=== PATIENT | female | born 1955 | race Caucasian/White ===

== ENCOUNTER → 2018-01-01 | Outpatient (CLI) | payer BC | END | disposition home or self-care (01) | LOC: LABWHC1 12:33 | PROVIDERS: ATTEND Nurse Practitioner Acute Care | DX: G89.4 Chronic pain syndrome (principal); Z79.891 Long term (current) use of opiate analgesic | CPT/HCPCS: 80307; 80346; 80364; 80375 ==

== ENCOUNTER → 2018-01-31 | Outpatient (CLI) | payer BC, MEDICARE | END | disposition home or self-care (01) | LOC: LABWHC1 13:25 | PROVIDERS: ATTEND Nurse Practitioner Acute Care | DX: G89.4 Chronic pain syndrome (principal); Z79.891 Long term (current) use of opiate analgesic | CPT/HCPCS: 80307; 80324; 80345; 80346; 80356; 80364; 80372 ==

== ENCOUNTER 2018-03-25 16:29 | Emergency (ER) | payer BC, MEDICARE ==
[2018-03-25 16:44] VITALS: BP 181/76; PULSE 79; RESP 20; TEMP 98.2
[2018-03-25] MEDS ORDERED: oxyCODONE-APAP 7.5-325MG 1 EACH TAB PO STA (17:06)
[2018-03-25] MEDS ORDERED: PREGABALIN 100 MG CAP PO STA (17:06)
--- NOTE | 2018-03-25 17:15 | ED ---
Back Pain HPI - General Chief Complaint: Back Pain/Injury Stated Complaint: chronic back pain Time Seen by Provider: 03/25/18 17:05 Source: patient, RN notes reviewed Limitations: no limitations - History of Present Illness Initial Comments: This is a 62-year-old female past medical history of chronic low back pain and fibromyalgia who follows Dr. Zelaya for pain management. Patient states that for the past 2 months her low back pain has been worsening, but she has been following this with Dr. Zelaya who is currently prescribing her Percocet and MS Contin along with Lyrica for her fibromyalgia and chronic low back pain. Patient states that she has a referral for MRI, and needs to schedule the appointment. Pt is running low on her pain medications and is out of her lyrica and presented today requesting medication until refill next Saturday. Pt denies any loss of bladder or bowel control, fever, chills, night sweats, hx of cancer , hx of TB, recent weight loss, IVDU, recent fall or trauma, change in characteristic of chronic back pain, loss of sensation of her lower extremities , dysuria, urgency, frequency, chest pain, dizziness, shortness of breath or abdominal pain. Pt states that she has tingling of the legs b/l but this is her baseline from her fibromyalgia. Pt states that she took her percocet and MS cotton at 4am this morning. - Related Data Previous Rx's Medication Instructions Recorded Diclofenac Sodium [Voltaren] 50 mg PO TID 3 Days #9 tablet. 03/25/18 Allergies Allergy/AdvReac Type Severity Reaction Status Date / Time No Known Allergies Allergy Verified 03/25/18 16:51 Review of Systems ROS Statement: Those systems with pertinent positive or pertinent negative responses have been documented in the HPI. ROS Other: All systems not noted in ROS Statement are negative. Constitutional: Denies: fever, chills, weakness, weight change, night sweats ENT: Denies: ear pain, throat pain Respiratory: Denies: cough, dyspnea, wheezes, hemoptysis, stridor Cardiovascular: Denies: chest pain, palpitations, dyspnea on exertion, orthopnea , edema Endocrine: Denies: fatigue Gastrointestinal: Denies: abdominal pain, nausea, vomiting, diarrhea, constipation Genitourinary: Denies: urgency, dysuria, frequency, hematuria Musculoskeletal: Reports: as per HPI, back pain, myalgia Skin: Denies: rash, lesions Neurological: Reports: paresthesias. Denies: headache, weakness, numbness, confusion, abnormal gait Past Medical History Past Medical History: Fibromyalgia Additional Past Medical History / Comment(s): chronic back pain, Back Injury 9 years ago History of Any Multi-Drug Resistant Organisms: None Reported Past Surgical History: No Surgical Hx Reported Past Psychological History: Anxiety, Depression Smoking Status: Current every day smoker Past Alcohol Use History: None Reported Past Drug Use History: None Reported General Exam - General Exam Comments Initial Comments: General: The patient is awake and alert, in no distress, and does not appear acutely ill. Eye: Pupils are equal, round and reactive to light, extra-ocular movements are intact. No nystagmus. There is normal conjunctiva bilaterally. No signs of icterus. Ears, nose, mouth and throat: There are moist mucous membranes and no oral lesions. Neck: The neck is supple, there is no tenderness or JVD. Cardiovascular: There is a regular rate and rhythm. No murmur, rub or gallop is appreciated. Respiratory: Lungs are clear to auscultation, respirations are non-labored, breath sounds are equal. No wheezes, stridor, rales, or rhonchi. Musculoskeletal: Pt refused to fully range back during exam, however she flexed forward to get into the hospital bed and then extended to lay down without difficulty. Pt able to fully weight bear during the ambulation. Strength 5/5 of the LE b/l. Sensation intact b/l equally. Pulses equal bilaterally 2+. Positive straight leg raise bilaterally. No saddle paresthesias or anesthesia. Neurological: A&O x 3. CN II-XII intact, There are no obvious motor or sensory deficits. Coordination appears grossly intact. Speech is normal. Skin: Skin is warm and dry and no rashes or lesions are noted. Psychiatric: Cooperative, appropriate mood & affect, normal judgment. Limitations: no limitations Course Vital Signs 03/25/18 16:40 Temperature 98.2 F Pulse Rate 79 Respiratory 20 Rate Blood Pressure 181/76 O2 Sat by Pulse 95 Oximetry Medical Decision Making - Medical Decision Making 62-year-old female with past medical history of chronic low back pain presents today for chief complaint of I have severe low back pain and I am out of my meds. Patient refused imaging her back, stating that she could not tolerate it and does not think that there will be a change from previous imaging. She states that she will attend her MRI that she has scheduled. She is requesting pain medication at this time. I discussed the case in detail with Dr. Vargas. We administers patient's home medication of Percocet and Lyrica. Patient was requesting her osteoarthritis medication stating that she has been out of it. At this time we feel that patient's low back pain is chronic in nature, there is no history of new trauma or fall. Patient follows neurology consistently for pain management and evaluation. Today patient has no evidence of neurovascular compromise or cauda equina syndrome. Given no change in characteristic, I have low suspicion for cardiac, renal or abdominal cause of her low back pain. I discussed with patient that because she has prescriptions for opioids at home that I will not be sending her home with further pain medication and that she will need to follow-up with Dr. Zelaya for further pain management. Patient agreed with this plan, as stated that she just wanted something for pain today. I did give patient prescription for her osteoarthritis medication, and I educated her on the importance of not using alcohol with this medication. Patient was discharged in stable condition. Disposition Clinical Impression: Chronic low back pain, Medication requested Disposition: HOME SELF-CARE Condition: Good Instructions: Chronic Back Pain (ED) Additional Instructions: Please use medication as discussed, no alcohol use with Diclofenac. Please follow-up with Dr. Zelaya in 1-2 days. Please return to emergency room if the symptoms increase or worsen or for any other concerns as discussed. Prescriptions: Diclofenac Sodium [Voltaren] 50 mg PO TID 3 Days #9 tablet.dr Is patient prescribed a controlled substance at d/c from ED?: No Referrals: None,Stated [Primary Care Provider] - 1-2 days Maryam Zelaya MD [STAFF PHYSICIAN] - 1-2 days Time of Disposition: 17:15
== END 2018-03-25 18:17 | disposition home or self-care (01) ==
LOC: EC 16:29
DX: G89.29 Other chronic pain (principal); M54.5 Low back pain; Z76.0 Encounter for issue of repeat prescription; M79.7 Fibromyalgia; F17.200 Nicotine dependence, unspecified, uncomplicated
CPT/HCPCS: 99283

== ENCOUNTER → 2019-04-06 | Outpatient (CLI) | payer MEDICARE, BC | END | disposition home or self-care (01) | LOC: LABWHC1 12:07 | PROVIDERS: ATTEND Nurse Practitioner Acute Care | DX: I49.9 Cardiac arrhythmia, unspecified (principal) | CPT/HCPCS: 36415; 93005 ==

== ENCOUNTER 2019-08-26 10:56 | Inpatient (IN) | payer MEDICARE, BC ==
[2019-08-26] MEDS ORDERED: SODIUM CHLORIDE 0.9% 1,000 ML IV STA ×3 (11:08→13:52)
[2019-08-26] MEDS ORDERED: SODIUM CHLORIDE 0.9% 500 ML 500 ML IV STA (11:08)
[2019-08-26] MEDS ORDERED: ONDANSETRON 4 MG/2 ML VIAL IVP STA (11:08)
--- NOTE | 2019-08-26 11:12 | ED ---
Altered Mental Status HPI - General Chief Complaint: Altered Mental Status Stated Complaint: weakness, dehydration Time Seen by Provider: 08/26/19 11:08 Source: patient, family Mode of arrival: wheelchair Limitations: no limitations - History of Present Illness Initial Comments: This is a 64-year-old female here for evaluation. This patient presents today for evaluation of weakness diarrhea nausea vomiting and not feeling well. Maybe occasional fever and chills. No recent medication changes. No known significant sick contacts MD Complaint: altered mental status, confusion, weakness -: week(s) Severity: moderate Consistency of Symptoms: getting worse Context: history of similar presentation Associated Symptoms: malaise, nausea/vomiting, weakness, diarrhea - Related Data Previous Rx's Medication Instructions Recorded Diclofenac Sodium [Voltaren] 50 mg PO TID 3 Days #9 tablet. 03/25/18 Allergies Allergy/AdvReac Type Severity Reaction Status Date / Time No Known Allergies Allergy Verified 08/26/19 11:03 Review of Systems ROS Statement: Those systems with pertinent positive or pertinent negative responses have been documented in the HPI. ROS Other: All systems not noted in ROS Statement are negative. Past Medical History Past Medical History: Fibromyalgia Additional Past Medical History / Comment(s): chronic back pain, Back Injury 9 years ago History of Any Multi-Drug Resistant Organisms: None Reported Past Surgical History: No Surgical Hx Reported Past Psychological History: Anxiety, Depression Smoking Status: Current every day smoker Past Alcohol Use History: None Reported Past Drug Use History: None Reported General Exam Limitations: no limitations Course Vital Signs 08/26/19 08/26/19 08/26/19 10:58 11:17 11:30 Temperature 98.0 F Pulse Rate 67 66 Respiratory 18 23 18 Rate Blood Pressure 130/78 132/70 O2 Sat by Pulse 98 89 L Oximetry 08/26/19 08/26/19 08/26/19 12:00 12:30 13:00 Temperature Pulse Rate 59 L 70 60 Respiratory 16 16 20 Rate Blood Pressure 146/74 134/71 147/73 O2 Sat by Pulse 95 93 L 98 Oximetry 08/26/19 08/26/19 13:30 13:35 Temperature Pulse Rate 59 L 59 L Respiratory 18 20 Rate Blood Pressure 149/69 147/69 O2 Sat by Pulse 100 Oximetry - Reevaluation(s) Reevaluation #1: 08/26/19 14:46 Medical records reviewed Reevaluation #2: 08/26/19 14:47 Patient showed no clinical improvement here in the ER - Consultations Consultation #1: spoke w Faby doctor concrete rubber Sharan she was agreeable to admit Medical Decision Making - Medical Decision Making 64 female DF for significant evaluation of altered mental status fever urinary tract infection, with bilateral pneumonia. Patient has had persistent diarrhea gastritis. We'll admit for rehydration and IV antibiotics - Lab Data Result diagrams: 08/26/19 11:38 08/26/19 11:38 Lab Results 08/26/19 08/26/19 08/26/19 Range/Units 11:38 11:38 11:38 WBC 5.6 (3.8-10.6) k/uL RBC 4.26 (3.80-5.40) m/uL Hgb 12.4 (11.4-16.0) gm/dL Hct 35.5 (34.0-46.0) % MCV 83.3 (80.0-100.0) fL MCH 29.2 (25.0-35.0) pg MCHC 35.0 (31.0-37.0) g/dL RDW 13.8 (11.5-15.5) % Plt Count 191 (150-450) k/uL Neutrophils % (Manual) 69 % Lymphocytes % (Manual) 17 % Monocytes % (Manual) 14 % Neutrophils # (Manual) 3.86 (1.3-7.7) k/uL Lymphocytes # (Manual) 0.95 L (1.0-4.8) k/uL Monocytes # (Manual) 0.78 (0-1.0) k/uL Nucleated RBCs 0 (0-0) /100 WBC Manual Slide Review Performed PT (9.0-12.0) sec INR (<1.2) APTT (22.0-30.0) sec Sodium 145 (137-145) mmol/L Potassium 2.9 L (3.5-5.1) mmol/L Chloride 111 H (98-107) mmol/L Carbon Dioxide 25 (22-30) mmol/L Anion Gap 9 mmol/L BUN 20 H (7-17) mg/dL Creatinine 0.50 L (0.52-1.04) mg/dL Est GFR (CKD-EPI)AfAm >90 (>60 ml/min/1.73 sqM) Est GFR (CKD-EPI)NonAf >90 (>60 ml/min/1.73 sqM) Glucose 155 H (74-99) mg/dL Plasma Lactic Acid Alex 1.5 (0.7-2.0) mmol/L Calcium 9.1 (8.4-10.2) mg/dL Phosphorus 1.3 L (2.5-4.5) mg/dL Magnesium 2.3 (1.6-2.3) mg/dL Total Bilirubin 1.4 H (0.2-1.3) mg/dL AST 226 H (14-36) U/L ALT 86 H (4-34) U/L Alkaline Phosphatase 148 H (38-126) U/L Creatine Kinase 1441 H* (30-135) U/L Troponin I (0.000-0.034) ng/mL Total Protein 6.6 (6.3-8.2) g/dL Albumin 3.9 (3.5-5.0) g/dL Urine Color Urine Appearance (Clear) Urine pH (5.0-8.0) Ur Specific [place] (1.001-1.035) Urine Protein (Negative) Urine Glucose (UA) (Negative) Urine Ketones (Negative) Urine Blood (Negative) Urine Nitrite (Negative) Urine Bilirubin (Negative) Urine Urobilinogen (<2.0) mg/dL Ur Leukocyte Esterase (Negative) Urine RBC (0-5) /hpf Urine WBC (0-5) /hpf Ur Squamous Epith Cells (0-4) /hpf Urine Bacteria (None) /hpf Urine Mucus (None) /hpf 08/26/19 08/26/19 08/26/19 Range/Units 11:38 11:38 11:49 WBC (3.8-10.6) k/uL RBC (3.80-5.40) m/uL Hgb (11.4-16.0) gm/dL Hct (34.0-46.0) % MCV (80.0-100.0) fL MCH (25.0-35.0) pg MCHC (31.0-37.0) g/dL RDW (11.5-15.5) % Plt Count (150-450) k/uL Neutrophils % (Manual) % Lymphocytes % (Manual) % Monocytes % (Manual) % Neutrophils # (Manual) (1.3-7.7) k/uL Lymphocytes # (Manual) (1.0-4.8) k/uL Monocytes # (Manual) (0-1.0) k/uL Nucleated RBCs (0-0) /100 WBC Manual Slide Review PT 9.6 (9.0-12.0) sec INR 0.9 (<1.2) APTT 22.4 (22.0-30.0) sec Sodium (137-145) mmol/L Potassium (3.5-5.1) mmol/L Chloride (98-107) mmol/L Carbon Dioxide (22-30) mmol/L Anion Gap mmol/L BUN (7-17) mg/dL Creatinine (0.52-1.04) mg/dL Est GFR (CKD-EPI)AfAm (>60 ml/min/1.73 sqM) Est GFR (CKD-EPI)NonAf (>60 ml/min/1.73 sqM) Glucose (74-99) mg/dL Plasma Lactic Acid Alex (0.7-2.0) mmol/L Calcium (8.4-10.2) mg/dL Phosphorus (2.5-4.5) mg/dL Magnesium (1.6-2.3) mg/dL Total Bilirubin (0.2-1.3) mg/dL AST (14-36) U/L ALT (4-34) U/L Alkaline Phosphatase (38-126) U/L Creatine Kinase (30-135) U/L Troponin I 1.030 H* (0.000-0.034) ng/mL Total Protein (6.3-8.2) g/dL Albumin (3.5-5.0) g/dL Urine Color Dark Yellow Urine Appearance Turbid H (Clear) Urine pH 6.0 (5.0-8.0) Ur Specific [place] 1.026 (1.001-1.035) Urine Protein 2+ H (Negative) Urine Glucose (UA) Negative (Negative) Urine Ketones 1+ H (Negative) Urine Blood Moderate H (Negative) Urine Nitrite Positive H (Negative) Urine Bilirubin 1+ H (Negative) Urine Urobilinogen 2.0 (<2.0) mg/dL Ur Leukocyte Esterase Moderate H (Negative) Urine RBC 6 H (0-5) /hpf Urine WBC 6 H (0-5) /hpf Ur Squamous Epith Cells 3 (0-4) /hpf Urine Bacteria Occasional H (None) /hpf Urine Mucus Many H (None) /hpf - EKG Data -: EKG Interpreted by Me (EKG shows sinus hythmia 67, VA 122, QRS 96, QTC 486) - Radiology Data Radiology results: report reviewed (Chest x-ray shows bilateral pneumonia), image reviewed Critical Care Time Critical Care Time: Yes Total Critical Care Time: 31 Disposition Clinical Impression: Altered mental status, UTI (urinary tract infection), Bilateral pneumonia Disposition: ADMITTED IP TO THIS HOSP Is patient prescribed a controlled substance at d/c from ED?: No Referrals: None,Stated [REFERRING] - 1-2 days
[2019-08-26 11:55] LABS: HCT 35.5 % (34.0-46.0); HGB 12.4 gm/dL (11.4-16.0); MCH 29.2 pg (25.0-35.0); MCV 83.3 fL (80.0-100.0); Mean Platelet Volume 8.3; Platelet Count 191 k/uL (150-450); RBC 4.26 m/uL (3.80-5.40); RDW 13.8 % (11.5-15.5); WBC 5.6 k/uL (3.8-10.6)
[2019-08-26 11:58] LABS: INR 0.9 (<1.2); Partial Thromboplastin Time 22.4 sec (22.0-30.0); Prothrombin Time 9.6 sec (9.0-12.0)
[2019-08-26 12:03] LABS: ALT 86 U/L (4-34); AST 226 U/L (14-36); African American GFR (CKD) >90 (>60 ml/min/1.73 sqM); Albumin 3.9 g/dL (3.5-5.0); Alkaline Phosphatase 148 U/L (38-126); Anion Gap 9 mmol/L; Blood Urea Nitrogen 20 mg/dL (7-17); Calcium 9.1 mg/dL (8.4-10.2); Carbon Dioxide 25 mmol/L (22-30); Chloride 111 mmol/L (98-107); Glucose 155 mg/dL (74-99); Magnesium 2.3 mg/dL (1.6-2.3); Non-African American GFR(CKD) >90 (>60 ml/min/1.73 sqM); Phosphorus 1.3 mg/dL (2.5-4.5); Potassium 2.9 mmol/L (3.5-5.1); Sodium 145 mmol/L (137-145); Total Bilirubin 1.4 mg/dL (0.2-1.3); Total Protein 6.6 g/dL (6.3-8.2)
[2019-08-26 12:11] LABS: Appearance,Urine Turbid (Clear); Bacteria,Urine Occasional /hpf; Bilirubin,Urine 1+ (Negative); Blood,Urine Moderate (Negative); Color,Urine Dark Yellow; Glucose,Urine (UA) Negative (Negative); Ketones,Urine 1+ (Negative); Leukocyte Esterase,Urine Moderate (Negative); Mucus,Urine Many /hpf; Nitrite,Urine Positive (Negative); Protein,Urine 2+ (Negative); RBC,Urine 6 /hpf (0-5); Specific Gravity,Urine 1.026 (1.001-1.035); Squamous Epithelial Cell,Urine 3 /hpf (0-4); WBC,Urine 6 /hpf (0-5)
[2019-08-26 12:13] LABS: Creatine Kinase 1441 U/L (30-135)
[2019-08-26 12:18] LABS: Lymphocytes # (M) 0.95 k/uL (1.0-4.8); Monocytes # (M) 0.78 k/uL (0-1.0); Neutrophils # (M) 3.86 k/uL (1.3-7.7); Neutrophils % (M) 69 %; Nucleated Red Blood Cells 0 /100 WBC (0-0); Total Cells Counted 100
--- NOTE | 2019-08-26 13:39 | CT ---
EXAMINATION TYPE: CT brain wo con DATE OF EXAM: 08/26/2019 COMPARISON: None HISTORY: Confusion CT DLP: 1117.4 mGycm Automated exposure control for dose reduction was used. TECHNIQUE: CT scan of the head is performed without contrast. FINDINGS: There is no acute intracranial hemorrhage or midline shift identified. There is diffuse v entricular and sulcal prominence consistent with diffuse age-related cerebral atrophy. There is low- attenuation in the periventricular white matter consistent with chronic small vessel ischemic change. The globes are intact. There is mild mucosal thickening of the maxillary and sphenoid sinuses. IMPRESSION: No acute intracranial hemorrhage or midline shift. Mild paranasal sinus disease.
[2019-08-26] MEDS ORDERED: POTASSIUM BICARBONATE/CIT AC 20 MEQ TABLET.EFF PO ONE ×2 (13:53→15:20)
--- NOTE | 2019-08-26 14:38 | XR ---
EXAMINATION TYPE: XR abdomen acute w cxr DATE OF EXAM: 08/26/2019 COMPARISON: 07/29/2019 chest x-ray HISTORY: Cough. Weakness. TECHNIQUE: 4 views including chest x-ray and supine and upright abdomen FINDINGS: The chest x-ray shows patchy bilateral pulmonary airspace infiltrates. There is no pleural effusion. There is no sign of intestinal obstruction or pneumoperitoneum. Fecal pattern is normal. There is no evidence of a mass. There are no pathologic calcifications over the kidneys. IMPRESSION: Nonacute abdomen. There is bilateral airspace pneumonia that is new compared to old exam.
[2019-08-26] MEDS ORDERED: LEVOFLOXACIN 750MG-D5W PMX 750 MG in DEXTROSE/WATER 1 150ML.BAG IVPB STA (14:42)
[2019-08-26] MEDS ORDERED: PIPERACILLIN-TAZOBACTAM 3.375 GM in SODIUM CHLORIDE 0.9% 100 ML IVPB STA (14:42)
[2019-08-26] MEDS ORDERED: PNEUMONIA PROTOCOL UTILIZED 1 EACH MISC PO PRN (14:42)
[2019-08-26] MEDS ORDERED: SODIUM CHLORIDE 0.9% 1,000 ML IV SCH ×2 (14:45)
[2019-08-26] MEDS ORDERED: MORPHINE SULFATE ER 15 MG TABLET PO SCH (17:05)
[2019-08-26] MEDS ORDERED: HEPARIN SODIUM,PORCINE 5,000 UNIT/ML 1 ML VIAL IV ONE (17:11)
[2019-08-26] MEDS ORDERED: HEPARIN SODIUM,PORCINE 5,000 UNIT/ML 1 ML VIAL IV PRN (17:11)
[2019-08-26] MEDS ORDERED: HEPARIN SOD,PORK IN 0.45% NACL 25,000 UNIT in 0.45% NACL 1 250ML.BAG IV SCH (17:15)
[2019-08-26] MEDS: MORPHINE SULFATE ER 15 MG TABLET PO SCH (17:19)
[2019-08-26] MEDS: ASPIRIN 81 MG PO SCH (17:26)
[2019-08-26] MEDS: LACTATED RINGERS 1,000 ML IV SCH (17:27)
[2019-08-26 17:28] LABS: HCT 34.9 % (34.0-46.0); HGB 11.6 gm/dL (11.4-16.0); MCH 28.4 pg (25.0-35.0); MCHC 33.1 g/dL (31.0-37.0); MCV 85.7 fL (80.0-100.0); Mean Platelet Volume 8.5; Platelet Count 180 k/uL (150-450); RBC 4.07 m/uL (3.80-5.40); RDW 13.9 % (11.5-15.5); WBC 4.5 k/uL (3.8-10.6)
[2019-08-26] MEDS: IPRATROPIUM-ALBUTEROL 3 ML NEB INHALATION SCH ×2 (17:28→19:26)
[2019-08-26] MEDS ORDERED: MORPHINE SULFATE ER 30 MG TABLET PO SCH (17:30)
[2019-08-26] MEDS ORDERED: METOPROLOL TARTRATE 25 MG TAB PO SCH (18:00)
[2019-08-26 18:17] LABS: Lymphocytes # (M) 1.98 k/uL (1.0-4.8); Monocytes # (M) 0.45 k/uL (0-1.0); Neutrophils # (M) 2.07 k/uL (1.3-7.7); Neutrophils % (M) 46 %; Nucleated Red Blood Cells 0 /100 WBC (0-0); Total Cells Counted 100
[2019-08-26 18:34] LABS: Reactive Lymphocytes Present
[2019-08-26 18:38] LABS: Erythrocyte Sedimentation Rate 48 mm/hr (0-20)
[2019-08-26] MEDS ORDERED: ATORVASTATIN 40 MG TAB PO SCH (21:00)
[2019-08-26] MEDS ORDERED: PREGABALIN 75 MG CAP PO SCH (21:00)
[2019-08-26] MEDS: oxyCODONE-APAP 7.5-325MG 1 EACH TAB PO PRN (23:30)
[2019-08-27] MEDS ORDERED: PIPERACILLIN-TAZOBACTAM 3.375 GM in SODIUM CHLORIDE 0.9% 100 ML IVPB SCH ×2
[2019-08-27] MEDS ORDERED: POTASSIUM CHLORIDE ER 20 MEQ TAB.ER PO STA (00:18)
[2019-08-27] MEDS: POTASSIUM CHLORIDE 10 MEQ in WATER FOR INJECTION 1 100ML.BAG IVPB SCH ×4 (00:36→04:40)
[2019-08-27 05:18] LABS: ABG Base Excess 0.8 mmol/L; ABG HCO3 25 mmol/L (21-25); ABG Oxygen Saturation 92.8 % (94-97); ABG PCO2 35 mmHg (35-45); ABG PH 7.46 (7.35-7.45); ABG PO2 65 mmHg (83-108); ABG TCO2 26 mmol/L (19-24); Allen Test Performed? Yes
--- NOTE | 2019-08-27 05:32 | XR ---
EXAMINATION TYPE: XR chest 1V portable DATE OF EXAM: 08/27/2019 COMPARISON: 07/29/2019 HISTORY: Cough TECHNIQUE: Single view FINDINGS: There is patchy pulmonary edema. Heart appears enlarged. There are chest leads. IMPRESSION: There is new patchy pulmonary edema compared to last exam that could relate to congestive heart failure or RDS.
[2019-08-27] MEDS: LACTATED RINGERS 1,000 ML IV SCH (06:05)
[2019-08-27 06:09] LABS: HCT 30.9 % (34.0-46.0); HGB 10.6 gm/dL (11.4-16.0); MCH 29.4 pg (25.0-35.0); MCHC 34.2 g/dL (31.0-37.0); MCV 85.9 fL (80.0-100.0); Mean Platelet Volume 8.1; Platelet Count 193 k/uL (150-450); RBC 3.59 m/uL (3.80-5.40); RDW 14.1 % (11.5-15.5); WBC 6.3 k/uL (3.8-10.6)
[2019-08-27 06:30] LABS: Neutrophils % (M) 68 %; Nucleated Red Blood Cells 0 /100 WBC (0-0); Reactive Lymphocytes Present; Total Cells Counted 100
[2019-08-27 06:45] LABS: ALT 83 U/L (4-34); AST 122 U/L (14-36); African American GFR (CKD) >90 (>60 ml/min/1.73 sqM); Alkaline Phosphatase 110 U/L (38-126); Anion Gap 6 mmol/L; Blood Urea Nitrogen 19 mg/dL (7-17); Calcium 8.2 mg/dL (8.4-10.2); Carbon Dioxide 25 mmol/L (22-30); Chloride 115 mmol/L (98-107); Creatine Kinase 870 U/L (30-135); Glucose 121 mg/dL (74-99); Magnesium 2.2 mg/dL (1.6-2.3); Non-African American GFR(CKD) >90 (>60 ml/min/1.73 sqM); Phosphorus 1.6 mg/dL (2.5-4.5); Sodium 146 mmol/L (137-145); Total Bilirubin 0.7 mg/dL (0.2-1.3); Total Protein 5.4 g/dL (6.3-8.2)
[2019-08-27] MEDS ORDERED: BUMETANIDE 0.25 MG/ML 4 ML VIAL IVP STA (06:59)
--- NOTE | 2019-08-27 07:07 | P.HPIM ---
History of Present Illness Chief Complaint: Generalized weakness This is a 64-year-old female who has history of fibromyalgia and smoking presenting with generalized weakness and malaise. She is accompanied by her who helped with history. During interview patient seemed quite uncomfortable, anxious and jittery , unable to find comfortable position constantly moving in the bed. She denied any pain in her muscles or joints or back. She is oriented to time and place recognizes her although her some of her answers are low but slower. When I ask if she feels uncomfortable for any reason she stated that she does not have any particular reason. History begins 3 weeks ago when patient developed URI like symptoms and was d iagnosed with acute bronchitis. She was treated with steroids, amoxicillin and bronchodilators on outpatient basis. She was also prescribed anti-tusics, per her Robitussin with codeine. Patient has a history of smoking one pack a day since 5 years ago. She also has history of fibromyalgia and she's been taking MS Contin around the clock, Percocet when necessary and Lyrica for more than a year now. Initially of above-mentioned acute respiratory illness improved although she persisted with nonproductive cough. About a week prior to this admission her cough worsened and became minimally productive of yellow sputum and she started having again malaise, chills and subjective fever. Over this last week and her noticed temperature of 100. She did not have any shortness of breath or subjective feeling of wheezing. She started feeling very weak and tired. Her appetite declined and she stop her MS Contin, Percocet and Lyrica about a week ago. 3 days prior to admission she started having loose bowel movements that worsen and on day of admission she was having multiple watery bowel movements without any blood mucus abdominal pain or tenesmus. She also started feeling anxious and uncomfortable restless jittery with some changes in mentation. Per she was not lethargic or sleepy, just didn't look right per him. Patient otherwise denied any recent traveling, hospitalization, water exposure, headache, photophobia, neck pain, sick contacts, abdominal pain, back pain, hematuria, muscle or joint aches. Patient did not have a flu vaccination this year. In emergency department blood work was notable for normal white cell count, potassium of 2.9 with normal magnesium and depressed phosphorus. CPK was elevated at 1440 and first troponin of 1.003. EKG showed normal sinus rhythm with T-wave inversion in precordial leads that was present on previous EKGs. Acute abdominal series showed infiltrates in the right upper lobe and the left base consistent with pneumonia per radiology. Abdominal portion showed normal findings without any obstruction or air-fluid levels or bowel dilation. Patient received about 2 L of normal saline, ceftriaxone, levofloxacin and Zosyn. As mentioned past history significant for smoking that patient started 5 years ago and now smoking 1 pack a day. She was never diagnosed with asthma or any other bronchoobstructive respiratory illness. Also she never had any known heart problems no history of stress test or evaluation by cardiology. Review of Systems Review of systems in detail was performed with the patient and pertinent positives are mentioned in HPI Past Medical History Past Medical History: Fibromyalgia Additional Past Medical History / Comment(s): chronic back pain, Back Injury 9 years ago History of Any Multi-Drug Resistant Organisms: None Reported Past Surgical History: No Surgical Hx Reported Past Psychological History: Anxiety, Depression Smoking Status: Current every day smoker Past Alcohol Use History: None Reported Past Drug Use History: None Reported Medications and Allergies Home Medications Medication Instructions Recorded Confirmed Type Meloxicam 15 mg PO DAILY 08/26/19 08/26/19 History Morphine Sulfate ER [Ms Contin] 15 mg PO Q12HR 08/26/19 08/26/19 History Morphine Sulfate ER [Ms Contin] 30 mg PO Q12HR 08/26/19 08/26/19 History Pregabalin [Lyrica] 225 mg PO BID 08/26/19 08/26/19 History Sertraline [Zoloft] 100 mg PO DAILY 08/26/19 08/26/19 History oxyCODONE-APAP 7.5-325MG [Percocet 1 tab PO BID PRN 08/26/19 08/26/19 History 7.5-325 mg] tiZANidine HCL 4 mg PO BID PRN 08/26/19 08/26/19 History Allergies Allergy/AdvReac Type Severity Reaction Status Date / Time No Known Allergies Allergy Verified 08/26/19 14:48 Physical Exam Vitals: Vital Signs Temp Pulse Resp BP Pulse Ox 08/26/19 15:00 60 23 142/80 92 L 08/26/19 14:30 62 21 143/61 89 L 08/26/19 14:01 58 L 20 147/69 93 L 08/26/19 13:35 59 L 20 147/69 100 08/26/19 13:30 59 L 18 149/69 08/26/19 13:00 60 20 147/73 98 08/26/19 12:30 70 16 134/71 93 L 08/26/19 12:00 59 L 16 146/74 95 08/26/19 11:30 66 18 132/70 89 L 08/26/19 11:17 23 08/26/19 10:58 98.0 F 67 18 130/78 98 Intake and Output 08/26/19 08/26/19 08/26/19 06:59 14:59 22:59 Other: Weight 90.718 kg Vital Signs: I have reviewed the vital signs. GENERAL: Well-nourished, Well-developed , cooperative: Appears uncomfortable jittery and anxious constantly moving in the bed, answering questions aproperly Eyes: PERRL, extraoculry movements intact, clear conjunctiva, no lead leg, no periorbital swelling, shaking had [id number] does not elicit any headache Head: : Atraumatic external nose and ears, oropharyngeal mucosa is moist without lesions or exudates Neck: No neck tenderness, range of motion is preserved, Symmetric, trachea midline, No thyromegaly, no masses or neck vain pulsation, no neck rigidity CVS: +S1/S2, No murmurs or gallops. Peripheral pulses 2+ and equal in all extremities. RESP: Unlabored respiratory effort. Breath sounds are present throughout, she has crackles in both bases and the right upper lung field, no rhonchi or wheezing. Abdomen: Bowel sounds present in all 4 quadrants, Soft to palpation, Nontender/Nondistended, No hepatosplenomegaly, no hernias or masses, no CVA tnderness Musculoskeletal: Extremities w/o deformity, No cyanosis or clubbing, no joint swelling Skin: Warm, Dry. No rashes or lesions Neuro: porter sample case II-XII grossly intact, motor strenght 5/5 i upper and lower extremities, no clonus, patellar DTRs 2+ and sympetrical, no asterixis, finger to nose is intact Psych: Awake, Alert, & Oriented (AAO) x3 Results CBC & Chem 7: 08/26/19 17:10 08/26/19 11:38 Labs: Abnormal Lab Results - Last 24 Hours (Table) 08/26/19 08/26/19 08/26/19 Range/Units 11:38 11:38 11:38 Lymphocytes # (Manual) 0.95 L (1.0-4.8) k/uL Potassium 2.9 L (3.5-5.1) mmol/L Chloride 111 H (98-107) mmol/L BUN 20 H (7-17) mg/dL Creatinine 0.50 L (0.52-1.04) mg/dL Glucose 155 H (74-99) mg/dL Phosphorus 1.3 L (2.5-4.5) mg/dL Total Bilirubin 1.4 H (0.2-1.3) mg/dL AST 226 H (14-36) U/L ALT 86 H (4-34) U/L Alkaline Phosphatase 148 H (38-126) U/L Creatine Kinase 1441 H* (30-135) U/L Troponin I 1.030 H* (0.000-0.034) ng/mL Urine Appearance (Clear) Urine Protein (Negative) Urine Ketones (Negative) Urine Blood (Negative) Urine Nitrite (Negative) Urine Bilirubin (Negative) Ur Leukocyte Esterase (Negative) Urine RBC (0-5) /hpf Urine WBC (0-5) /hpf Urine Bacteria (None) /hpf Urine Mucus (None) /hpf 08/26/19 Range/Units 11:49 Lymphocytes # (Manual) (1.0-4.8) k/uL Potassium (3.5-5.1) mmol/L Chloride (98-107) mmol/L BUN (7-17) mg/dL Creatinine (0.52-1.04) mg/dL Glucose (74-99) mg/dL Phosphorus (2.5-4.5) mg/dL Total Bilirubin (0.2-1.3) mg/dL AST (14-36) U/L ALT (4-34) U/L Alkaline Phosphatase (38-126) U/L Creatine Kinase (30-135) U/L Troponin I (0.000-0.034) ng/mL Urine Appearance Turbid H (Clear) Urine Protein 2+ H (Negative) Urine Ketones 1+ H (Negative) Urine Blood Moderate H (Negative) Urine Nitrite Positive H (Negative) Urine Bilirubin 1+ H (Negative) Ur Leukocyte Esterase Moderate H (Negative) Urine RBC 6 H (0-5) /hpf Urine WBC 6 H (0-5) /hpf Urine Bacteria Occasional H (None) /hpf Urine Mucus Many H (None) /hpf Assessment and Plan Assessment: 1. Acute toxic metabolic encephalopathy This probably multifactorial, but main concern for this patient is actually opiate withdrawal. She appears restless and discomfort without any particular cause, and now with acute diarrhea. She abruptly stopped MS Contin, Percocet and Lyrica about 5-6 days ago. Obviously, comment illness has been contributory as well. CT of the head shows sinusitis no acute findings She does not have any headache, photophobia or neck discomfort. We will restart her home pain medications. RESTART at a lower dosing for now given acute illness. Septic workup Close monitoring Check TSH Patient's MAPS was reviewed. It is confirmed that patient has been on MS Contin, Percocet, Lyrica and recently prescribed Eloy and with codeine. Based on MAPS and confirmed with the patient and patient's , dose of MS Contin is 45 mg twice a day. All of this abruptly stopped about 5-6 days ago. 2. Community-acquired pneumonia after presumably viral URI I do not have any septic presentation, white blood cell count is normal vitals are normal lactic acid is normal This patient had URI about a week ago. Now she is presenting with somewhat worsening of respiratory symptoms malaise expectoration. Chest x-ray shows some bilateral infiltrates which is not clear if these are residual infiltrates from illness 3 weeks ago or new due to secondary bacterial pneumonia after viral illness . Also some of her symptoms probably contributed by opiate withdrawal. It is reasonable for now to continue antibiotics, levofloxacin. Blood cultures and sputum cultures. Pro calcitonin. Viral respiratory panel, if not available at least influenza. MRSA nasal screen. CRP and ESR. Legionella urine antigen. renal function is stable and no significant RBC, no edema, noting to indicate renal failure. No hempotysis as well. EKG showing normal QT Keep on telemetry Oxygen supplementation when necessary Pulmonary consultation 3. Acute watery diarrhea Etiology could include opiate withdrawals versus infectious, most notably C. diff due to recent exposure to amoxicillin. Currently patient is nontoxic- appearing and white blood cell count is normal, imaging of the abdomen is normal range We will order C. diff test of her stool 4. Hypokalemia and hypophosphatemia Replacement has been started and will re check her electrolytes this evening Patient will remain on telemetry 5. Rhabdomyolysis This is interesting finding. Patient is not on statins or any other medication to explain this. She denies any trauma. She does not have any muscle aches. This could be related to her hypokalemia and hypophosphatemia and probable contribution from recent viral illness. Given the history of long-standing fibromyalgia certainly inflammatory muscle disease should be considered. Check TSH 6. Elevated troponin This is another finding of concern Possibly patient had acute coronary event recently especially in the setting of recent pneumonia. Risk factors for coronary artery disease include age and gender obesity smoking Patient denies any shortness of breath or chest pain in the last 1 month Her EKG is unchanged from previous Plan is to obtain serial troponin, echocardiogram and cardiology consultation. I will start patient on aspirin, no statin due to rhabdo Cardiology has been paged and notified. If her troponin shows significant rising pattern may need to consider anticoagulation next line, again patient is currently quite asymptomatic but cannot rule out recent coronary event given her recent illness. She does have concomitant rhabdomyolysis but again I don't think that can't fu lly explain her troponin level. 7. UTI Patient complained of dysuria over the last couple days Blood cultures ordered We'll obtain urine cultures Continue antibiotics Check postvoiding residuals Patient is a full code is surrogate decision maker 2 or more midnights stay expected Time with Patient: Greater than 30
--- NOTE | 2019-08-27 07:47 | P.PN ---
Subjective Patient was seen and examined this. Discussed with nursing staff as well. Influenza a PCR came back positive. Patient was started on Tamiflu. She had increased oxygen requirement. Otherwise patient herself stating that she is feeling better subjectively. She remained afebrile. She states to be comfortable and hungry this morning. She denies any shortness of breath chest pain. She reports cough minimally productive of whitish sputum. No further diarrhea abdominal pain or musculoskeletal pain. She reports going to the bathroom to urinate 2 or 3 times overnight. She reports to be less anxious. Chest x-ray showed enlarged cardiac silhouette with findings of probable pulmonary edema. Objective - Vital Signs Vital signs: Vital Signs Temp 97.8 F 08/27/19 03:09 Pulse 51 L 08/27/19 05:05 Resp 10 L 08/27/19 05:52 BP 127/97 08/27/19 05:05 Pulse Ox 94 L 08/27/19 05:52 Intake & Output 08/26/19 08/27/19 08/27/19 18:59 06:59 18:59 Intake Total 519.727 Balance 519.727 Weight 90.718 kg 97 kg Intake: Intake, IV Titration 279.727 Amount Heparin Sod,Pork in 0.45% 129.727 NaCl 25,000 unit In 0.45 % NaCl 1 250ml.bag @ 11 UNITS/KG/HR 9.979 mls/hr IV .Q24H REVA Rx#: [id number] Lactated Ringers 1,000 ml 150 @ 75 mls/hr IV .[id number] REVA Rx#:[id number] Oral 240 Other: # Voids 1 1 - Exam Vital Signs: I have reviewed the vital signs. GENERAL: no apparent distress, cooperative, anxious appearing Eyes: PERRL, extraoculry movements intact, clear conjunctiva Head: : Atraumatic external nose and ears, oropharyngeal mucosa is moist without lesions or exudates Neck: Symmetric, trachea midline, No thyromegaly, no masses or neck vain pulsation, no neck rigidity CVS: +S1/S2, No murmurs or gallops. Peripheral pulses 2+ and equal in all extremities. RESP: Unlabored respiratory effort. Normal breath sounds throughout with B basilarly crackles no wheezing or rhonchi. Abdomen: Bowel sounds present in all 4 quadrants, Soft to palpation, Nontender/Nondistended, No hepatosplenomegaly, no hernias or masses, no CVA tnderness Musculoskeletal: Trace pedal edema in lower extremities, puffiness of her arms noted Skin: Warm, Dry. No rashes or lesions Neuro: crap game box person II-XII grossly intact, motor strenght 5/5 i upper and lower extremities, no clonus, patellar DTRs 2+ and sympetrical Psych: Awake, Alert, & Oriented (AAO) x3 - Labs CBC & Chem 7: 08/27/19 05:31 08/27/19 05:31 Labs: Abnormal Lab Results - Last 24 Hours (Table) 08/26/19 08/26/19 08/26/19 Range/Units 11:38 11:38 11:38 RBC (3.80-5.40) m/uL Hgb (11.4-16.0) gm/dL Hct (34.0-46.0) % Lymphocytes # (Manual) 0.95 L (1.0-4.8) k/uL ESR (0-20) mm/hr APTT (22.0-30.0) sec ABG pH (7.35-7.45) ABG pO2 (83-108) mmHg ABG Total CO2 (19-24) mmol/L ABG O2 Saturation (94-97) % Sodium (137-145) mmol/L Potassium 2.9 L (3.5-5.1) mmol/L Chloride 111 H (98-107) mmol/L BUN 20 H (7-17) mg/dL Creatinine 0.50 L (0.52-1.04) mg/dL Glucose 155 H (74-99) mg/dL Calcium (8.4-10.2) mg/dL Phosphorus 1.3 L (2.5-4.5) mg/dL Total Bilirubin 1.4 H (0.2-1.3) mg/dL AST 226 H (14-36) U/L ALT 86 H (4-34) U/L Alkaline Phosphatase 148 H (38-126) U/L Creatine Kinase 1441 H* (30-135) U/L Troponin I 1.030 H* (0.000-0.034) ng/mL C-Reactive Protein (<10.0) mg/L Total Protein (6.3-8.2) g/dL Albumin (3.5-5.0) g/dL Urine Appearance (Clear) Urine Protein (Negative) Urine Ketones (Negative) Urine Blood (Negative) Urine Nitrite (Negative) Urine Bilirubin (Negative) Ur Leukocyte Esterase (Negative) Urine RBC (0-5) /hpf Urine WBC (0-5) /hpf Urine Bacteria (None) /hpf Urine Mucus (None) /hpf Influenza Type A RNA (Not Detectd) 08/26/19 08/26/19 08/26/19 Range/Units 11:49 17:10 17:10 RBC (3.80-5.40) m/uL Hgb (11.4-16.0) gm/dL Hct (34.0-46.0) % Lymphocytes # (Manual) (1.0-4.8) k/uL ESR 48 H (0-20) mm/hr APTT (22.0-30.0) sec ABG pH (7.35-7.45) ABG pO2 (83-108) mmHg ABG Total CO2 (19-24) mmol/L ABG O2 Saturation (94-97) % Sodium (137-145) mmol/L Potassium (3.5-5.1) mmol/L Chloride (98-107) mmol/L BUN (7-17) mg/dL Creatinine (0.52-1.04) mg/dL Glucose (74-99) mg/dL Calcium (8.4-10.2) mg/dL Phosphorus (2.5-4.5) mg/dL Total Bilirubin (0.2-1.3) mg/dL AST (14-36) U/L ALT (4-34) U/L Alkaline Phosphatase (38-126) U/L Creatine Kinase (30-135) U/L Troponin I 0.905 H* (0.000-0.034) ng/mL C-Reactive Protein (<10.0) mg/L Total Protein (6.3-8.2) g/dL Albumin (3.5-5.0) g/dL Urine Appearance Turbid H (Clear) Urine Protein 2+ H (Negative) Urine Ketones 1+ H (Negative) Urine Blood Moderate H (Negative) Urine Nitrite Positive H (Negative) Urine Bilirubin 1+ H (Negative) Ur Leukocyte Esterase Moderate H (Negative) Urine RBC 6 H (0-5) /hpf Urine WBC 6 H (0-5) /hpf Urine Bacteria Occasional H (None) /hpf Urine Mucus Many H (None) /hpf Influenza Type A RNA (Not Detectd) 08/26/19 08/26/19 08/26/19 Range/Units 17:10 23:20 23:20 RBC (3.80-5.40) m/uL Hgb (11.4-16.0) gm/dL Hct (34.0-46.0) % Lymphocytes # (Manual) (1.0-4.8) k/uL ESR (0-20) mm/hr APTT (22.0-30.0) sec ABG pH (7.35-7.45) ABG pO2 (83-108) mmHg ABG Total CO2 (19-24) mmol/L ABG O2 Saturation (94-97) % Sodium (137-145) mmol/L Potassium 2.9 L (3.5-5.1) mmol/L Chloride (98-107) mmol/L BUN (7-17) mg/dL Creatinine (0.52-1.04) mg/dL Glucose (74-99) mg/dL Calcium (8.4-10.2) mg/dL Phosphorus (2.5-4.5) mg/dL Total Bilirubin (0.2-1.3) mg/dL AST (14-36) U/L ALT (4-34) U/L Alkaline Phosphatase (38-126) U/L Creatine Kinase (30-135) U/L Troponin I 0.761 H* (0.000-0.034) ng/mL C-Reactive Protein 27.4 H (<10.0) mg/L Total Protein (6.3-8.2) g/dL Albumin (3.5-5.0) g/dL Urine Appearance (Clear) Urine Protein (Negative) Urine Ketones (Negative) Urine Blood (Negative) Urine Nitrite (Negative) Urine Bilirubin (Negative) Ur Leukocyte Esterase (Negative) Urine RBC (0-5) /hpf Urine WBC (0-5) /hpf Urine Bacteria (None) /hpf Urine Mucus (None) /hpf Influenza Type A RNA (Not Detectd) 01/01/20 01/02/20 01/02/20 Range/Units 23:20 04:54 05:14 RBC (3.80-5.40) m/uL Hgb (11.4-16.0) gm/dL Hct (34.0-46.0) % Lymphocytes # (Manual) (1.0-4.8) k/uL ESR (0-20) mm/hr APTT 46.1 H (22.0-30.0) sec ABG pH 7.46 H (7.35-7.45) ABG pO2 65 L (83-108) mmHg ABG Total CO2 26 H (19-24) mmol/L ABG O2 Saturation 92.8 L (94-97) % Sodium (137-145) mmol/L Potassium (3.5-5.1) mmol/L Chloride (98-107) mmol/L BUN (7-17) mg/dL Creatinine (0.52-1.04) mg/dL Glucose (74-99) mg/dL Calcium (8.4-10.2) mg/dL Phosphorus (2.5-4.5) mg/dL Total Bilirubin (0.2-1.3) mg/dL AST (14-36) U/L ALT (4-34) U/L Alkaline Phosphatase (38-126) U/L Creatine Kinase (30-135) U/L Troponin I (0.000-0.034) ng/mL C-Reactive Protein (<10.0) mg/L Total Protein (6.3-8.2) g/dL Albumin (3.5-5.0) g/dL Urine Appearance (Clear) Urine Protein (Negative) Urine Ketones (Negative) Urine Blood (Negative) Urine Nitrite (Negative) Urine Bilirubin (Negative) Ur Leukocyte Esterase (Negative) Urine RBC (0-5) /hpf Urine WBC (0-5) /hpf Urine Bacteria (None) /hpf Urine Mucus (None) /hpf Influenza Type A RNA Detected H (Not Detectd) 08/27/19 08/27/19 08/27/19 Range/Units 05:31 05:31 05:31 RBC 3.59 L (3.80-5.40) m/uL Hgb 10.6 L (11.4-16.0) gm/dL Hct 30.9 L (34.0-46.0) % Lymphocytes # (Manual) (1.0-4.8) k/uL ESR (0-20) mm/hr APTT 48.0 H (22.0-30.0) sec ABG pH (7.35-7.45) ABG pO2 (83-108) mmHg ABG Total CO2 (19-24) mmol/L ABG O2 Saturation (94-97) % Sodium 146 H (137-145) mmol/L Potassium (3.5-5.1) mmol/L Chloride 115 H (98-107) mmol/L BUN 19 H (7-17) mg/dL Creatinine 0.51 L (0.52-1.04) mg/dL Glucose 121 H (74-99) mg/dL Calcium 8.2 L (8.4-10.2) mg/dL Phosphorus 1.6 L (2.5-4.5) mg/dL Total Bilirubin (0.2-1.3) mg/dL AST 122 H (14-36) U/L ALT 83 H (4-34) U/L Alkaline Phosphatase (38-126) U/L Creatine Kinase 870 H (30-135) U/L Troponin I (0.000-0.034) ng/mL C-Reactive Protein (<10.0) mg/L Total Protein 5.4 L (6.3-8.2) g/dL Albumin 3.0 L (3.5-5.0) g/dL Urine Appearance (Clear) Urine Protein (Negative) Urine Ketones (Negative) Urine Blood (Negative) Urine Nitrite (Negative) Urine Bilirubin (Negative) Ur Leukocyte Esterase (Negative) Urine RBC (0-5) /hpf Urine WBC (0-5) /hpf Urine Bacteria (None) /hpf Urine Mucus (None) /hpf Influenza Type A RNA (Not Detectd) Assessment and Plan Plan: 1. Community acquired pneumonia Clinically patient is nontoxic and nonseptic appearing currently She remains afebrile Influenza a positive Still cannot completely rule out concomitant bacterial processes giving the bimodal pattern of disease Continue Tamiflu and levofloxacin Pulmonary consultation 2. Acute hypoxic respiratory failure Present on admission Patient has had increased need for oxygen overnight Chest x-ray showing findings of pulmonary edema and a large cardiac silhouette Concern for fluid overload from sepsis resuscitation, cannot rule out underlying cardiomyopathy or myocarditis from influenza She certainly has cardiomegaly and the chest x-ray We'll start Bumex Pulmonary toilet Encourage up in the chair today Incentive spirometry Bronchodilators when necessary 3. Elevated troponin Cardiology has started aspirin, statin, metoprolol and heparin drip Troponin has been flat and decreasing She has cardiomegaly on the chest x-ray Concern is for recent coronary event versus myocarditis With positive influenza Cardiology following Echocardiogram pending Patient has not had any chest pain and her EKG is unchanged from before 4. Acute toxic metabolic encephalopathy Due to acute illness plus withdrawal from opiates since patient abruptly stopped her MS Contin and Lyrica 6 days ago We restarted her home medications and she is feeling somewhat better and her diarrhea has resolved 5. Hypophosphatemia Phosphorus below 2 and some elevated CPK We'll start phosphorus replacement Check vitamin D levels Start vitamin D replacement 6. Hypokalemia Replaced 7. Acute diarrhea Probably part of the viral illness and due to withdrawals no diarrhea this morning present C. diff order placed if any further diarrhea 8. Rhabdomyolysis Likely due to viral illness with component of influence from hypokalemia and hypophosphatemia Continue treatment and phosphorus replacement Check CPK this morning Patient is acutely sick with increased risk for deterioration of her respiratory status and low threshold for ICU transfer. Discussed with the patient and her .
[2019-08-27] MEDS ORDERED: VANCOMYCIN IV PER PHARMACY 1 EACH MISC MISCELLANE PRN (08:04)
[2019-08-27] MEDS: PREGABALIN 75 MG CAP PO SCH ×2 (08:55→20:40)
[2019-08-27] MEDS: MORPHINE SULFATE ER 15 MG TABLET PO SCH ×2 (08:55→20:40)
[2019-08-27] MEDS: ASCORBIC ACID 500 MG TAB PO SCH (08:56)
[2019-08-27] MEDS: ASPIRIN 81 MG PO SCH (08:56)
[2019-08-27] MEDS: SERTRALINE 100 MG TAB PO SCH (08:56)
[2019-08-27] MEDS ORDERED: ENOXAPARIN 40 MG/0.4 ML SYRINGE SQ SCH (09:00)
[2019-08-27] MEDS ORDERED: MORPHINE SULFATE ER 30 MG TABLET PO SCH (09:00)
[2019-08-27] MEDS: CHOLECALCIFEROL 400 UNIT TAB PO SCH (09:10)
[2019-08-27] MEDS: OSELTAMIVIR 75 MG CAP PO SCH ×2 (09:10→20:40)
[2019-08-27] MEDS: POTAS-SOD-PHOS 278-164-250 MG 1 EACH PACKET PO SCH ×3 (09:10→23:06)
[2019-08-27] MEDS: VANCOMYCIN 1,250 MG in SODIUM CHLORIDE 0.9% 250 ML IVPB SCH ×3 (09:11→23:06)
[2019-08-27] MEDS: IPRATROPIUM-ALBUTEROL 3 ML NEB INHALATION SCH ×4 (09:29→20:04)
--- NOTE | 2019-08-27 10:00 | ECHOF ---
Referral Reason:elevated trop MEASUREMENTS -------- HEIGHT: 162.6 cm WEIGHT: 96.6 kg BP: 127/97 RVIDd: 4.2 cm (< 3.3) IVSd: 1.4 cm (0.6 - 1.1) LVIDd: 4.4 cm (3.9 - 5.3) LVPWd: 1.1 cm (0.6 - 1.1) IVSs: 1.4 cm LVIDs: 3.5 cm LVPWs: 1.4 cm LA Diam: 4.0 cm (2.7 - 3.8) Ao Diam: 3.0 cm (2.0 - 3.7) AV Cusp: 1.7 cm (1.5 - 2.6) LA Diam: 4.1 cm (2.7 - 3.8) MV EXCURSION: 13.536 mm (> 18.000) MV EF SLOPE: 94 mm/s (70 - 150) EPSS: 0.5 cm MV E Maximo: 0.99 m/s MV DecT: 211 ms MV A Maximo: 0.30 m/s MV E/A Ratio: 3.34 RAP: 5.00 mmHg RVSP: 39.43 mmHg FINDINGS -------- Sinus rhythm. This was a techncally difficult study with suboptimal views, , Lumason utilized for enhancement of im ages. The left ventricular size is normal. There is mild concentric left ventricular hypertrophy. Overa ll left ventricular systolic function is low-normal with, an EF between 50 - 55 %. The right ventricle is severely enlarged. The right ventricular systolic function is mildly impaire d. The left atrial size is normal. The right atrial size is normal. 5.0mg OF Lumason UTLIZED: 2 OR MORE WALL SEGMENTS NOT VISUALIZED. The aortic valve is trileaflet, and appears structurally normal. No aortic stenosis or regurgitation. The mitral valve is normal. Mild mitral regurgitation is present. Moderate tricuspid regurgitation present. There is mild pulmonary hypertension. The right ventric ular systolic pressure, as measured by Doppler, is 39.43mmHg. The pulmonic valve was not well visualized. Trace/mild (physiologic) pulmonic regurgitation. The aortic root size is normal. There is a trivial pericardial effusion present. CONCLUSIONS -------- 1. Sinus rhythm. 2. This was a techncally difficult study with suboptimal views, , Lumason utilized for enhancement of images. 3. There is mild concentric left ventricular hypertrophy. 4. Overall left ventricular systolic function is low-normal with, an EF between 50 - 55 %. 5. The right ventricle is severely enlarged. 6. The right ventricular systolic function is mildly impaired. 7. The left atrial size is normal. 8. 5.0mg OF Lumason UTLIZED: 2 OR MORE WALL SEGMENTS NOT VISUALIZED. 9. The aortic valve is trileaflet, and appears structurally normal. No aortic stenosis or regurgitati on. 10. Mild mitral regurgitation is present. 11. Moderate tricuspid regurgitation present. 12. There is mild pulmonary hypertension. 13. Trace/mild (physiologic) pulmonic regurgitation. 14. There is a trivial pericardial effusion present. [employer]CORN SCRAPER: Marie Menchaca RDCS
[2019-08-27] MEDS ORDERED: NALOXONE 0.4 MG/ML 10 ML VIAL IVP PRN (10:12)
[2019-08-27] MEDS ORDERED: NALOXONE 0.4 MG/ML 1 ML VIAL IV PRN (10:17)
--- NOTE | 2019-08-27 12:57 | P.CRDCN ---
History of Present Illness Consult date: 08/27/19 History of present illness: This is a 64-year-old obese female with no significant past medical history, who was been treated as an outpatient for bronchitis starting before . There appeared to be some improvement, but gradually after things got worse. Patient started coughing and had a lot of congestion. Patient also was getting confused. Patient is a brought into the hospital for further evaluation. Her chest x-ray showed what looks like a pneumonia. She is also positive for flu. We're asked to see the patient because of abnormal troponin values. EKGs did not reveal any acute changes. Patient did not have any chest pains. Her echo Cardigan showed near normal LV function without any segmental wall motion defects. At this point patient symptoms including diarrhea appear to be related to viral infection and flu. I'm going to get a BNP level. No further cardiac intervention at this time. Review of Systems As per the chart Past Medical History Past Medical History: Fibromyalgia Additional Past Medical History / Comment(s): chronic back pain, Back Injury 9 years ago History of Any Multi-Drug Resistant Organisms: None Reported Past Surgical History: No Surgical Hx Reported Past Psychological History: Anxiety, Depression Smoking Status: Current every day smoker Past Alcohol Use History: None Reported Past Drug Use History: None Reported Medications and Allergies Home Medications Medication Instructions Recorded Confirmed Type Meloxicam 15 mg PO DAILY 08/26/19 08/26/19 History Morphine Sulfate ER [Ms Contin] 15 mg PO Q12HR 08/26/19 08/26/19 History Morphine Sulfate ER [Ms Contin] 30 mg PO Q12HR 08/26/19 08/26/19 History Pregabalin [Lyrica] 225 mg PO BID 08/26/19 08/26/19 History Sertraline [Zoloft] 100 mg PO DAILY 08/26/19 08/26/19 History oxyCODONE-APAP 7.5-325MG [Percocet 1 tab PO BID PRN 08/26/19 08/26/19 History 7.5-325 mg] tiZANidine HCL 4 mg PO BID PRN 08/26/19 08/26/19 History Allergies Allergy/AdvReac Type Severity Reaction Status Date / Time No Known Allergies Allergy Verified 08/26/19 14:48 Physical Exam Vitals: Vital Signs Temp Pulse Pulse Resp BP BP Pulse Ox 08/27/19 12:00 98.4 F 51 L 16 128/67 94 L 08/27/19 11:50 16 08/27/19 08:00 98.2 F 50 L 16 144/72 95 08/27/19 05:52 10 L 94 L 08/27/19 05:06 90 L 08/27/19 05:05 51 L 19 127/97 92 L 08/27/19 04:50 17 90 L 08/27/19 03:09 97.8 F 56 L 17 136/62 93 L 08/27/19 00:21 98.4 F 53 L 18 144/64 90 L 08/26/19 20:05 16 85 L 08/26/19 20:03 98.6 F 54 L 16 141/88 92 L 08/26/19 16:20 98.6 F 08/26/19 16:00 97.6 F 60 16 136/93 91 L 08/26/19 15:30 98.7 F 64 20 147/78 96 08/26/19 15:00 60 23 142/80 92 L 08/26/19 14:30 62 21 143/61 89 L 08/26/19 14:01 58 L 20 147/69 93 L 08/26/19 13:35 59 L 20 147/69 100 08/26/19 13:30 59 L 18 149/69 08/26/19 13:00 60 20 147/73 98 Intake and Output 08/26/19 08/27/19 08/27/19 22:59 06:59 14:59 Intake Total 240 279.727 Output Total 300 Balance 240 279.727 -300 Intake: Intake, IV Titration 279.727 Amount Heparin Sod,Pork in 0.45% 129.727 NaCl 25,000 unit In 0.45 % NaCl 1 250ml.bag @ 11 UNITS/KG/HR 9.979 mls/hr IV .Q24H REVA Rx#: [id number] Lactated Ringers 1,000 ml 150 @ 75 mls/hr IV .[id number] REVA Rx#:[id number] Oral 240 Output: Urine 300 Other: # Voids 1 1 0 # Bowel Movements 0 Weight 90.718 kg 97 kg GENERAL EXAM: Patient is alert and oriented and doesn't appear to be in any acute distress HEENT: Normocephalic. Normal reaction of pupils, equal size, normal range of extraocular motion. No erythema or exudates in the throat. NECK: No masses, no nuchal rigidity. CHEST: No chest wall deformity. LUNGS: Equal air entry with no crackles or wheeze. HEART: S1 and S2 normal with no audible mumurs or gallops. Regular rhythm, femorals equal on both sides.. ABDOMEN: No hepatosplenomegaly, normal bowel sounds, no guarding or rigidity. SKIN: No rashes CENTRAL NERVOUS SYSTEM: No focal deficits. EXTREMITIES: No cyanosis, clubbing or edema. Results 08/27/19 05:31 08/27/19 05:31 Cardiac Enzymes 08/26/19 08/26/19 08/27/19 Range/Units 17:10 23:20 05:31 AST 122 H (14-36) U/L Troponin I 0.905 H* 0.761 H* (0.000-0.034) ng/mL Coagulation 08/26/19 08/27/19 Range/Units 23:20 05:31 APTT 46.1 H 48.0 H (22.0-30.0) sec CBC 08/26/19 08/27/19 Range/Units 17:10 05:31 WBC 4.5 6.3 (3.8-10.6) k/uL RBC 4.07 3.59 L (3.80-5.40) m/uL Hgb 11.6 10.6 L (11.4-16.0) gm/dL Hct 34.9 30.9 L (34.0-46.0) % Plt Count 180 193 (150-450) k/uL Comprehensive Metabolic Panel 08/26/19 08/27/19 Range/Units 23:20 05:31 Sodium 146 H (137-145) mmol/L Potassium 2.9 L 4.0 (3.5-5.1) mmol/L Chloride 115 H (98-107) mmol/L Carbon Dioxide 25 (22-30) mmol/L BUN 19 H (7-17) mg/dL Creatinine 0.51 L (0.52-1.04) mg/dL Glucose 121 H (74-99) mg/dL Calcium 8.2 L (8.4-10.2) mg/dL AST 122 H (14-36) U/L ALT 83 H (4-34) U/L Alkaline Phosphatase 110 (38-126) U/L Total Protein 5.4 L (6.3-8.2) g/dL Albumin 3.0 L (3.5-5.0) g/dL Current Medications Generic Name Dose Route Start Last Admin Trade Name Freq PRN Reason Stop Dose Admin Albuterol/Ipratropium 3 ml 08/26/19 16:00 08/27/19 09:29 Duoneb 0.5 Mg-3 Mg/3 Ml Soln INHALATION Not Given RT-QID [facility] Ascorbic Acid 1,000 mg 08/27/19 09:00 08/27/19 08:56 Vitamin C PO 08/30/19 09:01 1,000 mg DAILY REVA Administration Aspirin 81 mg 08/26/19 17:15 08/27/19 08:56 Aspirin PO 81 mg DAILY REVA Administration Bumetanide 1 mg 08/27/19 18:00 Bumex IVP BID@0600,1800 [facility] Cholecalciferol 400 unit 08/27/19 09:00 08/27/19 09:10 Vitamin D3 PO 400 unit DAILY REVA Administration Enoxaparin Sodium 40 mg 08/28/19 09:00 Lovenox SQ DAILY [facility] Vancomycin HCl 1,250 mg/ 250 mls @ 125 mls/hr 08/27/19 09:00 08/27/19 09:11 Sodium Chloride IVPB 125 mls/hr Q8HR REVA Administration Levofloxacin 750 mg 08/27/19 16:00 Levaquin PO 09/08/19 16:01 1600 [facility] Miscellaneous Information 1 each 08/26/19 14:42 Pneumonia Protocol Utilized PO ONCE PRN Per Protocol Morphine Sulfate 45 mg 08/26/19 18:00 08/27/19 08:55 Ms Contin PO 45 mg Q12HR REVA Administration Naloxone HCl 0.2 mg 08/27/19 10:17 Narcan IV Q2M PRN Opioid Reversal Oseltamivir Phosphate 75 mg 08/27/19 07:30 08/27/19 09:10 Tamiflu PO 08/31/19 21:01 75 mg Q12HR REVA Administration Oxycodone/Acetaminophen 1 each 08/26/19 16:31 08/26/19 23:30 Percocet 7.5-325 PO 1 each BID PRN Administration Pain Potassium Phos/Sodium Phos 1 each 08/27/19 09:00 08/27/19 09:10 Neutra-Phos Packet PO 08/30/19 09:01 1 each TID REVA Administration Pregabalin 225 mg 08/27/19 09:00 08/27/19 08:55 Lyrica PO 225 mg BID REVA Administration Sertraline HCl 100 mg 08/27/19 09:00 08/27/19 08:56 Zoloft PO 100 mg DAILY REVA Administration Intake and Output 08/26/19 08/27/19 08/27/19 22:59 06:59 14:59 Intake Total 240 279.727 Output Total 300 Balance 240 279.727 -300 Intake: Intake, IV Titration 279.727 Amount Heparin Sod,Pork in 0.45% 129.727 NaCl 25,000 unit In 0.45 % NaCl 1 250ml.bag @ 11 UNITS/KG/HR 9.979 mls/hr IV .Q24H REVA Rx#: [id number] Lactated Ringers 1,000 ml 150 @ 75 mls/hr IV .[id number] REVA Rx#:[id number] Oral 240 Output: Urine 300 Other: # Voids 1 1 0 # Bowel Movements 0 Weight 90.718 kg 97 kg 08/27/19 05:31 08/27/19 05:31 EKG Interpretations (text) Sinus rhythm with a diffuse ST-T abnormalities in the anterior and inferior leads, could be related to her low potassium levels Assessment and Plan (1) Abnormal EKG Current Visit: Yes Status: Acute Code(s): R94.31 - ABNORMAL EL ECTROCARDIOGRAM [ECG] [EKG] SNOMED Code(s): 667693403 (2) Altered mental status Current Visit: Yes Status: Acute Code(s): R41.82 - ALTERED MENTAL STATUS, UNSPECIFIED SNOMED Code(s): 548567306 (3) Bilateral pneumonia Current Visit: Yes Status: Acute Code(s): J18.9 - PNEUMONIA, UNSPECIFIED ORGANISM SNOMED Code(s): 606912993 (4) UTI (urinary tract infection) Current Visit: Yes Status: Acute Code(s): N39.0 - URINARY TRACT INFECTION, SITE NOT SPECIFIED SNOMED Code(s): 94527673 (5) Troponin level elevated Current Visit: Yes Status: Acute Code(s): R79.89 - OTHER SPECIFIED ABNORMAL FINDINGS OF BLOOD CHEMISTRY SNOMED Code(s): 364731440 (6) Hypokalemia Current Visit: Yes Status: Acute Code(s): E87.6 - HYPOKALEMIA SNOMED Code(s): 01797948 (7) Diarrhea Current Visit: Yes Status: Acute Code(s): R19.7 - DIARRHEA, UNSPECIFIED SNOMED Code(s): 92838831 Plan: Her EKG changes most probably related to the hypokalemia. We'll repeat the EKG of the correction of the hypokalemia. Troponin elevation is not consistent with acute coronary syndrome. Echocardiogram did not reveal any wall motion abnormalities of focal nature. Her symptoms appear to be related to flu and pneumonia. We'll continue current treatment. Will get a BNP level and repeat EKG. We'll continue to monitor her
[2019-08-27] MEDS ORDERED: LEVOFLOXACIN 750MG-D5W PMX 750 MG in DEXTROSE/WATER 1 150ML.BAG IVPB SCH (16:00)
[2019-08-27] MEDS: LEVOFLOXACIN 750 MG TAB PO SCH (16:44)
[2019-08-27] MEDS: BUMETANIDE 0.25 MG/ML 4 ML VIAL IVP SCH (16:44)
[2019-08-27] MEDS: oxyCODONE-APAP 7.5-325MG 1 EACH TAB PO PRN (18:52)
[2019-08-27 20:17] LABS: Hepatitis A Antibody IgM Non-Reactive (Non-Reactive); Hepatitis B Core IgM Non-Reactive (Non-Reactive); Hepatitis B Surface Antigen Non-Reactive (Non-Reactive); Hepatitis C IgG Antibody Non-Reactive (Non-Reactive)
--- NOTE | 2019-08-27 21:42 | CONS ---
CONSULTATION PULMONARY/CRITICAL CARE CONSULTATION: DATE OF SERVICE: 08/27/2019 REASON FOR CONSULTATION: Mental status changes. 64-year-old female who was brought in by family members for mental status changes, weakness and dehydration. The patient is apparently having issues with weakness, severe diarrhea, nausea, vomiting, and just not feeling well. She also is having some fever and chills. The patient was seen in the emergency room and evaluated there for these symptoms. The patient was apparently found to have influenza. In addition, the patient was found to have a urinary tract infection. Finally, I believe we were consulted because of possible sepsis related to possible pneumonia. She does admit to some shortness of breath. She does have a bit of a cough and phlegm production. Those are not her major symptoms though. MEDICATIONS: Reviewed. They include tizanidine, Percocet, Lyrica, morphine sulfate, meloxicam, and Zoloft. ALLERGIES: Denied. CURRENT HOSPITAL MEDICATIONS: Include albuterol updrafts, ascorbic acid, aspirin, Bumex, vitamin D3, Lovenox, Levaquin, morphine sulfate, Narcan, Tamiflu, Percocet, vancomycin, Zoloft, Lyrica and Neutra-Phos. PAST MEDICAL HISTORY: Positive for fibromyalgia and chronic back pain and back injury 9 years ago. There is also apparently a history of anxiety and depression. PAST SURGICAL HISTORY: Unremarkable. SOCIAL HISTORY: Positive for ongoing tobacco use. She apparently denies alcohol and illicit drug use. FAMILY HISTORY: Noncontributory. Mother and father were healthy. Medications and allergies were reviewed. REVIEW OF SYSTEMS: CONSTITUTIONAL: Weakness. NEUROLOGIC: Confusion, disorientation, much improved. HEENT: Negative. CARDIOVASCULAR: Negative. PULMONARY: Shortness of breath. Mild cough and phlegm production. GI: Nausea, vomiting, diarrhea. : Negative. RHEUMATOLOGIC: Negative. IMMUNOLOGIC: Negative. ENDOCRINOLOGIC: Negative. DERMATOLOGIC: Negative. PHYSICAL EXAMINATION: Current vital signs include temperature 98.4, heart rate 51, respiratory rate 16, blood pressure 128/67, mean 87, high-flow oxygen at 10 L showing a saturation of 97%. When we check her saturation in the room, it is 99% and the oxygen is turned down to 8 L. It can probably come down even further. HEENT examination is grossly unremarkable. Nasal O2 in place. NECK: Supple. Full range of motion. No adenopathy. Neck veins are flat. CARDIOVASCULAR examination reveals regular rhythm and rate. S1, S2 normal. No S3, S4, or murmur. LUNGS: Reveal a few scattered rhonchi. No wheezes or crackles. ABDOMEN: Soft. Bowel sounds are heard. EXTREMITIES are intact. No cyanosis, clubbing, or edema. SKIN: Without rash. NEUROLOGIC: Examination is difficult to assess. She is a bit lethargic. She does arouse. She answers questions appropriately although she is slow in answering them. She does move all 4 extremities properly. Currently, white count is 6.3, hemoglobin 10.6, hematocrit 30.9, platelet count 193,000. PTT is 48. D-dimer 0.76. Blood gases were done on 70% oxygen. PO2 was 65, pCO2 of 35, and pH of 7.46. Sodium 146, potassium 4, chloride 115, CO2 25, anion gap is 6. BUN and creatinine were 19 and 0.51. Calcium 8.2, phosphorus 1.6. AST 122, down from 226. ALT 83. CK was 870. Prior CK was 1441. Troponin was 0.761. C-reactive protein 27.4. N terminal proBNP 2009. Procalcitonin was 0.05. Urine suggests a urinary tract infection as both nitrate and leukocyte esterase were positive. There were 6 WBCs in the urine and occasional bacteria. Influenza A studies were positive. TSH was normal. Chest x-ray in my opinion is consistent with fluid overload. It would be hard to rule out pneumonia. She does have cardiomegaly. Appears to be bilateral pleural effusions. Microbiology currently is pending or negative. Medications are reviewed. They are mentioned before. She is currently on Levaquin and vancomycin in the form of antibiotics. ASSESSMENT: 1. Mental status changes, which may relate to underlying infection both influenza A and/or urinary tract infection. 2. Mild shortness of breath, cough and phlegm production, which may relate to pneumonia. 3. Possible underlying congestive heart failure. 4. Rule out myocardial ischemia. 5. History of fibromyalgia. 6. History of chronic back pain. 7. History of ongoing tobacco use with nicotine addiction. 8. History of anxiety/depression. PLAN: Currently, the patient is on good antibiotics. The procalcitonin level is surprisingly low. It is hard to know what is going on in the chest. There may be pneumonia and/or CHF. The BNP is a bit elevated. Cardiology is currently seeing the patient. Antibiotics are appropriate. The patient is not having any shortness of breath. No need to add any updrafts at this time. We will continue to follow closely. We did admitting counselor her about the importance of smoking cessation. If she is craving tobacco, nicotine patch to be added. MMODL / IJN: [id number] /
[2019-08-28] MEDS: oxyCODONE-APAP 7.5-325MG 1 EACH TAB PO PRN ×2 (06:01→20:31)
[2019-08-28] MEDS: BUMETANIDE 0.25 MG/ML 4 ML VIAL IVP SCH (06:01)
[2019-08-28 06:27] LABS: Mycoplasma IgG Antibody (EIA) 0.75 INDEX (<=0.90); Mycoplasma IgM Antibody 0.08 INDEX (<=0.90)
[2019-08-28 07:32] LABS: Basophils % (A) 0 %; Eosinophils % (A) 0 %; HCT 32.2 % (34.0-46.0); Lymphocytes # (A) 1.4 k/uL (1.0-4.8); Lymphocytes % (A) 20 %; MCH 29.5 pg (25.0-35.0); MCV 86.7 fL (80.0-100.0); Mean Platelet Volume 8.1; Monocytes # (A) 0.5 k/uL (0-1.0); Monocytes % (A) 7 %; Neutrophils # (A) 4.9 k/uL (1.3-7.7); Neutrophils % (A) 69 %; Platelet Count 246 k/uL (150-450); RBC 3.72 m/uL (3.80-5.40); RDW 14.2 % (11.5-15.5); WBC 7.1 k/uL (3.8-10.6)
[2019-08-28 07:40] LABS: ALT 72 U/L (4-34); AST 55 U/L (14-36); African American GFR (CKD) >90 (>60 ml/min/1.73 sqM); Albumin 3.3 g/dL (3.5-5.0); Alkaline Phosphatase 100 U/L (38-126); Anion Gap 9 mmol/L; Blood Urea Nitrogen 18 mg/dL (7-17); Calcium 8.5 mg/dL (8.4-10.2); Carbon Dioxide 29 mmol/L (22-30); Chloride 106 mmol/L (98-107); Creatine Kinase 353 U/L (30-135); Glucose 107 mg/dL (74-99); Non-African American GFR(CKD) >90 (>60 ml/min/1.73 sqM); Phosphorus 4.4 mg/dL (2.5-4.5); Potassium 2.9 mmol/L (3.5-5.1); Sodium 144 mmol/L (137-145); Total Bilirubin 0.8 mg/dL (0.2-1.3)
[2019-08-28] MEDS ORDERED: POTASSIUM CHLORIDE ER 20 MEQ TAB.ER PO STA (07:59)
[2019-08-28] MEDS: IPRATROPIUM-ALBUTEROL 3 ML NEB INHALATION SCH ×4 (08:19→20:28)
[2019-08-28] MEDS: ENOXAPARIN 40 MG/0.4 ML SYRINGE SQ SCH (08:43)
[2019-08-28] MEDS: MORPHINE SULFATE ER 15 MG TABLET PO SCH ×2 (08:44→23:51)
[2019-08-28] MEDS: OSELTAMIVIR 75 MG CAP PO SCH ×2 (08:45→20:31)
[2019-08-28] MEDS: MAGNESIUM SULFATE-D5W PMX 1 GM in DEXTROSE/WATER 1 100ML.BAG IVPB SCH ×2 (08:45→14:18)
[2019-08-28] MEDS: ASPIRIN 81 MG PO SCH (08:45)
[2019-08-28] MEDS: SERTRALINE 100 MG TAB PO SCH (08:45)
[2019-08-28] MEDS: VANCOMYCIN 1,250 MG in SODIUM CHLORIDE 0.9% 250 ML IVPB SCH (08:45)
[2019-08-28] MEDS: ASCORBIC ACID 500 MG TAB PO SCH (08:45)
[2019-08-28] MEDS: PREGABALIN 75 MG CAP PO SCH ×2 (08:45→20:30)
[2019-08-28] MEDS: POTAS-SOD-PHOS 278-164-250 MG 1 EACH PACKET PO SCH (08:46)
[2019-08-28] MEDS: CHOLECALCIFEROL 400 UNIT TAB PO SCH (08:46)
--- NOTE | 2019-08-28 10:23 | P.PN ---
Subjective Patient was seen and examined. She is doing much better today. Her respiratory status continues to improve with diuresis and antibiotics. Oxygen requirement decreasing. She is not subjective short of breath. Her mentation has been waxing and waning but generally steadily improving and this morning she is calmer orientated reporting that her appetite is coming back. She continues to have some watery diarrhea throughout the day. No abdominal pain or bloating or cramping or blood or mucus in the stool. Objective - Vital Signs Vital signs: Vital Signs Temp 98.1 F 08/28/19 08:00 Pulse 56 L 08/28/19 08:00 Resp 18 08/28/19 08:00 BP 123/68 08/28/19 08:00 Pulse Ox 93 L 08/28/19 08:00 Intake & Output 08/27/19 08/28/19 08/28/19 18:59 06:59 18:59 Intake Total 120 Output Total 300 Balance -180 Weight 91.3 kg Intake: Oral 120 Output: Urine 300 Other: Voiding Method Toilet # Voids 0 1 # Bowel Movements 0 1 - Exam Vital Signs: I have reviewed the vital signs. GENERAL: no apparent distress, cooperative, anxious appearing Eyes: PERRL, extraoculry movements intact, clear conjunctiva Head: : Atraumatic external nose and ears, oropharyngeal mucosa is moist without lesions or exudates Neck: Symmetric, trachea midline, No thyromegaly, no masses or neck vain pulsation, no neck rigidity CVS: +S1/S2, short ejection murmur over the aortic area s. Peripheral pulses 2+ and equal in all extremities. RESP: Unlabored respiratory effort. Normal breath sounds throughout with right- sided inspiratory crackles in upper and lower elena none present on the left. No wheezing or rhonchi otherwise Abdomen: Bowel sounds present in all 4 quadrants, Soft to palpation, Nontender/Nondistended, No hepatosplenomegaly, no hernias or masses, no CVA tnderness Musculoskeletal: Trace pedal edema in lower extremities, puffiness of her arms noted Skin: Warm, Dry. No rashes or lesions Neuro: music copyist II-XII grossly intact, motor strenght 5/5 i upper and lower extremities, no clonus, patellar DTRs 2+ and sympetrical Psych: Awake, Alert, & Oriented (AAO) x3 - Labs CBC & Chem 7: 08/28/19 06:47 08/28/19 06:47 Labs: Abnormal Lab Results - Last 24 Hours (Table) 08/27/19 08/28/19 08/28/19 Range/Units 11:24 06:47 06:47 RBC 3.72 L (3.80-5.40) m/uL Hgb 11.0 L (11.4-16.0) gm/dL Hct 32.2 L (34.0-46.0) % D-Dimer 0.76 H (<0.60) mg/L FEU Potassium 2.9 L (3.5-5.1) mmol/L BUN 18 H (7-17) mg/dL Glucose 107 H (74-99) mg/dL AST 55 H (14-36) U/L ALT 72 H (4-34) U/L Creatine Kinase 353 H (30-135) U/L Total Protein 6.0 L (6.3-8.2) g/dL Albumin 3.3 L (3.5-5.0) g/dL Microbiology - Last 24 Hours (Table) 08/27/19 09:30 Nasal Screen MRSA/MSSA - Preliminary Nasal Swab 08/27/19 09:30 Urine Culture - Preliminary Urine,Clean Catch 08/26/19 11:38 Blood Culture - Preliminary Blood No Growth after 24 hours Assessment and Plan Plan: 1. Community acquired pneumonia Clinically patient is nontoxic and nonseptic appearing currently Blood cultures remain negative Pro-calcitonin is low CRP and sed rate are elevated Probably nonbacterial, suspect influenza pneumonia MRSA nasal screen is negative so far Continue Tamiflu Consider de-escalating antibiotics, discontinue vancomycin 2. Acute hypoxic respiratory failure Multifactorial Due to flash pulmonary edema, pneumonia and probable underlying bron choobstructive disease and obesity Clinically improving, oxygen requirements decreasing Continue diuresis 3. Acute diastolic CHF exacerbation Heart failure with preserved borderline EF Signs of RV dysfunction Cardiology following Rule out myocarditis rule out under lying ischemic cardiac disease We will probably need ischemic workup in near future and repeat echocardiogram in 6 months Continue diuresis 4. Elevated troponin This is stable Cardiology following Possibly demand ischemia, rule out myocarditis, rule out underlying coronary artery disease Patient will need likely ischemic workup in the near future Continue aspirin Consider restarting statin in near future due to rhabdomyolysis and elevated liver enzymes 5. Acute toxic metabolic encephalopathy Multifactorial Improving Continue to reorientate Continue to adjust home medications Check ammonia level given some elevation of liver enzymes 6. Hypophosphatemia Results Discontinue Neutra-Phos and vitamin D 7. Hypokalemia Replaced 8. Acute diarrhea Probably part of the viral illness and due to withdrawals no diarrhea this morning present Rule out C. diff 9. Rhabdomyolysis Resolvd 10. Elevated liver enzymes APL and bilirubin normal Viral hepatitis screen negative Continue to monitor Check ammonia Ultrasound and further follow-up as an outpatient basis 11. Urinary tract infection Pyuria positive leukocyte esterase and nitrates and bacteria in the urine with symptoms of dysuria and urgency Continue levofloxacin
[2019-08-28] MEDS ORDERED: BUMETANIDE 0.25 MG/ML 10 ML VIAL IV SCH (12:00)
--- NOTE | 2019-08-28 12:30 | XR ---
EXAMINATION TYPE: XR chest 1V portable DATE OF EXAM: 08/28/2019 COMPARISON: 08/27/2018 HISTORY: Resp distress TECHNIQUE: Single frontal view of the chest is obtained. FINDINGS: Diffuse interstitial pattern with patchy bilateral infiltrates stable. No pleural effusion . The heart is enlarged. No pneumothorax. IMPRESSION: Interstitial pattern and patchy bilateral infiltrates stable from prior exam correlate f or infectious etiology including atypical or viral infection. Underlying venous congestion not entire ly excluded.
--- NOTE | 2019-08-28 12:42 | P.PN ---
Subjective Progress Note Date: 08/28/19 This is a 64-year-old obese female with no significant past medical history, who was been treated as an outpatient for bronchitis starting before . There appeared to be some improvement, but gradually after things got worse. Patient started coughing and had a lot of congestion. Patient also was getting confused. Patient is a brought into the hospital for further evaluation. Her chest x-ray showed what looks like a pneumonia. She is also positive for flu. We're asked to see the patient because of abnormal troponin values. EKGs did not reveal any acute changes. Patient did not have any chest pains. Her echo Cardigan showed near normal LV function without any segmental wall motion defects. At this point patient symptoms including diarrhea appear to be related to viral infection and flu. I'm going to get a BNP level. No further cardiac intervention at this time. 08/28/2019 Patient seen and examined this morning, overall doing significantly better. Continues to have a low potassium this morning, 2.9, sodium 144, BUN 18, creatinine 0.5.blood pressure 122/60 with a heart rate in the 50s, 93% on 8 L of oxygen. We will repeat a chest x-ray tomorrow and obtain a repeat EKG tomorrow morning once the patient's potassium is normalized. Objective - Vital Signs Vital signs: Vital Signs Temp 98.1 F 08/28/19 08:00 Pulse 56 L 08/28/19 08:00 Resp 18 08/28/19 08:00 BP 123/68 08/28/19 08:00 Pulse Ox 93 L 08/28/19 08:00 Intake & Output 08/27/19 08/28/19 08/28/19 18:59 06:59 18:59 Intake Total 120 Output Total 300 Balance -180 Weight 91.3 kg Intake: Oral 120 Output: Urine 300 Other: Voiding Method Toilet # Voids 0 1 # Bowel Movements 0 1 - Exam GENERAL EXAM: Patient is alert and oriented and doesn't appear to be in any acute distress HEENT: Normocephalic. Normal reaction of pupils, equal size, normal range of extraocular motion. No erythema or exudates in the throat. NECK: No masses, no nuchal rigidity. CHEST: No chest wall deformity. LUNGS: Equal air entry with no crackles or wheeze. HEART: S1 and S2 normal with no audible mumurs or gallops. Regular rhythm, femorals equal on both sides.. ABDOMEN: No hepatosplenomegaly, normal bowel sounds, no guarding or rigidity. SKIN: No rashes CENTRAL NERVOUS SYSTEM: No focal deficits. EXTREMITIES: No cyanosis, clubbing or edema. - Labs CBC & Chem 7: 08/28/19 06:47 08/28/19 06:47 Labs: Abnormal Lab Results - Last 24 Hours (Table) 08/28/19 08/28/19 Range/Units 06:47 06:47 RBC 3.72 L (3.80-5.40) m/uL Hgb 11.0 L (11.4-16.0) gm/dL Hct 32.2 L (34.0-46.0) % Potassium 2.9 L (3.5-5.1) mmol/L BUN 18 H (7-17) mg/dL Glucose 107 H (74-99) mg/dL AST 55 H (14-36) U/L ALT 72 H (4-34) U/L Creatine Kinase 353 H (30-135) U/L Total Protein 6.0 L (6.3-8.2) g/dL Albumin 3.3 L (3.5-5.0) g/dL Microbiology - Last 24 Hours (Table) 08/27/19 09:30 Urine Culture - Final Urine,Clean Catch 08/27/19 09:30 Nasal Screen MRSA/MSSA - Preliminary Nasal Swab 08/26/19 11:38 Blood Culture - Preliminary Blood No Growth after 24 hours Assessment and Plan Plan: assessment and plan #1 community-acquired pneumonia #2 abnormal troponin, likely secondary to infection, not consistent with acute coronary syndrome. Echo reveals a normal left ventricular systolic function. #3 hypokalemia, potassium is 2.9 today #4abnormal EKG, likely secondary to hypokalemia Plan Echocardiogram with Doppler study revealed a normal left ventricular systolic function. We will repeat a chest x-ray in the morning as well as EKG once the potassium level comes up. DNP note has been reviewed, I agree with a documented findings and plan of care. Patient was seen and examined.
--- NOTE | 2019-08-28 13:35 | P.PN ---
Subjective Progress Note Date: 08/28/19 Principal diagnosis: Altered mental status, dehydration and weakness, influenza A The patient is seen today 08/28/2019 in follow-up on the selective care unit. She is currently sitting up in a chair at the bedside. More awake and alert today as compared to yesterday. She is maintaining O2 saturations in the 90s on 8 L high flow nasal cannula. She's afebrile. White count 7.1. Hemoglobin 11.0. Sodium 144. Potassium 2.9. Creatinine 0.52. AST 55, ALT 72, proBNP 2010, hepatitis screen negative. Chest x-ray continues to revealed patchy bilateral infiltrates but stable compared to previous. Blood culture reveals no growth to date. Urine culture reveals no growth. She is currently on Bumex 1 mg IV push daily along with bronchodilators, antibiotics and Tamiflu. Objective - Vital Signs Vital signs: Vital Signs Temp 98.1 F 08/28/19 08:00 Pulse 56 L 08/28/19 08:00 Resp 18 08/28/19 08:00 BP 123/68 08/28/19 08:00 Pulse Ox 93 L 08/28/19 08:00 Intake & Output 08/27/19 08/28/19 08/28/19 18:59 06:59 18:59 Intake Total 120 Output Total 300 Balance -180 Weight 91.3 kg Intake: Oral 120 Output: Urine 300 Other: Voiding Method Toilet # Voids 0 1 # Bowel Movements 0 1 - Exam GENERAL EXAM: Alert, pleasant 64-year-old female patient, up in a chair, on 8 L high flow nasal cannula, comfortable in no apparent distress. HEAD: Normocephalic. EYES: Normal reaction of pupils, equal size. NOSE: Clear with pink turbinates. THROAT: No erythema or exudates. NECK: No masses, no JVD. CHEST: No chest wall deformity. LUNGS: Equal air entry with bilateral scattered rhonchi. CVS: S1 and S2 normal with no audible murmur, regular rhythm. ABDOMEN: No hepatosplenomegaly, normal bowel sounds, no guarding or rigidity. SPINE: No scoliosis or deformity SKIN: No rashes CENTRAL NERVOUS SYSTEM: No focal deficits, tone is normal in all 4 extremities. EXTREMITIES: There is 1+ peripheral edema. No clubbing, no cyanosis. Peripheral pulses are intact. - Labs CBC & Chem 7: 08/28/19 06:47 08/28/19 06:47 Labs: Abnormal Lab Results - Last 24 Hours (Table) 08/28/19 08/28/19 Range/Units 06:47 06:47 RBC 3.72 L (3.80-5.40) m/uL Hgb 11.0 L (11.4-16.0) gm/dL Hct 32.2 L (34.0-46.0) % Potassium 2.9 L (3.5-5.1) mmol/L BUN 18 H (7-17) mg/dL Glucose 107 H (74-99) mg/dL AST 55 H (14-36) U/L ALT 72 H (4-34) U/L Creatine Kinase 353 H (30-135) U/L Total Protein 6.0 L (6.3-8.2) g/dL Albumin 3.3 L (3.5-5.0) g/dL Microbiology - Last 24 Hours (Table) 08/27/19 09:30 Urine Culture - Final Urine,Clean Catch 08/27/19 09:30 Nasal Screen MRSA/MSSA - Preliminary Nasal Swab 08/26/19 11:38 Blood Culture - Preliminary Blood No Growth after 24 hours Assessment and Plan Assessment: 1 Altered mental status suspect secondary to influenza A with dehydration 2 Acute hypoxic respiratory failure secondary to suspected bilateral community- acquired pneumonia 3 Acute on chronic diastolic congestive heart failure 4 Fibromyalgia. 5 Chronic back pain. 6 Chronic tobacco dependence 7 History of anxiety/depression Plan: The patient was seen and evaluated by Dr. Stallworth. Chest x-ray and labs reviewed. We'll continue with current treatment plan. She is improved today as compared to yesterday. Increase activity as tolerated. Titrate down the FiO2 as tolerated. She is educated regarding the importance of complete smoking cessation. NicoDerm patch has been applied. We'll continue to follow and make further recommendations based on her clinical status. I, the cosigning physician, performed a history & physical examination of the patient. Lungs sounds bilateral scattered rhonchi. Maintaining good O2 saturations in the 90s on 8 L high flow nasal cannula. I discussed the assessment and plan of care with my nurse practitioner, Maki Castellon. I attest to the above note as dictated by her.
[2019-08-28] MEDS: BUMETANIDE 0.25 MG/ML 4 ML VIAL IV SCH (14:23)
[2019-08-28] MEDS ORDERED: VANCOMYCIN TROUGH DUE 1 EACH MISC MISCELLANE ONE (15:00)
[2019-08-28] MEDS: POTASSIUM CHLORIDE ER 20 MEQ TAB.ER PO SCH (16:50)
[2019-08-28] MEDS: LEVOFLOXACIN 750 MG TAB PO SCH (16:50)
[2019-08-28] MEDS: NICOTINE 14MG/24HR PATCH TRANSDERM SCH (16:50)
[2019-08-28] MEDS: MAGNESIUM OXIDE 400 MG TAB PO SCH (16:50)
[2019-08-29 07:10] LABS: Basophils % (A) 0 %; Eosinophils % (A) 0 %; HCT 34.2 % (34.0-46.0); HGB 11.1 gm/dL (11.4-16.0); Lymphocytes # (A) 1.7 k/uL (1.0-4.8); Lymphocytes % (A) 22 %; MCH 28.2 pg (25.0-35.0); MCHC 32.4 g/dL (31.0-37.0); MCV 87.1 fL (80.0-100.0); Mean Platelet Volume 7.8; Monocytes # (A) 0.4 k/uL (0-1.0); Monocytes % (A) 6 %; Neutrophils # (A) 5.4 k/uL (1.3-7.7); Neutrophils % (A) 71 %; Platelet Count 282 k/uL (150-450); RBC 3.93 m/uL (3.80-5.40); RDW 14.1 % (11.5-15.5); WBC 7.7 k/uL (3.8-10.6)
[2019-08-29] MEDS: ASCORBIC ACID 500 MG TAB PO SCH (07:48)
[2019-08-29] MEDS: OSELTAMIVIR 75 MG CAP PO SCH ×2 (07:48→20:41)
[2019-08-29] MEDS: NICOTINE 14MG/24HR PATCH TRANSDERM SCH (07:48)
[2019-08-29] MEDS: MORPHINE SULFATE ER 15 MG TABLET PO SCH ×2 (07:48→20:40)
[2019-08-29] MEDS: POTASSIUM CHLORIDE ER 20 MEQ TAB.ER PO SCH (07:49)
[2019-08-29] MEDS: PREGABALIN 75 MG CAP PO SCH ×2 (07:49→20:41)
[2019-08-29] MEDS: SERTRALINE 100 MG TAB PO SCH (07:50)
[2019-08-29] MEDS: ENOXAPARIN 40 MG/0.4 ML SYRINGE SQ SCH (07:50)
[2019-08-29] MEDS: ASPIRIN 81 MG PO SCH (07:50)
[2019-08-29] MEDS: BUMETANIDE 0.25 MG/ML 4 ML VIAL IV SCH (07:50)
[2019-08-29] MEDS: MAGNESIUM OXIDE 400 MG TAB PO SCH (07:50)
[2019-08-29] MEDS: IPRATROPIUM-ALBUTEROL 3 ML NEB INHALATION SCH ×4 (08:58→21:51)
[2019-08-29] MEDS ORDERED: POTASSIUM CHLORIDE ER 20 MEQ TAB.ER PO STA (10:44)
--- NOTE | 2019-08-29 12:11 | P.PN ---
Subjective Summary: 64-year-old female past medical history of fibromyalgia presented with respiratory distress, URI like symptoms and chest x-ray compatible with multilobar pneumonia. Initial testing showed positive influenza a. Echocardiogram showed borderline EF. Urinalysis showed pyuria, leukocyte esterase and she was complaining of dysuria as well,. She was started on oxygen, Tamiflu, antibiotics. She had the pleasure pulmonary edema from fluid overload likely from resuscitation for sepsis and she has been diuresed Interval history: She is doing much better today. She is up in the chair appetite is coming back skin color is coming back. She is subjectively feeling much better. She remains afebrile. She remains on 89 L high flow which has been steadily decreasing admitted to decrease her to 7 L right now. This was continued throughout the day. She occasionally still has some loose watery bowel movements but has been improving as well. Objective - Vital Signs Vital signs: Vital Signs Temp 98.1 F 08/29/19 07:45 Pulse 68 08/29/19 09:11 Resp 20 08/29/19 07:45 BP 113/50 08/29/19 07:45 Pulse Ox 92 L 08/29/19 08:58 Intake & Output 08/28/19 08/29/19 08/29/19 18:59 06:59 18:59 Intake Total 450 250 180 Output Total 240 Balance 450 250 -60 Weight 90.6 kg Intake: Intake, IV Titration 450 Amount Magnesium Sulfate-D5w Pmx 200 1 gm In Dextrose/Water 1 100ml.bag @ 100 mls/hr IVPB Q1H [facility] Rx#: [id number] Vancomycin 1,250 mg In 250 Sodium Chloride 0.9% 250 ml @ 125 mls/hr IVPB Q8HR [facility] Rx#:[id number] Oral 250 180 Output: Urine 240 Other: Voiding Method Toilet # Voids 2 - Exam Vital Signs: I have reviewed the vital signs. GENERAL: no apparent distress, cooperative, anxious appearing Eyes: PERRL, extraoculry movements intact, clear conjunctiva Head: : Atraumatic external nose and ears, oropharyngeal mucosa is moist withou t lesions or exudates Neck: Symmetric, trachea midline, No thyromegaly, no masses or neck vain pulsation, no neck rigidity CVS: +S1/S2, short ejection murmur over the aortic area s. Peripheral pulses 2+ and equal in all extremities. RESP: Unlabored respiratory effort. Normal breath sounds throughout with right- sided inspiratory crackles in upper and lower elena none present on the left. No wheezing or rhonchi otherwise Abdomen: Bowel sounds present in all 4 quadrants, Soft to palpation, Nontender/Nondistended, No hepatosplenomegaly, no hernias or masses, no CVA tnderness Musculoskeletal: Trace pedal edema in lower extremities, puffiness of her arms noted Skin: Warm, Dry. No rashes or lesions Neuro: pepper picker II-XII grossly intact, motor strenght 5/5 i upper and lower extremities, no clonus, patellar DTRs 2+ and sympetrical Psych: Awake, Alert, & Oriented (AAO) x3 - Labs CBC & Chem 7: 08/29/19 06:26 08/29/19 06:26 Labs: Abnormal Lab Results - Last 24 Hours (Table) 08/28/19 08/29/19 08/29/19 Range/Units 06:47 06:26 06:26 Hgb 11.1 L (11.4-16.0) gm/dL Potassium 3.1 L (3.5-5.1) mmol/L Vitamin D 25-Hydroxy 12.6 L (30.0-100.0) ng/mL Microbiology - Last 24 Hours (Table) 08/27/19 09:30 Nasal Screen MRSA/MSSA - Final Nasal Swab 08/26/19 11:38 Blood Culture - Preliminary Blood No Growth after 48 hours 08/27/19 09:30 Urine Culture - Final Urine,Clean Catch Assessment and Plan Plan: 1. Community acquired pneumonia Clinically patient is nontoxic and nonseptic appearing currently Blood cultures remain negative Pro-calcitonin is low CRP and sed rate are elevated Probably nonbacterial; most probably multilobar influenza pneumonia MRSA nasal screen is negative so far Continue Tamiflu day #3, may need longer course than usual due to pneumonia 2. Acute hypoxic respiratory failure Multifactorial Due to flash pulmonary edema, pneumonia and probable underlying bronchoobstructive disease and obesity Clinically improving, oxygen requirements decreasing Continue diuresis Continue weaning off oxygen and increase activity incentive spirometry 3. Acute diastolic CHF exacerbation Heart failure with preserved borderline EF Signs of RV dysfunction Cardiology following Rule out myocarditis rule out under lying ischemic cardiac disease We will probably need ischemic workup in near future and repeat echocardiogram in 6 months Continue diuresis 4. Elevated troponin This is stable Cardiology following Possibly demand ischemia, rule out myocarditis, rule out underlying coronary artery disease Patient will need likely ischemic workup in the near future Continue aspirin Consider restarting statin in near future due to rhabdomyolysis and elevated liver enzymes 5. Acute toxic metabolic encephalopathy Multifactorial Improving Continue to reorientate Continue to adjust home medications Check ammonia level given some elevation of liver enzymes 6. Hypophosphatemia Results Discontinue Neutra-Phos and vitamin D 7. Hypokalemia Replaced 8. Acute diarrhea Probably part of the viral illness and due to withdrawals no diarrhea this morning present Rule out C. diff 9. Rhabdomyolysis Resolvd 10. Elevated liver enzymes APL and bilirubin normal Viral hepatitis screen negative Continue to monitor May consider ultrasound outpatient basis 11. Urinary tract infection Pyuria positive leukocyte esterase and nitrates and bacteria in the urine with symptoms of dysuria and urgency levofloxacin day #3/5
--- NOTE | 2019-08-29 13:41 | P.PN ---
Subjective Progress Note Date: 08/29/19 This is a 64-year-old obese female with no significant past medical history, who was been treated as an outpatient for bronchitis starting before . There appeared to be some improvement, but gradually after things got worse. Patient started coughing and had a lot of congestion. Patient also was getting confused. Patient is a brought into the hospital for further evaluation. Her chest x-ray showed what looks like a pneumonia. She is also positive for flu. We're asked to see the patient because of abnormal troponin values. EKGs did not reveal any acute changes. Patient did not have any chest pains. Her echo Cardigan showed near normal LV function without any segmental wall motion defects. At this point patient symptoms including diarrhea appear to be related to viral infection and flu. I'm going to get a BNP level. No further cardiac intervention at this time. 08/28/2019 Patient seen and examined this morning, overall doing significantly better. Continues to have a low potassium this morning, 2.9, sodium 144, BUN 18, creatinine 0.5.blood pressure 122/60 with a heart rate in the 50s, 93% on 8 L of oxygen. We will repeat a chest x-ray tomorrow and obtain a repeat EKG tomorrow morning once the patient's potassium is normalized. 08/29/2019 Patient was seen and examined today, sitting up in the chair at bedside. Overall feeling significantly better. Blood pressure 114/50 with a heart rate in the 60s, 92% on 8 L high flow. White blood cell count 7.7, hemoglobin 11.1, platelet count 282. Potassium 3.1. Objective - Vital Signs Vital signs: Vital Signs Temp 98.1 F 08/29/19 07:45 Pulse 62 08/29/19 12:16 Resp 20 08/29/19 07:45 BP 113/50 08/29/19 07:45 Pulse Ox 92 L 08/29/19 08:58 Intake & Output 08/28/19 08/29/19 08/29/19 18:59 06:59 18:59 Intake Total 450 250 180 Output Total 240 Balance 450 250 -60 Weight 90.6 kg Intake: Intake, IV Titration 450 Amount Magnesium Sulfate-D5w Pmx 200 1 gm In Dextrose/Water 1 100ml.bag @ 100 mls/hr IVPB Q1H [facility] Rx#: [id number] Vancomycin 1,250 mg In 250 Sodium Chloride 0.9% 250 ml @ 125 mls/hr IVPB Q8HR [facility] Rx#:[id number] Oral 250 180 Output: Urine 240 Other: Voiding Method Toilet # Voids 2 - Exam GENERAL EXAM: Patient is alert and oriented and doesn't appear to be in any acute distress HEENT: Normocephalic. Normal reaction of pupils, equal size, normal range of extraocular motion. No erythema or exudates in the throat. NECK: No masses, no nuchal rigidity. CHEST: No chest wall deformity. LUNGS: Equal air entry with no crackles or wheeze. HEART: S1 and S2 normal with no audible mumurs or gallops. Regular rhythm, femorals equal on both sides.. ABDOMEN: No hepatosplenomegaly, normal bowel sounds, no guarding or rigidity. SKIN: No rashes CENTRAL NERVOUS SYSTEM: No focal deficits. EXTREMITIES: No cyanosis, clubbing or edema. - Labs CBC & Chem 7: 08/29/19 06:26 08/29/19 06:26 Labs: Abnormal Lab Results - Last 24 Hours (Table) 08/28/19 08/29/19 08/29/19 Range/Units 06:47 06:26 06:26 Hgb 11.1 L (11.4-16.0) gm/dL Potassium 3.1 L (3.5-5.1) mmol/L Vitamin D 25-Hydroxy 12.6 L (30.0-100.0) ng/mL Microbiology - Last 24 Hours (Table) 08/27/19 09:30 Nasal Screen MRSA/MSSA - Final Nasal Swab 08/26/19 11:38 Blood Culture - Preliminary Blood No Growth after 48 hours 08/27/19 09:30 Urine Culture - Final Urine,Clean Catch Assessment and Plan Plan: assessment and plan #1 community-acquired pneumonia #2 abnormal troponin, likely secondary to infection, not consistent with acute coronary syndrome. Echo reveals a normal left ventricular systolic function. #3 hypokalemia, potassium is 2.9 today #4abnormal EKG, likely secondary to hypokalemia Plan Echocardiogram with Doppler study revealed a normal left ventricular systolic function. Once the patient's potassium normalizes, we will repeat an EKG. Continue current medications at this time. DNP note has been reviewed, I agree with a documented findings and plan of care. Patient was seen and examined.
--- NOTE | 2019-08-29 14:37 | P.PN ---
Subjective Progress Note Date: 08/29/19 Principal diagnosis: Altered mental status, dehydration and weakness, influenza A The patient is seen today 08/28/2019 in follow-up on the selective care unit. She is currently sitting up in a chair at the bedside. More awake and alert today as compared to yesterday. She is maintaining O2 saturations in the 90s on 8 L high flow nasal cannula. She's afebrile. White count 7.1. Hemoglobin 11.0. Sodium 144. Potassium 2.9. Creatinine 0.52. AST 55, ALT 72, proBNP 2010, hepatitis screen negative. Chest x-ray continues to revealed patchy bilateral infiltrates but stable compared to previous. Blood culture reveals no growth to date. Urine culture reveals no growth. She is currently on Bumex 1 mg IV push daily along with bronchodilators, antibiotics and Tamiflu. The patient is seen today 08/29/2019 in follow-up on the selective care unit. She is currently awake and alert in no acute distress. Sitting up in a chair at the bedside. No worsening shortness of breath, cough or congestion. No nausea or vomiting. She is still requiring 8 L high flow nasal cannula to maintain O2 saturations in the 90s. She's afebrile. Hemodynamically stable. Blood culture reveals no growth. Urine culture reveals no growth. White count 7.7. Hemoglobin 11.1. Potassium 3.1. She is continued on IV Bumex, bronchodilators, antibiotics in the form of Levaquin, Tamiflu. NicoDerm patch in place. Objective - Vital Signs Vital signs: Vital Signs Temp 98.1 F 08/29/19 07:45 Pulse 62 08/29/19 12:16 Resp 20 08/29/19 07:45 BP 113/50 08/29/19 07:45 Pulse Ox 92 L 08/29/19 08:58 Intake & Output 08/28/19 08/29/19 08/29/19 18:59 06:59 18:59 Intake Total 450 250 180 Output Total 240 Balance 450 250 -60 Weight 90.6 kg Intake: Intake, IV Titration 450 Amount Magnesium Sulfate-D5w Pmx 200 1 gm In Dextrose/Water 1 100ml.bag @ 100 mls/hr IVPB Q1H [facility] Rx#: [id number] Vancomycin 1,250 mg In 250 Sodium Chloride 0.9% 250 ml @ 125 mls/hr IVPB Q8HR [facility] Rx#:[id number] Oral 250 180 Output: Urine 240 Other: Voiding Method Toilet # Voids 2 - Exam GENERAL EXAM: Alert, pleasant 64-year-old female patient, up in a chair, on 8 L high flow nasal cannula, comfortable in no apparent distress. HEAD: Normocephalic. EYES: Normal reaction of pupils, equal size. NOSE: Clear with pink turbinates. THROAT: No erythema or exudates. NECK: No masses, no JVD. CHEST: No chest wall deformity. LUNGS: Equal air entry with bilateral scattered rhonchi. CVS: S1 and S2 normal with no audible murmur, regular rhythm. ABDOMEN: No hepatosplenomegaly, normal bowel sounds, no guarding or rigidity. SPINE: No scoliosis or deformity SKIN: No rashes CENTRAL NERVOUS SYSTEM: No focal deficits, tone is normal in all 4 extremities. EXTREMITIES: There is 1+ peripheral edema. No clubbing, no cyanosis. Peripheral pulses are intact. - Labs CBC & Chem 7: 08/29/19 06:26 08/29/19 06:26 Labs: Abnormal Lab Results - Last 24 Hours (Table) 08/28/19 08/29/19 08/29/19 Range/Units 06:47 06:26 06:26 Hgb 11.1 L (11.4-16.0) gm/dL Potassium 3.1 L (3.5-5.1) mmol/L Vitamin D 25-Hydroxy 12.6 L (30.0-100.0) ng/mL Microbiology - Last 24 Hours (Table) 08/26/19 11:38 Blood Culture - Preliminary Blood No Growth after 72 hours 08/27/19 09:30 Nasal Screen MRSA/MSSA - Final Nasal Swab 08/27/19 09:30 Urine Culture - Final Urine,Clean Catch Assessment and Plan Assessment: 1 Altered mental status suspect secondary to influenza A with dehydration 2 Acute hypoxic respiratory failure secondary to suspected bilateral community- acquired pneumonia 3 Acute on chronic diastolic congestive heart failure 4 Fibromyalgia. 5 Chronic back pain. 6 Chronic tobacco dependence 7 History of anxiety/depression Plan: The patient was seen and evaluated by Dr. Stallworth. She is improved mentally and feeling back to her baseline. Improving the pulmonary standpoint not quite back to her baseline. We'll continue with current treatment plan. Titrate down the FiO2 as tolerated. She is educated regarding the importance of complete smoking cessation. NicoDerm patch has been applied. We'll continue to follow and make further recommendations based on her clinical status. I, the cosigning physician, performed a history & physical examination of the patient. Lungs sounds bilateral scattered rhonchi. Maintaining good O2 saturations in the 90s on 8 L high flow nasal cannula. I discussed the assessment and plan of care with my nurse practitioner, Maki Castellon. I attest to the above note as dictated by her.
[2019-08-29] MEDS: LEVOFLOXACIN 750 MG TAB PO SCH (16:11)
[2019-08-29] MEDS: oxyCODONE-APAP 7.5-325MG 1 EACH TAB PO PRN (17:45)
[2019-08-30 05:53] LABS: African American GFR (CKD) >90 (>60 ml/min/1.73 sqM); Anion Gap 6 mmol/L; Blood Urea Nitrogen 18 mg/dL (7-17); Calcium 8.7 mg/dL (8.4-10.2); Carbon Dioxide 30 mmol/L (22-30); Chloride 106 mmol/L (98-107); Glucose 114 mg/dL (74-99); Magnesium 2.2 mg/dL (1.6-2.3); Non-African American GFR(CKD) >90 (>60 ml/min/1.73 sqM); Potassium 3.2 mmol/L (3.5-5.1); Sodium 142 mmol/L (137-145)
[2019-08-30] MEDS ORDERED: Potassium Replacement Protocol 1 EACH MISC MISCELLANE PRN (06:13)
[2019-08-30] MEDS: POTASSIUM CHLORIDE ER 20 MEQ TAB.ER PO SCH ×3 (06:45→10:18)
[2019-08-30] MEDS: IPRATROPIUM-ALBUTEROL 3 ML NEB INHALATION SCH ×4 (08:17→19:52)
[2019-08-30] MEDS: BUMETANIDE 0.25 MG/ML 4 ML VIAL IV SCH (08:30)
[2019-08-30] MEDS: ENOXAPARIN 40 MG/0.4 ML SYRINGE SQ SCH (08:31)
[2019-08-30] MEDS: PREGABALIN 75 MG CAP PO SCH ×2 (08:31→20:03)
[2019-08-30] MEDS: MORPHINE SULFATE ER 15 MG TABLET PO SCH ×2 (08:31→20:02)
[2019-08-30] MEDS: ASPIRIN 81 MG PO SCH (08:32)
[2019-08-30] MEDS: MAGNESIUM OXIDE 400 MG TAB PO SCH (08:32)
[2019-08-30] MEDS: OSELTAMIVIR 75 MG CAP PO SCH ×2 (08:32→20:03)
[2019-08-30] MEDS: ASCORBIC ACID 500 MG TAB PO SCH (08:32)
[2019-08-30] MEDS: SERTRALINE 100 MG TAB PO SCH (08:32)
--- NOTE | 2019-08-30 09:34 | P.PN ---
Subjective Summary: 64-year-old female past medical history of fibromyalgia presented with respiratory distress, URI like symptoms and chest x-ray compatible with multilobar pneumonia. Initial testing showed positive influenza a. Echocardiogram showed borderline EF. Urinalysis showed pyuria, leukocyte esterase and she was complaining of dysuria as well,. She was started on oxygen, Tamiflu, antibiotics. She had flash pulmonary edema from fluid overload likely from resuscitation for sepsis and she has been diuresed Interval history: Patient states "I feel 100% better and I will and go home ". Respiratory status subjectively appears improved, she currently remains on 7 L high flow. Does not report diarrhea this morning. No other focal complaints. She reports appetite to be improving Objective - Vital Signs Vital signs: Vital Signs Temp 97.4 F L 08/30/19 04:00 Pulse 64 08/30/19 08:33 Resp 18 08/30/19 04:00 BP 120/69 08/30/19 04:00 Pulse Ox 94 L 08/30/19 04:00 Intake & Output 08/29/19 08/30/19 08/30/19 18:59 06:59 18:59 Intake Total 780 250 Output Total 240 Balance 540 250 Weight 89.6 kg Intake: Oral 780 250 Output: Urine 240 Other: # Voids 2 2 # Bowel Movements 1 - Exam Vital Signs: I have reviewed the vital signs. GENERAL: no apparent distress, cooperative, anxious appearing Eyes: PERRL, extraoculry movements intact, clear conjunctiva Head: : Atraumatic external nose and ears, oropharyngeal mucosa is moist without lesions or exudates Neck: Symmetric, trachea midline, No thyromegaly, no masses or neck vain pulsation, no neck rigidity CVS: +S1/S2, short ejection murmur over the aortic area s. Peripheral pulses 2+ and equal in all extremities. RESP: Unlabored respiratory effort. Normal breath sounds throughout with right- sided inspiratory crackles in upper and lower elena none present on the left. No wheezing or rhonchi otherwise Abdomen: Bowel sounds present in all 4 quadrants, Soft to palpation, Nontender/Nondistended, No hepatosplenomegaly, no hernias or masses, no CVA tnderness Musculoskeletal: Trace pedal edema in lower extremities, puffiness of her arms noted Skin: Warm, Dry. No rashes or lesions Neuro: optimization engineer II-XII grossly intact, motor strenght 5/5 i upper and lower extremities, no clonus, patellar DTRs 2+ and sympetrical Psych: Awake, Alert, & Oriented (AAO) x3 - Labs CBC & Chem 7: 08/29/19 06:26 08/30/19 05:24 Labs: Abnormal Lab Results - Last 24 Hours (Table) 08/30/19 Range/Units 05:24 Potassium 3.2 L (3.5-5.1) mmol/L BUN 18 H (7-17) mg/dL Creatinine 0.50 L (0.52-1.04) mg/dL Glucose 114 H (74-99) mg/dL Microbiology - Last 24 Hours (Table) 08/26/19 11:38 Blood Culture - Preliminary Blood No Growth after 72 hours Assessment and Plan Plan: 1. Community acquired pneumonia Clinically patient is nontoxic and nonseptic appearing currently Blood cultures remain negative Pro-calcitonin is low CRP and sed rate are elevated Probably nonbacterial; most probably multilobar influenza pneumonia MRSA nasal screen is negative Tamiflu day #4, may need longer course than usual due to pneumonia 2. Acute hypoxic respiratory failure Multifactorial Due to flash pulmonary edema, pneumonia and probable underlying bronchoobstructive disease and obesity Clinically improving, oxygen requirements decreasing Continue diuresis Continue weaning off oxygen and increase activity incentive spirometry Pulmonary service following 3. Acute diastolic CHF exacerbation Heart failure with preserved borderline EF Signs of RV dysfunction Cardiology following Rule out myocarditis rule out under lying ischemic cardiac disease We will probably need ischemic workup in near future and repeat echocardiogram in 6 months Continue diuresis 4. Elevated troponin This is stable Cardiology following Possibly demand ischemia, rule out myocarditis, rule out underlying coronary artery disease Patient will need likely ischemic workup in the near future Continue aspirin Consider restarting statin in near future due to rhabdomyolysis and elevated liver enzymes 5. Acute toxic metabolic encephalopathy Resolved She is felt to be at baseline by her family 6. Hypophosphatemia This has resolved after Neutra-Phos and vitamin D supplementation 7. Hypokalemia Continue to replace per protocol We added [id number] supplementation while on diuretics 8. Acute diarrhea Probably part of the viral illness and due to withdrawals no diarrhea this morning present Not present today 9. Rhabdomyolysis Resolvd 10. Elevated liver enzymes APL and bilirubin normal Viral hepatitis screen negative Continue to monitor May consider ultrasound outpatient basis 11. Urinary tract infection Pyuria positive leukocyte esterase and nitrates and bacteria in the urine with symptoms of dysuria and urgency levofloxacin day #4/5 12. Acute debility Physical occupational therapy Encouraged diet 13. Fibromyalgia Patient is on MS Contin [id number] Percocet when necessary Lyrica MAPS reviwed and dose is confirmed This was continued and it appears the patient been tolerating that well so far 14. Depression Zoloft Discussed with the patient and patient's , patient will be considered for discharge once her oxygen requirement decreased and are at acceptable level
[2019-08-30] MEDS: NICOTINE 14MG/24HR PATCH TRANSDERM SCH (10:16)
--- NOTE | 2019-08-30 12:06 | P.PN ---
Subjective Progress Note Date: 08/30/19 Principal diagnosis: Altered mental status, dehydration and weakness, influenza A The patient is seen today 08/28/2019 in follow-up on the selective care unit. She is currently sitting up in a chair at the bedside. More awake and alert today as compared to yesterday. She is maintaining O2 saturations in the 90s on 8 L high flow nasal cannula. She's afebrile. White count 7.1. Hemoglobin 11.0. Sodium 144. Potassium 2.9. Creatinine 0.52. AST 55, ALT 72, proBNP 2009, hepatitis screen negative. Chest x-ray continues to revealed patchy bilateral infiltrates but stable compared to previous. Blood culture reveals no growth to date. Urine culture reveals no growth. She is currently on Bumex 1 mg IV push daily along with bronchodilators, antibiotics and Tamiflu. The patient is seen today 08/29/2019 in follow-up on the selective care unit. She is currently awake and alert in no acute distress. Sitting up in a chair at the bedside. No worsening shortness of breath, cough or congestion. No nausea or vomiting. She is still requiring 8 L high flow nasal cannula to maintain O2 saturations in the 90s. She's afebrile. Hemodynamically stable. Blood culture reveals no growth. Urine culture reveals no growth. White count 7.7. Hemoglobin 11.1. Potassium 3.1. She is continued on IV Bumex, bronchodilators, antibiotics in the form of Levaquin, Tamiflu. NicoDerm patch in place. The patient is seen today 08/30/2019 in follow-up on the selective care unit. She is currently sitting up in a chair at the bedside. Awake and alert in no acute distress. Requiring high flow nasal cannula currently at 3 L to maintain O2 saturations in the 90s. She denies any worsening shortness of breath, cough or congestion. Sodium 142. Potassium 3.2. Creatinine 0.50. She is continued on IV Bumex, bronchodilators, antibiotics in the form of Levaquin, Tamiflu. Objective - Vital Signs Vital signs: Vital Signs Temp 98.1 F 08/30/19 08:10 Pulse 68 08/30/19 11:32 Resp 18 08/30/19 08:10 BP 125/60 08/30/19 08:10 Pulse Ox 94 L 08/30/19 11:38 Intake & Output 08/29/19 08/30/19 08/30/19 18:59 06:59 18:59 Intake Total 780 250 480 Output Total 240 Balance 540 250 480 Weight 89.6 kg Intake: Oral 780 250 480 Output: Urine 240 Other: # Voids 2 2 # Bowel Movements 1 - Exam GENERAL EXAM: Alert, pleasant 64-year-old female patient, up in a chair, on 3 L nasal cannula, comfortable in no apparent distress. HEAD: Normocephalic. EYES: Normal reaction of pupils, equal size. NOSE: Clear with pink turbinates. THROAT: No erythema or exudates. NECK: No masses, no JVD. CHEST: No chest wall deformity. LUNGS: Equal air entry with bilateral scattered rhonchi. CVS: S1 and S2 normal with no audible murmur, regular rhythm. ABDOMEN: No hepatosplenomegaly, normal bowel sounds, no guarding or rigidity. SPINE: No scoliosis or deformity SKIN: No rashes CENTRAL NERVOUS SYSTEM: No focal deficits, tone is normal in all 4 extremities. EXTREMITIES: There is 1+ peripheral edema. No clubbing, no cyanosis. Peripheral pulses are intact. - Labs CBC & Chem 7: 08/29/19 06:26 08/30/19 05:24 Labs: Abnormal Lab Results - Last 24 Hours (Table) 08/30/19 Range/Units 05:24 Potassium 3.2 L (3.5-5.1) mmol/L BUN 18 H (7-17) mg/dL Creatinine 0.50 L (0.52-1.04) mg/dL Glucose 114 H (74-99) mg/dL Microbiology - Last 24 Hours (Table) 08/26/19 11:38 Blood Culture - Preliminary Blood No Growth after 72 hours Assessment and Plan Assessment: 1 Altered mental status suspect secondary to influenza A with dehydration, recovered 2 Acute hypoxic respiratory failure secondary to suspected bilateral community- acquired pneumonia, improved 3 Acute on chronic diastolic congestive heart failure 4 Fibromyalgia. 5 Chronic back pain. 6 Chronic tobacco dependence 7 History of anxiety/depression Plan: The patient was seen and evaluated by Dr. Stallworth. She is cleared for discharge from the pulmonary standpoint. She made require home oxygen. Continue bronchodilators, prednisone taper, complete a course of antibiotics and Tamiflu. She is educated regarding the importance of complete smoking cessation. NicoDerm patch has been offered. I, the cosigning physician, performed a history & physical examination of the p atient. Lungs sounds bilateral scattered rhonchi. Maintaining good O2 saturations in the 90s on 3 L nasal cannula. I discussed the assessment and plan of care with my nurse practitioner, Maki Castellon. I attest to the above note as dictated by her.
--- NOTE | 2019-08-30 13:06 | P.PN ---
Subjective Progress Note Date: 08/30/19 This is a 64-year-old obese female with no significant past medical history, who was been treated as an outpatient for bronchitis starting before . There appeared to be some improvement, but gradually after things got worse. Patient started coughing and had a lot of congestion. Patient also was getting confused. Patient is a brought into the hospital for further evaluation. Her chest x-ray showed what looks like a pneumonia. She is also positive for flu. We're asked to see the patient because of abnormal troponin values. EKGs did not reveal any acute changes. Patient did not have any chest pains. Her echo Cardigan showed near normal LV function without any segmental wall motion defects. At this point patient symptoms including diarrhea appear to be related to viral infection and flu. I'm going to get a BNP level. No further cardiac intervention at this time. 08/28/2019 Patient seen and examined this morning, overall doing significantly better. Continues to have a low potassium this morning, 2.9, sodium 144, BUN 18, creatinine 0.5.blood pressure 122/60 with a heart rate in the 50s, 93% on 8 L of oxygen. We will repeat a chest x-ray tomorrow and obtain a repeat EKG tomorrow morning once the patient's potassium is normalized. 08/29/2019 Patient was seen and examined today, sitting up in the chair at bedside. Overall feeling significantly better. Blood pressure 114/50 with a heart rate in the 60s, 92% on 8 L high flow. White blood cell count 7.7, hemoglobin 11.1, platelet count 282. Potassium 3.1. 08/30/2019 Patient seen and examined this morning, sitting up in the chair at bedside, awake and alert, does not appear to be in any distress. Sodium 142, potassium 3.2, creatinine 0.5. Continues to be on IV Bumex. Objective - Vital Signs Vital signs: Vital Signs Temp 98.1 F 08/30/19 08:10 Pulse 68 08/30/19 11:32 Resp 18 08/30/19 08:10 BP 125/60 08/30/19 08:10 Pulse Ox 94 L 08/30/19 11:38 Intake & Output 08/29/19 08/30/19 08/30/19 18:59 06:59 18:59 Intake Total 780 250 480 Output Total 240 Balance 540 250 480 Weight 89.6 kg Intake: Oral 780 250 480 Output: Urine 240 Other: # Voids 2 2 # Bowel Movements 1 - Exam GENERAL EXAM: Patient is alert and oriented and doesn't appear to be in any acute distress HEENT: Normocephalic. Normal reaction of pupils, equal size, normal range of extraocular motion. No erythema or exudates in the throat. NECK: No masses, no nuchal rigidity. CHEST: No chest wall deformity. LUNGS: Equal air entry with no crackles or wheeze. HEART: S1 and S2 normal with no audible mumurs or gallops. Regular rhythm, femorals equal on both sides.. ABDOMEN: No hepatosplenomegaly, normal bowel sounds, no guarding or rigidity. SKIN: No rashes CENTRAL NERVOUS SYSTEM: No focal deficits. EXTREMITIES: No cyanosis, clubbing or edema. - Labs CBC & Chem 7: 08/29/19 06:26 08/30/19 05:24 Labs: Abnormal Lab Results - Last 24 Hours (Table) 08/30/19 Range/Units 05:24 Potassium 3.2 L (3.5-5.1) mmol/L BUN 18 H (7-17) mg/dL Creatinine 0.50 L (0.52-1.04) mg/dL Glucose 114 H (74-99) mg/dL Microbiology - Last 24 Hours (Table) 08/26/19 11:38 Blood Culture - Preliminary Blood No Growth after 72 hours Assessment and Plan Plan: assessment and plan #1 community-acquired pneumonia #2 abnormal troponin, likely secondary to infection, not consistent with acute coronary syndrome. Echo reveals a normal left ventricular systolic function. #3 hypokalemia, potassium is 2.9 today #4abnormal EKG, likely secondary to hypokalemia Plan Echocardiogram with Doppler study revealed a normal left ventricular systolic function. Once the patient's potassium normalizes, we will repeat an EKG. Continue current medications at this time. DNP note has been reviewed, I agree with a documented findings and plan of care. Patient was seen and examined.
[2019-08-30] MEDS: LEVOFLOXACIN 750 MG TAB PO SCH (16:33)
[2019-08-31 06:40] LABS: African American GFR (CKD) >90 (>60 ml/min/1.73 sqM); Anion Gap 8 mmol/L; Blood Urea Nitrogen 19 mg/dL (7-17); Calcium 9.2 mg/dL (8.4-10.2); Carbon Dioxide 27 mmol/L (22-30); Chloride 107 mmol/L (98-107); Glucose 112 mg/dL (74-99); Non-African American GFR(CKD) >90 (>60 ml/min/1.73 sqM); Potassium 3.9 mmol/L (3.5-5.1); Sodium 142 mmol/L (137-145)
[2019-08-31] MEDS: IPRATROPIUM-ALBUTEROL 3 ML NEB INHALATION SCH ×2 (07:48→11:24)
[2019-08-31] MEDS: POTASSIUM CHLORIDE ER 20 MEQ TAB.ER PO SCH (09:04)
[2019-08-31] MEDS: OSELTAMIVIR 75 MG CAP PO SCH (09:04)
[2019-08-31] MEDS: PREGABALIN 75 MG CAP PO SCH (09:04)
[2019-08-31] MEDS: SERTRALINE 100 MG TAB PO SCH (09:04)
[2019-08-31] MEDS: MORPHINE SULFATE ER 15 MG TABLET PO SCH (09:05)
[2019-08-31] MEDS: MAGNESIUM OXIDE 400 MG TAB PO SCH (09:05)
[2019-08-31] MEDS: BUMETANIDE 0.25 MG/ML 4 ML VIAL IV SCH (09:05)
[2019-08-31] MEDS: ASPIRIN 81 MG PO SCH (09:05)
[2019-08-31] MEDS: ENOXAPARIN 40 MG/0.4 ML SYRINGE SQ SCH (09:06)
[2019-08-31] MEDS: NICOTINE 14MG/24HR PATCH TRANSDERM SCH (09:06)
[2019-08-31 09:30] VITALS: RESP 20
--- NOTE | 2019-08-31 11:04 | P.DS ---
Providers Date of admission: 08/26/19 14:42 Expected date of discharge: 08/31/19 Attending physician: Payton San MD Consults: 08/26/19 16:21 Consult Physician Routine Consulting Provider: Tony Pollack Consult Reason/Comments: elevated troponin Do you want consulting provider notified?: Yes 08/26/19 16:40 Consult Physician Routine Consulting Provider: Enid Handley Consult Reason/Comments: Pneumonia Do you want consulting provider notified?: Yes Primary care physician: [facility] Course: The patient is a 64-year-old female with a PMH of fibromyalgia and tobacco abuse who presented to the ED with complaints of malaise and generalized weakness. The patient had previously been diagnosed with acute bronchitis 3 weeks prior and was started on steroids, amoxicillin, and bronchodilators. The patient however continued having a nonproductive cough and after initial improvement, she worsened one week prior to presentation and the cough became productive of yellow phlegm. The patient also developed fever, chills, and worsening malaise. Patient then also developed diarrhea. Upon presentation to the ED, the patient had appeared uncomfortable and was lethargic. Laboratory evaluation had revealed no leukocytosis, hypokalemia of 2.9, with Troponin of 1.003, and CK elevated at 1441. The patient's EKG revealed TWIs. The patient tested positive for Influenza A. CXR revealed landon disease, suspicious for multilobar pneumonia. The patient was initially started on IV abxs and was subsequently started on Tamiflu upon positive Influenza testing. The patient was noted to be in acute diastolic CHF exacerbation for ic Cardiology was consulted and noted that patient's EKG changed were likely due to hypokalemia and troponin elevation was likely related to her influenza and pneumonia. The patient was continued on Levofloxacin and Tamiflu. The patient's oxygen requirements gradually decreased and she was tapered down to 3L by nasal canula. The patient was seen and examined at the day of discharge at the bedside. The patient noted that she feels as though she is back to her baseline. Discussed with the patient that she continues to be dependent on nasal canula oxygen and that she will likely no longer need it in a day or two. The patient however stated that she wishes to be discharged today and under no circumstances is willing to stay another day in the hospital. The patient along with the at the bedside both wish for her to be discharged on oxygen and follow-up with her PCP. The patient noted that her diarrhea has essentially resolved with only 2 BMs in past 24 hours. She denied chest pain, SOB, nausea, vomiting, fever, or chills. Physical Examination General: Non-toxic, in no acute distress, appears stated age, obese HEENT: NC/AT, anicteric sclerae, moist conjunctiva, no lid-lag, PERRLA Cardiovascular: S1/S2 wnl, no murmurs, rubs, or gallops Lungs: Minimal crackles on R lung field, clear L lung field with no wheezing or ronchi appreciated, normal respiratory effort, no accessory muscle use Abdominal: Soft, non-tender, non-distended, no guarding, rebound, or rigidity Skin: Warm, dry Extremities: No edema or contractures Psychiatric: Alert and oriented to person, place and time, appropriate affect Neuro: CN II-XII grossly intact, Strength 5/5 in all 4 extremities, Speech intact, Sensation to light touch grossly intact throughout Discharge diagnosis: Influenza A infection; Community acquired pneumonia; Acute hypoxic respiratory failure - resolved; acute diastolic CHF exacerbation; Elevated troponin; acute metabolic encephalopathy; rhabdomyolysis - resolved; hypokalemia - resolved; acute diarrhea - resolved A total of 45 minutes of time were spent preparing this complex discharge summary. Patient Condition at Discharge: Stable Plan - Discharge Summary New Discharge Prescriptions: New Levofloxacin [Levaquin] 750 mg PO 1600 #6 tab Oseltamivir [Tamiflu] 75 mg PO Q12HR #10 cap Albuterol Inhaler [Ventolin Hfa Inhaler] 1 - 2 puff INHALATION RT-Q6H PRN #1 inhaler PRN Reason: Shortness Of Breath Continue Sertraline [Zoloft] 100 mg PO DAILY Morphine Sulfate ER [Ms Contin] 30 mg PO Q12HR Morphine Sulfate ER [Ms Contin] 15 mg PO Q12HR Pregabalin [Lyrica] 225 mg PO BID tiZANidine HCL 4 mg PO BID PRN PRN Reason: muscle spasms oxyCODONE-APAP 7.5-325MG [Percocet 7.5-325 mg] 1 tab PO BID PRN PRN Reason: Pain Meloxicam 15 mg PO DAILY Discharge Medication List Meloxicam 15 mg PO DAILY 08/26/19 [History] Morphine Sulfate ER [Ms Contin] 15 mg PO Q12HR 08/26/19 [History] Morphine Sulfate ER [Ms Contin] 30 mg PO Q12HR 08/26/19 [History] Pregabalin [Lyrica] 225 mg PO BID 08/26/19 [History] Sertraline [Zoloft] 100 mg PO DAILY 08/26/19 [History] oxyCODONE-APAP 7.5-325MG [Percocet 7.5-325 mg] 1 tab PO BID PRN 08/26/19 [History] tiZANidine HCL 4 mg PO BID PRN 08/26/19 [History] Albuterol Inhaler [Ventolin Hfa Inhaler] 1 - 2 puff INHALATION RT-Q6H PRN #1 inhaler 08/31/19 [Rx] Levofloxacin [Levaquin] 750 mg PO 1600 #6 tab 08/31/19 [Rx] Oseltamivir [Tamiflu] 75 mg PO Q12HR #10 cap 08/31/19 [Rx] Follow up Appointment(s)/Referral(s): [facility] [Provider Group] - 1 Week Qasim Stallworth DO [Doctor of Osteopathic Medicine] - 09/23/19 2:00 pm (Saturday) None,Stated [REFERRING] - 1-2 days Gabby Hinton MD [STAFF PHYSICIAN] - 09/17/19 4:00 pm () Patient Instructions/Handouts: How to Stop Smoking (DC), Urinary Tract Infection in Women (DC), Influenza (DC) Discharge Disposition: HOME SELF-CARE
--- NOTE | 2019-08-31 12:03 | P.PN ---
Subjective Progress Note Date: 08/31/19 This is a 64-year-old obese female with no significant past medical history, who was been treated as an outpatient for bronchitis starting before . There appeared to be some improvement, but gradually after things got worse. Patient started coughing and had a lot of congestion. Patient also was getting confused. Patient is a brought into the hospital for further evaluation. Her chest x-ray showed what looks like a pneumonia. She is also positive for flu. We're asked to see the patient because of abnormal troponin values. EKGs did not reveal any acute changes. Patient did not have any chest pains. Her echo Cardigan showed near normal LV function without any segmental wall motion defects. At this point patient symptoms including diarrhea appear to be related to viral infection and flu. I'm going to get a BNP level. No further cardiac intervention at this time. 08/28/2019 Patient seen and examined this morning, overall doing significantly better. Continues to have a low potassium this morning, 2.9, sodium 144, BUN 18, creatinine 0.5.blood pressure 122/60 with a heart rate in the 50s, 93% on 8 L of oxygen. We will repeat a chest x-ray tomorrow and obtain a repeat EKG tomorrow morning once the patient's potassium is normalized. 08/29/2019 Patient was seen and examined today, sitting up in the chair at bedside. Overall feeling significantly better. Blood pressure 114/50 with a heart rate in the 60s, 92% on 8 L high flow. White blood cell count 7.7, hemoglobin 11.1, platelet count 282. Potassium 3.1. 08/30/2019 Patient seen and examined this morning, sitting up in the chair at bedside, awake and alert, does not appear to be in any distress. Sodium 142, potassium 3.2, creatinine 0.5. Continues to be on IV Bumex. 08/31/2019 Patient was seen and examined this morning, EKG was reviewed by Dr. Whitmore, and has essentially normalized. Echo revealed normal left ventricular systolic function. Objective - Vital Signs Vital signs: Vital Signs Temp 97.9 F 08/31/19 09:11 Pulse 70 08/31/19 11:35 Resp 20 08/31/19 09:11 BP 124/63 08/31/19 09:11 Pulse Ox 94 L 08/31/19 09:11 Intake & Output 08/30/19 08/31/19 08/31/19 18:59 06:59 18:59 Intake Total 1080 300 120 Balance 1080 300 120 Weight 89.4 kg Intake: Oral 1080 300 120 Other: Voiding Method Toilet # Voids 1 2 - Exam GENERAL EXAM: Patient is alert and oriented and doesn't appear to be in any acute distress HEENT: Normocephalic. Normal reaction of pupils, equal size, normal range of extraocular motion. No erythema or exudates in the throat. NECK: No masses, no nuchal rigidity. CHEST: No chest wall deformity. LUNGS: Equal air entry with no crackles or wheeze. HEART: S1 and S2 normal with no audible mumurs or gallops. Regular rhythm, femorals equal on both sides.. ABDOMEN: No hepatosplenomegaly, normal bowel sounds, no guarding or rigidity. SKIN: No rashes CENTRAL NERVOUS SYSTEM: No focal deficits. EXTREMITIES: No cyanosis, clubbing or edema. - Labs CBC & Chem 7: 08/29/19 06:26 08/31/19 06:10 Labs: Abnormal Lab Results - Last 24 Hours (Table) 08/31/19 Range/Units 06:10 BUN 19 H (7-17) mg/dL Creatinine 0.47 L (0.52-1.04) mg/dL Glucose 112 H (74-99) mg/dL Microbiology - Last 24 Hours (Table) 08/26/19 11:38 Blood Culture - Preliminary Blood No Growth after 96 hours Assessment and Plan Plan: assessment and plan #1 community-acquired pneumonia #2 abnormal troponin, likely secondary to infection, not consistent with acute coronary syndrome. Echo reveals a normal left ventricular systolic function. #3 hypokalemia, potassium is 2.9 today #4abnormal EKG, likely secondary to hypokalemia Plan Echocardiogram with Doppler study revealed a normal left ventricular systolic function. EKG performed this morning shows normal sinus rhythm with improvement in T wave inversion. From cardiology's perspective, patient may be discharged once cleared by primary. DNP note has been reviewed, I agree with a documented findings and plan of care. Patient was seen and examined.
[2019-08-31 12:25] VITALS: BP 104/61; PULSE 72; TEMP 97.8
== END 2019-08-31 14:26 | disposition home or self-care (01) | DRG 193 ==
LOC: EC 10:56 → 3SCARD 14:42
PROVIDERS: ADMIT Family Medicine; ATTEND Family Medicine
DX: J10.00 Influenza due to other identified influenza virus with unspecified type of pneumonia (principal); G92 Toxic encephalopathy; J96.01 Acute respiratory failure with hypoxia; I50.33 Acute on chronic diastolic (congestive) heart failure; N39.0 Urinary tract infection, site not specified; F11.23 Opioid dependence with withdrawal; M62.82 Rhabdomyolysis; J18.9 Pneumonia, unspecified organism; E83.39 Other disorders of phosphorus metabolism; E87.6 Hypokalemia; E86.0 Dehydration; R79.89 Other specified abnormal findings of blood chemistry; M79.7 Fibromyalgia; K29.70 Gastritis, unspecified, without bleeding; F32.9 Major depressive disorder, single episode, unspecified; F41.9 Anxiety disorder, unspecified; G89.29 Other chronic pain; M54.9 Dorsalgia, unspecified; E66.9 Obesity, unspecified; Z68.33 Body mass index [BMI] 33.0-33.9, adult; F17.210 Nicotine dependence, cigarettes, uncomplicated; Z71.6 Tobacco abuse counseling; Z79.1 Long term (current) use of non-steroidal anti-inflammatories (NSAID); Z79.891 Long term (current) use of opiate analgesic; Z79.899 Other long term (current) drug therapy
CPT/HCPCS: 36415; 36600; 70450; 71045; 74022; 80048; 80053; 80074; 81001; 82306; 82550; 82805; 83605; 83735; 83880; 84100; 84132; 84145; 84443; 84484; 85025; 85379; 85610; 85652; 85730; 86140; 86738; 86803; 87040; 87070; 87086; 87449; 87502; 93005; 93306; 94640; 94760; 96361; 96365; 96367; 96375; 99291

== ENCOUNTER 2021-12-30 13:11 | Inpatient (IN) | payer MEDICARE, BC ==
[2021-12-30] MEDS ORDERED: NALOXONE 0.4 MG/ML 1 ML VIAL IV PRN (13:17)
[2021-12-30] MEDS ORDERED: HEPARIN SODIUM,PORCINE 5,000 UNIT/ML 1 ML VIAL IV STA (13:21)
[2021-12-30] MEDS ORDERED: MORPHINE SULFATE 4 MG/ML SYRINGE IVP STA (13:21)
[2021-12-30] MEDS ORDERED: ATORVASTATIN 80 MG TAB PO STA (13:21)
--- NOTE | 2021-12-30 13:21 | ED ---
General Adult HPI - General Chief complaint: Chest Pain Stated complaint: STEMI Time Seen by Provider: 12/30/21 13:13 Source: patient, EMS, RN notes reviewed, old records reviewed Mode of arrival: EMS Limitations: no limitations - History of Present Illness Initial comments: 66-year-old female presenting with left upper chest pain. Pain did radiate into her left shoulder. She was transported as priority 1 by paramedics, given aspirin and nitroglycerin prior to arrival. She has no prior history of CAD. There was EKG evidence on prehospital EKG showing ST segment elevation. This was activated prior to the patient's arrival. Patient has no prior history of CAD she is a current smoker. No vomiting. She's diaphoretic upon arrival. - Related Data Home Medications Medication Instructions Recorded Confirmed Meloxicam 15 mg PO DAILY 08/26/19 08/26/19 Morphine Sulfate ER [Ms Contin] 15 mg PO Q12HR 08/26/19 08/26/19 Morphine Sulfate ER [Ms Contin] 30 mg PO Q12HR 08/26/19 08/26/19 Pregabalin [Lyrica] 225 mg PO BID 08/26/19 08/26/19 Sertraline [Zoloft] 100 mg PO DAILY 08/26/19 08/26/19 oxyCODONE-APAP 7.5-325MG [Percocet 1 tab PO BID PRN 08/26/19 08/26/19 7.5-325 mg] tiZANidine HCL 4 mg PO BID PRN 08/26/19 08/26/19 Previous Rx's Medication Instructions Recorded Albuterol Inhaler (Mhu) [Ventolin 1 - 2 puff INHALATION RT-Q6H PRN 08/31/19 Hfa Inhaler (Mhu)] #1 inhaler Levofloxacin [Levaquin] 750 mg PO 1600 #6 tab 08/31/19 Oseltamivir [Tamiflu] 75 mg PO Q12HR #10 cap 08/31/19 Allergies Allergy/AdvReac Type Severity Reaction Status Date / Time No Known Allergies Allergy Verified 12/30/21 13:14 Review of Systems ROS Statement: Those systems with pertinent positive or pertinent negative responses have been documented in the HPI. ROS Other: All systems not noted in ROS Statement are negative. Past Medical History Past Medical History: Fibromyalgia Additional Past Medical History / Comment(s): chronic back pain, Back Injury 9 years ago History of Any Multi-Drug Resistant Organisms: None Reported Past Surgical History: No Surgical Hx Reported Past Psychological History: Anxiety, Depression Smoking Status: Former smoker, Never smoker Past Alcohol Use History: None Reported Past Drug Use History: None Reported General Exam Limitations: no limitations General appearance: alert, in distress Head exam: Present: atraumatic, normocephalic Eye exam: Present: normal appearance, PERRL ENT exam: Present: normal exam Neck exam: Present: normal inspection. Absent: tenderness, meningismus Respiratory exam: Present: normal lung sounds bilaterally. Absent: respiratory distress, wheezes Cardiovascular Exam: Present: regular rate, normal rhythm GI/Abdominal exam: Present: soft. Absent: distended, tenderness, guarding Extremities exam: Present: normal inspection, normal capillary refill. Absent: pedal edema Neurological exam: Present: alert, oriented X3, CN II-XII intact. Absent: motor sensory deficit Psychiatric exam: Present: anxious Skin exam: Present: warm, diaphoretic Course Vital Signs 12/30/21 12/30/21 13:12 13:14 Temperature 98.0 F Pulse Rate 78 Respiratory 18 Rate Blood Pressure 162/91 O2 Sat by Pulse 97 Oximetry EKG Findings - EKG Comments: EKG Findings:: EKG: ST segment elevation in aVL and lead 1 with her cervical change in the inferior leads. Rate of 75, KS interval 152, QRS duration 100, QTC 417. Medical Decision Making - Medical Decision Making 66-year-old female presenting with ST segment elevated AK. X-ray and laboratory studies are pending. She had been given aspirin nitroglycerin by paramedics. She's given heparin, morphine, and Lipitor in the emergency department. She's taken immediately to the [facility] with Dr. Pollack. She'll be admitted to [facility]. Disposition Clinical Impression: ST elevation myocardial infarction (STEMI) Disposition: ADMITTED IP TO THIS HOSP Condition: Serious Is patient prescribed a controlled substance at d/c from ED?: No Referrals: Nano Baker MD [Primary Care Provider] - 1-2 days Time of Disposition: 13:21
--- NOTE | 2021-12-30 13:31 | XR ---
EXAMINATION TYPE: XR chest 1V portable DATE OF EXAM: 12/30/2021 COMPARISON: 08/28/2019 HISTORY: Chest pain TECHNIQUE: Single frontal view of the chest is obtained. FINDINGS: Heart size is mildly prominent pulmonary vasculature appears mildly congested. Findings mo st consistent with mild CHF. Correlation is recommended. There is no pneumothorax or large pleural ef fusion. The osseous structures are intact IMPRESSION: Findings most consistent with mild CHF with mild cardiomegaly and mild pulmonary vascula r congestion.
[2021-12-30] MEDS ORDERED: HEPARIN SODIUM 1,000 UN/ML (10ML VL) ONE (13:35)
[2021-12-30] MEDS ORDERED: VERAPAMIL 2.5 MG/ML 2 ML AMP ONE (13:35)
[2021-12-30] MEDS ORDERED: SODIUM CHLORIDE 0.9% 1,000 ML IV ONE (13:38)
[2021-12-30] MEDS ORDERED: MIDAZOLAM 2 MG/2 ML VIAL IV ONE (13:42)
[2021-12-30 13:43] LABS: Basophils # (A) 0.1 k/uL (0-0.2); Basophils % (A) 1 %; Eosinophils # (A) 0.2 k/uL (0-0.7); Eosinophils % (A) 2 %; HCT 43.7 % (34.0-46.0); HGB 14.1 gm/dL (11.4-16.0); Lymphocytes % (A) 39 %; MCH 29.9 pg (25.0-35.0); MCHC 32.3 g/dL (31.0-37.0); MCV 92.6 fL (80.0-100.0); Mean Platelet Volume 7.4; Monocytes # (A) 0.6 k/uL (0-1.0); Monocytes % (A) 5 %; Neutrophils # (A) 5.2 k/uL (1.3-7.7); Neutrophils % (A) 51 %; Platelet Count 309 k/uL (150-450); RBC 4.72 m/uL (3.80-5.40); RDW 13.5 % (11.5-15.5); WBC 10.3 k/uL (3.8-10.6)
[2021-12-30] MEDS ORDERED: LIDOCAINE 1% INJ 10MG/ML (5 ML VIAL-PF) SQ ONE (13:44)
[2021-12-30] MEDS ORDERED: LIDOCAINE 1% INJ 10MG/ML (30 ML VIAL-PF) SQ ONE (13:45)
[2021-12-30 13:51] LABS: INR 0.9 (<1.2); Partial Thromboplastin Time 24.3 sec (22.0-30.0); Prothrombin Time 9.7 sec (9.0-12.0)
[2021-12-30 13:56] LABS: ALT 17 U/L (4-34); AST 20 U/L (14-36); African American GFR (CKD) >90 (>60 ml/min/1.73 sqM); Albumin 4.2 g/dL (3.5-5.0); Alkaline Phosphatase 114 U/L (38-126); Anion Gap 10 mmol/L; Blood Urea Nitrogen 15 mg/dL (7-17); Calcium 9.3 mg/dL (8.4-10.2); Carbon Dioxide 22 mmol/L (22-30); Chloride 104 mmol/L (98-107); Glucose 101 mg/dL (74-99); Magnesium 1.9 mg/dL (1.6-2.3); Non-African American GFR(CKD) >90 (>60 ml/min/1.73 sqM); Potassium 3.8 mmol/L (3.5-5.1); Sodium 136 mmol/L (137-145); Total Bilirubin 0.4 mg/dL (0.2-1.3)
[2021-12-30] MEDS ORDERED: HEPARIN SODIUM 1,000 UN/ML (10ML VL) IV ONE (13:59)
[2021-12-30] MEDS ORDERED: CLOPIDOGREL 75 MG TAB ONE (13:59)
[2021-12-30] MEDS ORDERED: CLOPIDOGREL 75 MG TAB PO ONE (14:00)
[2021-12-30] MEDS: NITROGLYCERIN 1000MCG/10ML SYRINGE INTRACORON ONE ×2 (14:01→14:06)
[2021-12-30] MEDS ORDERED: ATROPINE SULFATE 0.1 MG/ML 10ML SYRINGE IV PRN (14:18)
[2021-12-30] MEDS ORDERED: NITROGLYCERIN SL TABS 0.4 MG TAB SUBLINGUAL PRN (14:18)
[2021-12-30] MEDS ORDERED: MAG HYDROX/AL HYDROX/SIMETH 30 ML CUP PO PRN (14:18)
[2021-12-30] MEDS ORDERED: ZOLPIDEM 5 MG TAB PO PRN (14:18)
[2021-12-30] MEDS ORDERED: RX INFO: IV CONTRAST WAS GIVEN 1 EACH MISC MISCELLANE PRN (14:18)
--- NOTE | 2021-12-30 14:26 | P.CRDCN ---
History of Present Illness Consult date: 12/30/21 Chief complaint: Chest discomfort History of present illness: The patient is a 66-year-old female patient with no significant past medical history of diabetes or hypertension or dyslipidemia but significant history of smoking presented to the emergency department complaining of discomfort in the chest. The EKG at the ER revealed acute lateral ST segment elevation with ST segment elevation in [address] segment depression inferiorly. In the light of that an emergent heart catheterization was performed. The patient was found to have an occluded large first diagonal branch which was a stented with a good angiographic results. The patient was chest pain-free with resolving ST changes at the end of the procedure. The patient tolerated the procedure very well. Initially with attempted to the procedure from right radial approach but could not get an access and we ended doing the procedure from right femoral approach. Beside that the patient was found to have no other obstructive CAD. Her LVEDP was 12 mmHg. Past Medical History Past Medical History: Fibromyalgia Additional Past Medical History / Comment(s): chronic back pain, Back Injury 9 years ago History of Any Multi-Drug Resistant Organisms: None Reported Past Surgical History: No Surgical Hx Reported Past Psychological History: Anxiety, Depression Smoking Status: Former smoker, Never smoker Past Alcohol Use History: None Reported Past Drug Use History: None Reported Medications and Allergies Home Medications Medication Instructions Recorded Confirmed Type Morphine Sulfate ER [Ms Contin] 15 mg PO Q12HR 08/26/19 12/30/21 History Morphine Sulfate ER [Ms Contin] 30 mg PO Q12HR 08/26/19 12/30/21 History Pregabalin [Lyrica] 225 mg PO BID 08/26/19 12/30/21 History Sertraline [Zoloft] 100 mg PO HS 08/26/19 12/30/21 History oxyCODONE-APAP 7.5-325MG [Percocet 1 tab PO BID PRN 08/26/19 12/30/21 History 7.5-325 mg] tiZANidine HCL 4 mg PO BID PRN 08/26/19 12/30/21 History Albuterol Inhaler [Ventolin Hfa 2 puff INHALATION RT-Q4H PRN 12/30/21 12/30/21 History Inhaler] Butalb/APAP/Caff 50-325-40Mg 1 tab PO TID PRN 12/30/21 12/30/21 History [Fioricet 50-325-40] Diclofenac Sodium [Voltaren] 75 mg PO BID PRN 12/30/21 12/30/21 History Levothyroxine Sodium [Synthroid] 50 mcg PO DAILY 12/30/21 12/30/21 History Allergies Allergy/AdvReac Type Severity Reaction Status Date / Time No Known Allergies Allergy Verified 12/30/21 13:14 Physical Exam Vitals: Vital Signs Temp Pulse Resp BP Pulse Ox 12/30/21 13:25 68 16 153/71 95 12/30/21 13:23 70 28 H 150/72 95 12/30/21 13:14 162/91 12/30/21 13:12 98.0 F 78 18 97 Intake and Output 12/29/21 12/30/21 12/30/21 22:59 06:59 14:59 Other: Weight 98.883 kg - Constitutional General appearance: no acute distress - Respiratory Respiratory: bilateral: CTA - Cardiovascular Rhythm: regular Heart sounds: normal: S1, S2 Abnormal Heart Sounds: systolic murmur Results 12/30/21 13:20 12/30/21 13:20 Cardiac Enzymes 12/30/21 Range/Units 13:20 AST 20 (14-36) U/L Coagulation 12/30/21 Range/Units 13:20 PT 9.7 (9.0-12.0) sec APTT 24.3 (22.0-30.0) sec CBC 12/30/21 Range/Units 13:20 WBC 10.3 (3.8-10.6) k/uL RBC 4.72 (3.80-5.40) m/uL Hgb 14.1 (11.4-16.0) gm/dL Hct 43.7 (34.0-46.0) % Plt Count 309 (150-450) k/uL Comprehensive Metabolic Panel 12/30/21 Range/Units 13:20 Sodium 136 L (137-145) mmol/L Potassium 3.8 (3.5-5.1) mmol/L Chloride 104 (98-107) mmol/L Carbon Dioxide 22 (22-30) mmol/L BUN 15 (7-17) mg/dL Creatinine 0.50 L (0.52-1.04) mg/dL Glucose 101 H (74-99) mg/dL Calcium 9.3 (8.4-10.2) mg/dL AST 20 (14-36) U/L ALT 17 (4-34) U/L Alkaline Phosphatase 114 (38-126) U/L Total Protein 7.0 (6.3-8.2) g/dL Albumin 4.2 (3.5-5.0) g/dL Current Medications Generic Name Dose Route Start Last Admin Trade Name Freq PRN Reason Stop Dose Admin Al Hydroxide/Mg Hydroxide 30 ml 12/30/21 14:18 Mag Hydrox/Al Hydrox/Simeth 30 Ml Cup PO Q4HR PRN Heartburn Atorvastatin Calcium 80 mg 12/30/21 21:00 Atorvastatin 80 Mg Tab PO HS REVA Atropine Sulfate 0.5 mg 12/30/21 14:18 Atropine Sulfate 0.1 Mg/Ml 10ml Syringe IV ONCE PRN Symptomatic Bradycardia Clopidogrel Bisulfate 75 mg 12/31/21 09:00 Clopidogrel 75 Mg Tab PO DAILY REVA Protocol Sodium Chloride 1,000 ml/ IV 1,000 mls @ 75 mls/hr 12/30/21 14:30 Solution IV 12/30/21 19:31 .[id number] [facility] Lisinopril 10 mg 12/31/21 09:00 Lisinopril 10 Mg Tab PO DAILY [facility] Metoprolol Tartrate 25 mg 12/30/21 21:00 Metoprolol Tartrate 25 Mg Tab PO BID [facility] Miscellaneous Information 1 each 12/30/21 14:18 Rx Info: Iv Contrast Was Given 1 Each Misc MISCELLANE 01/01/22 14:18 DAILY PRN Per Protocol Naloxone HCl 0.2 mg 12/30/21 13:17 Naloxone 0.4 Mg/Ml 1 Ml Vial IV Q2M PRN Opioid Reversal Nitroglycerin 0.4 mg 12/30/21 14:18 Nitroglycerin Sl Tabs 0.4 Mg Tab SUBLINGUAL Q5M PRN Chest Pain Zolpidem Tartrate 5 mg 12/30/21 14:18 Zolpidem 5 Mg Tab PO HS PRN Insomnia Intake and Output 12/29/21 12/30/21 12/30/21 22:59 06:59 14:59 Other: Weight 98.883 kg Patient Weight 12/31/21 06:59 Weight 98.883 kg 12/30/21 13:20 12/30/21 13:20 Assessment and Plan Assessment: Assessment #[address] segment elevation #2 status post a stenting of the first diagonal branch #3 significant history of smoking Plan #1 dual antiplatelet therapy #2 aggressive cholesterol control #3 risk factors modification #4 smoking cessation #5 an echocardiogram to establish LV function #6 follow-up with the patient
[2021-12-30] MEDS ORDERED: IOPAMIDOL-370 125ML BTL INJ ONE (14:27)
[2021-12-30] MEDS ORDERED: SODIUM CHLORIDE 0.9% 1,000 ML in EMPTY BAG 1 BAG IV SCH (14:30)
--- NOTE | 2021-12-30 14:30 | P.PCN ---
Date of Procedure: 12/30/21 Operative Findings: CARDIAC CATHETERIZATION AND PERCUTANEOUS CORONARY INTERVENTION PERFORMING PHYSICIAN: Tony Pollack MD, [facility] PROCEDURE PERFORMED: 1. Selective right and left coronary angiogram 2. Left heart catheterization 3. Successful stenting of first diagonal branch of the LAD using 3.0 x 15 Xience CIARRA which with an excellent angiographic results INDICATION: Acute lateral ST segment elevation COMPLICATION: None APPROACH: Right common femoral artery LEVEL OF SEDATION: Moderate with the sedation time off 28 minutes PROCEDURE DESCRIPTION: After obtaining an informed consent the patient was brought to the cardiac laundry laborer. The right radial artery initially was attempted to access but that was not successful. Subsequently axis the right common femoral artery using micropuncture technique, the micropuncture wire passed easily then I placed a 6- Thai sheath. Selective right and left coronary angiogram performed using JR4 diagnostic catheter and JL4 guiding catheter. After that I did intervene on the first diagonal branch. Subsequent did left heart catheterization using 6-Thai pigtail catheter. The procedure was completed without any complication SELECTIVE CORONARY ANGIOGRAM: The right coronary artery: Is a large caliber vessel and its a dominant vessel. The RCA appeared to be angiographically normal. Distally bifurcates into PDA and PLV branches both appeared to be angiographically normal Left main: Is angiographically normal. Bifurcates into LCx and LAD The left circumflex: Is a large caliber vessel nondominant vessel. The LCx is angiographically normal. Gives rises into a large OM branch which appeared to be angiographically normal. The left anterior descending artery: Is a large caliber vessel. The LAD proximally is normal and gives rises into a large first diagonal branch which is occluded. The mid LAD has mild disease only and LAD distally appears to be angiographically normal HEMODYNAMICS: The LVEDP was 12 mmHg without significant gradient across aortic valve PCI OF THE diagonal: Anticoagulation was initiated using heparin with continuous ACT monitoring throughout the case Subsequently I did engage the left main using JL4 guiding catheter. I did wire the first diagonal using a run-through wire. After that I did balloon angioplasty using 2.5 x 12 mm balloon before I deployed 3.0 x 15 mm stent where the stent was positioned under fluoroscopy guidance and deployed under its nominal pressure. The following angiogram showed an excellent angiographic res ults CONCLUSION: #[address] segment deviation myocardial infarction #2 occluded first diagonal branch. I performed successful stenting of the first diagonal branch #3 normal left-sided filling pressure POSTPROCEDURE MANAGEMENT: #1 dual antiplatelet therapy #2 aggressive cholesterol control #3 follow-up with the patient
[2021-12-30] MEDS ORDERED: tiZANidine 4 MG TAB PO PRN (15:06)
[2021-12-30] MEDS ORDERED: ALBUTEROL NEBULIZED 2.5 MG/3 ML INHALATION PRN (15:06)
[2021-12-30] MEDS ORDERED: BUTALB/APAP/CAFF 50-325-40MG TAB PO PRN (15:06)
--- NOTE | 2021-12-30 15:58 | P.HPIM ---
History of Present Illness H&P Date: 12/30/21 Chief Complaint: chest pain The patient is a 66-year-old female patient with past medical history significant for tobacco abuse, fibromyalgia, and chronic pain syndrome. She p resented to the emergency department complaining of discomfort in the chest. The EKG at the ER revealed acute lateral ST segment elevation with ST segment elevation in [address] segment depression inferiorly. STEMI alert was called the patient was taken to the [facility] and heart catheterization was performed. The patient was found to have an occluded large first diagonal branch which was a stented with a good angiographic results. The patient was chest pain-free with resolving ST changes at the end of the procedure. The patient tolerated the procedure very well. Initially with attempted to the procedure from right radial approach but could not get an access and we ended doing the procedure from right femoral approach. Beside that the patient was found to have no other obstructive CAD. Review of Systems All 14 review of systems evaluated and all negative except for above. Past Medical History Past Medical History: Fibromyalgia Additional Past Medical History / Comment(s): chronic back pain, Back Injury 9 years ago History of Any Multi-Drug Resistant Organisms: None Reported Past Surgical History: No Surgical Hx Reported Past Psychological History: Anxiety, Depression Smoking Status: Former smoker, Never smoker Past Alcohol Use History: None Reported Past Drug Use History: None Reported Medications and Allergies Home Medications Medication Instructions Recorded Confirmed Type Morphine Sulfate ER [Ms Contin] 15 mg PO Q12HR 08/26/19 12/30/21 History Morphine Sulfate ER [Ms Contin] 30 mg PO Q12HR 08/26/19 12/30/21 History Pregabalin [Lyrica] 225 mg PO BID 08/26/19 12/30/21 History Sertraline [Zoloft] 100 mg PO HS 08/26/19 12/30/21 History oxyCODONE-APAP 7.5-325MG [Percocet 1 tab PO BID PRN 08/26/19 12/30/21 History 7.5-325 mg] tiZANidine HCL 4 mg PO BID PRN 08/26/19 12/30/21 History Albuterol Inhaler [Ventolin Hfa 2 puff INHALATION RT-Q4H PRN 12/30/21 12/30/21 History Inhaler] Butalb/APAP/Caff 50-325-40Mg 1 tab PO TID PRN 12/30/21 12/30/21 History [Fioricet 50-325-40] Diclofenac Sodium [Voltaren] 75 mg PO BID PRN 12/30/21 12/30/21 History Levothyroxine Sodium [Synthroid] 50 mcg PO DAILY 12/30/21 12/30/21 History Allergies Allergy/AdvReac Type Severity Reaction Status Date / Time No Known Allergies Allergy Verified 12/30/21 13:14 Physical Exam Vitals: Vital Signs Temp Pulse Resp BP Pulse Ox 12/30/21 13:25 68 16 153/71 95 12/30/21 13:23 70 28 H 150/72 95 12/30/21 13:14 162/91 12/30/21 13:12 98.0 F 78 18 97 Intake and Output 12/29/21 12/30/21 12/30/21 22:59 06:59 14:59 Intake Total 250 Output Total 300 Balance -50 Intake: IV 250 Output: Urine 300 Other: Weight 98.883 kg General: non toxic, no distress, appears at stated age Derm: warm, dry Head: atraumatic, normocephalic, symmetric Eyes: EOMI, no lid lag, anicteric sclera Mouth: no lip lesion, mucus membranes moist Cardiovascular: S1S2 reg, no murmur, positive posterior tibial pulse bilateral, Lungs: CTA bilateral, no rhonchi, no rales , no accessory muscle use Abdominal: soft, nontender to palpation, no guarding, no appreciable organomegaly Ext: no gross muscle atrophy, no edema, no contractures Neuro: CN II-XI grossly intact, no focal neuro deficits Psych: Alert, oriented, appropriate affect Results CBC & Chem 7: 12/30/21 13:20 12/30/21 13:20 Labs: Abnormal Lab Results - Last 24 Hours (Table) 12/30/21 12/30/21 Range/Units 13:20 13:20 Sodium 136 L (137-145) mmol/L Creatinine 0.50 L (0.52-1.04) mg/dL Glucose 101 H (74-99) mg/dL Troponin I 0.049 H* (0.000-0.034) ng/mL Assessment and Plan Assessment: Assessment and plan: #Acute lateral STEMI -Status post a stenting of the first diagonal branch -Management per cardiology -Resume beta kathleen and HILARIO inhibitor -Dual antiplatelet therapy high-dose statins -Check A1c and lipid panel - 2-D echo #Hypothyroidism -Patient stated that she hasn't been taking her levothyroxine -Check TSH #Ongoing tobacco abuse -Patient was counseled regarding smoking cessation #Morbid obesity BMI 39 -Patient was counseled regarding exercise and diet #Chronic pain syndrome -Secondary to chronic back pain and right hip pain -Resume MS Contin and when necessary oxycodone -Resume Lyrica #Fibromyalgia -Resume Lyrica and Zoloft
[2021-12-30] MEDS: oxyCODONE-APAP 7.5-325MG 1 EACH TAB PO PRN (19:17)
[2021-12-30] MEDS: MORPHINE SULFATE ER 15 MG TABLET PO SCH (20:14)
[2021-12-30] MEDS: ATORVASTATIN 80 MG TAB PO SCH (20:14)
[2021-12-30] MEDS: PREGABALIN 75 MG CAP PO SCH (20:15)
[2021-12-30] MEDS: SERTRALINE 100 MG TAB PO SCH (20:15)
[2021-12-30] MEDS ORDERED: MORPHINE SULFATE ER 30 MG TABLET PO SCH (21:00)
[2021-12-30] MEDS ORDERED: METOPROLOL TARTRATE 25 MG TAB PO SCH (21:00)
[2021-12-30 23:24] LABS: Chol/HDL Ratio 5.34 Ratio; LDL Cholesterol,Calculated 176.8 mg/dL (0.0-131.0)
[2021-12-31] MEDS: LEVOTHYROXINE 50 MCG TAB PO SCH (05:39)
[2021-12-31 06:52] LABS: Basophils # (A) 0.1 k/uL (0-0.2); Basophils % (A) 1 %; Eosinophils # (A) 0.2 k/uL (0-0.7); Eosinophils % (A) 2 %; HCT 42.5 % (34.0-46.0); HGB 13.4 gm/dL (11.4-16.0); Lymphocytes # (A) 2.6 k/uL (1.0-4.8); Lymphocytes % (A) 19 %; MCH 29.8 pg (25.0-35.0); MCHC 31.7 g/dL (31.0-37.0); MCV 94.1 fL (80.0-100.0); Monocytes # (A) 0.5 k/uL (0-1.0); Monocytes % (A) 4 %; Neutrophils # (A) 9.7 k/uL (1.3-7.7); Neutrophils % (A) 74 %; Platelet Count 297 k/uL (150-450); RBC 4.51 m/uL (3.80-5.40); RDW 13.7 % (11.5-15.5); WBC 13.2 k/uL (3.8-10.6)
[2021-12-31 07:08] LABS: ALT 25 U/L (4-34); AST 115 U/L (14-36); African American GFR (CKD) >90 (>60 ml/min/1.73 sqM); Albumin 3.9 g/dL (3.5-5.0); Alkaline Phosphatase 105 U/L (38-126); Anion Gap 8 mmol/L; Blood Urea Nitrogen 10 mg/dL (7-17); Calcium 8.8 mg/dL (8.4-10.2); Carbon Dioxide 23 mmol/L (22-30); Chloride 108 mmol/L (98-107); Glucose 129 mg/dL (74-99); Non-African American GFR(CKD) >90 (>60 ml/min/1.73 sqM); Potassium 4.3 mmol/L (3.5-5.1); Sodium 139 mmol/L (137-145); Total Bilirubin 0.5 mg/dL (0.2-1.3); Total Protein 6.7 g/dL (6.3-8.2)
[2021-12-31] MEDS: MORPHINE SULFATE ER 15 MG TABLET PO SCH ×2 (07:48→20:13)
--- NOTE | 2021-12-31 07:56 | P.PN ---
Subjective Progress Note Date: 12/31/21 Principal diagnosis: Acute coronary syndrome The patient is a 66-year-old female patient with history of smoking was brought to the emergency department with a chest discomfort and EKG concerning for acute lateral ST segment elevation myocardial infarction. She underwent an emergent heart catheterization and was found to have occluded first diagonal branch. She underwent stenting of the first diagonal with a good angiographic results. She was seen this morning. She is chest pain-free. Hemodynamically she is stable beside marginally low heart rate. I'm going to decrease the dose of metoprolol from 25 mg by mouth twice a day to 12.5 mg by mouth twice a day. Beside that she is on dual antiplatelet therapy along with high intensity statin and also she was started on lisinopril. The echo still pending. From the cardiac standpoint of view, the patient Be transferred to the floor. Objective - Vital Signs Vital signs: Vital Signs Temp 97.6 F 12/31/21 04:00 Pulse 49 L 12/31/21 07:00 Resp 16 12/31/21 07:00 BP 138/73 12/31/21 07:00 Pulse Ox 91 L 12/31/21 07:00 Intake & Output 12/30/21 12/31/21 12/31/21 18:59 06:59 18:59 Intake Total 550 300 0 Output Total 1700 650 Balance -1150 -350 0 Weight 98.883 kg 99.2 kg Intake: IV 550 300 0 Sodium Chloride 0.9% 1, 300 300 0 000 ml In Empty Bag 1 bag @ 75 mls/hr IV .[id number] [facility] Rx#:[id number] Output: Urine 1700 650 Other: Voiding Method External Catheter Bedside Commode # Voids 0 0 - Constitutional General appearance: Present: no acute distress - Respiratory Respiratory: bilateral: diminished - Cardiovascular Rhythm: regular Heart sounds: normal: S1, S2 - Labs CBC & Chem 7: 12/31/21 06:38 12/31/21 06:38 Labs: Abnormal Lab Results - Last 24 Hours (Table) 12/30/21 12/30/21 12/30/21 Range/Units 13:20 13:20 13:20 WBC (3.8-10.6) k/uL Neutrophils # (1.3-7.7) k/uL Sodium 136 L (137-145) mmol/L Chloride (98-107) mmol/L Creatinine 0.50 L (0.52-1.04) mg/dL Glucose 101 H (74-99) mg/dL AST (14-36) U/L Troponin I 0.049 H* (0.000-0.034) ng/mL Triglycerides 193.00 H (0.00-149.00) mg/dL Cholesterol 265.00 H (0.00-200.00) mg/dL LDL Cholesterol, Calc 176.8 H (0.0-131.0) mg/dL 12/31/21 12/31/21 Range/Units 06:38 06:38 WBC 13.2 H (3.8-10.6) k/uL Neutrophils # 9.7 H (1.3-7.7) k/uL Sodium (137-145) mmol/L Chloride 108 H (98-107) mmol/L Creatinine 0.44 L (0.52-1.04) mg/dL Glucose 129 H (74-99) mg/dL AST 115 H (14-36) U/L Troponin I (0.000-0.034) ng/mL Triglycerides (0.00-149.00) mg/dL Cholesterol (0.00-200.00) mg/dL LDL Cholesterol, Calc (0.0-131.0) mg/dL Assessment and Plan Assessment: Assessment #[address] segment elevation #2 status post a stenting of the first diagonal branch #3 significant history of smoking #4 asymptomatic bradycardia Plan #1 dual antiplatelet therapy #2 aggressive cholesterol control #3 risk factors modification #4 smoking cessation #5 follow-up on the echo #6 decrease the dose of metoprolol
[2021-12-31] MEDS: lisinopriL 10 MG TAB PO SCH (09:12)
[2021-12-31] MEDS: PREGABALIN 75 MG CAP PO SCH ×2 (09:12→20:13)
[2021-12-31] MEDS: ASPIRIN 81 MG PO SCH (09:13)
[2021-12-31] MEDS: METOPROLOL TARTRATE 12.5 MG TAB PO SCH ×2 (09:13→20:14)
[2021-12-31] MEDS: CLOPIDOGREL 75 MG TAB PO SCH (09:13)
--- NOTE | 2021-12-31 11:00 | P.PN ---
Subjective Progress Note Date: 12/31/21 History of Present Illness H&P Date: 12/30/21 Chief Complaint: chest pain The patient is a 66-year-old female patient with past medical history significant for tobacco abuse, fibromyalgia, and chronic pain syndrome. She presented to the emergency department complaining of discomfort in the chest. The EKG at the ER revealed acute lateral ST segment elevation with ST segment elevation in [address] segment depression inferiorly. STEMI alert was called the patient was taken to the [facility] and heart catheterization was performed. The patient was found to have an occluded large first diagonal branch which was a stented with a good angiographic results. The patient was chest pain-free with resolving ST changes at the end of the procedure. The patient tolerated the procedure very well. Initially with attempted to the procedure from right radial approach but could not get an access and we ended doing the procedure from right femoral approach. Beside that the patient was found to have no other obstructive CAD. Interval history: Patient was was seen and examined at the bedside. She denies any chest pain or shortness of breath. No acute changes overnight. Physical examination: General: non toxic, no distress, appears at stated age Derm: warm, dry Head: atraumatic, normocephalic, symmetric Eyes: EOMI, no lid lag, anicteric sclera Mouth: no lip lesion, mucus membranes moist Cardiovascular: S1S2 reg, no murmur, positive posterior tibial pulse bilateral, Lungs: CTA bilateral, no rhonchi, no rales , no accessory muscle use Abdominal: soft, nontender to palpation, no guarding, no appreciable organomegaly Ext: no gross muscle atrophy, no edema, no contractures Neuro: CN II-XI grossly intact, no focal neuro deficits Psych: Alert, oriented, appropriate affect Assessment and plan: #Acute lateral STEMI -Status post a stenting of the first diagonal branch -Management per cardiology -Resume beta kathleen and HILARIO inhibitor -Dual antiplatelet therapy high-dose statins -Check A1c and lipid panel - 2-D echo--pending #History of Hypothyroidism -Patient stated that she hasn't been taking her levothyroxine -TSH within normal limits -Follow up with PCP #New onset prediabetes -A1c 6.0 -Weight loss and exercise recommended #Ongoing tobacco abuse -Patient was counseled regarding smoking cessation #Morbid obesity BMI 39 -Patient was counseled regarding exercise and diet #Chronic pain syndrome -Secondary to chronic back pain and right hip pain -Resume MS Contin and when necessary oxycodone -Resume Lyrica #Fibromyalgia -Resume Lyrica and Zoloft Objective - Vital Signs Vital signs: Vital Signs Temp 98.4 F 12/31/21 08:00 Pulse 48 L 12/31/21 09:00 Resp 21 12/31/21 09:00 BP 138/78 12/31/21 08:00 Pulse Ox 93 L 12/31/21 08:00 Intake & Output 12/30/21 12/31/21 12/31/21 18:59 06:59 18:59 Intake Total 550 300 0 Output Total 1700 650 150 Balance -1150 -350 -150 Weight 98.883 kg 99.2 kg Intake: IV 550 300 0 Sodium Chloride 0.9% 1, 300 300 0 000 ml In Empty Bag 1 bag @ 75 mls/hr IV .[id number] [facility] Rx#:[id number] Output: Urine 1700 650 150 Other: Voiding Method External Catheter Bedside Commode # Voids 0 0 - Labs CBC & Chem 7: 12/31/21 06:38 12/31/21 06:38 Labs: Abnormal Lab Results - Last 24 Hours (Table) 12/30/21 12/30/21 12/30/21 Range/Units 13:20 13:20 13:20 WBC (3.8-10.6) k/uL Neutrophils # (1.3-7.7) k/uL Sodium 136 L (137-145) mmol/L Chloride (98-107) mmol/L Creatinine 0.50 L (0.52-1.04) mg/dL Glucose 101 H (74-99) mg/dL AST (14-36) U/L Troponin I 0.049 H* (0.000-0.034) ng/mL Triglycerides 193.00 H (0.00-149.00) mg/dL Cholesterol 265.00 H (0.00-200.00) mg/dL LDL Cholesterol, Calc 176.8 H (0.0-131.0) mg/dL 12/31/21 12/31/21 Range/Units 06:38 06:38 WBC 13.2 H (3.8-10.6) k/uL Neutrophils # 9.7 H (1.3-7.7) k/uL Sodium (137-145) mmol/L Chloride 108 H (98-107) mmol/L Creatinine 0.44 L (0.52-1.04) mg/dL Glucose 129 H (74-99) mg/dL AST 115 H (14-36) U/L Troponin I (0.000-0.034) ng/mL Triglycerides (0.00-149.00) mg/dL Cholesterol (0.00-200.00) mg/dL LDL Cholesterol, Calc (0.0-131.0) mg/dL
--- NOTE | 2021-12-31 13:44 | CA ---
Transthoracic Echo Report Name: Eliane Moffett Age: 66 Gender: F : 1955 Exam Date: 12/30/2021 14:51 Exam Location: [place] [facility] Ht (in): 62 Wt (lb): 218 Ordering Physician: Tony Pollack MD ([id number]) Attending/Referring Phys: Leather Sorter Neema Self RDCS Procedure CPT: Indications: stemi Cardiac Hx: Technical Quality: Technically difficult study Contrast 1: Lumason Total Dose (mL): 3 Contrast 2: Total Dose (mL): MEASUREMENTS (Male / Female) Normal Values 2D ECHO LV Diastolic Diameter PLAX 3.7 cm 4.2 - 5.9 / 3.9 - 5.3 cm LV Systolic Diameter PLAX 2.8 cm IVS Diastolic Thickness 1.3 cm 0.6 - 1.0 / 0.6 - 0.9 cm LVPW Diastolic Thickness 1.3 cm 0.6 - 1.0 / 0.6 - 0.9 cm LV Relative Wall Thickness 0.7 RV Internal Dim ED PLAX 3.2 cm LVOT Diameter 2.1 cm LA Systolic Diameter LX 3.1 cm 3.0 - 4.0 / 2.7 - 3.8 cm LA Volume 34.3 cm??? 18 - 58 / 22 - 52 cm??? M-MODE Aortic Root Diameter MM 2.9 cm MV E Point Septal Separation 0.9 cm AV Cusp Separation MM 2.2 cm DOPPLER AV Peak Velocity 145.1 cm/s AV Peak Gradient 8.4 mmHg MV Area PHT 3.0 cm??? Mitral E Point Velocity 70.1 cm/s Mitral A Point Velocity 90.4 cm/s Mitral E to A Ratio 0.8 MV Deceleration Time 256.0 ms MV E' Velocity 5.9 cm/s Mitral E to MV E' Ratio 11.9 TR Peak Velocity 228.9 cm/s TR Peak Gradient 21.0 mmHg Right Ventricular Systolic Press 24.5 mmHg FINDINGS Left Ventricle Left ventricular ejection fraction is estimated at 40-45 %. Left ventricular cavity size normal. Mild concentric left ventricular hypertrophy. Apical septum, anterior , inferior and lateral gallegos hypokinesis Right Ventricle Normal right ventricular size and function. Right ventricular systolic pressure within normal limits. Right Atrium Normal right atrial size. Left Atrium Normal left atrial size. No evidence for an atrial septal defect. Mitral Valve Mitral annular calcification. Trace to mild mitral regurgitation. Aortic Valve Trileaflet aortic valve. No aortic valve stenosis or regurgitation. Tricuspid Valve Mild tricuspid regurgitation. Pulmonic Valve Trace to mild pulmonic regurgitation. Pericardium Normal pericardium. Aorta Normal size aortic root and proximal ascending aorta. CONCLUSIONS Mildly impaired LV function with EF between 40-45% with lateral hypokinesia Overall normal intracardiac valves Previewed by: Dr. Tony Pollack MD (Electronically Signed) Final Date: 31 Dec 2021 13:43
[2021-12-31] MEDS: oxyCODONE-APAP 7.5-325MG 1 EACH TAB PO PRN (15:12)
[2021-12-31] MEDS: ATORVASTATIN 80 MG TAB PO SCH (20:14)
[2021-12-31] MEDS: SERTRALINE 100 MG TAB PO SCH (20:14)
[2022-01-01] MEDS: LEVOTHYROXINE 50 MCG TAB PO SCH (05:59)
[2022-01-01 07:49] VITALS: BP 103/56; PULSE 48; RESP 18; TEMP 97.8
[2022-01-01] MEDS: MORPHINE SULFATE ER 15 MG TABLET PO SCH (07:57)
[2022-01-01] MEDS: METOPROLOL TARTRATE 12.5 MG TAB PO SCH (07:58)
[2022-01-01] MEDS: CLOPIDOGREL 75 MG TAB PO SCH (07:58)
[2022-01-01] MEDS: ASPIRIN 81 MG PO SCH (07:58)
[2022-01-01] MEDS: PREGABALIN 75 MG CAP PO SCH (07:59)
[2022-01-01] MEDS: oxyCODONE-APAP 7.5-325MG 1 EACH TAB PO PRN (08:03)
[2022-01-01 08:34] LABS: Basophils % (A) 0 %; Eosinophils # (A) 0.1 k/uL (0-0.7); Eosinophils % (A) 1 %; HCT 40.7 % (34.0-46.0); HGB 13.1 gm/dL (11.4-16.0); Lymphocytes # (A) 2.9 k/uL (1.0-4.8); Lymphocytes % (A) 29 %; MCH 30.6 pg (25.0-35.0); MCHC 32.3 g/dL (31.0-37.0); MCV 94.8 fL (80.0-100.0); Monocytes # (A) 0.5 k/uL (0-1.0); Monocytes % (A) 5 %; Neutrophils # (A) 6.4 k/uL (1.3-7.7); Neutrophils % (A) 63 %; Platelet Count 312 k/uL (150-450); RDW 14.4 % (11.5-15.5); WBC 10.1 k/uL (3.8-10.6)
[2022-01-01 08:51] LABS: ALT 22 U/L (4-34); AST 71 U/L (14-36); African American GFR (CKD) >90 (>60 ml/min/1.73 sqM); Albumin 3.7 g/dL (3.5-5.0); Alkaline Phosphatase 92 U/L (38-126); Anion Gap 9 mmol/L; Blood Urea Nitrogen 15 mg/dL (7-17); Calcium 8.7 mg/dL (8.4-10.2); Carbon Dioxide 23 mmol/L (22-30); Chloride 106 mmol/L (98-107); Glucose 137 mg/dL (74-99); Non-African American GFR(CKD) >90 (>60 ml/min/1.73 sqM); Sodium 138 mmol/L (137-145); Total Bilirubin 0.5 mg/dL (0.2-1.3); Total Protein 6.4 g/dL (6.3-8.2)
--- NOTE | 2022-01-01 10:28 | P.DS ---
Providers Date of admission: 12/30/21 13:18 Expected date of discharge: 01/01/22 Attending physician: Payton San MD Consults: 12/30/21 13:18 Consult Physician Routine Consulting Provider: Tony Pollack Consult Reason/Comments: STEMI Do you want consulting provider notified?: Already Contacted 12/30/21 14:18 Consult Physician Routine Consulting Provider: Cardiology Tobi Consult Reason/Comments: Post Interventional patient Do you want consulting provider notified?: Already Contacted Primary care physician: [facility] Course: #Acute lateral STEMI #History of Hypothyroidism #New onset prediabetes #Ongoing tobacco abuse #Morbid obesity BMI 39 #Chronic pain syndrome #Fibromyalgia The patient is a 66-year-old female patient with past medical history significant for tobacco abuse, fibromyalgia, and chronic pain syndrome. She presented to the emergency department complaining of discomfort in the chest. The EKG at the ER revealed acute lateral ST segment elevation with ST segment elevation in [address] segment depression inferiorly. STEMI alert was called the patient was taken to the [facility] and heart catheterization was performed. The patient was found to have an occluded large first diagonal branch which was a stented with a good angiographic results. The patient was chest pain-free with resolving ST changes at the end of the procedure. The patient tolerated the procedure very well. Initially with attempted to the procedure from right radial approach but could not get an access and ended doing the procedure from right femoral approach. Pt also had echo done revealing regional WMA c/w occluded first diag, as well as reduced EF to 40-45%. Pt followed by cardiology and placed on appropriate CAD meds including ASA, plavix, statin, metoprolol, lisinopril, nitro PRN. Pt doing well on day of discharge and sent home with PCP and cardiology f/u. I spent 34 minutes coordinating this complecx discharge. Gen: awake, alert HEENT: normocephalic, atraumatic, good hearing acuity, moist mucous membranes Resp: good air exchange, breathing comfortably with no accessory muscle use CVS: good distal perfusion x 4, GI: soft, NTTP, ND : no SPT, no CVAT, tan catheter not present MSK: no pitting edema, no clubbing Neuro: non-focal, moving all extremities Psych: cooperative, euthymic mood Patient Condition at Discharge: Good Plan - Discharge Summary Discharge Rx Participant: Yes New Discharge Prescriptions: New Metoprolol Tartrate [Lopressor] 12.5 mg PO BID 90 Days #180 tab Nitroglycerin Sl Tabs [Nitrostat] 0.4 mg SUBLINGUAL Q5M PRN #25 tab PRN Reason: Chest Pain Clopidogrel [Plavix] 75 mg PO DAILY 90 Days #90 tab Aspirin 81 mg PO DAILY 90 Days #90 tab Atorvastatin [Lipitor] 80 mg PO HS 90 Days #90 tab lisinopriL [Zestril] 5 mg PO DAILY 90 Days #90 tab Continue Sertraline [Zoloft] 100 mg PO HS Morphine Sulfate ER [Ms Contin] 30 mg PO Q12HR Morphine Sulfate ER [Ms Contin] 15 mg PO Q12HR Pregabalin [Lyrica] 225 mg PO BID tiZANidine HCL 4 mg PO BID PRN PRN Reason: muscle spasms oxyCODONE-APAP 7.5-325MG [Percocet 7.5-325 mg] 1 tab PO BID PRN PRN Reason: Pain Albuterol Inhaler [Ventolin Hfa Inhaler] 2 puff INHALATION RT-Q4H PRN PRN Reason: Shortness Of Breath Levothyroxine Sodium [Synthroid] 50 mcg PO DAILY Butalb/APAP/Caff 50-325-40Mg [Fioricet 50-325-40] 1 tab PO TID PRN PRN Reason: Migraine Headache Discontinued Diclofenac Sodium [Voltaren] 75 mg PO BID PRN PRN Reason: Pain Discharge Medication List Morphine Sulfate ER [Ms Contin] 15 mg PO Q12HR 08/26/19 [History] Morphine Sulfate ER [Ms Contin] 30 mg PO Q12HR 08/26/19 [History] Pregabalin [Lyrica] 225 mg PO BID 08/26/19 [History] Sertraline [Zoloft] 100 mg PO HS 08/26/19 [History] oxyCODONE-APAP 7.5-325MG [Percocet 7.5-325 mg] 1 tab PO BID PRN 08/26/19 [History] tiZANidine HCL 4 mg PO BID PRN 08/26/19 [History] Albuterol Inhaler [Ventolin Hfa Inhaler] 2 puff INHALATION RT-Q4H PRN 12/30/21 [History] Butalb/APAP/Caff 50-325-40Mg [Fioricet 50-325-40] 1 tab PO TID PRN 12/30/21 [History] Levothyroxine Sodium [Synthroid] 50 mcg PO DAILY 12/30/21 [History] Aspirin 81 mg PO DAILY 90 Days #90 tab 01/01/22 [Rx] Atorvastatin [Lipitor] 80 mg PO HS 90 Days #90 tab 01/01/22 [Rx] Clopidogrel [Plavix] 75 mg PO DAILY 90 Days #90 tab 01/01/22 [Rx] Metoprolol Tartrate [Lopressor] 12.5 mg PO BID 90 Days #180 tab 01/01/22 [Rx] Nitroglycerin Sl Tabs [Nitrostat] 0.4 mg SUBLINGUAL Q5M PRN #25 tab 01/01/22 [Rx] lisinopriL [Zestril] 5 mg PO DAILY 90 Days #90 tab 01/01/22 [Rx] Follow up Appointment(s)/Referral(s): Tony Pollack MD [STAFF PHYSICIAN] - 1 Week Nano Baker MD [Primary Care Provider] - 1-2 days
[2022-01-01 11:10] VITALS: BMI 39.5
[2022-01-01] MEDS: lisinopriL 10 MG TAB PO SCH (11:10)
--- NOTE | 2022-01-01 13:13 | P.PN ---
Subjective The patient is a 66-year-old female patient with a past medical history of smoking. She does not follow with a geospatial technician. Patient presented to the emergency department complaining of discomfort in the chest. The EKG revealed acute lateral ST segment elevation with ST segment elevation in [address] segment depression inferiorly. Patient underwent cardiac catheterization with Dr. Pollack on 12/30/21. The patient was found to have an occluded large first diagonal branch which was a stented. Initially with attempted to the procedure from right radial approach but could not get an access and we ended doing the procedure from right femoral approach. Beside that the patient was found to have no other obstructive CAD. Her LVEDP was 12 mmHg. Echocardiogram revealed EF of 4045% with lateral hypokinesia. 01/01/2022 Patient seen and examined at bedside, no acute distress. Denies any chest pain or shortness of breath. Ambulating in halls and room without difficulty or symptoms. Vitals signs stable. BP marginal 103/56, heart rate 48, afebrile, oxygen saturation 94% on room air.Currently sinus bradycardia on the monitor. Tolerating current medications well. She's currently maintained on aspirin and Plavix, lisinopril 10 mg daily, metoprolol tartrate 12.5 mg daily GENERAL: Well-appearing, well-nourished and in no acute distress. NECK: Supple without JVD or thyromegaly. LUNGS: Breath sounds clear to auscultation bilaterally. Respiration equal and unlabored. No wheezes, rales or rhonchi. HEART: Regular rate and rhythm without murmurs, rubs or gallops. S1 and S2 heard. EXTREMITIES: Normal range of motion, no edema. No clubbing or cyanosis. Peripheral pulses intact. SKIN: Right radial and Right femoral cath site clean dry intact 2+ peripheral pulses no hematoma ASSESSMENT Acute lateral ST segment elevation Status post a stenting of the first diagonal branch 12/30/21 Significant history of smoking Asymptomatic bradycardia Ischemic cardiomyopathy, mildly impaired EF 45-50% PLAN Continue dual antiplatelet therapy with aspirin and plavix Continue metoprolol tartrate 12.5mg BID Lisinopril 5mg daily PRN Nitro From a cardiology perspective, patient is stable to be discharged home. Follow up with Dr. Pollack in 1 week. Nurse Practitioner note has been reviewed, I agree with a documented findings and plan of care. Patient was seen and examined. Objective - Vital Signs Vital signs: Vital Signs Temp 97.8 F 01/01/22 07:47 Pulse 48 L 01/01/22 07:47 Resp 18 01/01/22 07:47 BP 103/56 01/01/22 07:47 Pulse Ox 94 L 01/01/22 07:47 Intake & Output 12/31/21 01/01/22 01/01/22 18:59 06:59 18:59 Intake Total 378 380 Output Total 150 Balance 228 380 Weight 98.1 kg 98.1 kg Intake: IV 20 20 Invasive Line 1 10 10 Invasive Line 2 10 10 Sodium Chloride 0.9% 1, 0 000 ml In Empty Bag 1 bag @ 75 mls/hr IV .[id number] [facility] Rx#:[id number] Oral 358 360 Output: Urine 150 Other: Voiding Method Bedside Commode Toilet Toilet Bedside Commode Bedside Commode # Voids 1 1 1 - Labs CBC & Chem 7: 01/01/22 07:30 01/01/22 07:30 Labs: Abnormal Lab Results - Last 24 Hours (Table) 01/01/22 Range/Units 07:30 Glucose 137 H (74-99) mg/dL AST 71 H (14-36) U/L
[2022-01-02] MEDS ORDERED: lisinopriL 5 MG TAB PO SCH (09:00)
== END 2022-01-01 11:46 | disposition home or self-care (01) | DRG 247 ==
LOC: EC 13:11 → 2SICU 13:18 → 3SCARD 12-31 11:29
PROVIDERS: ADMIT Family Medicine; ATTEND Family Medicine
PROC: 027034Z Dilation of Coronary Artery, One Artery with Drug-eluting Intraluminal Device, Percutaneous Approach (ICD-10-PCS; principal; 2021-12-30 13:31)
PROC: 4A023N7 Measurement of Cardiac Sampling and Pressure, Left Heart, Percutaneous Approach (ICD-10-PCS; principal; 2021-12-30 13:31)
PROC: B2111ZZ Fluoroscopy of Multiple Coronary Arteries using Low Osmolar Contrast (ICD-10-PCS; principal; 2021-12-30 13:31)
DX: I21.29 ST elevation (STEMI) myocardial infarction involving other sites (principal); F17.210 Nicotine dependence, cigarettes, uncomplicated; E03.9 Hypothyroidism, unspecified; E66.01 Morbid (severe) obesity due to excess calories; F32.A Depression, unspecified; F41.9 Anxiety disorder, unspecified; G89.4 Chronic pain syndrome; I25.10 Atherosclerotic heart disease of native coronary artery without angina pectoris; I25.5 Ischemic cardiomyopathy; M79.7 Fibromyalgia; R73.03 Prediabetes; Z68.39 Body mass index [BMI] 39.0-39.9, adult; Z79.1 Long term (current) use of non-steroidal anti-inflammatories (NSAID); Z79.82 Long term (current) use of aspirin; Z79.890 Hormone replacement therapy; Z79.899 Other long term (current) drug therapy; Z71.6 Tobacco abuse counseling; Z28.310 Unvaccinated for COVID-19; M25.551 Pain in right hip; M54.9 Dorsalgia, unspecified
CPT/HCPCS: 71045; 80053; 80061; 82607; 83036; 83735; 84443; 84484; 85025; 85610; 85730; 93005; 93306; 93458; 96374; 96375; 99285

== ENCOUNTER 2023-03-27 07:21 | Inpatient (IN) | payer MEDICARE, BC ==
[2023-03-27 07:25] LABS: Glucose,Whole Blood 180 mg/dL (70-110)
--- NOTE | 2023-03-27 07:27 | ED ---
General Adult HPI - General Stated complaint: Dizziness,poss Stroke Time Seen by Provider: 03/27/23 07:21 Source: patient, EMS, RN notes reviewed Mode of arrival: EMS Limitations: no limitations - History of Present Illness Initial comments: Patient is a pleasant 67-year-old female presenting to the emergency department with concern for possible stroke. Last known well is unknown. Patient states she felt well before she went to bed however does not know what time that is. Patient woke up this morning with problems. History is somewhat limited and patient is a poor historian. Patient does have some slurred speech. EMS reported left facial droop and slurred speech. Questionable if patient is on blood thinners. - Related Data Home Medications Medication Instructions Recorded Confirmed Morphine Sulfate ER [Ms Contin] 15 mg PO Q12HR 08/26/19 12/30/21 Morphine Sulfate ER [Ms Contin] 30 mg PO Q12HR 08/26/19 12/30/21 Pregabalin [Lyrica] 225 mg PO BID 08/26/19 12/30/21 Sertraline [Zoloft] 100 mg PO HS 08/26/19 12/30/21 oxyCODONE-APAP 7.5-325MG [Percocet 1 tab PO BID PRN 08/26/19 12/30/21 7.5-325 mg] tiZANidine HCL 4 mg PO BID PRN 08/26/19 12/30/21 Albuterol Inhaler [Ventolin Hfa 2 puff INHALATION RT-Q4H PRN 12/30/21 12/30/21 Inhaler] Butalb/APAP/Caff 50-325-40Mg 1 tab PO TID PRN 12/30/21 12/30/21 [Fioricet 50-325-40] Levothyroxine Sodium [Synthroid] 50 mcg PO DAILY 12/30/21 12/30/21 Previous Rx's Medication Instructions Recorded Aspirin 81 mg PO DAILY 90 Days #90 tab 01/01/22 Atorvastatin [Lipitor] 80 mg PO HS 90 Days #90 tab 01/01/22 Clopidogrel [Plavix] 75 mg PO DAILY 90 Days #90 tab 01/01/22 Metoprolol Tartrate [Lopressor] 12.5 mg PO BID 90 Days #180 tab 01/01/22 Nitroglycerin Sl Tabs [Nitrostat] 0.4 mg SUBLINGUAL Q5M PRN #25 tab 01/01/22 lisinopriL [Zestril] 5 mg PO DAILY 90 Days #90 tab 01/01/22 Allergies Allergy/AdvReac Type Severity Reaction Status Date / Time No Known Allergies Allergy Verified 12/30/21 13:14 Review of Systems ROS Statement: Those systems with pertinent positive or pertinent negative responses have been documented in the HPI. ROS Other: All systems not noted in ROS Statement are negative. Constitutional: Denies: fever Eyes: Denies: eye pain ENT: Denies: ear pain Respiratory: Denies: cough Cardiovascular: Denies: chest pain Gastrointestinal: Denies: abdominal pain Neurological: Reports: as per HPI Past Medical History Past Medical History: Fibromyalgia Additional Past Medical History / Comment(s): chronic back pain, Back Injury 9 years ago History of Any Multi-Drug Resistant Organisms: None Reported Past Surgical History: No Surgical Hx Reported, Heart Catheterization With Stent Date of Last Stent Placement:: 12/30/2021 Past Psychological History: Anxiety, Depression Smoking Status: Current every day smoker Past Alcohol Use History: None Reported Past Drug Use History: None Reported General Exam Limitations: no limitations General appearance: alert, in no apparent distress Head exam: Present: atraumatic, normocephalic Eye exam: Present: normal appearance, PERRL, EOMI ENT exam: Present: normal oropharynx Neck exam: Present: normal inspection Respiratory exam: Present: normal lung sounds bilaterally Cardiovascular Exam: Present: regular rate, normal rhythm GI/Abdominal exam: Present: soft. Absent: tenderness Extremities exam: Present: normal inspection Neurological exam: Present: alert, oriented X3 Expanded Neurological exam: Present: protecting the airway, other (Mild slurred speech. Left facial droop.) Patient oriented to: Present: person, place, time Cranial nerves: EOM's Intact: Normal, Facial Sensation: Normal, Facial Palsy with Forehead Movement: Abnormal Left Sensory exam: Upper Extremity Light Touch: Normal, Lower Extremity Light Touch: Normal Motor strength exam: RUE: 5, LUE: 5, RLE: 5, LLE: 3 Eye Response: (4) open spontaneously Motor Response: (6) obeys commands Verbal Response: (5) oriented Psychiatric exam: Present: normal affect, normal mood Skin exam: Present: normal color Course Vital Signs 03/27/23 07:26 Temperature 97.5 F L Pulse Rate 75 Respiratory 18 Rate Blood Pressure 134/80 O2 Sat by Pulse 94 L Oximetry - Reevaluation(s) Reevaluation #1: 03/27/23 08:01 Patient not considered a TPA candidate secondary to unknown last known well. Risks felt to outweigh the benefits EKG Findings - EKG Results: EKG: interpreted by ERMD (L axis, Septal Q waves and inv. T), sinus rhythm Medical Decision Making - Medical Decision Making Was pt. sent in by a medical professional or institution (, PA, [employer], urgent care, hospital, or usp...) When possible be specific @ -Patient was sent from nursing facility Did you speak to anyone other than the patient for history (EMS, parent, family, police, friend...)? What history was obtained from this source @ - further updated including questionable use of anticoagulant however he is not certain. Did you review nursing and triage notes (agree or disagree)? Why? @ -[I reviewed and agree with nursing and triage notes] Were old charts reviewed (outside hosp., previous admission, EMS record, old EKG, old radiological studies, urgent care reports/EKG's, usp records)? Report findings @ -[No old charts were reviewed] Differential Diagnosis (chest pain, altered mental status, abdominal pain women, abdominal pain men, vaginal bleeding, weakness, fever, dyspnea, syncope, headache, dizziness, GI bleed, back pain, seizure, CVA, palpatations, mental health, musculoskeletal)? @ -Differential Weakness: Hypoglycemia, shock, sepsis, hyponatremia, anemia, infection, NM, ETOH, adverse medicine reaction, overdose, stroke, this is not meant to be an all-inclusive list. EKG interpreted by me (3pts min.). @ -[As above] X-rays interpreted by me (1pt min.). @ -Chest x-ray shows no acute process CT interpreted by me (1pt min.). @ -Computed tomography scan of the brain does not reveal acute hemorrhage or large mass U/S interpreted by me (1pt. min.). @ -[None done] What testing was considered but not performed or refused? (CT, X-rays, U/S, l abs)? Why? @ -[None] What meds were considered but not given or refused? Why? @ -[None] Did you discuss the management of the patient with other professionals (professionals i.e. DrBelem, PA, [employer], lab, RT, psych nurse, social service technician, cabin supervisor, teacher, branch lending officer, ed case manager)? Give summary @ -Case was discussed with Dr. Allred with [facility] who will admit covering Dr. Kumar. Was smoking cessation discussed for >3mins.? @ -[No] Was critical care preformed (if so, how long)? @ -[No] Were there social determinants of health that impacted care today? How? (Homelessness, low income, unemployed, alcoholism, drug addiction, transportation, low edu. Level, literacy, decrease access to med. care, alf, rehab)? @ -[No] Was there de-escalation of care discussed even if they declined (Discuss DNR or withdrawal of care, Hospice)? DNR status @ -[No] What co-morbidities impacted this encounter? (DM, HTN, Smoking, COPD, CAD, C ancer, CVA, ARF, Chemo, Hep., AIDS, mental health diagnosis, sleep apnea, morbid obesity)? @ -[None] Was patient admitted / discharged? Hospital course, mention meds given and route, prescriptions, significant lab abnormalities, going to OR and other pertinent info. @ -Patient will be admitted. Orders written. Patient will need neurology consult. Patient will be started with aspirin. Patient states she does not believe she is supposed to be on Plavix however is unclear why. Undiagnosed new problem with uncertain prognosis? @ -[No] Drug Therapy requiring intensive monitoring for toxicity (Heparin, Nitro, Insulin, Cardizem)? @ -[No] Were any procedures done? @ -[No] Diagnosis/symptom? @ -cva Acute, or Chronic, or Acute on Chronic? @ -acute Uncomplicated (without systemic symptoms) or Complicated (systemic symptoms)? @ -[default] Side effects of treatment? @ -[No] Exacerbation, Progression, or Severe Exacerbation? @ -[No] Poses a threat to life or bodily function? How? (Chest pain, USA, NM, pneumonia, PE, COPD, DKA, ARF, appy, cholecystitis, CVA, Diverticulitis, Homicidal, Suicidal, threat to staff... and all critical care pts) @ -[No] - Lab Data Result diagrams: 03/27/23 07:38 03/27/23 07:38 Lab Results 03/27/23 03/27/23 03/27/23 Range/Units 07:23 07:38 07:38 WBC 6.8 (3.8-10.6) k/uL RBC 4.34 (3.80-5.40) m/uL Hgb 13.1 (11.4-16.0) gm/dL Hct 38.8 (34.0-46.0) % MCV 89.3 (80.0-100.0) fL MCH 30.2 (25.0-35.0) pg MCHC 33.8 (31.0-37.0) g/dL RDW 13.6 (11.5-15.5) % Plt Count 209 (150-450) k/uL MPV 7.7 Neutrophils % 76 % Lymphocytes % 18 % Monocytes % 3 % Eosinophils % 1 % Basophils % 0 % Neutrophils # 5.2 (1.3-7.7) k/uL Lymphocytes # 1.2 (1.0-4.8) k/uL Monocytes # 0.2 (0-1.0) k/uL Eosinophils # 0.1 (0-0.7) k/uL Basophils # 0.0 (0-0.2) k/uL PT 10.1 (9.0-12.0) sec INR 0.9 (<1.2) APTT 23.4 (22.0-30.0) sec Sodium (137-145) mmol/L Potassium (3.5-5.1) mmol/L Chloride (98-107) mmol/L Carbon Dioxide (22-30) mmol/L Anion Gap mmol/L BUN (7-17) mg/dL Creatinine (0.52-1.04) mg/dL Est GFR (CKD-EPI)AfAm (>60 ml/min/1.73 sqM) Est GFR (CKD-EPI)NonAf (>60 ml/min/1.73 sqM) Glucose (74-99) mg/dL POC Glucose (mg/dL) 180 H (70-110) mg/dL POC Glu Plate Shear Operator ID Isaac Whitaker Calcium (8.4-10.2) mg/dL Total Bilirubin (0.2-1.3) mg/dL AST (14-36) U/L ALT (4-34) U/L Alkaline Phosphatase (38-126) U/L Creatine Kinase (30-135) U/L Total Protein (6.3-8.2) g/dL Albumin (3.5-5.0) g/dL 03/27/23 Range/Units 07:38 WBC (3.8-10.6) k/uL RBC (3.80-5.40) m/uL Hgb (11.4-16.0) gm/dL Hct (34.0-46.0) % MCV (80.0-100.0) fL MCH (25.0-35.0) pg MCHC (31.0-37.0) g/dL RDW (11.5-15.5) % Plt Count (150-450) k/uL MPV Neutrophils % % Lymphocytes % % Monocytes % % Eosinophils % % Basophils % % Neutrophils # (1.3-7.7) k/uL Lymphocytes # (1.0-4.8) k/uL Monocytes # (0-1.0) k/uL Eosinophils # (0-0.7) k/uL Basophils # (0-0.2) k/uL PT (9.0-12.0) sec INR (<1.2) APTT (22.0-30.0) sec Sodium 140 (137-145) mmol/L Potassium 4.7 (3.5-5.1) mmol/L Chloride 110 H (98-107) mmol/L Carbon Dioxide 22 (22-30) mmol/L Anion Gap 8 mmol/L BUN 21 H (7-17) mg/dL Creatinine 0.50 L (0.52-1.04) mg/dL Est GFR (CKD-EPI)AfAm >90 (>60 ml/min/1.73 sqM) Est GFR (CKD-EPI)NonAf >90 (>60 ml/min/1.73 sqM) Glucose 165 H (74-99) mg/dL POC Glucose (mg/dL) (70-110) mg/dL POC Glu Plate Shear Operator ID Calcium 9.4 (8.4-10.2) mg/dL Total Bilirubin 0.7 (0.2-1.3) mg/dL AST 25 (14-36) U/L ALT 18 (4-34) U/L Alkaline Phosphatase 88 (38-126) U/L Creatine Kinase 163 H (30-135) U/L Total Protein 7.1 (6.3-8.2) g/dL Albumin 4.2 (3.5-5.0) g/dL Disposition Clinical Impression: Cerebrovascular accident (CVA) Disposition: ADMITTED IP TO THIS HOSP Is patient prescribed a controlled substance at d/c from ED?: No Referrals: Nano Baker MD [Primary Care Provider] - 1-2 days Time of Disposition: 08:55
[2023-03-27 07:44] LABS: Basophils % (A) 0 %; Eosinophils # (A) 0.1 k/uL (0-0.7); Eosinophils % (A) 1 %; HCT 38.8 % (34.0-46.0); HGB 13.1 gm/dL (11.4-16.0); Lymphocytes # (A) 1.2 k/uL (1.0-4.8); Lymphocytes % (A) 18 %; MCH 30.2 pg (25.0-35.0); MCHC 33.8 g/dL (31.0-37.0); MCV 89.3 fL (80.0-100.0); Mean Platelet Volume 7.7; Monocytes # (A) 0.2 k/uL (0-1.0); Monocytes % (A) 3 %; Neutrophils # (A) 5.2 k/uL (1.3-7.7); Neutrophils % (A) 76 %; Platelet Count 209 k/uL (150-450); RBC 4.34 m/uL (3.80-5.40); RDW 13.6 % (11.5-15.5); WBC 6.8 k/uL (3.8-10.6)
[2023-03-27 07:58] LABS: ALT 18 U/L (4-34); African American GFR (CKD) >90 (>60 ml/min/1.73 sqM); Anion Gap 8 mmol/L; Blood Urea Nitrogen 21 mg/dL (7-17); Calcium 9.4 mg/dL (8.4-10.2); Carbon Dioxide 22 mmol/L (22-30); Chloride 110 mmol/L (98-107); Creatine Kinase 163 U/L (30-135); Glucose 165 mg/dL (74-99); Non-African American GFR(CKD) >90 (>60 ml/min/1.73 sqM); Sodium 140 mmol/L (137-145); Total Bilirubin 0.7 mg/dL (0.2-1.3)
[2023-03-27 07:59] LABS: INR 0.9 (<1.2); Partial Thromboplastin Time 23.4 sec (22.0-30.0); Prothrombin Time 10.1 sec (9.0-12.0)
[2023-03-27 08:00] LABS: AST 25 U/L (14-36); Albumin 4.2 g/dL (3.5-5.0); Alkaline Phosphatase 88 U/L (38-126); Potassium 4.7 mmol/L (3.5-5.1); Total Protein 7.1 g/dL (6.3-8.2)
--- NOTE | 2023-03-27 08:02 | CT ---
EXAMINATION TYPE: CT brain wo con CT DLP: 1103.6 mGycm, Automated exposure control for dose reduction was used. DATE OF EXAM: 03/27/2023 7:56 AM COMPARISON: CT brain 08/26/2019 CLINICAL INDICATION:Female, 67 years old with history of Neuro deficit, acute, stroke suspected, dizz iness, confusion TECHNIQUE: Brain: Multiple axial CT images of the brain were obtained without IV contrast. Coronal and sagittal reformats reviewed. FINDINGS: Brain: Extra-axial spaces: No abnormal extra-axial fluid collections. Ventricular system: Within normal limits Cerebral parenchyma: No acute intraparenchymal hemorrhage or mass effect. The vance-white junction is well differentiated. Cerebellum: Unremarkable. Mass effect: No evidence of midline shift. Intracranial vasculature: unremarkable Soft tissues: Normal. Calvarium/osseous structures: No depressed skull fracture. Benign hyperostosis frontalis noted. Paranasal sinuses and mastoid air cells: Clear Visualized orbits: Orbital contents are intact. IMPRESSION: No acute intracranial process.
--- NOTE | 2023-03-27 08:03 | XR ---
EXAMINATION TYPE: XR chest 2V DATE OF EXAM: 03/27/2023 7:55 AM COMPARISON: Chest radiographs from 12/30/2021 TECHNIQUE: XR chest 2V Frontal and lateral views of the chest. CLINICAL INDICATION:Female, 67 years old with history of altered mental status; FINDINGS: Lungs/Pleura: There is no evidence of pleural effusion, focal consolidation, or pneumothorax. Pulmonary vascularity: Unremarkable. Heart/mediastinum: Cardiomediastinal silhouette is unremarkable. Musculoskeletal: No acute osseous pathology. Mild degenerative changes of the thoracic spine. IMPRESSION: No acute cardiopulmonary disease/process.
--- NOTE | 2023-03-27 08:31 | CT ---
EXAMINATION TYPE: CT angio head neck DATE OF EXAM: 03/27/2023 HISTORY: dizziness, confusion COMPARISON: None CT DLP: 496.9 mGycm. Automated Exposure Control for Dose Reduction was Utilized. TECHNIQUE: CTA scan of the neck is performed with IV Contrast, patient injected with 65 mL of Isovue 370, axial images are obtained, coronal and sagittal reformatted images are reviewed. Three-D recons tructed images are created on an independent workstation and reviewed. Source images are reviewed. M otion artifact and noncooperation severely limit this examination. FINDINGS: Carotid/Vascular Structures: There is a 3 vessel arch. Vertebral arteries appear codominant. No obvio us stenosis at the carotid bifurcations is evident. Cervical of [place]: Vertebral basilar system appears normal. Posterior cerebral vasculature is unrema rkable. Internal carotid arteries bifurcate normally into A1 and M1 segments. A2 segments are normal. Anterior communicating and posterior communicating arteries are not clearly identified. Other: Motion artifact limits the cervical spinal alignment evaluation IMPRESSION: 1. Motion artifact limits evaluation. 2. No obvious significant flow-limiting stenosis bilateral carotid bifurcations. 3. Normal [place] of [place] as visualized. Communicating arteries, discussed above, cannot be evaluate d due to the motion artifact. NASCET criteria was used in interpretation of this exam?
[2023-03-27] MEDS ORDERED: ASPIRIN 325 MG TAB PO STA (08:56)
[2023-03-27] MEDS: SODIUM CHLORIDE 0.9% 1,000 ML IV SCH ×2 (09:09→21:26)
--- NOTE | 2023-03-27 09:21 | P.HPIM ---
History of Present Illness H&P Date: 03/27/23 History of Presenting Illness: Patient is a very pleasant 67-year-old female with a past medical history of CAD with stent, hypertension, hyperlipidemia, hypothyroidism, fibromyalgia, anxiety, depression, nicotine dependence, and chronic back pain. She presented to the emergency department with strokelike symptoms. Patient is currently having a difficult time expressing her complaints/feelings, following commands and answering questions. Pt's at bedside reported that his has been excessively tired over the last few days and that yesterday she literally slept the entire day and entire night and that when she awoken this morning she began complaining of severe dizziness and nausea and he noticed her words were not making any sense and she had new onset left sided facial droop so he called EMS for transfer to the hospital. reports baseline pt is alert to person, place, time and situation and is able to complete all ADLs independently. Patient was not considered for a TPA candidate secondary to unknown time of last known well. Vital signs upon arrival blood pressure 134/80, heart rate 75, respiratory rate 18, temp 97.5F, and SpO2 of 94% on room air. EKG was completed showing normal sinus rhythm at 69 bpm with T-wave inversion in septal leads V1 and V2 otherwise no T-wave abnormalities or any noted ST depression or elevation upon personal review and interpretation. CT head completed in radiology report stating negative for acute intracranial process. CTA head and neck completed and radiology report stating motion artifacts limited cervical spine alignment evaluation but did show no obvious flow-limiting stenosis of bilateral carotid bifurcations, normal [place], however again communicating arteries could not be evaluated due to motion artifact severely limiting examination. Chest x-ray also completed, lungs appear clear and radiology report stating negative for acute cardiopulmonary process. Labs completed and reviewed. Blood glucose 180 upon arrival. CBC and coagulation profile unremarkable. BMP revealing hyperchloremia with chloride of 110 and slightly elevated BUN 21 with normal creatinine of 0.50 and GFR greater than 90. Liver profile unremarkable. Creatinine continues with elevated at 163. Discussed patient complains, physical exam findings, imaging results, and laboratory analysis in detail with the ED physician. Patient to be admitted under our services with consultation to neurology. Review of systems: Pertinent positives and negatives as discussed in HPI, a complete review of systems was performed and all other systems are negative. Physical exam: Vital signs reviewed and stable. General: Nontoxic, no distress and appears stated age. Derm: Skin warm and dry, normal coloration for ethnicity. Head: Atraumatic, normocephalic and symmetric. Eyes: EOMs intact, no lid lag, and anicteric sclera Mouth: no lip lesions, mucus membranes moist Cardiovascular: regular rate and rhythm with normal S1S2, no murmur, positive posterior tibial pulses bilaterally, and cap refill < 2 seconds. Lungs: Respirations even, regular, and unlabored on room air. Lungs CTA bilaterally, no rhonchi, no rales, no wheezing, and no accessory muscle usage. Abdominal: soft, nontender to palpation, no guarding, no appreciable organomegaly Ext: No gross muscle atrophy, no edema, no contractures. Movement and sensation intact. Appears equal but patient was having difficulty times following commands but was moving upper and lower extremities independently without any noted difficulties. Neuro: Left-sided facial droop noted. Speech clear. Psych: Alert and oriented to person, place, time, and situation. She is able to answer most questions but then seemed very confused at times as well. Patient having a difficult time following commands Assessment and Plan of Care: Left-sided facial droop, rule out CVA Metabolic encephalopathy with difficulties expressing words/feelings and following commands, unclear etiology rule out neurologic cause vs polysubstance misuse/abuse History of CAD with stent Hypertension Hyperlipidemia Hypothyroidism Fibromyalgia Anxiety and depression Nicotine dependence Chronic back pain with polypharmacy use -Patient was not considered for a TPA candidate secondary to unknown time of last known well. -Vital signs upon arrival blood pressure 134/80, heart rate 75, respiratory rate 18, temp 97.5F, and SpO2 of 94% on room air. -EKG was completed showing normal sinus rhythm at 69 bpm with T-wave inversion in septal leads V1 and V2 otherwise no T-wave abnormalities or any noted ST depression or elevation upon personal review and interpretation. -CT head completed in radiology report stating negative for acute intracranial process. -CTA head and neck completed and radiology report stating motion artifacts limited cervical spine alignment evaluation but did show no obvious flow- limiting stenosis of bilateral carotid bifurcations, normal [place], however again communicating arteries could not be evaluated due to motion artifact severely limiting examination. -Chest x-ray also completed, lungs appear clear and radiology report stating n egative for acute cardiopulmonary process. -Labs completed and reviewed. Blood glucose 180 upon arrival. CBC and coagulation profile unremarkable. BMP revealing hyperchloremia with chloride of 110 and slightly elevated BUN 21 with normal creatinine of 0.50 and GFR greater than 90. Liver profile unremarkable. Creatinine continues with elevated at 163. -Discussed patient complains, physical exam findings, imaging results, and laboratory analysis in detail with the ED physician. -Patient admitted under our services with consultation to neurology. -Neuro checks -Telemetry monitoring -Urine drug screen ordered -Hold morphine as there are concerns for reports for possible overmedication. Patient to continue oxycodone and Lyrica. -Continue aspirin 81 mg daily and atorvastatin 20 mg daily. The patient is admitted with an anticipated greater than 2 midnight stay for evaluation of left-sided facial droop, rule out CVA CODE STATUS: Full code DVT prophylaxis: Discussed with: Patient, patient's , RN, neurologist and ED physician. Anticipated discharge date: Clinical course to determine Anticipated discharge place: Home Patient was seen independently by Nurse Practitioner. This document was prepared using [employer] dictation software. Please allow for errors in research agricultural engineer while rare they do occur. Martin Zheng NP rendered care for this patient independently, reviewed the findings and plan as documented in the note above. I did not physically speak with or examine the patient on this date. Past Medical History Past Medical History: Fibromyalgia Additional Past Medical History / Comment(s): chronic back pain, Back Injury 9 years ago History of Any Multi-Drug Resistant Organisms: None Reported Past Surgical History: No Surgical Hx Reported, Heart Catheterization With Stent Date of Last Stent Placement:: 12/30/2021 Past Psychological History: Anxiety, Depression Smoking Status: Current every day smoker Past Alcohol Use History: None Reported Past Drug Use History: None Reported Medications and Allergies Home Medications Medication Instructions Recorded Confirmed Type Morphine Sulfate ER [Ms Contin] 15 mg PO Q12HR 08/26/19 03/27/23 History Morphine Sulfate ER [Ms Contin] 30 mg PO Q12HR 08/26/19 03/27/23 History Pregabalin [Lyrica] 225 mg PO BID 08/26/19 03/27/23 History Sertraline [Zoloft] 100 mg PO DAILY 08/26/19 03/27/23 History oxyCODONE-APAP 7.5-325MG [Percocet 1 tab PO BID PRN 08/26/19 03/27/23 History 7.5-325 mg] tiZANidine HCL 4 mg PO BID PRN 08/26/19 03/27/23 History Albuterol Inhaler [Ventolin Hfa 2 puff INHALATION RT-Q4H PRN 12/30/21 03/27/23 History Inhaler] Butalb/APAP/Caff 50-325-40Mg 1 tab PO Q6HR PRN 12/30/21 03/27/23 History [Fioricet 50-325-40] Aspirin 81 mg PO DAILY 90 Days #90 tab 01/01/22 03/27/23 Rx lisinopriL [Zestril] 5 mg PO DAILY 90 Days #90 tab 01/01/22 03/27/23 Rx Diclofenac Sodium [Voltaren] 75 mg PO BID PRN 03/27/23 03/27/23 History Metoprolol Tartrate [Lopressor] 25 mg PO BID 03/27/23 03/27/23 History Nitroglycerin Sl Tabs [Nitrostat] 0.4 mg SL Q5M PRN 03/27/23 03/27/23 History Rosuvastatin [Crestor] 10 mg PO DAILY 03/27/23 03/27/23 History Allergies Allergy/AdvReac Type Severity Reaction Status Date / Time No Known Allergies Allergy Verified 12/30/21 13:14 Physical Exam Osteopathic Statement: *. No significant issues noted on an osteopathic structural exam other than those noted in the History and Physical/Consult. Vitals: Vital Signs Temp Pulse Resp BP Pulse Ox 03/27/23 07:26 97.5 F L 75 18 134/80 94 L Intake and Output 03/26/23 03/27/23 03/27/23 22:59 06:59 14:59 Other: Weight 90.718 kg Results CBC & Chem 7: 03/27/23 07:38 03/27/23 07:38 Labs: Abnormal Lab Results - Last 24 Hours (Table) 03/27/23 03/27/23 Range/Units 07: 07:38 Chloride 110 H (98-107) mmol/L BUN 21 H (7-17) mg/dL Creatinine 0.50 L (0.52-1.04) mg/dL Glucose 165 H (74-99) mg/dL POC Glucose (mg/dL) 180 H (70-110) mg/dL Creatine Kinase 163 H (30-135) U/L
--- NOTE | 2023-03-27 15:11 | P.CNNES ---
History of Present Illness Consult date: 03/27/23 Requesting physician: Julián Shane Reason for Consult: cva History of Present Illness: This is a 67-year-old woman who that the emergency department because of confusion. She is accompanied with her who helps with a history. It seems according to the she's been the sleepy, fatigue since this past Saturday. Patient stated that the she been more sleepy than usual. He denies any jerk in of any extremities, any foaming around the mouth. He stated that about 2 weeks ago [place] but denies any sick contacts. Denies any rash she had that. Denies any history of stroke or seizures in the past. Denies that the patient has been vomiting the recently. Upon talking to the patient's she could not provide a history and was tangential and was very drowsy. Per today's he felt she was warm. states he is not aware that the patient has any history of cancer to his knowledge. Seems the patient has history of coronary artery disease status post stent, hypothyroidism, hyperlipidemia, chronic back pain with nicotine dependence as well as depression. Some of the workup during his hospital visit consisted of: She'll temperature is 97.5 Fahrenheit CBC with differential is unremarkable Initial POC glucose is 180, CK level is 163. Otherwise the sodium, calcium are within normal limits. CT of the head is reported as no acute intracranial process. I personally reviewed the CT of the head and I reviewed the report. CT angiography of the head and neck was reported as motion artifact limiting evaluation. No obvious significant flow limiting stenosis bilateral carotid bifurcation. Normal [place] as visualized. Communicating arteries, discussed above. Cannot be evaluated due to motion artifact. Review of Systems View of systems Limited but the prone positive and negative aspiration right. Past Medical History Past Medical History: Fibromyalgia Additional Past Medical History / Comment(s): chronic back pain, Back Injury 9 years ago History of Any Multi-Drug Resistant Organisms: None Reported Past Surgical History: No Surgical Hx Reported, Heart Catheterization With Stent Date of Last Stent Placement:: 12/30/2021 Past Psychological History: Anxiety, Depression Smoking Status: Current every day smoker Past Alcohol Use History: None Reported Past Drug Use History: None Reported Medications and Allergies Home Medications Medication Instructions Recorded Confirmed Type Morphine Sulfate ER [Ms Contin] 15 mg PO Q12HR 08/26/19 03/27/23 History Morphine Sulfate ER [Ms Contin] 30 mg PO Q12HR 08/26/19 03/27/23 History Pregabalin [Lyrica] 225 mg PO BID 08/26/19 03/27/23 History Sertraline [Zoloft] 100 mg PO DAILY 08/26/19 03/27/23 History oxyCODONE-APAP 7.5-325MG [Percocet 1 tab PO BID PRN 08/26/19 03/27/23 History 7.5-325 mg] tiZANidine HCL 4 mg PO BID PRN 08/26/19 03/27/23 History Albuterol Inhaler [Ventolin Hfa 2 puff INHALATION RT-Q4H PRN 12/30/21 03/27/23 History Inhaler] Butalb/APAP/Caff 50-325-40Mg 1 tab PO Q6HR PRN 12/30/21 03/27/23 History [Fioricet 50-325-40] Aspirin 81 mg PO DAILY 90 Days #90 tab 01/01/22 03/27/23 Rx lisinopriL [Zestril] 5 mg PO DAILY 90 Days #90 tab 01/01/22 03/27/23 Rx Diclofenac Sodium [Voltaren] 75 mg PO BID PRN 03/27/23 03/27/23 History Metoprolol Tartrate [Lopressor] 25 mg PO BID 03/27/23 03/27/23 History Nitroglycerin Sl Tabs [Nitrostat] 0.4 mg SL Q5M PRN 03/27/23 03/27/23 History Rosuvastatin [Crestor] 10 mg PO DAILY 03/27/23 03/27/23 History Allergies Allergy/AdvReac Type Severity Reaction Status Date / Time No Known Allergies Allergy Verified 12/30/21 13:14 Physical Examination - Vital Signs Vital Signs: Vital Signs Temp Pulse Resp BP Pulse Ox 03/27/23 13:05 62 18 157/70 97 03/27/23 11:00 70 18 148/70 95 03/27/23 09:22 64 17 148/70 95 03/27/23 07:26 97.5 F L 75 18 134/80 94 L Intake and Output 03/26/23 03/27/23 03/27/23 22:59 06:59 14:59 Other: Weight 90.718 kg GENERAL: The patient is lying in bed and does not appear in acute distress. HENT: Supple neck. NEUROLOGICAL: Limited because of her condition. Patient is a moderate to severe drowsy and is awakened ball intermittently. She is oriented to self, place and time. She is very slow and responding. At time she the talks about tangential things. Language is very limited. Pupils are round equal reactive to light. Pupils are round 3 mm. I did not appreciate any facial weakness. No dysarthria. Tongue is midline and moved [id number] there is no evidence of any tongue bite. Motor: The strength is hard to examine individual muscles because of her coope ration but was able to lift up bilateral upper and lower extremity above gravity but again hard to appreciate any focality because of her cooperation is as normal tone and bulk Sensation unable to assess Reflexes patient resisted on the getting reflexes perform Plantars are mute bilaterally. Results - Laboratory Findings CBC and BMP: 03/27/23 07:38 03/27/23 07:38 Abnormal Lab Findings: Abnormal Labs 03/27/23 03/27/23 07:23 07:38 Chloride 110 H BUN 21 H Creatinine 0.50 L Glucose 165 H POC Glucose (mg/dL) 180 H Creatine Kinase 163 H Assessment and Plan Assessment: This is an 67-year-old woman who presented today and because of the being more sleepy confused since that this past Saturday. It appears per the primary team she had the left facial droop. On my examination she was very drowsy and was confused and I did not appreciate any facial droop and examination was limited * Encephalopathy of unknown etiology. Rule out stroke especially with a left facial droop that was reported. Unsure if patient overdosed on her opiates/narcotic/psych meds. Also rule out any underlying infection process but patient does not have any fevers and the white blood cell is normal so far in the neck is supple and there is no rigidity of the neck. Cannot rule out seizure as well. * History of coronary artery disease status post stent * History of hypertension * Hyperlipidemia * History of chronic low back pain * History of anxiety and the depression * Nicotine dependence Plan: * I recommended the MRI to the patient but that she was adamant that she does not want it and she sits is claustrophobic and I notified the patient that we can give her medication prior to the MRI but she refused. * We'll likely get a repeat CT of the head within 2440 hrs. to see if there is any changes compared to the initial 1 * She also refused an EEG at this moment. * The perinatal technician came to do the echo but the patient refused. * I ordered TSH, vitamin B12, folate, ammonia level. * I agree with the primary team of getting urine drug screen. I ordered the alcohol level. * Urinalysis ordered and is pending * Recommend underlying infectious process workup. * If she continues to be confused then will consider with a lumbar puncture to rule out any underlying SPLITTER TENDER infection. * Continue neuro checks * Cardiac monitoring * PT OT and IMPORT MANAGER are consulted * We'll defer the rest of the medical management to primary team Plan was discussed with the patient was at bedside as well as the primary team. Thank you for the consultation Time with Patient: Greater than 30
[2023-03-27] MEDS ORDERED: tiZANidine 4 MG TAB PO PRN (15:14)
[2023-03-27] MEDS ORDERED: ETODOLAC 400 MG TAB PO PRN (15:14)
[2023-03-27] MEDS ORDERED: ALBUTEROL NEBULIZED 2.5 MG/3 ML INHALATION PRN (15:14)
[2023-03-27 16:29] LABS: Alcohol <10 mg/dL
[2023-03-27] MEDS ORDERED: ACETAMINOPHEN TAB 325 MG TAB PO PRN (18:00)
[2023-03-27 18:22] LABS: T4, Free (Free Thyroxine) 1.47 ng/dL (0.78-2.19)
[2023-03-27] MEDS: METOPROLOL TARTRATE 25 MG TAB PO SCH (21:26)
[2023-03-27] MEDS: PREGABALIN 75 MG CAP PO SCH (21:27)
[2023-03-27 22:35] LABS: Appearance,Urine Cloudy (Clear); Bacteria,Urine Occasional /hpf; Bilirubin,Urine Negative (Negative); Blood,Urine Negative (Negative); Color,Urine Yellow; Glucose,Urine (UA) Negative (Negative); Ketones,Urine 1+ (Negative); Leukocyte Esterase,Urine Large (Negative); Mucus,Urine Occasional /hpf; Nitrite,Urine Positive (Negative); Protein,Urine Trace (Negative); RBC,Urine 3 /hpf (0-5); Specific Gravity,Urine 1.035 (1.001-1.035); Squamous Epithelial Cell,Urine 1 /hpf (0-4); Urobilinogen,Urine <2.0 mg/dL (<2.0); WBC,Urine 87 /hpf (0-5)
[2023-03-27 22:44] LABS: Amphetamine Screen,Urine Not Detected (NotDetected); Barbiturate Screen,Urine Not Detected (NotDetected); Benzodiazepines Screen,Urine Not Detected (NotDetected); Cocaine Screen,Urine Not Detected (NotDetected); Methadone Screen, Urine Not Detected (NotDetected); Opiate Screen,Urine Detected (NotDetected); Oxycodone Screen, Urine Detected (NotDetected); Phencyclidine Screen,Urine Not Detected (NotDetected); Tricyclic Antidepressant,Urine Not Detected (NotDetected); Urn Cannabinoid Scrn Not Detected (NotDetected)
[2023-03-28] MEDS: oxyCODONE-APAP 7.5-325MG 1 EACH TAB PO PRN ×2 (00:13→10:00)
[2023-03-28] MEDS ORDERED: ASPIRIN 325 MG TAB PO SCH (09:00)
[2023-03-28 09:18] LABS: Chol/HDL Ratio 2.79 Ratio; LDL Cholesterol,Calculated 68.2 mg/dL (0.0-131.0); VLDL Calculation 17.22 mg/dL (5.00-40.00)
[2023-03-28] MEDS: ENOXAPARIN 40 MG/0.4 ML SYRINGE SQ SCH (09:59)
[2023-03-28] MEDS: ASPIRIN 81 MG PO SCH (09:59)
[2023-03-28] MEDS: SERTRALINE 100 MG TAB PO SCH (09:59)
[2023-03-28] MEDS: ATORVASTATIN 20 MG TAB PO SCH (09:59)
[2023-03-28] MEDS: PREGABALIN 75 MG CAP PO SCH ×2 (09:59→20:29)
[2023-03-28] MEDS: lisinopriL 5 MG TAB PO SCH (09:59)
[2023-03-28] MEDS: METOPROLOL TARTRATE 25 MG TAB PO SCH ×2 (09:59→20:30)
[2023-03-28] MEDS: MORPHINE SULFATE ER 30 MG TABLET PO SCH ×2 (12:24→20:29)
[2023-03-28] MEDS: SODIUM CHLORIDE 0.9% 1,000 ML IV SCH ×2 (12:25→18:36)
--- NOTE | 2023-03-28 13:31 | P.PN ---
Subjective Progress Note Date: 03/28/23 On follow-up seeing the patient and she is accompanied with her . Patient is feeling much better today compared to initial presentation. Her agrees that she's doing drastically better. Patient denies of any headache, any nausea any vomiting, any focal weakness or visual disturbance. She is unsure what transpired that led to her confusion. She does not recall overconsumption of the her pain medication. Objective - Vital Signs Vital signs: Vital Signs Temp 98.1 F 03/28/23 08:10 Pulse 53 L 03/28/23 08:10 Resp 17 03/28/23 08:10 BP 162/77 03/28/23 08:10 Pulse Ox 98 03/28/23 09:41 FiO2 21 03/27/23 21:18 Intake & Output 03/27/23 03/28/23 03/28/23 18:59 06:59 18:59 Weight 90.718 kg 90.718 kg Other: Voiding Method Toilet Toilet Toilet # Voids 1 2 - Exam GENERAL: The patient is lying in bed and is not in acute distress. NEUROLOGICAL: Higher mental function: The patient is awake, alert, oriented to self, place and time. Patient is following commands. No aphasia and no neglect. Cranial nerves: The pupils are round, equal and reactive to light and accommodation. Visual elena are full to confrontation throughout. Extraocular movement is intact no nystagmus is noted. Facial sensation is normal to touch throughout. The facial strength is normal throughout. Hearing is normal bilaterally to hand rub. Tongue is midline and moved [id number] without any difficulty. No dysarthria is noted. Shoulder shrug is normal bilaterally. Motor: The strength is 5 over 5 throughout. Normal tone and bulk. Cerebellum: Normal finger to nose heel to chin bilaterally. Sensation: Sensation is normal to touch throughout. Reflexes (right/left): 2+ throughout. Plantars are downgoing bilaterally. Some of the workup during his hospital visit consisted of: Ammonia level is less than 9 But B12 is 653 Folate is 15.20 TSH is 0.101 while the free T4 is 1.47 Urine toxicology screen is positive for opiates and oxycodone. The rest is not detected. Serum alcohol was less than 10. CBC with differential is unremarkable Initial POC glucose is 180, CK level is 163. Otherwise the sodium, calcium are within normal limits. CT of the head is reported as no acute intracranial process. I personally reviewed the CT of the head and I reviewed the report. CT angiography of the head and neck was reported as motion artifact limiting evaluation. No obvious significant flow limiting stenosis bilateral carotid bifurcation. Normal [place] as visualized. Communicating arteries, discussed above. Cannot be evaluated due to motion artifact. - Labs CBC & Chem 7: 03/27/23 07:38 03/27/23 07:38 Labs: Abnormal Lab Results - Last 24 Hours (Table) 03/27/23 03/27/23 Range/Units 15:45 22:10 TSH 0.101 L (0.465-4.680) mIU/L Urine Appearance Cloudy H (Clear) Urine Protein Trace H (Negative) Urine Ketones 1+ H (Negative) Urine Nitrite Positive H (Negative) Ur Leukocyte Esterase Large H (Negative) Urine WBC 87 H (0-5) /hpf Urine Bacteria Occasional H (None) /hpf Urine Mucus Occasional H (None) /hpf Urine Opiates Screen Detected H (NotDetected) Ur Oxycodone Screen Detected H (NotDetected) Assessment and Plan Assessment: This is an 67-year-old woman who presented today and because of the being more sleepy confused since that this past Saturday. It appears per the primary team she had the left facial droop. On my examination she was very drowsy and was confused and I did not appreciate any facial droop and examination was limited * Encephalopathy of unknown etiology with questionable reported left facial droop. Her mentation drastically improved today compared to yesterday and has no focal deficit. She has underlying acute urinary tract infection. I doubt this is a stroke but cannot excluded. Unsure if the patient overdosed by accident on her opiates last narcotics last psych medication. Also cannot rule out seizures but seems less likely. * Likely underlying acute urinary tract infection * History of coronary artery disease status post stent * History of hypertension * Hyperlipidemia * History of chronic low back pain * History of anxiety and the depression * Nicotine dependence Plan: * Patient continues to be reluctant off percent with MRI and she stated she felt claustrophobic and does not want to pursue it. * She is in agreement of pursuing routine EEG to rule out any underlying seizure discharges. * Continue neuro checks * Cardiac monitoring * PT OT and CORPORATE DEVELOPMENT MANAGER are consulted * We'll defer the rest of the medical management to primary team Plan was discussed with the patient and her was at bedside. Also discussed the plan with her nurse. Thank you for the consultation Time with Patient: Less than 30
--- NOTE | 2023-03-28 13:31 | P.PN ---
Subjective Progress Note Date: 03/28/23 Hospital Course: 67-year-old female with a past medical history of CAD with stent, hypertension, hyperlipidemia, hypothyroidism, fibromyalgia, anxiety, depression, nicotine dependence, and chronic back pain. She presented to the emergency department with strokelike symptoms. She has significant aphasia. Patient was not considered for a TPA candidate secondary to unknown time of last known well. Vital signs upon arrival blood pressure 134/80, heart rate 75, respiratory rate 18, temp 97.5F, and SpO2 of 94% on room air. EKG was completed showing normal sinus rhythm at 69 bpm with T-wave inversion in septal leads V1 and V2 otherwise no T-wave abnormalities or any noted ST depression or elevation upon personal review and interpretation. CT head completed in radiology report stating negative for acute intracranial process. CTA head and neck completed and radiology report stating motion artifacts limited cervical spine alignment evaluation but did show no obvious flow-limiting stenosis of bilateral carotid bifurcations, normal [place], however again communicating arteries could not be evaluated due to motion artifact severely limiting examination. Chest x-ray also completed, lungs appear clear and radiology report stating negative for acute cardiopulmonary process. Labs completed and reviewed. Blood glucose 180 upon arrival. CBC and coagulation profile unremarkable. BMP revealing hyperchloremia with chloride of 110 and slightly elevated BUN 21 with normal creatinine of 0.50 and GFR greater than 90. Liver profile unremarkable. Neurology consulted. Subjective: Seen and examined at bedside. No acute events overnight. Encephalopathy has improved. Denies any urinary symptoms. Her , facial droop is chronic. Pertinent positives and negatives as discussed above, a complete review of systems was performed and all other systems are negative. Vitals Signs Reviewed. General: nontoxic, no distress, appears at stated age Derm: warm, dry Head: atraumatic, normocephalic, symmetric Eyes: EOMI, no lid lag, anicteric sclera Mouth: no lip lesion, mucus membranes moist Cardiovascular: S1S2 reg, no murmur Lungs: CTA bilateral, no rhonchi, no rales , no accessory muscle use Abdominal: soft, nontender to palpation, no guarding, no appreciable organomegaly Ext: no gross muscle atrophy, no edema, no contractures Neuro: CN II-XI grossly intact, no focal neuro deficits, left-sided facial droop Psych: Alert, oriented, appropriate affect Data Reviewed Today: Pertinent Labs: Total cholesterol 133, LDL 68, TSH 0.10, free T4 1.47,Urine positive for leukocyte esterase and nitrite Imaging: No new Imaging Assessment and Plan: Left-sided facial droop, rule out CVA Metabolic encephalopathy , resolved History of CAD with stent Hypertension Hyperlipidemia Hypothyroidism Fibromyalgia Anxiety and depression Nicotine dependence Chronic back pain with chronic opioid use Polypharmacy -Nephrology following -Neuro checks -Telemetry monitoring -Morphine 30 mg every 12 hours restarted, holding the other 50 mg -Continue aspirin 81 mg daily and atorvastatin 20 mg daily -Per left-sided facial droop is chronic -Denies any urinary symptoms, will not treat for urinary tract infection as encephalopathy is improved -Patient agreeable to getting an echocardiogram -Does not want to get an MRI due to claustrophobia -Patient did not want an EEG yesterday -Patient either had a CVA or her symptoms are related to polypharmacy DVT ppx: Lovenox Code status: Full code Anticipated discharge place: Pending clinical course Anticipated discharge time: Pending Clinical course Objective - Vital Signs Vital signs: Vital Signs Temp 98.1 F 03/28/23 08:10 Pulse 53 L 03/28/23 08:10 Resp 17 03/28/23 08:10 BP 162/77 03/28/23 08:10 Pulse Ox 98 03/28/23 09:41 FiO2 21 03/27/23 21:18 Intake & Output 03/27/23 03/28/23 03/28/23 18:59 06:59 18:59 Weight 90.718 kg 90.718 kg Other: Voiding Method Toilet Toilet Toilet # Voids 1 2 - Labs CBC & Chem 7: 03/27/23 07:38 03/27/23 07:38 Labs: Abnormal Lab Results - Last 24 Hours (Table) 03/27/23 03/27/23 Range/Units 15:45 22:10 TSH 0.101 L (0.465-4.680) mIU/L Urine Appearance Cloudy H (Clear) Urine Protein Trace H (Negative) Urine Ketones 1+ H (Negative) Urine Nitrite Positive H (Negative) Ur Leukocyte Esterase Large H (Negative) Urine WBC 87 H (0-5) /hpf Urine Bacteria Occasional H (None) /hpf Urine Mucus Occasional H (None) /hpf Urine Opiates Screen Detected H (NotDetected) Ur Oxycodone Screen Detected H (NotDetected)
--- NOTE | 2023-03-28 15:04 | EEG ---
ELECTROENCEPHALOGRAM REPORT CLINICAL HISTORY: This is a 67-year-old woman, who presented to the emergency department because of confusion. The video EEG is obtained to evaluate for seizure epileptiform activity. RELEVANT MEDICATIONS: 1. Trazodone. 2. Lyrica. 3. Zoloft. 4. Oxycodone. EEG TYPE: A routine 21-channel EEG is performed using the 10/20 electrode placement system. DESCRIPTION: Wakefulness is only obtained. During awake state, the background consists of low to moderate voltage of 6.5 to 7.5 hertz activity, that is well modulated and well sustained. There is no physiological stage 2 sleep architecture. There is no focal slowing. ACTIVATION PROCEDURE: Photic stimulation did not evoke a posterior driving response. There is no abnormality during the photic stimulation. Hyperventilation is not performed. CLINICAL INTERPRETATION: This is an abnormal routine EEG. The background slowing is suggestive of mild encephalopathy likely due to toxic metabolic derangement. Otherwise, there is no focal slowing, epileptiform discharges or seizure on the EEG. Clinical correlation is recommended. MMODL / IJN: [id number] /
[2023-03-29] MEDS: ENOXAPARIN 40 MG/0.4 ML SYRINGE SQ SCH (09:26)
[2023-03-29] MEDS: MORPHINE SULFATE ER 30 MG TABLET PO SCH (09:26)
[2023-03-29] MEDS: ASPIRIN 81 MG PO SCH (09:26)
[2023-03-29] MEDS: SERTRALINE 100 MG TAB PO SCH (09:26)
[2023-03-29] MEDS: ATORVASTATIN 20 MG TAB PO SCH (09:26)
[2023-03-29] MEDS: lisinopriL 5 MG TAB PO SCH (09:26)
[2023-03-29] MEDS: METOPROLOL TARTRATE 25 MG TAB PO SCH (09:27)
[2023-03-29] MEDS: PREGABALIN 75 MG CAP PO SCH (09:27)
[2023-03-29 10:15] VITALS: RESP 17
--- NOTE | 2023-03-29 12:20 | CA ---
Transthoracic Echo Report Name: Eliane Moffett Age: 67 Gender: F : 1955 Exam Date: 03/29/2023 08:54 Exam Location: [facility] Ht (in): 64 Wt (lb): 200 Ordering Physician: Chris Luther MD Attending/Referring Phys: Credit Card Associate Neema Self RDCS Procedure CPT: Indications: stroke Cardiac Hx: Technical Quality: Good Contrast 1: Total Dose (mL): Contrast 2: Total Dose (mL): MEASUREMENTS (Male / Female) Normal Values 2D ECHO LV Diastolic Diameter PLAX 4.7 cm 4.2 - 5.9 / 3.9 - 5.3 cm LV Systolic Diameter PLAX 2.9 cm IVS Diastolic Thickness 1.1 cm 0.6 - 1.0 / 0.6 - 0.9 cm LVPW Diastolic Thickness 1.1 cm 0.6 - 1.0 / 0.6 - 0.9 cm LV Relative Wall Thickness 0.5 RV Internal Dim ED PLAX 3.7 cm LA Systolic Diameter LX 3.9 cm 3.0 - 4.0 / 2.7 - 3.8 cm LV Diastolic Volume MOD 4C 115.9 cm??? LV Systolic Volume MOD 4C 52.2 cm??? LV Ejection Fraction MOD 4C 55.0 % LV Cardiac Index MOD 4C 1422.9 cm???/min???m??? LV Diastolic Length 4C 7.8 cm LV Systolic Length 4C 6.4 cm LV Diastolic Volume MOD 2C 119.3 cm??? LV Systolic Volume MOD 2C 46.0 cm??? LV Ejection Fraction MOD 2C 61.5 % LV Cardiac Index MOD 2C 1636.1 cm???/min???m??? LV Diastolic Length 2C 8.0 cm LV Systolic Length 2C 6.1 cm LA Volume 63.9 cm??? 18 - 58 / 22 - 52 cm??? M-MODE Aortic Root Diameter MM 3.0 cm MV E Point Septal Separation 0.3 cm AV Cusp Separation MM 2.1 cm DOPPLER AV Peak Velocity 197.3 cm/s AV Peak Gradient 15.6 mmHg AV Mean Velocity 133.2 cm/s AV Mean Gradient 8.0 mmHg AV Velocity Time Integral 55.3 cm MV Area PHT 4.3 cm??? Mitral E Point Velocity 111.1 cm/s Mitral A Point Velocity 47.0 cm/s Mitral E to A Ratio 2.4 MV Deceleration Time 176.7 ms MV E' Velocity 5.8 cm/s Mitral E to MV E' Ratio 19.0 TR Peak Velocity 284.0 cm/s TR Peak Gradient 32.3 mmHg Right Ventricular Systolic Press 36.3 mmHg FINDINGS Left Ventricle Left ventricular ejection fraction is estimated at 55-60 %. Left ventricular cavity size normal. Mildly increased left ventricular wall thickness. Normal left ventricular wall motion. Grade 4 diastolic dysfunction. Right Ventricle Mild right ventricular dilatation. Mild pulmonary hypertension. Right Atrium Normal right atrial size. Negative agitated saline bubble study for right to left shunt. Left Atrium Mildly increased left atrial diameter. Moderately increased left atrial volume. Mitral Valve Mitral annular calcification. Mild mitral regurgitation. Aortic Valve Trileaflet aortic valve. No aortic valve stenosis or regurgitation. Tricuspid Valve Structurally normal tricuspid valve. Mild tricuspid regurgitation. Pulmonic Valve Structurally normal pulmonic valve. Trace pulmonic regurgitation. Pericardium Normal pericardium. No pericardial effusion. Aorta Normal size aortic root and proximal ascending aorta. CONCLUSIONS 1. Normal left ventricular size and systolic function 2. Mild mitral and tricuspid regurgitation 3. No evidence of shunting with bubble study Previewed by: Dr. Tiffany Harding MD (Electronically Signed) Final Date: 29 March 2023 12:20
[2023-03-29 13:18] VITALS: BP 147/68; PULSE 47; TEMP 98.3
--- NOTE | 2023-03-29 13:19 | P.DS ---
Providers Date of admission: 03/27/23 08:57 Expected date of discharge: 03/29/23 Attending physician: Payton San MD Consults: 03/27/23 08:57 Consult Physician Routine Consulting Provider: Leeroy Stallworth Consult Reason/Comments: cva Do you want consulting provider notified?: Yes Primary care physician: Nano [facility] Course: Discharge Diagnosis: Left-sided facial droop, chronic, ruled out CVA Metabolic encephalopathy History of CAD with stent Hypertension Hyperlipidemia Hypothyroidism Fibromyalgia Anxiety and depression Nicotine dependence Chronic back pain with chronic opioid use Polypharmacy Hospital Course: 67-year-old female with a past medical history of CAD with stent, hypertension, hyperlipidemia, hypothyroidism, fibromyalgia, anxiety, depression, nicotine dependence, and chronic back pain. She presented to the emergency department with strokelike symptoms. She has significant aphasia. Patient was not considered for a TPA candidate secondary to unknown time of last known well. Vital signs upon arrival blood pressure 134/80, heart rate 75, respiratory rate 18, temp 97.5F, and SpO2 of 94% on room air. EKG was completed showing normal sinus rhythm at 69 bpm with T-wave inversion in septal leads V1 and V2 otherwise no T-wave abnormalities or any noted ST depression or elevation upon personal review and interpretation. CT head completed in radiology report stating negative for acute intracranial process. CTA head and neck completed and radiology report stating motion artifacts limited cervical spine alignment eval uation but did show no obvious flow-limiting stenosis of bilateral carotid bifurcations, normal [place], however again communicating arteries could not be evaluated due to motion artifact severely limiting examination. Chest x-ray also completed, lungs appear clear and radiology report stating negative for acute cardiopulmonary process. Labs completed and reviewed. Blood glucose 180 upon arrival. CBC and coagulation profile unremarkable. BMP revealing hyperchloremia with chloride of 110 and slightly elevated BUN 21 with normal creatinine of 0.50 and GFR greater than 90. Liver profile unremarkable. Neurology consulted. EEG shows no focal discharges. Echo within normal limits. Likely encephalopathy in the setting of polypharmacy. Mental status normal at the time of discharge. Patient seen and examined at bedside. Vital signs reviewed and stable. General: nontoxic, no distress, appears at stated age Derm: warm, dry Head: atraumatic, normocephalic, symmetric Eyes: EOMI, no lid lag, anicteric sclera Mouth: no lip lesion, mucus membranes moist Cardiovascular: S1S2 reg, no murmur Lungs: CTA bilateral, no rhonchi, no rales , no accessory muscle use Abdominal: soft, nontender to palpation, no guarding, no appreciable organomegaly Ext: no gross muscle atrophy, no edema, no contractures Neuro: CN II-XI grossly intact, no focal neuro deficits, left-sided facial rebecca op, chronic Psych: Alert, oriented, appropriate affect A total of 36 minutes of time were spent preparing this complex discharge summary. Patient was discharged on 03/29/23 at 1313. Patient Condition at Discharge: Stable Plan - Discharge Summary Discharge Rx Participant: Yes New Discharge Prescriptions: Continue Sertraline [Zoloft] 100 mg PO DAILY Morphine Sulfate ER [Ms Contin] 30 mg PO Q12HR Pregabalin [Lyrica] 225 mg PO BID tiZANidine HCL 4 mg PO BID PRN PRN Reason: muscle spasms oxyCODONE-APAP 7.5-325MG [Percocet 7.5-325 mg] 1 tab PO BID PRN PRN Reason: Breakthrough Pain Albuterol Inhaler [Ventolin Hfa Inhaler] 2 puff INHALATION RT-Q4H PRN PRN Reason: Shortness Of Breath Aspirin 81 mg PO DAILY 90 Days #90 tab Metoprolol Tartrate [Lopressor] 25 mg PO BID Butalb/APAP/Caff 50-325-40Mg [Fioricet 50-325-40] 1 tab PO Q6HR PRN PRN Reason: Migraine Headache lisinopriL [Zestril] 5 mg PO DAILY 90 Days #90 tab Rosuvastatin [Crestor] 10 mg PO DAILY Diclofenac Sodium [Voltaren] 75 mg PO BID PRN PRN Reason: Pain Nitroglycerin Sl Tabs [Nitrostat] 0.4 mg SL Q5M PRN PRN Reason: Chest Pain Discontinued Morphine Sulfate ER [Ms Contin] 15 mg PO Q12HR Discharge Medication List Morphine Sulfate ER [Ms Contin] 30 mg PO Q12HR 08/26/19 [History] Pregabalin [Lyrica] 225 mg PO BID 08/26/19 [History] Sertraline [Zoloft] 100 mg PO DAILY 08/26/19 [History] oxyCODONE-APAP 7.5-325MG [Percocet 7.5-325 mg] 1 tab PO BID PRN 08/26/19 [History] tiZANidine HCL 4 mg PO BID PRN 08/26/19 [History] Albuterol Inhaler [Ventolin Hfa Inhaler] 2 puff INHALATION RT-Q4H PRN 12/30/21 [History] Butalb/APAP/Caff 50-325-40Mg [Fioricet 50-325-40] 1 tab PO Q6HR PRN 12/30/21 [History] Aspirin 81 mg PO DAILY 90 Days #90 tab 01/01/22 [Rx] lisinopriL [Zestril] 5 mg PO DAILY 90 Days #90 tab 01/01/22 [Rx] Diclofenac Sodium [Voltaren] 75 mg PO BID PRN 03/27/23 [History] Metoprolol Tartrate [Lopressor] 25 mg PO BID 03/27/23 [History] Nitroglycerin Sl Tabs [Nitrostat] 0.4 mg SL Q5M PRN 03/27/23 [History] Rosuvastatin [Crestor] 10 mg PO DAILY 03/27/23 [History] Follow up Appointment(s)/Referral(s): Nano Baker MD [Primary Care Provider] - 1-2 days Patient Instructions/Handouts: Encephalopathy (DC) Activity/Diet/Wound Care/Special Instructions: Please see your pain specialist. You need to decrease your pain medications. Discharge Disposition: HOME SELF-CARE
--- NOTE | 2023-03-29 15:24 | P.PN ---
Subjective Progress Note Date: 03/29/23 On follow-up seen the patient and she is accompanied with her was at bedside. Patient feels she is doing well and the she continues to be doing well. She denies of any headache, any focal weakness, any visual disturbance. Objective - Vital Signs Vital signs: Vital Signs Temp 98.3 F 03/29/23 12:00 Pulse 47 L 03/29/23 13:23 Resp 17 03/29/23 13:23 BP 147/68 03/29/23 12:00 Pulse Ox 95 03/29/23 12:00 FiO2 21 03/27/23 21:18 Intake & Output 03/28/23 03/29/23 03/29/23 18:59 06:59 18:59 Intake Total 1480 657 Balance 1480 657 Intake: Intake, IV Titration 1000 Amount Sodium Chloride 0.9% 1, 1000 000 ml @ 100 mls/hr IV . Q10H REVA Rx#:[id number] Oral 480 657 Other: Voiding Method Toilet Toilet Toilet # Voids 1 1 - Exam GENERAL: The patient is lying in bed and is not in acute distress. NEUROLOGICAL: Higher mental function: The patient is awake, alert, oriented to self, place and time. Patient is following commands. No aphasia and no neglect. Cranial nerves: The pupils are round, equal and reactive to light and accommodation. Visual elena are full to confrontation throughout. Extraocular movement is intact no nystagmus is noted. Facial sensation is normal to touch throughout. The facial strength is normal throughout. Hearing is normal bilaterally to hand rub. Tongue is midline and moved [id number] without any difficulty. No dysarthria is noted. Shoulder shrug is normal bilaterally. Motor: The strength is 5 over 5 throughout. Normal tone and bulk. Cerebellum: Normal finger to nose heel to chin bilaterally. Sensation: Sensation is normal to touch throughout. Reflexes (right/left): 2+ throughout. Plantars are downgoing bilaterally. Some of the workup during his hospital visit consisted of: Ammonia level is less than 9 Vitamin B12 is 653 Folate is 15.20 TSH is 0.101 while the free T4 is 1.47 Urine toxicology screen is positive for opiates and oxycodone. The rest is not detected. Serum alcohol was less than 10. CBC with differential is unremarkable Initial POC glucose is 180, CK level is 163. Otherwise the sodium, calcium are within normal limits. CT of the head is reported as no acute intracranial process. I personally reviewed the CT of the head and I reviewed the report. CT angiography of the head and neck was reported as motion artifact limiting evaluation. No obvious significant flow limiting stenosis bilateral carotid bifurcation. Normal [place] of [place] as visualized. Communicating arteries, discussed above. Cannot be evaluated due to motion artifact. Routine EEG is abnormal. The background slowing suggestive of mild encephalopathy likely due to toxic metabolic derangement. Otherwise there is no focal slowing, epileptiform discharges or seizure on the EEG 2-D echo was reported as normal left ventricle size and systolic function. Mild mitral and tricuspid regurgitation. No evidence of shunting with bubble study. - Labs CBC & Chem 7: 03/27/23 07:38 03/27/23 07:38 Assessment and Plan Assessment: This is an 67-year-old woman who presented today and because of the being more sleepy confused since that this past Saturday. It appears per the primary team she had the left facial droop. On my examination she was very drowsy and was confused and I did not appreciate any facial droop and examination was limited * Encephalopathy of unknown etiology with questionable reported left facial droop. Her mentation drastically improved today compared to yesterday and has no focal deficit. She has underlying acute urinary tract infection. I doubt this is a stroke but cannot excluded. Unsure if the patient overdosed by accident on her opiates last narcotics last psych medication. Less likely seizures--mentation has improved. * Likely underlying acute urinary tract infection * History of coronary artery disease status post stent * History of hypertension * Hyperlipidemia * History of chronic low back pain * History of anxiety and the depression * Nicotine dependence Plan: * Patient continues to be reluctant off percent with MRI and she stated she felt claustrophobic and does not want to pursue it. Consider open MRI as an outpatient if patient continues to have further confusion episodes. * Continue neuro checks * Cardiac monitoring * PT OT and SPRAY BOOTH OPERATOR are consulted * We'll defer the rest of the medical management to primary team Plan was discussed with the patient and her was at bedside. Also discussed primary team. Time with Patient: Less than 30
--- NOTE | 2023-04-04 11:50 | CDI ---
Documentation Clarification Form Date: 04/04/2023 11:30:26 AM From: Rosalba Hall Phone: Admit Date: 03/27/2023 08:57:00 AM Patient Name: Eliane Moffett Visit Number: [id number] Discharge Date: 03/29/2023 02:09:00 PM ATTENTION: The Clinical Documentation Specialists (CDI) and [facility] Coding Staff appreciate your assistance in clarifying documentation. Please respond to the clarification below the line at the bottom and electronically sign. The CDI & [facility] Coding staff will review the response and follow-up if needed. Please note: Queries are made part of the Legal Health Record. If you have any questions, please contact the author of this message via ITS. Dr. Chris Luther, A concern for overmedication is documented in the H&P, neurology consult and polypharmacy is noted in the discharge summary. Additional clarification regarding the type of [underdose/overdose] is requested. History/risk factors: Concerns of overmedication in the H&P. Per the Neurology Consult unsure if patient overdosed on her opiates/narcotic/psych meds. Final progress notes documented EEG findings likely due to toxic metabolic derangement. Discharge Summary documented metabolic encephalopathy and likely encephalopathy in the setting of polypharmacy. Clinical Indicators: toxicology noted opiates Please clarify the intent of the overdose, if known: [ x] Unintentional, adverse effect of medication prescribed and taken correctly [ ] Unintentional, adverse effect of medication prescribed correctly, but taken incorrectly [ ] Unintentional, due to interaction with other medications and/or alcohol [ ] Other, please specify [ ] Unable to determine (Template Last Revised: October 2020) MTDD
== END 2023-03-29 14:09 | disposition home or self-care (01) | DRG 92 ==
LOC: EC 07:21 → 3SCARD 08:57
PROVIDERS: ADMIT Family Medicine; ATTEND Family Medicine
DX: G92.8 Other toxic encephalopathy (principal); N39.0 Urinary tract infection, site not specified; R47.01 Aphasia; E87.8 Other disorders of electrolyte and fluid balance, not elsewhere classified; I10 Essential (primary) hypertension; E03.9 Hypothyroidism, unspecified; R42 Dizziness and giddiness; F17.200 Nicotine dependence, unspecified, uncomplicated; F40.240 Claustrophobia; G89.29 Other chronic pain; I25.10 Atherosclerotic heart disease of native coronary artery without angina pectoris; T50.915A Adverse effect of multiple unspecified drugs, medicaments and biological substances, initial encounter; M79.7 Fibromyalgia; R29.810 Facial weakness; F41.8 Other specified anxiety disorders; E78.5 Hyperlipidemia, unspecified; Z79.02 Long term (current) use of antithrombotics/antiplatelets; Z79.82 Long term (current) use of aspirin; Z79.890 Hormone replacement therapy; Z79.891 Long term (current) use of opiate analgesic; Z79.899 Other long term (current) drug therapy; Z95.5 Presence of coronary angioplasty implant and graft
CPT/HCPCS: 36415; 70450; 70496; 70498; 71046; 80053; 80061; 80306; 80320; 81001; 82140; 82550; 82607; 82746; 84439; 84443; 85025; 85610; 85730; 93005; 93306; 94760; 95816; 99285

== ENCOUNTER → 2023-04-23 | Outpatient (CLI) | payer MEDICARE, BC ==
--- NOTE | 2023-04-24 10:09 | MM ---
Reason for Exam: Screening (asymptomatic). Baseline mammogram. Patient History: Menarche at age 13. Postmenopausal. Risk Values: Helena 5 year model risk: 1.2%. NCI Lifetime model risk: 4.2%. Prior Study Comparison: Patient's first Mammogram. Tissue Density: The breast tissue is heterogeneously dense. This may lower the sensitivity of mammography. Findings: Analyzed By CAD. There is no suspicious group of microcalcifications or suspicious mass in either breast. Benign calcifications within both breasts. Overall Assessment: Benign, BI-RAD 2 Management: Screening Mammogram of both breasts in 1 year. A clinical breast exam by your physician is recommended on an annual basis and results should be correlated with mammographic findings. Note on Helena scores and lifetime risk: 1. A Helena score greater than 3% is considered moderate risk. If this is the case, consider specialist referral to assess eligibility for a risk reducing agent. If overall lifetime risk for the development of breast cancer is 20% or higher, the patient may qualify for future screening with alternating mammogram and breast MRI. Electronically signed and approved by: Ash Pineda D.O.
== END | disposition home or self-care (01) ==
LOC: RADMAMWWP 13:15
PROVIDERS: ATTEND Family Medicine
DX: Z12.31 Encounter for screening mammogram for malignant neoplasm of breast (principal); Z78.0 Asymptomatic menopausal state
CPT/HCPCS: 77063; 77067

== ENCOUNTER 2023-10-22 09:57 | Inpatient (IN) | payer MEDICARE, BC ==
--- NOTE | 2023-10-22 10:15 | ED ---
Altered Mental Status HPI - General Source: family, RN notes reviewed Mode of arrival: EMS Limitations: altered mental status - History of Present Illness MD Complaint: altered mental status, confusion <Jody Rivas - Last Filed: 10/22/23 10:12> - General Source: patient, family, RN notes reviewed, old records reviewed <Son Burger - Last Filed: 10/22/23 14:11> - General Chief Complaint: Dizziness Stated Complaint: AMS Time Seen by Provider: 10/22/23 10:10 - History of Present Illness Initial Comments: Quick Note - This is a 68-year-old female who presents to the emergency department for altered mental status. Her states that for the last 3 days she has been very delirious, confused, and is not making any sense. She is also sleeping much more than normal. She has also had chills, diarrhea, and is acting very unlike herself. Her states that there was a similar episode in March of last year, and they thought that she was having a stroke, however the imaging was normal. (Jody Rivas) Patient is a 68-year-old female presents emergency department complaining of lightheadedness, confusion, diarrhea. Symptoms have been ongoing for at least the last 2 to 3 days. No known fevers. Patient's is concerned as she is acting differently than normal. Presents for further evaluation at this time. Is on chronic pain medications. Denies any chest pain. Endorses crampy, nonfocal abdominal pain. Endorses diarrhea but no nausea or vomiting. No known sick contacts. Originally evaluated as a quick note. I evaluated the patient after she was placed in a normal bed. (Son Burger) - Related Data Home Medications Medication Instructions Recorded Confirmed Morphine Sulfate ER [Ms Contin] 30 mg PO Q12HR 08/26/19 03/27/23 Pregabalin [Lyrica] 225 mg PO BID 08/26/19 03/27/23 Sertraline [Zoloft] 100 mg PO DAILY 08/26/19 03/27/23 oxyCODONE-APAP 7.5-325MG [Percocet 1 tab PO BID PRN 08/26/19 03/27/23 7.5-325 mg] tiZANidine HCL 4 mg PO BID PRN 08/26/19 03/27/23 Albuterol Inhaler [Ventolin Hfa 2 puff INHALATION RT-Q4H PRN 12/30/21 03/27/23 Inhaler] Butalb/APAP/Caff 50-325-40Mg 1 tab PO Q6HR PRN 12/30/21 03/27/23 [Fioricet 50-325-40] Diclofenac Sodium [Voltaren] 75 mg PO BID PRN 03/27/23 03/27/23 Metoprolol Tartrate [Lopressor] 25 mg PO BID 03/27/23 03/27/23 Nitroglycerin Sl Tabs [Nitrostat] 0.4 mg SL Q5M PRN 03/27/23 03/27/23 Rosuvastatin [Crestor] 10 mg PO DAILY 03/27/23 03/27/23 Previous Rx's Medication Instructions Recorded Aspirin 81 mg PO DAILY 90 Days #90 tab 01/01/22 lisinopriL [Zestril] 5 mg PO DAILY 90 Days #90 tab 01/01/22 Allergies Allergy/AdvReac Type Severity Reaction Status Date / Time No Known Allergies Allergy Verified 12/30/21 13:14 Review of Systems ROS Other: All systems not noted in ROS Statement are negative. <Jody Rivas - Last Filed: 10/22/23 10:12> ROS Other: All systems not noted in ROS Statement are negative. <Son Burger - Last Filed: 10/22/23 14:11> ROS Statement: Those systems with pertinent positive or pertinent negative responses have been documented in the HPI. Review of Systems: CONST: Denies fever EYES: Denies blurry vision ENT: Denies nasal congestion C/V: Denies Chest pain RESP: Denies shortness of breath GI: Endorses abdominal pain : Denies dysuria SKIN: Denies rash. MSK: Denies joint pain. NEURO: Denies headache (Son Burger) Past Medical History Past Medical History: Fibromyalgia Additional Past Medical History / Comment(s): chronic back pain, Back Injury 9 years ago History of Any Multi-Drug Resistant Organisms: None Reported Past Surgical History: Heart Catheterization With Stent Past Anesthesia/Blood Transfusion Reactions: No Reported Reaction Date of Last Stent Placement:: 12/30/2021 Past Psychological History: Anxiety, Depression Smoking Status: Current every day smoker Past Alcohol Use History: None Reported Past Drug Use History: None Reported <Jody Rivas - Last Filed: 10/22/23 10:12> General Exam Limitations: altered mental status <Jody Rivas - Last Filed: 10/22/23 10:12> <Son Burger - Last Filed: 10/22/23 14:11> - General Exam Comments Initial Comments: Visual Physical Exam Vital signs reviewed General: Well-appearing, nontoxic, no acute distress. Head: Normocephalic, atraumatic Eyes: PERRLA, EOMI ENT: Airway patent Chest: Nonlabored breathing Skin: No visual rash, normal skin tone Neuro: Alert and oriented 3 Musculoskeletal: No gross abnormalities (Jody Rivas) General: Appears in no acute distress. HEAD: Normal with no signs of head trauma. EYES: PERRLA, EOMI, conjunctiva normal, no discharge. ENT: Hearing grossly intact, normal oropharynx. RESPIRATORY: Clear breath sounds bilaterally. No wheezes, rales, or rhonchi. C/V: Regular rate and rhythm. S1 and S2 auscultated, no edema, peripheral pulses 2+ and intact throughout ABD: Abd is soft, nonfocal tenderness to palpation. No obvious distention. No guarding. No rebound tenderness. No peritoneal signs. EXT: Normal range of motion, no obvious deformity. Chronic low back pain on palpation. SKIN: No rashes or lesions observed on exposed skin. NEURO: Alert and oriented x 2-3. Conversational confusion. No focal deficits. NIH is 0 at this time. GCS of 15. (Son Burger) Course Vital Signs 10/22/23 09:58 Temperature 98.3 F Pulse Rate 111 H Respiratory 18 Rate Blood Pressure 142/72 O2 Sat by Pulse 99 Oximetry Medical Decision Making <Jody Rivas - Last Filed: 10/22/23 10:12> - Lab Data Result diagrams: 10/22/23 12:28 10/22/23 12:28 - EKG Data -: EKG Interpreted by Me <Son Burger - Last Filed: 10/22/23 14:11> - Medical Decision Making I performed the QuickNote portion of this chart. Signed Jody Rivas PA-C. (Jody Rivas) Was pt. sent in by a medical professional or institution ([facility], [employer], urgent care, hospital, or [place] [facility] facility...) When possible be specific @ -No Did you speak to anyone other than the patient for history (EMS, parent, family, police, friend...)? What history was obtained from this source @ -Patient's is the primary historian for the patient. Did you review nursing and triage notes (agree or disagree)? Why? @ -I reviewed and agree with nursing and triage notes Were old charts reviewed (outside hosp., previous admission, EMS record, old EKG, old radiological studies, urgent care reports/EKG's, [place] [facility] facility records)? Report findings @ -Old charts reviewed Differential Diagnosis (chest pain, altered mental status, abdominal pain women, abdominal pain men, vaginal bleeding, weakness, fever, dyspnea, syncope, headache, dizziness, GI bleed, back pain, seizure, CVA, palpatations, mental health, musculoskeletal)? @ -Differential Altered Mental Status: Hypoglycemia, DKA, hypercapnia, ETOH, overdose, CO poisoning, trauma, myxedema coma, HTN encephalopathy, infection, encephalitis, psychosis, intercranial hemorrhage, hepatic encephalopathy, meningitis, CVA, this is not meant to be an all-inclusive list EKG interpreted by me (3pts min.). @ -As above X-rays interpreted by me (1pt min.). @ -Chest x-ray reveals no obvious acute cardiopulmonary process. CT interpreted by me (1pt min.). @ -CT brain reveals no obvious acute intracranial process. CT abdomen pelvis reveals a noncomplicated periumbilical fat containing hernia. No other obvious acute CT findings. U/S interpreted by me (1pt. min.). @ -None done What testing was considered but not performed or refused? (CT, X-rays, U/S, labs)? Why? @ -None What meds were considered but not given or refused? Why? @ -None Did you discuss the management of the patient with other professionals (professionals i.e. [facility], [employer]ER, lab, RT, psych nurse, social media editor, frozen meat cutter, teacher, first officer, medical case worker)? Give summary @ -Discussed with admitting physician, Dr. Luther who accepted the admission. Was smoking cessation discussed for >3mins.? @ -No Was critical care preformed (if so, how long)? @ -No Were there social determinants of health that impacted care today? How? (Ho melessness, low income, unemployed, alcoholism, drug addiction, transportation, low edu. Level, literacy, decrease access to med. care, alf, rehab)? @ -No Was there de-escalation of care discussed even if they declined (Discuss DNR or withdrawal of care, Hospice)? DNR status @ -No What co-morbidities impacted this encounter? (DM, HTN, Smoking, COPD, CAD, Cancer, CVA, ARF, Chemo, Hep., AIDS, mental health diagnosis, sleep apnea, morbid obesity)? @ -None Was patient admitted / discharged? Hospital course, mention meds given and route, prescriptions, significant lab abnormalities, going to OR and other pertinent info. @ -Based on patient's presentation and physical exam, presents with altered mental status as well as abdominal pain. CT of the brain was already obtained and was unremarkable. Will obtain CT of the abdomen pelvis as well as abdominal laboratory studies and altered mental status. Patient was in agreement this plan. Vital signs are within acceptable limits. She will be given IV fluids as well as analgesia medications. EKG showed no signs of acute ischemia. CT of the abdomen and pelvis reveals a noncomplicated hernia and otherwise was unremarkable. Chest x-ray unremarkable. Laboratory studies show a UTI. Discussed results with patient as well as family. Due to the mental status changes we will treat UTI and admit to observation. They were in agreement this plan. I spoke with the admitting physician, Dr. Luther accepted the admission Undiagnosed new problem with uncertain prognosis? @ -No Drug Therapy requiring intensive monitoring for toxicity (Heparin, Nitro, Insulin, Cardizem)? @ -No Were any procedures done? @ -No Diagnosis/symptom? @ -UTI, confusion Acute, or Chronic, or Acute on Chronic? @ -Acute Uncomplicated (without systemic symptoms) or Complicated (systemic symptoms)? @ -Complicated Side effects of treatment? @ -No Exacerbation, Progression, or Severe Exacerbation? @ -No Poses a threat to life or bodily function? How? (Chest pain, USA, IA, pneumonia, PE, COPD, DKA, ARF, appy, cholecystitis, CVA, Diverticulitis, Homicidal, Suicidal, threat to staff... and all critical care pts) @ -Yes (Son Burger) - Lab Data Lab Results 10/22/23 10/22/23 10/22/23 Range/Units 11:47 12:28 12:28 WBC 10.1 (3.8-10.6) k/uL RBC 4.71 (3.80-5.40) m/uL Hgb 14.0 (11.4-16.0) gm/dL Hct 42.0 (34.0-46.0) % MCV 89.2 (80.0-100.0) fL MCH 29.7 (25.0-35.0) pg MCHC 33.3 (31.0-37.0) g/dL RDW 13.7 (11.5-15.5) % Plt Count 306 (150-450) k/uL MPV 7.4 Neutrophils % 79 % Lymphocytes % 14 % Monocytes % 4 % Eosinophils % 1 % Basophils % 0 % Neutrophils # 8.0 H (1.3-7.7) k/uL Lymphocytes # 1.4 (1.0-4.8) k/uL Monocytes # 0.5 (0-1.0) k/uL Eosinophils # 0.1 (0-0.7) k/uL Basophils # 0.0 (0-0.2) k/uL Sodium (137-145) mmol/L Potassium (3.5-5.1) mmol/L Chloride (98-107) mmol/L Carbon Dioxide (22-30) mmol/L Anion Gap mmol/L BUN (7-17) mg/dL Creatinine (0.52-1.04) mg/dL Est GFR (CKD-EPI)AfAm (>60 ml/min/1.73 sqM) Est GFR (CKD-EPI)NonAf (>60 ml/min/1.73 sqM) Glucose (74-99) mg/dL Plasma Lactic Acid Alex (0.7-2.0) mmol/L Calcium (8.4-10.2) mg/dL Magnesium (1.6-2.3) mg/dL Total Bilirubin (0.2-1.3) mg/dL AST (14-36) U/L ALT (4-34) U/L Alkaline Phosphatase (38-126) U/L Total Protein (6.3-8.2) g/dL Albumin (3.5-5.0) g/dL Lipase (23-300) U/L Urine Color Yellow Urine Appearance Cloudy H (Clear) Urine pH 6.0 (5.0-8.0) Ur Specific [place] 1.022 (1.001-1.035) Urine Protein 1+ H (Negative) Urine Glucose (UA) Negative (Negative) Urine Ketones 1+ H (Negative) Urine Blood Trace H (Negative) Urine Nitrite Positive H (Negative) Urine Bilirubin Negative (Negative) Urine Urobilinogen <2.0 (<2.0) mg/dL Ur Leukocyte Esterase Large H (Negative) Urine RBC 1 (0-5) /hpf Urine WBC 30 H (0-5) /hpf Urine WBC Clumps Moderate H (None) /hpf Ur Squamous Epith Cells 2 (0-4) /hpf Urine Bacteria Many H (None) /hpf Hyaline Casts 5 H (0-2) /lpf Urine Mucus Moderate H (None) /hpf Influenza Type A (PCR) Not Detected (Not Detectd) Influenza Type B (PCR) Not Detected (Not Detectd) RSV (PCR) Not Detected (Not Detectd) SARS-CoV-2 (PCR) Not Detected (Not Detectd) 10/22/23 10/22/23 Range/Units 12:28 12:28 WBC (3.8-10.6) k/uL RBC (3.80-5.40) m/uL Hgb (11.4-16.0) gm/dL Hct (34.0-46.0) % MCV (80.0-100.0) fL MCH (25.0-35.0) pg MCHC (31.0-37.0) g/dL RDW (11.5-15.5) % Plt Count (150-450) k/uL MPV Neutrophils % % Lymphocytes % % Monocytes % % Eosinophils % % Basophils % % Neutrophils # (1.3-7.7) k/uL Lymphocytes # (1.0-4.8) k/uL Monocytes # (0-1.0) k/uL Eosinophils # (0-0.7) k/uL Basophils # (0-0.2) k/uL Sodium 142 (137-145) mmol/L Potassium 4.5 (3.5-5.1) mmol/L Chloride 111 H (98-107) mmol/L Carbon Dioxide 21 L (22-30) mmol/L Anion Gap 10 mmol/L BUN 27 H (7-17) mg/dL Creatinine 0.55 (0.52-1.04) mg/dL Est GFR (CKD-EPI)AfAm >90 (>60 ml/min/1.73 sqM) Est GFR (CKD-EPI)NonAf >90 (>60 ml/min/1.73 sqM) Glucose 140 H (74-99) mg/dL Plasma Lactic Acid Alex 0.9 (0.7-2.0) mmol/L Calcium 9.9 (8.4-10.2) mg/dL Magnesium 2.5 H (1.6-2.3) mg/dL Total Bilirubin 0.5 (0.2-1.3) mg/dL AST 82 H (14-36) U/L ALT 101 H (4-34) U/L Alkaline Phosphatase 176 H (38-126) U/L Total Protein 7.1 (6.3-8.2) g/dL Albumin 4.2 (3.5-5.0) g/dL Lipase 108 (23-300) U/L Urine Color Urine Appearance (Clear) Urine pH (5.0-8.0) Ur Specific [place] (1.001-1.035) Urine Protein (Negative) Urine Glucose (UA) (Negative) Urine Ketones (Negative) Urine Blood (Negative) Urine Nitrite (Negative) Urine Bilirubin (Negative) Urine Urobilinogen (<2.0) mg/dL Ur Leukocyte Esterase (Negative) Urine RBC (0-5) /hpf Urine WBC (0-5) /hpf Urine WBC Clumps (None) /hpf Ur Squamous Epith Cells (0-4) /hpf Urine Bacteria (None) /hpf Hyaline Casts (0-2) /lpf Urine Mucus (None) /hpf Influenza Type A (PCR) (Not Detectd) Influenza Type B (PCR) (Not Detectd) RSV (PCR) (Not Detectd) SARS-CoV-2 (PCR) (Not Detectd) - EKG Data EKG Comments: 12-lead Electrocardiogram Interpretation Note EKG was reviewed and interpreted by myself. 12-lead ECG performed at 1147 is interpreted by me as revealing normal sinus rhythm at a rate of 85 beats per minute. Moz[place] is normal. [place] interval is 170 ms, QRS duration is 103 ms, QTc is 409 ms.. There were no ST or T wave abnormalities to suggest myocardial ischemia or injury. R wave progression across the precordium was satisfactory. By my interpretation this EKG is non-diagnostic for acute ischemia. (Son Burger) Disposition <Jody Rivas - Last Filed: 10/22/23 10:12> Time of Disposition: 13:52 <Son Burger - Last Filed: 10/22/23 14:11> Clinical Impression: UTI (urinary tract infection), Confusion Disposition: ADMITTED IP TO THIS HOSP Condition: Stable
--- NOTE | 2023-10-22 10:40 | CT ---
EXAMINATION TYPE: CT brain wo con DATE OF EXAM: 10/22/2023 COMPARISON: 03/27/2023 INDICATION: Dizziness DLP: 1094.9 mGycm, Automated exposure control for dose reduction was used. CONTRAST: None CT of the brain is performed utilizing 3 mm thick sections through the posterior fossa and 3 mm thick sections through the remaining calvarium. Study is performed within 24 hours of arrival to the hosp ital. No abnormal hyperdensity is present to suggest an acute intracranial hemorrhage. No mass lesion is evident. No acute infarcts are evident. Ventricles and sulci are appropriate for the patient age. Minimal mucosal thickening is within left maxillary sinus and right maxillary sinus. Remaining parana ruba sinuses and mastoid air cells are clear. Some hyperostosis frontalis internus is present. IMPRESSION: 1. No acute intracranial process. Follow-up MRI can be performed as clinically indicated.
[2023-10-22] MEDS: ONDANSETRON 4 MG/2 ML VIAL IVP STA (12:12)
[2023-10-22] MEDS: MORPHINE SULFATE 4 MG/ML SYRINGE IVP STA ×2 (12:12→14:16)
[2023-10-22] MEDS: SODIUM CHLORIDE 0.9% 1,000 ML IV STA (12:25)
[2023-10-22 12:46] LABS: Basophils % (A) 0 %; Eosinophils # (A) 0.1 k/uL (0-0.7); Eosinophils % (A) 1 %; Lymphocytes # (A) 1.4 k/uL (1.0-4.8); Lymphocytes % (A) 14 %; MCH 29.7 pg (25.0-35.0); MCHC 33.3 g/dL (31.0-37.0); MCV 89.2 fL (80.0-100.0); Mean Platelet Volume 7.4; Monocytes # (A) 0.5 k/uL (0-1.0); Monocytes % (A) 4 %; Neutrophils % (A) 79 %; Platelet Count 306 k/uL (150-450); RBC 4.71 m/uL (3.80-5.40); RDW 13.7 % (11.5-15.5); WBC 10.1 k/uL (3.8-10.6)
--- NOTE | 2023-10-22 12:46 | XR ---
EXAMINATION TYPE: XR chest 2V DATE OF EXAM: 10/22/2023 12:41 PM CLINICAL INDICATION:Female, 68 years old with history of n/v; [facility] COMPARISON: Chest radiographs from 03/27/2023 TECHNIQUE: XR chest 2V Frontal and lateral views of the chest. FINDINGS: Lungs/Pleura: There is no evidence of pleural effusion, focal consolidation, or pneumothorax. Pulmonary vascularity: Unremarkable. Heart/mediastinum: Cardiomediastinal silhouette is enlarged and stable. Musculoskeletal: No acute osseous pathology. IMPRESSION: No acute cardiopulmonary disease/process.
[2023-10-22 12:54] LABS: Appearance,Urine Cloudy (Clear); Bacteria,Urine Many /hpf; Bilirubin,Urine Negative (Negative); Blood,Urine Trace (Negative); Color,Urine Yellow; Glucose,Urine (UA) Negative (Negative); Hyaline Casts,Urine 5 /lpf (0-2); Ketones,Urine 1+ (Negative); Leukocyte Esterase,Urine Large (Negative); Mucus,Urine Moderate /hpf; Nitrite,Urine Positive (Negative); Protein,Urine 1+ (Negative); RBC,Urine 1 /hpf (0-5); Specific Gravity,Urine 1.022 (1.001-1.035); Squamous Epithelial Cell,Urine 2 /hpf (0-4); Urobilinogen,Urine <2.0 mg/dL (<2.0); WBC,Urine 30 /hpf (0-5)
[2023-10-22 13:05] LABS: ALT 101 U/L (4-34); AST 82 U/L (14-36); African American GFR (CKD) >90 (>60 ml/min/1.73 sqM); Albumin 4.2 g/dL (3.5-5.0); Alkaline Phosphatase 176 U/L (38-126); Anion Gap 10 mmol/L; Blood Urea Nitrogen 27 mg/dL (7-17); Calcium 9.9 mg/dL (8.4-10.2); Carbon Dioxide 21 mmol/L (22-30); Chloride 111 mmol/L (98-107); Glucose 140 mg/dL (74-99); Lipase 108 U/L (23-300); Magnesium 2.5 mg/dL (1.6-2.3); Non-African American GFR(CKD) >90 (>60 ml/min/1.73 sqM); Potassium 4.5 mmol/L (3.5-5.1); Sodium 142 mmol/L (137-145); Total Bilirubin 0.5 mg/dL (0.2-1.3); Total Protein 7.1 g/dL (6.3-8.2)
--- NOTE | 2023-10-22 13:38 | CT ---
EXAMINATION TYPE: CT abdomen pelvis w con DATE OF EXAM: 10/22/2023 COMPARISON: 07/09/2012 INDICATION: Abdominal pain DLP: 1239.9 mGycm, Automated exposure control for dose reduction was used. CONTRAST: 100 ml mL of Isovue 300. Study performed without Oral Contrast TECHNIQUE: Axial images were obtained from above the diaphragm to the pubic rami in the axial plane a t 5 mm thick sections. Reconstructed images are reviewed on the computer in the coronal plane. FINDINGS: Limited CT sections are obtained the lung bases. The lung bases are clear. CT ABDOMEN: There is a periumbilical hernia containing mesenteric fat with an opening of 0.9 cm. Liver: Normal Spleen: Normal Pancreas: Normal Adrenal glands: The adrenal glands are normal. Gallbladder: Normal Kidneys: No masses are evident. No hydronephrosis is present. No cysts are present. Delayed images were obtained through the kidneys, which remain unremarkable. Aorta: Normal Inferior vena cava: Normal. CT PELVIS: Loops of bowel within the abdomen and pelvis are normal. The study is without oral contrast limit ing bowel evaluation. Appendix: Normal as visualized. Urinary bladder: Normal. Genitourinary structures: Uterus and adnexa are unremarkable Osseous structures: No suspicious lytic or sclerotic lesions. IMPRESSION: 1. Small periumbilical mesenteric fat containing hernia 2. No acute changes CT abdomen and pelvis
[2023-10-22] MEDS ORDERED: ONDANSETRON 4 MG/2 ML VIAL IVP PRN (14:00)
[2023-10-22] MEDS ORDERED: NALOXONE 0.4 MG/ML 1 ML VIAL IV PRN (14:00)
[2023-10-22] MEDS ORDERED: MORPHINE SULFATE 4 MG/ML SYRINGE IV PRN (14:00)
[2023-10-22] MEDS: SODIUM CHLORIDE 0.9% 1,000 ML IV SCH (14:09)
[2023-10-22] MEDS: LIDOCAINE 4% PATCH TOPICAL ONE (14:15)
[2023-10-22] MEDS ORDERED: BUTALB/APAP/CAFF 50-325-40MG TAB PO PRN (15:07)
[2023-10-22] MEDS ORDERED: ETODOLAC 400 MG TAB PO PRN (15:07)
[2023-10-22] MEDS ORDERED: PROCHLORPERAZINE INJ 10 MG/2 ML VIAL IVP PRN (15:54)
--- NOTE | 2023-10-22 16:07 | P.HPIM ---
History of Present Illness H&P Date: 10/22/23 History of Presenting Illness: Patient is a 68-year-old female with a past medical history of CAD status post stenting, fibromyalgia, chronic back pain on MS Contin, hypertension, hyperlipidemia, anxiety, and depression. She presented to the emergency department with a chief complaint of confusion. Patient reports she just cannot think currently and does not feel like herself over the past 3 days. She reports she has had about 4 episodes of diarrhea and 4 episodes of vomiting each day as well. She reports feeling warm but has not taken her temperature at home to see if she has a fever but denies any chills, diaphoresis, headache, lightheadedness, dizziness, chest pain, palpitations, shortness of breath, cough or congestion, abdominal pain, urinary frequency, urgency, hematuria, or experiencing any numbness/tingling/weakness/swelling in her extremities. Patient's at bedside states that his slept the entire day and night on Saturday and has just been fatigued. Patient and family members at bedside deny anyone else in the home being sick or experiencing the symptoms and deny any known exposure to ill contacts. Patient does take MS Contin for chronic back pain secondary to a previous injury. She reports she has not taken this medication at all since Saturday or Saturday. Patient is alert to person, place, time, and situation but reports she does not feel like herself and does not feel she is thinking or feeling right. She underwent full evaluation in the emergency department. Vital signs upon arrival show blood pressure 142/72, heart rate 111, respiratory rate 18, temp 98.3 F, and SpO2 of 99% on room air. EKG completed showing sinus tachycardia at 85 bpm with prominent Q waves in leads I, II, and aVL otherwise showing no significant T wave or ST abnormalities showing no signs of acute ischemia. CT head completed negative for acute intracranial process. Chest x-ray completed negative for acute cardiopulmonary process. CT abdomen and pelvis showing small periumbilical mesenteric fat- containing hernia otherwise negative for acute process throughout abdomen and pelvis. Labs completed and reviewed. CBC unremarkable. BMP showing mild prerenal azotemia with BUN of 27 and revealing mild metabolic acidosis with chloride of 111, bicarb of 21, and anion gap of 10. Magnesium 2.5. Liver profile showing transaminitis with AST of 82, ALT of 101, and alkaline solomon sphatase of 176. Lipase normal findings at 108. Urinalysis positive for protein, ketones, nitrites, leukocytes, and 30 WBCs. Influenza A, influenza B, RSV, and COVID PCR were negative. Patient started on IV antibiotics with Rocephin 2 g daily and placed on IV hydration. She was admitted under our services at this time. Review of systems: Pertinent positives and negatives as discussed in HPI, a complete review of systems was performed and all other systems are negative. Physical exam: Vital signs reviewed and stable. General: Nontoxic, no distress and appears stated age. Derm: Skin warm and dry, normal coloration for ethnicity. Cheeks appear flushed. Head: Atraumatic, normocephalic and symmetric. Eyes: EOMs intact, no lid lag, and anicteric sclera Mouth: no lip lesions, mucus membranes moist Cardiovascular: Tachycardic rate with regular rhythm. normal S1S2, no murmur, positive posterior tibial pulses bilaterally, and cap refill < 2 seconds. Lungs: Respirations even, regular, and unlabored on room air. Lungs CTA bilaterally, no rhonchi, no rales, no wheezing, and no accessory muscle usage. Abdominal: soft, nontender to palpation, no guarding, no appreciable organomegaly Ext: ROM intact. No gross muscle atrophy, no edema, no contractures Neuro: Speech clear, face symmetrical and CN II-XII grossly intact with no noted focal neuro deficits Psych: Alert and oriented to person, place, time, and situation. Appropriate and pleasant affect. Assessment and Plan of Care: Metabolic encephalopathy Non-anion gap metabolic acidosis Dehydration secondary to vomiting and diarrhea x 3 days Sinus tachycardia, possibly secondary to beta-kathleen withdrawal vs dehydration Transaminitis UTI -Vomiting and diarrhea may be due to infectious process such as gastroenteritis vs symptoms of opioid withdrawal as patient is on daily MS Contin and has not reportedly taken in approximately 5 days or so. -Continue with gentle IV fluid hydration with 0.9% normal saline at 75 cc/h. -Obtain a stat ammonia level along with TSH with free T4 -Stool culture to be obtained -Follow-up on blood culture and urine culture. -Continue IV antibiotics with Rocephin 2 g daily pending urine culture results. -Continue with symptomatic care and pain management. Zofran 4 mg IVP every 8 hours as needed for nausea and vomiting and Compazine 10 mg IVP every 6 hours as needed for nausea/vomiting on relieved by Zofran. -Patient to remain on continuous telemetry monitoring -Neurochecks every 4 hours and fall precautions in place. -Hold MS Contin and placed patient on morphine sulfate 4 mg IVP as needed for pain. -Order placed for metoprolol to tartrate 25 mg p.o. x 1 dose for treatment of sinus tachycardia and patient to resume metoprolol succinate tomorrow morning. CAD status post stenting Hypertension Hyperlipidemia -Continue daily medication regimen with aspirin 81 mg daily, atorvastatin 20 mg daily, lisinopril 10 mg daily, and metoprolol succinate 25 mg daily. Chronic back pain on MS Contin Anxiety and depression. Fibromyalgia -Hold MS Contin and placed patient on morphine sulfate 4 mg IVP as needed for pain. -Patient to continue Lyrica 225 mg p.o. twice daily for treatment of her f ibromyalgia. -Continue Zoloft 100 mg daily for anxiety and depression Data and imaging reviewed: As stated above in HPI The patient is admitted with an anticipated greater than 2 midnight stay for evaluation of acute metabolic encephalopathy CODE STATUS: Full code DVT prophylaxis: Lovenox Anticipated discharge date: Clinical course to determine Anticipated discharge place: Clinical course to determine Patient was seen independently by Nurse Practitioner. This document was prepared using [employer] dictation software. Please allow for errors in nurses medical assistants phlebotomists while rare they do occur. Martin Zheng NP rendered care for this patient independently, reviewed the findings and plan as documented in the note above. I did not physically speak with or examine the patient on this date. Past Medical History Past Medical History: Fibromyalgia Additional Past Medical History / Comment(s): chronic back pain, Back Injury 9 years ago History of Any Multi-Drug Resistant Organisms: None Reported Past Surgical History: Heart Catheterization With Stent Past Anesthesia/Blood Transfusion Reactions: No Reported Reaction Date of Last Stent Placement:: 12/30/2021 Past Psychological History: Anxiety, Depression Smoking Status: Current every day smoker Past Alcohol Use History: None Reported Past Drug Use History: None Reported Medications and Allergies Home Medications Medication Instructions Recorded Confirmed Type Morphine Sulfate ER [Ms Contin] 30 mg PO Q12HR 08/26/19 10/22/23 History Pregabalin [Lyrica] 225 mg PO BID 08/26/19 10/22/23 History Sertraline [Zoloft] 100 mg PO DAILY 08/26/19 10/22/23 History oxyCODONE-APAP 7.5-325MG [Percocet 1 tab PO BID PRN 08/26/19 10/22/23 History 7.5-325 mg] tiZANidine HCL 4 mg PO BID PRN 08/26/19 10/22/23 History Butalb/APAP/Caff 50-325-40Mg 1 tab PO Q6HR PRN 12/30/21 10/22/23 History [Fioricet 50-325-40] Aspirin 81 mg PO DAILY 90 Days #90 tab 01/01/22 10/22/23 Rx Diclofenac Sodium [Voltaren] 75 mg PO BID PRN 03/27/23 10/22/23 History Rosuvastatin [Crestor] 10 mg PO DAILY 03/27/23 10/22/23 History Metoprolol Succinate (ER) [Toprol 25 mg PO DAILY 10/22/23 10/22/23 History Xl] Morphine Sulfate ER [Ms Contin] 15 mg PO Q12HR 10/22/23 10/22/23 History lisinopriL [Zestril] 10 mg PO DAILY 10/22/23 10/22/23 History Allergies Allergy/AdvReac Type Severity Reaction Status Date / Time No Known Allergies Allergy Verified 10/22/23 14:30 Physical Exam Vitals: Vital Signs Temp Pulse Resp BP Pulse Ox 10/22/23 09:58 98.3 F 111 H 18 142/72 99 Intake and Output 10/21/23 10/22/23 10/22/23 22:59 06:59 14:59 Other: Weight 90.718 kg Results CBC & Chem 7: 10/22/23 12:28 10/22/23 12:28 Labs: Abnormal Lab Results - Last 24 Hours (Table) 10/22/23 10/22/23 10/22/23 Range/Units 12:28 12:28 12:28 Neutrophils # 8.0 H (1.3-7.7) k/uL Chloride 111 H (98-107) mmol/L Carbon Dioxide 21 L (22-30) mmol/L BUN 27 H (7-17) mg/dL Glucose 140 H (74-99) mg/dL Magnesium 2.5 H (1.6-2.3) mg/dL AST 82 H (14-36) U/L ALT 101 H (4-34) U/L Alkaline Phosphatase 176 H (38-126) U/L Urine Appearance Cloudy H (Clear) Urine Protein 1+ H (Negative) Urine Ketones 1+ H (Negative) Urine Blood Trace H (Negative) Urine Nitrite Positive H (Negative) Ur Leukocyte Esterase Large H (Negative) Urine WBC 30 H (0-5) /hpf Urine WBC Clumps Moderate H (None) /hpf Urine Bacteria Many H (None) /hpf Hyaline Casts 5 H (0-2) /lpf Urine Mucus Moderate H (None) /hpf
[2023-10-22] MEDS: METOPROLOL TARTRATE 25 MG TAB PO STA (16:12)
[2023-10-22] MEDS: tiZANidine 4 MG TAB PO PRN (16:21)
[2023-10-22] MEDS: MORPHINE SULFATE 4 MG/ML SYRINGE IV PRN (18:52)
[2023-10-22 18:58] LABS: T4, Free (Free Thyroxine) 1.88 ng/dL (0.78-2.19)
[2023-10-22] MEDS: PREGABALIN 75 MG CAP PO SCH (20:25)
[2023-10-22] MEDS ORDERED: MORPHINE SULFATE ER 15 MG TABLET PO SCH (21:00)
[2023-10-22] MEDS ORDERED: MORPHINE SULFATE ER 30 MG TABLET PO SCH (21:00)
[2023-10-23] MEDS: ATORVASTATIN 20 MG TAB PO SCH (08:25)
[2023-10-23] MEDS: SERTRALINE 100 MG TAB PO SCH (08:25)
[2023-10-23] MEDS: ENOXAPARIN 40 MG/0.4 ML SYRINGE SQ SCH (08:25)
[2023-10-23] MEDS: lisinopriL 10 MG TAB PO SCH (08:25)
[2023-10-23] MEDS: ASPIRIN 81 MG PO SCH (08:25)
[2023-10-23] MEDS: METOPROLOL SUCCINATE (ER) 25 MG TAB.ER.24H PO SCH (10:01)
[2023-10-23 11:22] LABS: Basophils # (A) 0.05 X 10*3/uL (0.00-0.10); Basophils % (A) 0.5 %; Eosinophils # (A) 0.04 X 10*3/uL (0.04-0.35); Eosinophils % (A) 0.4 %; HCT 34.5 % (37.2-46.3); HGB 11.3 g/dL (12.0-15.0); Lymphocytes # (A) 2.79 X 10*3/uL (0.90-5.00); MCH 29.1 pg (27.0-32.0); MCHC 32.8 g/dL (32.0-37.0); MCV 88.9 FL (80.0-97.0); Mean Platelet Volume 9.8 FL (9.5-12.2); Monocytes # (A) 0.72 X 10*3/uL (0.20-1.00); Monocytes % (A) 7.2 %; NRBC Per 100 WBC 0 X 10*3/uL (0.00-0.01); Neutrophils # (A) 6.31 X 10*3/uL (1.80-7.70); Neutrophils % (A) 63.4 %; Platelet Count 297 X 10*3/uL (140-440); RBC 3.88 X 10*6/uL (4.10-5.20); RDW 14.7 % (11.5-14.5); WBC 9.96 X 10*3/uL (4.50-10.00)
[2023-10-23 11:58] LABS: ALT 72 U/L (8-44); AST 40 U/L (13-35); Albumin 3.7 g/dL (3.8-4.9); Albumin/Globulin Ratio 1.61 Ratio (1.60-3.17); Alkaline Phosphatase 117 U/L (41-126); Blood Urea Nitrogen 18.3 mg/dL (9.0-27.0); Calcium 9.2 mg/dL (8.7-10.3); Carbon Dioxide 19.7 mmol/L (21.6-31.8); Chloride 110 mmol/L (96-109); Globulin 2.3 g/dL (1.6-3.3); Glucose 104 mg/dL (70-110); Potassium 4.2 mmol/L (3.5-5.5); Sodium 141 mmol/L (135-145); Total Bilirubin 0.3 mg/dL (0.3-1.2)
--- NOTE | 2023-10-23 15:51 | P.PN ---
Subjective Progress Note Date: 10/23/23 Hospital Course: Patient is a 68-year-old female with a past medical history of CAD status post stenting, fibromyalgia, chronic back pain on MS Contin, hypertension, hyperlipidemia, anxiety, and depression. She presented to the emergency dep artment with a chief complaint of confusion. Patient reports she just cannot think currently and does not feel like herself over the past 3 days. She reports she has had about 4 episodes of diarrhea daily and 4 episodes of vomiting each day as well. Patient does take MS Contin for chronic back pain secondary to a previous injury. She reports she has not taken this medication at all since Saturday or Saturday. Patient is alert to person, place, time, and situation but reports she does not feel like herself and does not feel she is thinking or feeling right. She underwent full evaluation in the emergency department. Vital signs upon arrival show blood pressure 142/72, heart rate 111, respiratory rate 18, temp 98.3 F, and SpO2 of 99% on room air. EKG completed showing sinus tachycardia at 85 bpm with prominent Q waves in leads I, II, and aVL otherwise showing no significant T wave or ST abnormalities showing no signs of acute ischemia. CT head completed negative for acute intracranial process. Chest x-ray completed negative for acute cardiopulmonary process. CT abdomen and pelvis showing small periumbilical mesenteric fat-containing hernia otherwise negative for acute process throughout abdomen and pelvis. Labs completed and reviewed. CBC unremarkable. BMP showing mild prerenal azotemia with BUN of 27 and revealing mild metabolic acidosis with chloride of 111, bicarb of 21, and anion gap of 10. Magnesium 2.5. Liver profile showing transaminitis with AST of 82, ALT of 101, and alkaline phosphatase of 176. Lipase normal findings at 108. Urinalysis positive for protein, ketones, nitrites, leukocytes, and 30 WBCs. Influenza A, influenza B, RSV, and COVID PCR were negative. Patient started on IV antibiotics with Rocephin 2 g daily and placed on IV hydration. She was admitted under our services at this time. Subjective: Patient seen and fully evaluated at bedside this morning. She reports feeling slightly better this morning. She reports she continues to have diarrhea but feels more like herself today. She states she is still not at baseline and still feels somewhat confused but remains alert and oriented to person, place, time, and situation at this time. Physical exam: Vital signs reviewed and stable. General: Nontoxic, no distress and appears stated age. Derm: Skin warm and dry, normal coloration for ethnicity. Cheeks appear flushed. Head: Atraumatic, normocephalic and symmetric. Eyes: EOMs intact, no lid lag, and anicteric sclera Mouth: no lip lesions, mucus membranes moist Cardiovascular: Tachycardic rate with regular rhythm. normal S1S2, no murmur, positive posterior tibial pulses bilaterally, and cap refill < 2 seconds. Lungs: Respirations even, regular, and unlabored on room air. Lungs CTA b ilaterally, no rhonchi, no rales, no wheezing, and no accessory muscle usage. Abdominal: soft, nontender to palpation, no guarding, no appreciable organomegaly Ext: ROM intact. No gross muscle atrophy, no edema, no contractures Neuro: Speech clear, face symmetrical and CN II-XII grossly intact with no noted focal neuro deficits Psych: Alert and oriented to person, place, time, and situation. Appropriate and pleasant affect. Assessment and Plan of Care: Metabolic encephalopathy UTI Non-anion gap metabolic acidosis Dehydration secondary to vomiting and diarrhea x 3 days Sinus tachycardia, possibly secondary to beta-kathleen withdrawal vs dehydration. Resolved. Transaminitis, improving. -Vomiting and diarrhea may be due to infectious process such as gastroenteritis vs symptoms of opioid withdrawal as patient is on daily MS Contin and had not reportedly taken in approximately 5 days or so. -Continue with gentle IV fluid hydration with 0.9% normal saline at 75 cc/h. -Ammonia level was less than 9. Troponin less than 0.012. TSH 0.129 and free T4 of 1.88. -Stool culture to be obtained -Follow-up on blood culture and urine culture. -Continue IV antibiotics with Rocephin 2 g daily pending urine culture results. -Continue with symptomatic care and pain management. Zofran 4 mg IVP every 8 hours as needed for nausea and vomiting and Compazine 10 mg IVP every 6 hours as needed for nausea/vomiting on relieved by Zofran. -Patient to remain on continuous telemetry monitoring -Neurochecks every 4 hours and fall precautions in place. -Hold MS Contin and placed patient on morphine sulfate 4 mg IVP as needed for pain. -Sinus tachycardia resolved with IV hydration and administration of metoprolol 25 mg daily. CAD status post stenting Hypertension Hyperlipidemia -Continue daily medication regimen with aspirin 81 mg daily, atorvastatin 20 mg daily, lisinopril 10 mg daily, and metoprolol succinate 25 mg daily. Chronic back pain on MS Contin Anxiety and depression. Fibromyalgia -Hold MS Contin and placed patient on morphine sulfate 4 mg IVP as needed for pain. -Patient to continue Lyrica 225 mg p.o. twice daily for treatment of her fibromyalgia. -Continue Zoloft 100 mg daily for anxiety and depression Data and imaging reviewed: Morning labs reviewed. CBC showing mild normocytic anemia with hemoglobin of 11.3. BMP revealing continued but stable metabolic acidosis with chloride of 110, bicarb 19.7, and anion gap of 11.30. Liver profile showing slight improvement of transaminitis with AST of 40, ALT of 42, and alkaline phosphatase of 117. Vital signs reviewed. Blood pressure 142/82, heart rate 56, respiratory rate 19, temp 98.1 F, and SpO2 of 95% on room air. CODE STATUS: Full code DVT prophylaxis: Lovenox Anticipated discharge date: If patient continues to show continued improvement after IV fluid hydration, possible discharge in the next 24 to [address]: Home Patient was seen independently by Nurse Practitioner. This document was prepared using [employer] dictation software. Please allow for errors in senior clinical research scientist while rare they do occur. Patient seen independently by Norm DHILLON. I agree with the assessment and plan done by my colleague Norm DHILLON. Objective - Vital Signs Vital signs: Vital Signs Temp 98.0 F 10/23/23 04:00 Pulse 57 L 10/23/23 04:00 Resp 19 10/23/23 04:00 BP 130/74 10/23/23 04:00 Pulse Ox 94 L 10/23/23 04:00 FiO2 Intake & Output 10/22/23 10/23/23 10/23/23 18:59 06:59 18:59 Intake Total 0 Balance 0 Weight 90.718 kg 90.718 kg Intake: Oral 0 Other: Voiding Method Toilet # Voids 1 1 - Labs CBC & Chem 7: 10/23/23 06:50 10/23/23 06:50 Labs: Abnormal Lab Results - Last 24 Hours (Table) 10/22/23 10/22/23 10/22/23 Range/Units 12:28 12:28 12:28 Neutrophils # 8.0 H (1.3-7.7) k/uL Chloride 111 H (98-107) mmol/L Carbon Dioxide 21 L (22-30) mmol/L BUN 27 H (7-17) mg/dL Glucose 140 H (74-99) mg/dL Magnesium 2.5 H (1.6-2.3) mg/dL AST 82 H (14-36) U/L ALT 101 H (4-34) U/L Alkaline Phosphatase 176 H (38-126) U/L TSH (0.465-4.680) mIU/L Urine Appearance Cloudy H (Clear) Urine Protein 1+ H (Negative) Urine Ketones 1+ H (Negative) Urine Blood Trace H (Negative) Urine Nitrite Positive H (Negative) Ur Leukocyte Esterase Large H (Negative) Urine WBC 30 H (0-5) /hpf Urine WBC Clumps Moderate H (None) /hpf Urine Bacteria Many H (None) /hpf Hyaline Casts 5 H (0-2) /lpf Urine Mucus Moderate H (None) /hpf 10/22/23 Range/Units 12:28 Neutrophils # (1.3-7.7) k/uL Chloride (98-107) mmol/L Carbon Dioxide (22-30) mmol/L BUN (7-17) mg/dL Glucose (74-99) mg/dL Magnesium (1.6-2.3) mg/dL AST (14-36) U/L ALT (4-34) U/L Alkaline Phosphatase (38-126) U/L TSH 0.129 L (0.465-4.680) mIU/L Urine Appearance (Clear) Urine Protein (Negative) Urine Ketones (Negative) Urine Blood (Negative) Urine Nitrite (Negative) Ur Leukocyte Esterase (Negative) Urine WBC (0-5) /hpf Urine WBC Clumps (None) /hpf Urine Bacteria (None) /hpf Hyaline Casts (0-2) /lpf Urine Mucus (None) /hpf
--- NOTE | 2023-10-24 15:01 | P.PN ---
Subjective Progress Note Date: 10/24/23 68-year-old female with a past medical history of CAD status post stenting, fibromyalgia, chronic back pain on MS Contin, hypertension, hyperlipidemia, anxiety, and depression. She presented to the emergency department with a chief complaint of confusion. She reports she has had about 4 episodes of diarrhea daily and 4 episodes of vomiting each day as well. Patient does take MS Contin for chronic back pain secondary to a previous injury (not taken this medication at all since Saturday or Saturday) She underwent full evaluation in the emergency department. Vital signs upon arrival show blood pressure 142/72, heart rate 111, respiratory rate 18, temp 98.3 F, and SpO2 of 99% on room air. EKG completed showing sinus tachycardia at 85 bpm with prominent Q waves in leads I, II, and aVL otherwise showing no significant T wave or ST abnormalities showing no signs of acute ischemia. CT head completed negative for acute intracranial process. Chest x-ray completed negative for acute cardiopulmonary process. CT abdomen and pelvis showing small periumbilical mesenteric fat-containing he rnia otherwise negative for acute process throughout abdomen and pelvis. CBC unremarkable. BMP showing mild prerenal azotemia with BUN of 27 and revealing mild metabolic acidosis with chloride of 111, bicarb of 21, and anion gap of 10. Magnesium 2.5. Liver profile showing transaminitis with AST of 82, ALT of 101, and alkaline phosphatase of 176. Lipase normal findings at 108. Urinalysis positive for protein, ketones, nitrites, leukocytes, and 30 WBCs. Influenza A, influenza B, RSV, and COVID PCR were negative. Patient started on IV antibiotics with Rocephin 2 g daily and placed on IV hydration and admitted under our services at this time. Patient was seen and examined. at bedside. Reports confusion considerably improved. She has no complaints today. UCx showing gram negative bacilli. CBC Hg 11.3 Hct 34.5. CMP Cl 110, bicarb 19.7, AST 40, ALT 72, alb 3.7. Vital signs reviewed and stable. General: Nontoxic, no distress and appears stated age. Derm: Skin warm and dry, normal coloration for ethnicity. Cheeks appear flushed. Head: Atraumatic, normocephalic and symmetric. Eyes: EOMs intact, no lid lag, and anicteric sclera Cardiovascular: Tachycardic rate with regular rhythm. normal S1S2, no murmur Lungs: Respirations even, regular, and unlabored on room air. Lungs CTA bilaterally, no rhonchi, no rales, no wheezing, and no accessory muscle usage. Ext: ROM intact. No gross muscle atrophy, no edema, no contractures Neuro: Speech clear, face symmetrical with no noted focal neuro deficits Psych: Alert and oriented to person, place, time, and situation. Appropriate and pleasant affect. Based on my assessment of this patient, this patient meets a high complexity level of care. Patient has an acute diagnosis of acute metabolic encephalopathy secondary to UTI that poses a threat to life or bodily function. Metabolic encephalopathy: Resolving. Ammonia level was less than 9. Troponin less than 0.012. TSH 0.129 and free T4 of 1.88. UTI: Rocephin 2g IV QD. Follow UCx. Non-anion gap metabolic acidosis: Improving. Dehydration secondary to vomiting and diarrhea x 3 days: Continue NS at 75 cc/hr. Zofran 4 mg IVP every 8 hours as needed for nausea and vomiting and Compazine 10 mg IVP every 6 hours as needed for nausea/vomiting. Outpatient C- scope. Follow stool Cx. Sinus tachycardia, possibly secondary to beta-kathleen withdrawal vs dehydration. Resolved. Transaminitis, improving. CAD status post stenting: aspirin 81 mg daily, atorvastatin 20 mg daily, lisinopril 10 mg daily, and metoprolol succinate 25 mg daily. Hypertension Hyperlipidemia Chronic back pain on MS Contin: Restart MS Contin 45 mg PO BID. Anxiety and depression: Zoloft 100 mg daily. Fibromyalgia: Lyrica 225 mg p.o. twice daily CODE STATUS: FULL CODE DVT Prophylaxis: Lovenox GI Prophylaxis: Designated medical POA if patient is not able to make medical decisions for themselves: I have reviewed the following [facility] consultant notes: I have reviewed the results of the following tests: CBC. CMP. UCx. I have ordered the following tests: I have discussed the care of this patient with the following independent historian: . I have independently interpreted the following test below: I have discussed the management of this patient with the following physician: Objective - Vital Signs Vital signs: Vital Signs Temp 98.2 F 10/24/23 12:00 Pulse 52 L 10/24/23 12:00 Resp 18 10/24/23 12:00 BP 144/72 10/24/23 12:00 Pulse Ox 93 L 10/24/23 12:00 FiO2 Intake & Output 10/23/23 10/24/23 10/24/23 18:59 06:59 18:59 Intake Total 900 590 Balance 900 590 Intake: Intake, IV Titration 900 Amount Sodium Chloride 0.9% 1, 900 000 ml @ 75 mls/hr IV . [id number] [facility] Rx#:[id number] Oral 590 Other: Voiding Method Toilet Toilet Toilet # Voids 2 - Labs CBC & Chem 7: 10/23/23 06:50 10/23/23 06:50 Labs: Microbiology - Last 24 Hours (Table) 10/22/23 11:42 Urine Culture - Preliminary Urine,Clean Catch Gram Neg Bacilli 10/22/23 13:39 Blood Culture - Preliminary Blood 10/22/23 13:56 Blood Culture - Preliminary Blood
[2023-10-24] MEDS: MORPHINE SULFATE ER 15 MG TABLET PO SCH (20:29)
[2023-10-24] MEDS: MORPHINE SULFATE ER 30 MG TABLET PO SCH (20:32)
[2023-10-25 08:21] LABS: Glucose,Whole Blood 99 mg/dL (70-110)
[2023-10-25 08:55] VITALS: PULSE 48
--- NOTE | 2023-10-25 11:29 | P.PN ---
Subjective Progress Note Date: 10/25/23 68-year-old female with a past medical history of CAD status post stenting, fibromyalgia, chronic back pain on MS Contin, hypertension, hyperlipidemia, anxiety, and depression. She presented to the emergency department with a chief complaint of confusion. She reports she has had about 4 episodes of diarrhea daily and 4 episodes of vomiting each day as well. Patient does take MS Contin for chronic back pain secondary to a previous injury (not taken this medication at all since Saturday or Saturday) She underwent full evaluation in the emergency department. Vital signs upon arrival show blood pressure 142/72, heart rate 111, respiratory rate 18, temp 98.3 F, and SpO2 of 99% on room air. EKG completed showing sinus tachycardia at 85 bpm with prominent Q waves in leads I, II, and aVL otherwise showing no significant T wave or ST abnormalities showing no signs of acute ischemia. CT head completed negative for acute intracranial process. Chest x-ray completed negative for acute cardiopulmonary process. CT abdomen and pelvis showing small periumbilical mesenteric fat-containing he rnia otherwise negative for acute process throughout abdomen and pelvis. CBC unremarkable. BMP showing mild prerenal azotemia with BUN of 27 and revealing mild metabolic acidosis with chloride of 111, bicarb of 21, and anion gap of 10. Magnesium 2.5. Liver profile showing transaminitis with AST of 82, ALT of 101, and alkaline phosphatase of 176. Lipase normal findings at 108. Urinalysis positive for protein, ketones, nitrites, leukocytes, and 30 WBCs. Influenza A, influenza B, RSV, and COVID PCR were negative. Patient started on IV antibiotics with Rocephin 2 g daily and placed on IV hydration and admitted under our services at this time. Patient was seen and examined. at bedside. Reports confusion considerably improved. She has no complaints today. UCx showing gram negative bacilli. CBC Hg 11.3 Hct 34.5. CMP Cl 110, bicarb 19.7, AST 40, ALT 72, alb 3.7. 10/24 Patient was seen and examined. at bedside. Mentation at baseline. Final UCx is still pending. No new labs done. Vital signs reviewed and stable. General: Nontoxic, no distress and appears stated age. Derm: Skin warm and dry, normal coloration for ethnicity. Cheeks appear flushed. Head: Atraumatic, normocephalic and symmetric. Eyes: EOMs intact, no lid lag, and anicteric sclera Cardiovascular: Tachycardic rate with regular rhythm. normal S1S2, no murmur Lungs: Respirations even, regular, and unlabored on room air. Lungs CTA bilaterally, no rhonchi, no rales, no wheezing, and no accessory muscle usage. Ext: ROM intact. No gross muscle atrophy, no edema, no contractures Neuro: Speech clear, face symmetrical with no noted focal neuro deficits Psych: Alert and oriented to person, place, time, and situation. Appropriate and pleasant affect. Based on my assessment of this patient, this patient meets a high complexity level of care. Patient has an acute diagnosis of acute metabolic encephalopathy secondary to UTI that poses a threat to life or bodily function. Metabolic encephalopathy: Resolved. Ammonia level was less than 9. Troponin less than 0.012. TSH 0.129 and free T4 of 1.88. UTI: Rocephin 2g IV QD. Follow UCx. Non-anion gap metabolic acidosis: Improving. Dehydration secondary to vomiting and diarrhea x 3 days: Continue NS at 75 cc/hr. Zofran 4 mg IVP every 8 hours as needed for nausea and vomiting and Compazine 10 mg IVP every 6 hours as needed for nausea/vomiting. Outpatient C- scope. Follow stool Cx. Sinus tachycardia, possibly secondary to beta-kathleen withdrawal vs dehydration. Resolved. Transaminitis, improving. CAD status post stenting: aspirin 81 mg daily, atorvastatin 20 mg daily, lisinopril 10 mg daily, and metoprolol succinate 25 mg daily. Hypertension Hyperlipidemia Chronic back pain on MS Contin: Restart MS Contin 45 mg PO BID. Anxiety and depression: Zoloft 100 mg daily. Fibromyalgia: Lyrica 225 mg p.o. twice daily CODE STATUS: FULL CODE DVT Prophylaxis: Lovenox GI Prophylaxis: Designated medical POA if patient is not able to make medical decisions for themselves: I have reviewed the following financial services consultant notes: I have reviewed the results of the following tests: UCx. I have ordered the following tests: I have discussed the care of this patient with the following independent historian: . I have independently interpreted the following test below: I have discussed the management of this patient with the following physician: Objective - Vital Signs Vital signs: Vital Signs Temp 97.7 F 10/25/23 08:42 Pulse 48 L 10/25/23 08:42 Resp 20 10/25/23 08:42 BP 128/71 10/25/23 08:42 Pulse Ox 95 10/25/23 08:42 FiO2 Intake & Output 10/24/23 10/25/23 10/25/23 18:59 06:59 18:59 Intake Total 540 590 Balance 540 590 Intake: Oral 540 590 Other: Voiding Method Toilet Toilet Toilet # Voids 3 2 0 # Bowel Movements 0 - Labs CBC & Chem 7: 10/23/23 06:50 10/23/23 06:50 Labs: Microbiology - Last 24 Hours (Table) 10/22/23 13:39 Blood Culture - Preliminary Blood 10/22/23 13:56 Blood Culture - Preliminary Blood 10/22/23 11:42 Urine Culture - Preliminary Urine,Clean Catch Gram Neg Bacilli
--- NOTE | 2023-10-25 14:58 | P.DS ---
Providers Date of admission: 10/24/23 13:52 Expected date of discharge: 10/25/23 Attending physician: Chris Luther MD Primary care physician: [facility] Course: 68-year-old female with a past medical history of CAD status post stenting, fibromyalgia, chronic back pain on MS Contin, hypertension, hyperlipidemia, anxiety, and depression. She presented to the emergency department with a chief complaint of confusion. She reports she has had about 4 episodes of diarrhea daily and 4 episodes of vomiting each day as well. Patient does take MS Contin for chronic back pain secondary to a previous injury (not taken this medication at all since Saturday or Saturday) She underwent full evaluation in the emergency department. Vital signs upon arrival show blood pressure 142/72, heart rate 111, respiratory rate 18, temp 98.3 F, and SpO2 of 99% on room air. EKG completed showing sinus tachycardia at 85 bpm with prominent Q waves in leads I, II, and aVL otherwise showing no significant T wave or ST abnormalities showing no signs of acute ischemia. CT head completed negative for acute intracranial process. Chest x-ray completed negative for acute cardiopulmonary process. CT abdomen and pelvis showing small periumbilical mesenteric fat-containing hernia otherwise negative for acute process throughout abdomen and pelvis. CBC unremarkable. BMP showing mild prerenal azotemia with BUN of 27 and revealing mild metabolic acidosis with chloride of 111, bicarb of 21, and anion gap of 10. Magnesium 2.5. Liver profile showing transaminitis with AST of 82, ALT of 101, and alkaline phosphatase of 176. Lipase normal findings at 108. Urinalysis positive for protein, ketones, nitrites, leukocytes, and 30 WBCs. Influenza A, influenza B, RSV, and COVID PCR were negative. Patient started on IV antibiotics with Rocephin 2 g daily and placed on IV hydration and admitted under our services at this time. Patient was seen and examined. at bedside. Reports confusion considerably improved. She has no complaints today. UCx showing gram negative bacilli. CBC Hg 11.3 Hct 34.5. CMP Cl 110, bicarb 19.7, AST 40, ALT 72, alb 3.7. 10/24 Patient was seen and examined. at bedside. Mentation at baseline. Final UCx is still pending. No new labs done. UCx came back with keane sensitive E. Coli. She will be prescribed 3 more days of Bactrim to complete total of 7 days antibiotics. Vital signs reviewed and stable. General: Nontoxic, no distress and appears stated age. Derm: Skin warm and dry, normal coloration for ethnicity. Cheeks appear flushed. Head: Atraumatic, normocephalic and symmetric. Eyes: EOMs intact, no lid lag, and anicteric sclera Cardiovascular: Tachycardic rate with regular rhythm. normal S1S2, no murmur Lungs: Respirations even, regular, and unlabored on room air. Lungs CTA bilaterally, no rhonchi, no rales, no wheezing, and no accessory muscle usage. Ext: ROM intact. No gross muscle atrophy, no edema, no contractures Neuro: Speech clear, face symmetrical with no noted focal neuro deficits Psych: Alert and oriented to person, place, time, and situation. Appropriate and pleasant affect. Discharge Diagnosis: Metabolic encephalopathy UTI Non-anion gap metabolic acidosis Dehydration secondary to vomiting and diarrhea x 3 days Sinus tachycardia, possibly secondary to beta-kathleen withdrawal vs dehydration. CAD status post stenting Hypertension Hyperlipidemia Chronic back pain on MS Contin Anxiety and depression Fibromyalgia This complex discharge took 35 minutes to complete. Patient Condition at Discharge: Stable Plan - Discharge Summary Discharge Rx Participant: No New Discharge Prescriptions: New Sulfamethox-Tmp 800-160Mg [Bactrim DS 800-160 mg] 1 tab PO Q12HR #6 tab Continue Sertraline [Zoloft] 100 mg PO DAILY Morphine Sulfate ER [Ms Contin] 30 mg PO Q12HR Pregabalin [Lyrica] 225 mg PO BID tiZANidine HCL 4 mg PO BID PRN PRN Reason: muscle spasms oxyCODONE-APAP 7.5-325MG [Percocet 7.5-325 mg] 1 tab PO BID PRN PRN Reason: Breakthrough Pain Aspirin 81 mg PO DAILY 90 Days #90 tab Metoprolol Succinate (ER) [Toprol XL] 25 mg PO DAILY lisinopriL [Zestril] 10 mg PO DAILY Morphine Sulfate ER [Ms Contin] 15 mg PO Q12HR Butalb/APAP/Caff 50-325-40Mg [Fioricet 50-325-40] 1 tab PO Q6HR PRN PRN Reason: Migraine Headache Rosuvastatin [Crestor] 10 mg PO DAILY Diclofenac Sodium [Voltaren] 75 mg PO BID PRN PRN Reason: Pain Discharge Medication List Morphine Sulfate ER [Ms Contin] 30 mg PO Q12HR 08/26/19 [History] Pregabalin [Lyrica] 225 mg PO BID 08/26/19 [History] Sertraline [Zoloft] 100 mg PO DAILY 08/26/19 [History] oxyCODONE-APAP 7.5-325MG [Percocet 7.5-325 mg] 1 tab PO BID PRN 08/26/19 [History] tiZANidine HCL 4 mg PO BID PRN 08/26/19 [History] Butalb/APAP/Caff 50-325-40Mg [Fioricet 50-325-40] 1 tab PO Q6HR PRN 12/30/21 [History] Aspirin 81 mg PO DAILY 90 Days #90 tab 01/01/22 [Rx] Diclofenac Sodium [Voltaren] 75 mg PO BID PRN 03/27/23 [History] Rosuvastatin [Crestor] 10 mg PO DAILY 03/27/23 [History] Metoprolol Succinate (ER) [Toprol XL] 25 mg PO DAILY 10/22/23 [History] Morphine Sulfate ER [Ms Contin] 15 mg PO Q12HR 10/22/23 [History] lisinopriL [Zestril] 10 mg PO DAILY 10/22/23 [History] Sulfamethox-Tmp 800-160Mg [Bactrim DS 800-160 mg] 1 tab PO Q12HR #6 tab 10/25/23 [Rx] Follow up Appointment(s)/Referral(s): Vilma Cheney MD [STAFF PHYSICIAN] - 1 Week Nano Baker MD [Primary Care Provider] - 1-2 days Discharge Disposition: HOME SELF-CARE
[2023-10-25] MEDS: ACETAMINOPHEN TAB 325 MG TAB PO PRN (15:07)
[2023-10-25 15:58] VITALS: BP 122/70; RESP 19; TEMP 97.5
== END 2023-10-25 16:25 | disposition home or self-care (01) | DRG 689 ==
LOC: EC 09:57 → 5NMEDONC 14:02 → OBSVTOIN 10-24 13:52
PROVIDERS: ADMIT Student in an Organized Health Care Education/Training Program; ATTEND Student in an Organized Health Care Education/Training Program
DX: N39.0 Urinary tract infection, site not specified (principal); G93.41 Metabolic encephalopathy; E87.20 Acidosis, unspecified; B96.20 Unspecified Escherichia coli [E. coli] as the cause of diseases classified elsewhere; E86.0 Dehydration; R00.0 Tachycardia, unspecified; I25.10 Atherosclerotic heart disease of native coronary artery without angina pectoris; Z95.5 Presence of coronary angioplasty implant and graft; E78.5 Hyperlipidemia, unspecified; I10 Essential (primary) hypertension; G89.29 Other chronic pain; M54.9 Dorsalgia, unspecified; F32.A Depression, unspecified; F41.9 Anxiety disorder, unspecified; M79.7 Fibromyalgia; F17.210 Nicotine dependence, cigarettes, uncomplicated; K42.9 Umbilical hernia without obstruction or gangrene; R74.01 Elevation of levels of liver transaminase levels; T44.7X5A Adverse effect of beta-adrenoreceptor antagonists, initial encounter; D64.9 Anemia, unspecified; Z79.891 Long term (current) use of opiate analgesic; Z79.899 Other long term (current) drug therapy; Z79.82 Long term (current) use of aspirin; Z87.828 Personal history of other (healed) physical injury and trauma
CPT/HCPCS: 36415; 70450; 71046; 74177; 80053; 81001; 82140; 83605; 83690; 83735; 84439; 84443; 84484; 85025; 87040; 87045; 87046; 87077; 87086; 87186; 87636; 93005; 96361; 96365; 96375; 96376; 99285

== ENCOUNTER 2024-01-09 18:01 | Emergency (ER) | payer MEDICARE, BC ==
[2024-01-09 18:35] VITALS: BP 155/79; PULSE 66; RESP 18; TEMP 98.3
--- NOTE | 2024-01-09 18:36 | ED ---
General Adult HPI - General Chief complaint: Abdominal Pain Stated complaint: UTI Time Seen by Provider: 01/09/24 18:25 Source: patient, RN notes reviewed, old records reviewed Mode of arrival: ambulatory Limitations: no limitations - History of Present Illness Initial comments: This is a 68-year-old female with a past medical history significant for mu ltiple urinary tract infections. Patient states occasionally over the last few days she has been having some burning with urination so she wants to come in and get it checked out to make sure she does not have a urinary tract infection because of the back she has become very sick from them. Patient denies any fever or chills. Patient has any abdominal pain. Patient has any back pain. Patient denies any blood in the urine. - Related Data Home Medications Medication Instructions Recorded Confirmed Morphine Sulfate ER [Ms Contin] 30 mg PO Q12HR 08/26/19 10/22/23 Pregabalin [Lyrica] 225 mg PO BID 08/26/19 10/22/23 Sertraline [Zoloft] 100 mg PO DAILY 08/26/19 10/22/23 oxyCODONE-APAP 7.5-325MG [Percocet 1 tab PO BID PRN 08/26/19 10/22/23 7.5-325 mg] tiZANidine HCL 4 mg PO BID PRN 08/26/19 10/22/23 Butalb/APAP/Caff 50-325-40Mg 1 tab PO Q6HR PRN 12/30/21 10/22/23 [Fioricet 50-325-40] Diclofenac Sodium [Voltaren] 75 mg PO BID PRN 03/27/23 10/22/23 Rosuvastatin [Crestor] 10 mg PO DAILY 03/27/23 10/22/23 Metoprolol Succinate (ER) [Toprol 25 mg PO DAILY 10/22/23 10/22/23 XL] Morphine Sulfate ER [Ms Contin] 15 mg PO Q12HR 10/22/23 10/22/23 lisinopriL [Zestril] 10 mg PO DAILY 10/22/23 10/22/23 Previous Rx's Medication Instructions Recorded Aspirin 81 mg PO DAILY 90 Days #90 tab 01/01/22 Sulfamethox-Tmp 800-160Mg [Bactrim 1 tab PO Q12HR #6 tab 10/25/23 DS 800-160 mg] Sulfamethox-Tmp 800-160Mg [Bactrim 1 each PO Q12HR #20 tab 01/09/24 DS 800-160 mg] Allergies Allergy/AdvReac Type Severity Reaction Status Date / Time No Known Allergies Allergy Verified 01/09/24 18:19 Review of Systems ROS Statement: Those systems with pertinent positive or pertinent negative responses have been documented in the HPI. ROS Other: All systems not noted in ROS Statement are negative. Past Medical History Past Medical History: Fibromyalgia Additional Past Medical History / Comment(s): chronic back pain, Back Injury 9 years ago History of Any Multi-Drug Resistant Organisms: None Reported Past Surgical History: Heart Catheterization With Stent Past Anesthesia/Blood Transfusion Reactions: No Reported Reaction Date of Last Stent Placement:: 12/30/2021 Past Psychological History: Anxiety, Depression Smoking Status: Current every day smoker Past Alcohol Use History: None Reported Past Drug Use History: None Reported General Exam - General Exam Comments Initial Comments: GENERAL: Patient is well-developed and well-nourished. Patient is nontoxic and well- hydrated and is in no acute distress. ENT: Neck is soft and supple. No significant lymphadenopathy is noted. Oropharynx is clear. Moist mucous membranes. Neck has full range of motion without eliciting any pain. EYES: The sclera were anicteric and conjunctiva were pink and moist. Extraocular movements were intact and pupils were equal round and reactive to light. Eyelids were unremarkable. PULMONARY: Unlabored respirations. Good breath sounds bilaterally. No audible rales rhonchi or wheezing was noted. CARDIOVASCULAR: There is a regular rate and rhythm without any murmurs gallops or rubs. ABDOMEN: Soft and nontender with normal bowel sounds. SKIN: Skin is clear with no lesions or rashes and otherwise unremarkable. NEUROLOGIC: Patient is alert and oriented x3. Cranial nerves II through XII are grossly intact. Motor and sensory are also intact. Normal speech, volume and content. Symmetrical smile. MUSCULOSKELETAL: Normal extremities with adequate strength and full range of motion. LYMPHATICS: No significant lymphadenopathy is noted PSYCHIATRIC: Normal psychiatric evaluation. Limitations: no limitations Course Vital Signs 01/09/24 18:13 Temperature 98.3 F Pulse Rate 66 Respiratory 18 Rate Blood Pressure 155/79 O2 Sat by Pulse 93 L Oximetry Medical Decision Making - Medical Decision Making Was pt. sent in by a medical professional or institution ([facility], [facility], urgent care, hospital, or fpc...) When possible be specific @ -No Did you speak to anyone other than the patient for history (EMS, parent, family, police, friend...)? What history was obtained from this source @ -No Did you review nursing and triage notes (agree or disagree)? Why? @ -I reviewed and agree with nursing and triage notes Were old charts reviewed (outside hosp., previous admission, EMS record, old EKG, old radiological studies, urgent care reports/EKG's, fpc records)? Report findings @ -I reviewed old microbiology results from previous urinary tract infections patient realized the patient was in the past having an E. coli infection. The E. coli was sensitive to everything. Differential Diagnosis (chest pain, altered mental status, abdominal pain women, abdominal pain men, vaginal bleeding, weakness, fever, dyspnea, syncope, headache, dizziness, GI bleed, back pain, seizure, CVA, palpatations, mental health, musculoskeletal)? @ -Urethritis, urinary tract infection, pyelonephritis, cystitis, hemorrhagic cystitis, this is not an all-inclusive list EKG interpreted by me (3pts min.). @ -As above X-rays interpreted by me (1pt min.). @ -None done CT interpreted by me (1pt min.). @ -None done U/S interpreted by me (1pt. min.). @ -None done What testing was considered but not performed or refused? (CT, X-rays, U/S, labs)? Why? @ -None What meds were considered but not given or refused? Why? @ -None Did you discuss the management of the patient with other professionals (professionals i.e. [facility], [facility], lab, RT, psych nurse, social welfare administrator, process eng, teacher, chief security officer, case management director)? Give summary @ -No Was smoking cessation discussed for >3mins.? @ -No Was critical care preformed (if so, how long)? @ -No Were there social determinants of health that impacted care today? How? (Ho melessness, low income, unemployed, alcoholism, drug addiction, transportation, low edu. Level, literacy, decrease access to med. care, fci, rehab)? @ -No Was there de-escalation of care discussed even if they declined (Discuss DNR or withdrawal of care, Hospice)? DNR status @ -No What co-morbidities impacted this encounter? (DM, HTN, Smoking, COPD, CAD, Cancer, CVA, ARF, Chemo, Hep., AIDS, mental health diagnosis, sleep apnea, morbid obesity)? @ -None Was patient admitted / discharged? Hospital course, mention meds given and route, prescriptions, significant lab abnormalities, going to OR and other pertinent info. @ -Patient's urine came back and showed an infection. I started the patient on Rocephin in the emergency department as well as Bactrim and will send the patient home on a Bactrim prescription. Undiagnosed new problem with uncertain prognosis? @ -No Drug Therapy requiring intensive monitoring for toxicity (Heparin, Nitro, Insulin, Cardizem)? @ -No Were any procedures done? @ -No Diagnosis/symptom? @ -Urinary tract infection Acute, or Chronic, or Acute on Chronic? @ -Acute Uncomplicated (without systemic symptoms) or Complicated (systemic symptoms)? @ -Complicated Side effects of treatment? @ -No Exacerbation, Progression, or Severe Exacerbation? @ -No Poses a threat to life or bodily function? How? (Chest pain, [place], PR, pneumonia, PE, COPD, DKA, ARF, appy, cholecystitis, CVA, Diverticulitis, Homicidal, Suicidal, threat to staff... and all critical care pts) @ -No - Lab Data Lab Results 01/09/24 Range/Units 18:00 Urine Color Light Yellow Urine Appearance Cloudy H (Clear) Urine pH 6.5 (5.0-8.0) Ur Specific [place] 1.019 (1.001-1.035) Urine Protein Trace H (Negative) Urine Glucose (UA) Negative (Negative) Urine Ketones Negative (Negative) Urine Blood Small H (Negative) Urine Nitrite Positive H (Negative) Urine Bilirubin Negative (Negative) Urine Urobilinogen <2.0 (<2.0) mg/dL Ur Leukocyte Esterase Large H (Negative) Urine RBC 3 (0-5) /hpf Urine WBC >182 H (0-5) /hpf Ur Squamous Epith Cells 1 (0-4) /hpf Urine Bacteria Occasional H (None) /hpf Urine Mucus Rare H (None) /hpf Disposition Clinical Impression: Urinary tract infection Disposition: HOME SELF-CARE Condition: Good Prescriptions: Sulfamethox-Tmp 800-160Mg [Bactrim DS 800-160 mg] 1 each PO Q12HR #20 tab Is patient prescribed a controlled substance at d/c from ED?: No Referrals: Nano Baker MD [Primary Care Provider] - 1-2 days Time of Disposition: 19:30
[2024-01-09 19:03] LABS: Appearance,Urine Cloudy (Clear); Bacteria,Urine Occasional /hpf; Bilirubin,Urine Negative (Negative); Blood,Urine Small (Negative); Color,Urine Light Yellow; Glucose,Urine (UA) Negative (Negative); Ketones,Urine Negative (Negative); Leukocyte Esterase,Urine Large (Negative); Mucus,Urine Rare /hpf; Nitrite,Urine Positive (Negative); PH, Urine 6.5 (5.0-8.0); Protein,Urine Trace (Negative); RBC,Urine 3 /hpf (0-5); Specific Gravity,Urine 1.019 (1.001-1.035); Squamous Epithelial Cell,Urine 1 /hpf (0-4); Urobilinogen,Urine <2.0 mg/dL (<2.0); WBC,Urine >182 /hpf (0-5)
[2024-01-09] MEDS: cefTRIAXone 1,000 MG VIAL (IM USE) IM STA (19:57)
[2024-01-09] MEDS: SULFAMETHOX-TMP 800-160MG 1 EACH TAB PO STA (19:59)
== END 2024-01-09 20:15 | disposition home or self-care (01) ==
LOC: EC 18:01
DX: N39.0 Urinary tract infection, site not specified (principal); F17.200 Nicotine dependence, unspecified, uncomplicated
CPT/HCPCS: 81001; 87086; 87077; 87186; 99284; 96372; J0696

== ENCOUNTER 2024-08-06 08:50 | Inpatient (IN) | payer MEDICARE, BC ==
[2024-08-06 08:56] LABS: Glucose,Whole Blood 158 mg/dL (70-110)
[2024-08-06] MEDS: LORazepam 2 MG/ML INJ IV STA ×4 (09:06→09:41)
[2024-08-06] MEDS: LORazepam 2 MG/ML INJ IV ONE (09:10)
[2024-08-06 09:11] LABS: Basophils % (A) 0 %; Eosinophils # (A) 0.1 k/uL (0-0.7); Eosinophils % (A) 1 %; HCT 41.8 % (34.0-46.0); HGB 13.9 gm/dL (11.4-16.0); Lymphocytes # (A) 1.1 k/uL (1.0-4.8); Lymphocytes % (A) 9 %; MCH 29.9 pg (25.0-35.0); MCHC 33.2 g/dL (31.0-37.0); MCV 90.2 fL (80.0-100.0); Mean Platelet Volume 7.6; Monocytes # (A) 0.8 k/uL (0-1.0); Monocytes % (A) 6 %; Neutrophils # (A) 10.5 k/uL (1.3-7.7); Neutrophils % (A) 83 %; Platelet Count 244 k/uL (150-450); RBC 4.64 m/uL (3.80-5.40); RDW 14.5 % (11.5-15.5); WBC 12.7 k/uL (3.8-10.6)
[2024-08-06] MEDS: MORPHINE SULFATE 2 MG/ML SYRINGE IVP STA ×2 (09:14→09:19)
[2024-08-06 09:18] LABS: INR 0.9 (<1.2); Partial Thromboplastin Time 22.8 sec (22.0-30.0); Prothrombin Time 10.3 sec (10.0-12.5)
--- NOTE | 2024-08-06 09:21 | ED ---
General Adult HPI - General Chief complaint: Altered Mental Status Stated complaint: AMS Time Seen by Provider: 08/06/24 08:53 Source: EMS, RN notes reviewed, old records reviewed Mode of arrival: EMS Limitations: altered mental status - History of Present Illness Initial comments: 69-year-old female presenting with altered level of consciousness. Patient is unable to contribute to the history. She is mumbling incoherently. She does appear to be moving all extremities symmetrically. Patient had been evaluated by paramedics with concern for opiate overdose as the patient is on OxyContin and morphine. They gave Narcan for unresponsiveness and shallow respirations with hypoxia and the patient subsequently woke up but became completely incohere nt, mumbling and flailing her extremities. The states that she had fallen in the bathroom yesterday and has had lethargy and generalized weakness over the past several days and seems to be quite tired. He states that after she fell he put her to bed and when he tried to wake her this morning he was unable to arouse the patient. - Related Data Home Medications Medication Instructions Recorded Confirmed Morphine Sulfate ER [Ms Contin] 30 mg PO Q12HR 08/26/19 08/06/24 Pregabalin [Lyrica] 225 mg PO BID 08/26/19 08/06/24 Sertraline [Zoloft] 100 mg PO DAILY 08/26/19 08/06/24 oxyCODONE-APAP 7.5-325MG [Percocet 1 tab PO BID PRN 08/26/19 08/06/24 7.5-325 mg] tiZANidine HCL 4 mg PO BID PRN 08/26/19 08/06/24 Butalb/APAP/Caff 50-325-40Mg 1 tab PO Q6HR PRN 12/30/21 08/06/24 [Fioricet 50-325-40] Diclofenac Sodium [Voltaren] 75 mg PO BID PRN 03/27/23 08/06/24 Rosuvastatin [Crestor] 10 mg PO DAILY 03/27/23 08/06/24 Metoprolol Succinate (ER) [Toprol 25 mg PO DAILY 10/22/23 08/06/24 XL] lisinopriL [Zestril] 10 mg PO DAILY 10/22/23 08/06/24 Albuterol Sulfate [Ventolin HFA] 2 puff INHALATION RT-Q4H PRN 08/06/24 08/06/24 Aspirin EC [Ecotrin Low Dose] 81 mg PO DAILY 08/06/24 08/06/24 Nitroglycerin Sl Tabs [Nitrostat] 0.4 mg SL Q5M PRN 08/06/24 08/06/24 Allergies Allergy/AdvReac Type Severity Reaction Status Date / Time No Known Allergies Allergy Verified 08/06/24 12:04 Review of Systems ROS Statement: Those systems with pertinent positive or pertinent negative responses have been documented in the HPI. ROS Other: All systems not noted in ROS Statement are negative. Past Medical History Past Medical History: Fibromyalgia Additional Past Medical History / Comment(s): chronic back pain, Back Injury 9 years ago History of Any Multi-Drug Resistant Organisms: None Reported Past Surgical History: Heart Catheterization With Stent Past Anesthesia/Blood Transfusion Reactions: No Reported Reaction Date of Last Stent Placement:: 12/30/2021 Past Psychological History: Anxiety, Depression Smoking Status: Current every day smoker Past Alcohol Use History: None Reported Past Drug Use History: None Reported General Exam Limitations: altered mental status General appearance: obtunded, in distress Head exam: Present: atraumatic, normocephalic Eye exam: Present: PERRL (6 mm bilaterally) Respiratory exam: Present: normal lung sounds bilaterally. Absent: respiratory distress, wheezes Cardiovascular Exam: Present: regular rate, normal rhythm GI/Abdominal exam: Present: soft. Absent: distended, tenderness Extremities exam: Present: normal inspection Neurological exam: Present: motor sensory deficit (Unable to completely assess patient does not seem to have any focal neurologic findings.). Absent: alert, oriented X3 Skin exam: Present: warm, dry, intact Course Vital Signs 08/06/24 08/06/24 08/06/24 08:51 09:05 09:55 Temperature 97.0 F L Pulse Rate 69 60 59 L Respiratory 20 20 18 Rate Blood Pressure 110/83 O2 Sat by Pulse 98 99 Oximetry 08/06/24 08/06/24 08/06/24 10:41 11:01 12:00 Temperature Pulse Rate 67 68 71 Respiratory 16 16 16 Rate Blood Pressure 91/36 99/39 105/95 O2 Sat by Pulse 100 93 L 93 L Oximetry Medical Decision Making - Medical Decision Making Was pt. sent in by a medical professional or institution (CIERA Orta, SENIOR MECHANICAL ESTIMATOR, urgent care, hospital, or half-way...) When possible be specific @ -No Did you speak to anyone other than the patient for history (EMS, parent, family, police, friend...)? What history was obtained from this source @ -No Did you review nursing and triage notes (agree or disagree)? Why? @ -I reviewed and agree with nursing and triage notes Were old charts reviewed (outside hosp., previous admission, EMS record, old EKG, old radiological studies, urgent care reports/EKG's, half-way records)? Report findings @ -No old charts were reviewed Differential Altered Mental Status: Hypoglycemia, DKA, hypercapnia, ETOH, overdose, CO poisoning, trauma, myxedema coma, HTN encephalopathy, infection, encephalitis, psychosis, intercranial hemorrhage, hepatic encephalopathy, meningitis, CVA, this is not meant to be an all-inclusive list EKG interpreted by me (3pts min.). @Sinus rhythm rate of 64, MN interval 182, QRS duration 123, QTc [address] segment elevation. X-rays interpreted by me (1pt min.). @Chest x-ray negative for acute cardiopulmonary disease CT interpreted by me (1pt min.). @ -[CT brain and CT angiography performed, negative for acute findings U/S interpreted by me (1pt. min.). @ -None done What testing was considered but not performed or refused? (CT, X-rays, U/S, labs)? Why? @ -None What meds were considered but not given or refused? Why? @ -None Did you discuss the management of the patient with other professionals (professionals i.e. CIERA Orta, SENIOR MECHANICAL ESTIMATOR, lab, RT, psych nurse, social media senior associate, quick sketch artist, teacher, chief contract officer, manager of case)? Give summary @Dr. Garcia Was smoking cessation discussed for >3mins.? @ -No Was critical care preformed (if so, how long)? @ -Yes, 35 minutes Were there social determinants of health that impacted care today? How? (Homelessness, low income, unemployed, alcoholism, drug addiction, transportation, low edu. Level, literacy, decrease access to med. care, intermediate, rehab)? @ -No Was there de-escalation of care discussed even if they declined (Discuss DNR or withdrawal of care, Hospice)? DNR status @ -No What co-morbidities impacted this encounter? (DM, HTN, Smoking, COPD, CAD, Cancer, CVA, ARF, Chemo, Hep., AIDS, mental health diagnosis, sleep apnea, morbid obesity)? @ -Chronic pain Was patient admitted / discharged? Hospital course, mention meds given and route, prescriptions, significant lab abnormalities, going to OR and other pertinent info. @ -69-year-old female with altered mental status. Patient had been found by paramedics, unresponsive with concern for opiate overdose and was given a total of 4 mg of Narcan. This did wake the patient up but she became quite agitated and was unable to follow commands. Upon arrival vital signs are stable she is moving all extremities symmetrically. She is completely altered and easily agitated. She requires benzodiazepines for sedation to obtain CT imaging. She received CT CT angiography for concern for acute stroke. These are negative. Patient has laboratory testing which reveals acute renal failure with an elevated BUN and creatinine and a rhabdomyolysis with a CK of 4700. Patient started on IV fluids. I do suspect this is multifactorial, including opiate medication and poor intake over the past several days. Patient admitted to [facility], Dr. Garcia with nephrology on consult. Undiagnosed new problem with uncertain prognosis? @ -No Drug Therapy requiring intensive monitoring for toxicity (Heparin, Nitro, Ins ulin, Cardizem)? @ -No Were any procedures done? @ -No Diagnosis/symptom? @ -[Acute delirium, BOSSMAN, uremic encephalopathy Acute, or Chronic, or Acute on Chronic? @Acute Uncomplicated (without systemic symptoms) or Complicated (systemic symptoms)? @ -Complicated Side effects of treatment? @ -No Exacerbation, Progression, or Severe Exacerbation? @ -No Poses a threat to life or bodily function? How? (Chest pain, USA, ID, pneumonia, PE, COPD, DKA, ARF, appy, cholecystitis, CVA, Diverticulitis, Homicidal, Suicidal, threat to staff... and all critical care pts) @ -[Yes, acute delirium, kidney failure - Lab Data Result diagrams: 08/06/24 08:58 08/06/24 08:58 Lab Results 08/06/24 08/06/24 08/06/24 Range/Units 08:54 08:58 08:58 WBC 12.7 H (3.8-10.6) k/uL RBC 4.64 (3.80-5.40) m/uL Hgb 13.9 (11.4-16.0) gm/dL Hct 41.8 (34.0-46.0) % MCV 90.2 (80.0-100.0) fL MCH 29.9 (25.0-35.0) pg MCHC 33.2 (31.0-37.0) g/dL RDW 14.5 (11.5-15.5) % Plt Count 244 (150-450) k/uL MPV 7.6 Neutrophils % 83 % Lymphocytes % 9 % Monocytes % 6 % Eosinophils % 1 % Basophils % 0 % Neutrophils # 10.5 H (1.3-7.7) k/uL Lymphocytes # 1.1 (1.0-4.8) k/uL Monocytes # 0.8 (0-1.0) k/uL Eosinophils # 0.1 (0-0.7) k/uL Basophils # 0.0 (0-0.2) k/uL Manual Slide Review Performed Toxic Granulation Present RBC Morphology Normal PT 10.3 (10.0-12.5) sec INR 0.9 (<1.2) APTT 22.8 (22.0-30.0) sec Sodium (137-145) mmol/L Potassium (3.5-5.1) mmol/L Chloride (98-107) mmol/L Carbon Dioxide (22-30) mmol/L Anion Gap mmol/L BUN (7-17) mg/dL Creatinine (0.52-1.04) mg/dL Est GFR (CKD-EPI)AfAm (>60 ml/min/1.73 sqM) Est GFR (CKD-EPI)NonAf (>60 ml/min/1.73 sqM) Glucose (74-99) mg/dL POC Glucose (mg/dL) 158 H (70-110) mg/dL POC Glu Hot Roll Inspector ID Arrington Reinier Calcium (8.4-10.2) mg/dL Total Bilirubin (0.2-1.3) mg/dL AST (14-36) U/L ALT (4-34) U/L Alkaline Phosphatase (38-126) U/L Creatine Kinase (30-135) U/L Troponin I (0.000-0.034) ng/mL Total Protein (6.3-8.2) g/dL Albumin (3.5-5.0) g/dL Urine Color Urine Appearance (Clear) Urine pH (5.0-8.0) Ur Specific [place] (1.001-1.035) Urine Protein (Negative) Urine Glucose (UA) (Negative) Urine Ketones (Negative) Urine Blood (Negative) Urine Nitrite (Negative) Urine Bilirubin (Negative) Urine Urobilinogen (<2.0) mg/dL Ur Leukocyte Esterase (Negative) Urine RBC (0-5) /hpf Urine WBC (0-5) /hpf Ur Squamous Epith Cells (0-4) /hpf Urine Bacteria (None) /hpf Hyaline Casts (0-2) /lpf Urine Mucus (None) /hpf Urine Opiates Screen (NotDetected) Ur Oxycodone Screen (NotDetected) Urine Methadone Screen (NotDetected) Ur Barbiturates Screen (NotDetected) U Tricyclic Antidepress (NotDetected) Ur Phencyclidine Scrn (NotDetected) Ur Amphetamines Screen (NotDetected) U Methamphetamines Scrn (NotDetected) U Benzodiazepines Scrn (NotDetected) Urine Cocaine Screen (NotDetected) U Marijuana (THC) Screen (NotDetected) 08/06/24 08/06/24 08/06/24 Range/Units 08:58 08:58 10:19 WBC (3.8-10.6) k/uL RBC (3.80-5.40) m/uL Hgb (11.4-16.0) gm/dL Hct (34.0-46.0) % MCV (80.0-100.0) fL MCH (25.0-35.0) pg MCHC (31.0-37.0) g/dL RDW (11.5-15.5) % Plt Count (150-450) k/uL MPV Neutrophils % % Lymphocytes % % Monocytes % % Eosinophils % % Basophils % % Neutrophils # (1.3-7.7) k/uL Lymphocytes # (1.0-4.8) k/uL Monocytes # (0-1.0) k/uL Eosinophils # (0-0.7) k/uL Basophils # (0-0.2) k/uL Manual Slide Review Toxic Granulation RBC Morphology PT (10.0-12.5) sec INR (<1.2) APTT (22.0-30.0) sec Sodium 131 L (137-145) mmol/L Potassium 5.2 H (3.5-5.1) mmol/L Chloride 93 L (98-107) mmol/L Carbon Dioxide 21 L (22-30) mmol/L Anion Gap 17 mmol/L BUN 65 H (7-17) mg/dL Creatinine 5.18 H (0.52-1.04) mg/dL Est GFR (CKD-EPI)AfAm 9 (>60 ml/min/1.73 sqM) Est GFR (CKD-EPI)NonAf 8 (>60 ml/min/1.73 sqM) Glucose 144 H (74-99) mg/dL POC Glucose (mg/dL) (70-110) mg/dL POC Glu Hot Roll Inspector ID Calcium 8.8 (8.4-10.2) mg/dL Total Bilirubin 0.5 (0.2-1.3) mg/dL AST 95 H (14-36) U/L ALT 33 (4-34) U/L Alkaline Phosphatase 76 (38-126) U/L Creatine Kinase 4726 H* (30-135) U/L Troponin I 0.018 (0.000-0.034) ng/mL Total Protein 7.1 (6.3-8.2) g/dL Albumin 4.6 (3.5-5.0) g/dL Urine Color Yellow Urine Appearance Cloudy H (Clear) Urine pH 5.0 (5.0-8.0) Ur Specific [place] 1.022 (1.001-1.035) Urine Protein 1+ H (Negative) Urine Glucose (UA) Negative (Negative) Urine Ketones Negative (Negative) Urine Blood Large H (Negative) Urine Nitrite Negative (Negative) Urine Bilirubin Negative (Negative) Urine Urobilinogen <2.0 (<2.0) mg/dL Ur Leukocyte Esterase Small H (Negative) Urine RBC 1 (0-5) /hpf Urine WBC 14 H (0-5) /hpf Ur Squamous Epith Cells 2 (0-4) /hpf Urine Bacteria Rare H (None) /hpf Hyaline Casts 9 H (0-2) /lpf Urine Mucus Moderate H (None) /hpf Urine Opiates Screen Detected H (NotDetected) Ur Oxycodone Screen Detected H (NotDetected) Urine Methadone Screen Not Detected (NotDetected) Ur Barbiturates Screen Not Detected (NotDetected) U Tricyclic Antidepress Not Detected (NotDetected) Ur Phencyclidine Scrn Not Detected (NotDetected) Ur Amphetamines Screen Not Detected (NotDetected) U Methamphetamines Scrn Not Detected (NotDetected) U Benzodiazepines Scrn Not Detected (NotDetected) Urine Cocaine Screen Not Detected (NotDetected) U Marijuana (THC) Screen Not Detected (NotDetected) Critical Care Time Critical Care Time: Yes Total Critical Care Time: 35 Disposition Clinical Impression: Delirium due to general medical condition, BOSSMAN (acute kidney injury), Uremia Disposition: ADMITTED IP TO THIS [facility] Condition: Stable Is patient prescribed a controlled substance at d/c from ED?: No Referrals: Nano Baker MD [Primary Care Provider] - 1-2 days Time of Disposition: 12:32
[2024-08-06 09:31] LABS: ALT 33 U/L (4-34); AST 95 U/L (14-36); African American GFR (CKD) 9 (>60 ml/min/1.73 sqM); Albumin 4.6 g/dL (3.5-5.0); Alkaline Phosphatase 76 U/L (38-126); Anion Gap 17 mmol/L; Blood Urea Nitrogen 65 mg/dL (7-17); Calcium 8.8 mg/dL (8.4-10.2); Carbon Dioxide 21 mmol/L (22-30); Chloride 93 mmol/L (98-107); Glucose 144 mg/dL (74-99); Non-African American GFR(CKD) 8 (>60 ml/min/1.73 sqM); Potassium 5.2 mmol/L (3.5-5.1); Sodium 131 mmol/L (137-145); Total Bilirubin 0.5 mg/dL (0.2-1.3); Total Protein 7.1 g/dL (6.3-8.2)
[2024-08-06 09:57] LABS: RBC Morphology Normal
[2024-08-06 09:58] LABS: Toxic Granulation Present
--- NOTE | 2024-08-06 09:59 | CT ---
EXAMINATION TYPE: CT brain wo con DATE OF EXAM: 08/06/2024 9:47 AM COMPARISON: 10/22/2023 CLINICAL INDICATION: Female, 69 years old with history of Neuro deficit, acute, stroke suspected, AMS TECHNIQUE: CT of the brain is performed utilizing 3 mm thick sections through the posterior fossa and 3 mm thick sections through the remaining calvarium. Study is performed within 24 hours of arrival to the hospital. Contrast used: mL of , (none if empty) CT DLP: 3218 mGycm, Automated exposure control for dose reduction was used. FINDINGS: No abnormal hyperdensity is present to suggest an acute intracranial hemorrhage. No mass lesion is evident. No acute infarcts are evident. Ventricles and sulci are appropriate for the patient age. Paranasal sinuses and mastoid air cells within the [id number] are clear. IMPRESSION: 1. No acute intracranial process. Follow up MRI can be performed as clinically indicated. [facility], , 08/06/2024 9:57 AM
[2024-08-06] MEDS: SODIUM CHLORIDE 0.9% 1,000 ML IV ONE ×2 (10:17→10:46)
[2024-08-06 10:18] LABS: Creatine Kinase 4726 U/L (30-135)
[2024-08-06] MEDS: SODIUM CHLORIDE 0.9% 1,000 ML IV SCH (10:18)
--- NOTE | 2024-08-06 10:22 | CT ---
EXAMINATION TYPE: CT angio head neck DATE OF EXAM: 08/06/2024 COMPARISON: Head CT 08/06/2024 CLINICAL INDICATION: Female, 69 years old with history of Neuro deficit, acute, stroke suspected; PHH , AMS TECHNIQUE: CTA scan of the head and neck is performed with IV Contrast, patient injected with 65 mL of Isovue 370, axial images are obtained, coronal and sagittal reformatted images are reviewed. 3D re constructed images are created on an independent workstation and reviewed. CT DLP: 553.5 mGycm pneumonitis. Automated exposure control for dose reduction was used. NASCET criteria was used in interpretation of this exam? FINDINGS: Right Carotid System: The common carotid artery and external carotid artery are patent. The carotid bifurcation demonstrate s no evidence of hemodynamically significant stenosis. The remaining portions of the internal carotid artery demonstrate normal size without significant narrowing. Left Carotid System: The common carotid artery and external carotid artery are patent. The carotid bifurcation demonstrate s no evidence of hemodynamically significant stenosis. The remaining portions of the internal carotid artery demonstrate normal size without significant narrowing. Vertebral arteries are patent without evidence hemodynamically significant stenosis. Right posterior cerebral artery originates from the anterior circulation. There is a three-vessel aortic arch. The origins of the great vessels are patent. No evidence of hemo dynamically significant stenosis. Other: A groundglass changes involving the lungs are nonspecific may been the basis of atelectasis ra ther than pneumonitis. Recommend correlation clinically. Pulmonary trunk is markedly enlarged measuri ng 5.1 cm. Correlate for pulmonary arterial hypertension. Tortuosity of the brachiocephalic artery. P ortions of the subclavian, brachiocephalic artery and proximal common carotid arteries are limited by artifact. Hypertrophic and degenerative changes spine. Changes of chronic sinusitis. There is [id number] degenerative change. Faint hypoattenuation in the white matter nonspecific but most typical remote white matter ischemia. Low-lying cerebellar tonsils. IMPRESSION: 1. No proximal vessel intracranial occlusion. 2. Dilated pulmonary artery measuring up to 5.1 cm correlate for pulmonary arterial hypertension. Gr oundglass changes involving the lungs may be related to respiratory motion artifact correlate to excl ude venous congestion or 3. No evidence of significant stenosis of the carotid bifurcations. [facility], , 08/06/2024 10:20 AM
[2024-08-06 10:50] LABS: Appearance,Urine Cloudy (Clear); Bacteria,Urine Rare /hpf; Bilirubin,Urine Negative (Negative); Blood,Urine Large (Negative); Color,Urine Yellow; Glucose,Urine (UA) Negative (Negative); Hyaline Casts,Urine 9 /lpf (0-2); Ketones,Urine Negative (Negative); Leukocyte Esterase,Urine Small (Negative); Mucus,Urine Moderate /hpf; Nitrite,Urine Negative (Negative); Protein,Urine 1+ (Negative); RBC,Urine 1 /hpf (0-5); Specific Gravity,Urine 1.022 (1.001-1.035); Squamous Epithelial Cell,Urine 2 /hpf (0-4); Urobilinogen,Urine <2.0 mg/dL (<2.0); WBC,Urine 14 /hpf (0-5)
[2024-08-06 11:00] LABS: Amphetamine Screen,Urine Not Detected (NotDetected); Barbiturate Screen,Urine Not Detected (NotDetected); Benzodiazepines Screen,Urine Not Detected (NotDetected); Cocaine Screen,Urine Not Detected (NotDetected); Methadone Screen, Urine Not Detected (NotDetected); Opiate Screen,Urine Detected (NotDetected); Oxycodone Screen, Urine Detected (NotDetected); Phencyclidine Screen,Urine Not Detected (NotDetected); Tricyclic Antidepressant,Urine Not Detected (NotDetected); Urn Cannabinoid Scrn Not Detected (NotDetected)
--- NOTE | 2024-08-06 11:44 | XR ---
EXAMINATION TYPE: XR chest 1V portable DATE OF EXAM: 08/06/2024 11:13 AM COMPARISON: Chest radiographs from 10/22/2023 CLINICAL INDICATION: Female, 69 years old with history of AMS; TECHNIQUE: XR chest 1V portable Frontal view of the chest. FINDINGS: Lungs/Pleura: There is no evidence of pleural effusion, focal consolidation, or pneumothorax. Pulmonary vascularity: Unremarkable. Heart/mediastinum: Cardiomediastinal silhouette is enlarged. Musculoskeletal: No acute osseous pathology. IMPRESSION: 1. No acute cardiopulmonary disease/process. 2. Possible hiatal hernia not seen on prior CT. [facility], , 08/06/2024 11:42 AM
[2024-08-06] MEDS ORDERED: NALOXONE 0.4 MG/ML 1 ML VIAL IV PRN (12:33)
[2024-08-06] MEDS: SODIUM ZIRCONIUM CYCLOSILICATE 10 GM PACKET PO ONE (13:09)
[2024-08-06] MEDS ORDERED: DEXTROSE 50% SYRINGE 50 ML IVP PRN ×2 (13:53)
[2024-08-06] MEDS ORDERED: ALBUTEROL NEBULIZED 2.5 MG/3 ML INHALATION PRN (13:56)
--- NOTE | 2024-08-06 15:25 | P.HPIM ---
History of Present Illness H&P Date: 08/06/24 Patient is a 65-year-old female with CAD with 1 stent placement, hypertension, hyperlipidemia, fibromyalgia, chronic back pain, anxiety, and depression who came in for altered mental status. Patient was not arousable during bedside interview and spoke with patient's at bedside. Per , patient was found on the bathroom floor yesterday afternoon 08/05 for unknown duration. She was not found to have urinated on herself or was having any tremors or movement. was able to awaken the patient and noted she could not walk by herself. At the time, patient was noted to be drowsy but awake and was able to have a meal prior to going to sleep and around 9 PM. This morning, at around 8 AM 08/06, tried to awaken patient from sleep but she was not arousable, which led to call EMS. He also reported that she was noticeably pale at the time and was fatigued in the past few days. He also reports that she is independent with her ADLs but is usually sedentary at home. On arrival to the ED, patient was provided Narcan as she arrived with unresponsiveness and with shallow respirations. She became incoherent and mumbling and failing her extremities. Ativan was given. Imaging in the ED, brain CT showed no acute process. CT angio of the neck and head showed pulmonary artery dilatation 5.1 cm to correlate for pulmonary hypertension, groundglass changes seen in the lungs correlate with venous congestion, negative for carotid stenosis, and negative for intracranial vessel occlusion. Chest x-ray shows no acute cardiopulmonary process. But independently interpreted shows some congestion. EKG shows sinus rhythm with a rate of 64, normal IN interval of 182 MS, normal T waves, left axis deviation, no ST-T changes QRS slightly prolonged at 123 MS QTc 436 MS Labs in the ED showed WBC 12.7 hemoglobin 13.9 platelet count 244,000 sodium 131 potassium 5.2 chloride 93 bicarb 21 BUN 65 creatinine 5.18 glucose 144 AST 95 ALT 33 alk phos 76 creatinine kinase 4726 troponin 0.018 albumin 4.6. Urinalysis shows cloudy appearance +1 protein large blood small leukocyte esterase 14 WBC rare squamous epithelium. UDS is positive for opiates and oxycodone. Vitals on admission, shows patient was afebrile at 97 Fahrenheit pulse rate 69 respiratory rate 20 blood pressure 110/83 198% with 3 L nasal cannula Review of systems: Could not be assessed at the time Family history: No known remarkable family history Social history: Tobacco: Current daily smoker. Smokes 2 packs a day for 10 years Alcohol: Denies alcohol intake Recreational drugs: Denies recreational drug use Travel: No recent travel Physical examination: Vital signs reviewed General: Unarousable, no distress, appears at stated age, on 3 L nasal cannula Derm: no unusual rashes/lesions, warm Head: atraumatic, normocephalic, symmetric Eyes: EOMI, anicteric sclera, pupils constricted and nonreactive to light ENT: Nose and ears atraumatic Neck: No cervical lymphadenopathy, trachea midline, supple Mouth: no lip lesion, mucus membranes moist Cardiovascular: S1S2 reg, 3/6 holosystolic murmur loudest at the right second intercostal space Lungs: Bibasilar expiratory wheezes, no rhonchi, no rales, no accessory muscle use Abdominal: soft, nondistended, nontender to palpation, no guarding Ext: muscle strength 5 out of 5 in all 4 extremities grossly, no gross muscle atrophy, no contractures, positive dorsalis pedis pulse bilateral, no edema Neuro: Could not assess at the time Psych: Could not assess at the time Assessment/Plan: 65-year-old female with history of CAD, chronic back pain on MS Contin and oxycodone who is here for evaluation of acute metabolic encephalopathy, BOSSMAN and rhabdomyolysis #. Acute toxic metabolic encephalopathy due to polypharmacy and renal failure Patient is on multiple sedating medications which include tizanidine, Lyrica, Percocet, MS Contin. Lyrica and tizanidine are both renally excreted and with her renal failure likely developed toxicity to Lyrica and tizanidine. Patient also has COPD so may have developed CO2 narcosis with the Percocet and MS Contin. Fall precautions Cardiac monitoring Neurochecks Brain CT showed no acute process. CT angio of the neck and head showed pulmonary artery dilatation 5.1 cm to correlate for pulmonary hypertension, groundglass changes seen in the lungs correlate with venous congestion, negative for carotid stenosis, and negative for intracranial vessel occlusion. UDS is positive for opiates and oxycodone Troponin 0.018 Consult PT OT Hold all sedating medications for now. #. Rhabdomyolysis #. Acute kidney injury, renal, secondary to above Monitor urine output IVF normal saline 130 cc/h BUN 65 creatinine 5.18 creatinine kinase 4726. Trend daily Bladder scan every 6 hours Renal ultrasound #. COPD Exacerbation Resume home Ventolin 4 times daily as needed Solu-Medrol 40 mg IV every 12 hours Doxycycline 100 mg IVPB every 12 hours DuoNeb inhalation 4 times daily #. Leukocytosis, likely reactive Monitor CBC #. Hyperkalemia Potassium was 5.2 on admission. Patient is asymptomatic and hemodynamically stable. No EKG changes noted Check BMP in the morning #. Hyperglycemia Glucose 144 on admission A1c 6.1 on May 2024 Insulin sliding scale ACHS. Monitor for hypoglycemia Glucose Accu-Cheks ACHS Chronic Conditions: #. CAD #. Hypertension #. Hyperlipidemia #. Anxiety #. Depression #. Asthma #. Chronic back pain Hold tizanidine, lisinopril, morphine, Percocet for now Resume Ventolin inhaler, aspirin and sertraline F: 130 cc/h normal saline E: Replete as needed N: N.p.o. for now A: Fall precautions DVT ppx: Heparin SQ every 8 hours GI ppx: Protonix 40 mg IVP daily Dispo: The patient is admitted with an anticipated greater than 2 midnight stay for evaluation of acute encephalopathy CODE STATUS: Full Discussed with: Patient's Anticipated discharge place: Pending clinical course [place] Conte MD PGY-1 IM Dictation was produced using [employer] dictation software. please excuse any grammatical, word or spelling errors. Attending Attestation I have seen and evaluated the patient today. Discussed with the resident and agree with the residents subjective and objective as documented in the resident's note. The assessment and plan was discussed and outlined as below. Attending Attestation I have seen and evaluated the patient today. Discussed with the resident and agree with the residents subjective and objective as documented in the resident's note. The assessment and plan was discussed and outlined as below. Past Medical History Past Medical History: Fibromyalgia Additional Past Medical History / Comment(s): chronic back pain, Back Injury 9 years ago History of Any Multi-Drug Resistant Organisms: None Reported Past Surgical History: Heart Catheterization With Stent Past Anesthesia/Blood Transfusion Reactions: No Reported Reaction Date of Last Stent Placement:: 12/30/2021 Past Psychological History: Anxiety, Depression Smoking Status: Current every day smoker Past Alcohol Use History: None Reported Past Drug Use History: None Reported Medications and Allergies Home Medications Medication Instructions Recorded Confirmed Type Morphine Sulfate ER [Ms Contin] 30 mg PO Q12HR 08/26/19 08/06/24 History Pregabalin [Lyrica] 225 mg PO BID 08/26/19 08/06/24 History Sertraline [Zoloft] 100 mg PO DAILY 08/26/19 08/06/24 History oxyCODONE-APAP 7.5-325MG [Percocet 1 tab PO BID PRN 08/26/19 08/06/24 History 7.5-325 mg] tiZANidine HCL 4 mg PO BID PRN 08/26/19 08/06/24 History Butalb/APAP/Caff 50-325-40Mg 1 tab PO Q6HR PRN 12/30/21 08/06/24 History [Fioricet 50-325-40] Diclofenac Sodium [Voltaren] 75 mg PO BID PRN 03/27/23 08/06/24 History Rosuvastatin [Crestor] 10 mg PO DAILY 03/27/23 08/06/24 History Metoprolol Succinate (ER) [Toprol 25 mg PO DAILY 10/22/23 08/06/24 History XL] lisinopriL [Zestril] 10 mg PO DAILY 10/22/23 08/06/24 History Albuterol Sulfate [Ventolin HFA] 2 puff INHALATION RT-Q4H PRN 08/06/24 08/06/24 History Aspirin EC [Ecotrin Low Dose] 81 mg PO DAILY 08/06/24 08/06/24 History Nitroglycerin Sl Tabs [Nitrostat] 0.4 mg SL Q5M PRN 08/06/24 08/06/24 History Allergies Allergy/AdvReac Type Severity Reaction Status Date / Time No Known Allergies Allergy Verified 08/06/24 12:04 Physical Exam Osteopathic Statement: *. No significant issues noted on an osteopathic structural exam other than those noted in the History and Physical/Consult. Vitals: Vital Signs Temp Pulse Resp BP Pulse Ox 08/06/24 12:00 71 16 105/95 93 L 08/06/24 11:01 68 16 99/39 93 L 08/06/24 10:41 67 16 91/36 100 08/06/24 09:55 59 L 18 99 08/06/24 09:05 60 20 98 08/06/24 08:51 97.0 F L 69 20 110/83 Intake and Output 08/05/24 08/06/24 08/06/24 22:59 06:59 14:59 Other: Weight 83.915 kg Results CBC & Chem 7: 08/06/24 08:58 08/06/24 08:58 Labs: Abnormal Lab Results - Last 24 Hours (Table) 08/06/24 08/06/24 08/06/24 Range/Units 08:54 08:58 08:58 WBC 12.7 H (3.8-10.6) k/uL Neutrophils # 10.5 H (1.3-7.7) k/uL Sodium 131 L (137-145) mmol/L Potassium 5.2 H (3.5-5.1) mmol/L Chloride 93 L (98-107) mmol/L Carbon Dioxide 21 L (22-30) mmol/L BUN 65 H (7-17) mg/dL Creatinine 5.18 H (0.52-1.04) mg/dL Glucose 144 H (74-99) mg/dL POC Glucose (mg/dL) 158 H (70-110) mg/dL AST 95 H (14-36) U/L Creatine Kinase 4726 H* (30-135) U/L Urine Appearance (Clear) Urine Protein (Negative) Urine Blood (Negative) Ur Leukocyte Esterase (Negative) Urine WBC (0-5) /hpf Urine Bacteria (None) /hpf Hyaline Casts (0-2) /lpf Urine Mucus (None) /hpf Urine Opiates Screen (NotDetected) Ur Oxycodone Screen (NotDetected) 08/06/24 Range/Units 10:19 WBC (3.8-10.6) k/uL Neutrophils # (1.3-7.7) k/uL Sodium (137-145) mmol/L Potassium (3.5-5.1) mmol/L Chloride (98-107) mmol/L Carbon Dioxide (22-30) mmol/L BUN (7-17) mg/dL Creatinine (0.52-1.04) mg/dL Glucose (74-99) mg/dL POC Glucose (mg/dL) (70-110) mg/dL AST (14-36) U/L Creatine Kinase (30-135) U/L Urine Appearance Cloudy H (Clear) Urine Protein 1+ H (Negative) Urine Blood Large H (Negative) Ur Leukocyte Esterase Small H (Negative) Urine WBC 14 H (0-5) /hpf Urine Bacteria Rare H (None) /hpf Hyaline Casts 9 H (0-2) /lpf Urine Mucus Moderate H (None) /hpf Urine Opiates Screen Detected H (NotDetected) Ur Oxycodone Screen Detected H (NotDetected)
[2024-08-06] MEDS: methylPREDNISolone SOD SUCCI 40 MG/ML 1 ML VIAL IV SCH (15:58)
[2024-08-06] MEDS: HEPARIN SODIUM,PORCINE 5,000 UNIT/ML 1 ML VIAL SQ SCH (15:58)
--- NOTE | 2024-08-06 16:25 | US ---
EXAMINATION TYPE: US kidneys/renal and bladder DATE OF EXAM: 08/06/2024 COMPARISON: CT CLINICAL INDICATION: Female, 69 years old with history of BOSSMAN; BOSSMAN TECHNIQUE: Grayscale imaging of the bilateral kidneys and urinary bladder: FINDINGS: EXAM MEASUREMENTS: Right Kidney: 9.9 x 4.7 x 4.9 cm Left Kidney: 11.7 x 6.8 x 5.4 cm Limited views of left kidney- pt immobile and unresponsive Right Kidney: No evidence of hydro Left Kidney: Limited views show no evidence of hydro Bladder: Pt has cath in place There is no evidence for hydronephrosis at this point in time. No nephrolithiasis is seen. No anne marie s are identified. The urinary bladder is anechoic. IMPRESSION: No evidence for obstructive uropathy or calculus. [facility], , 08/06/2024 4:23 PM
[2024-08-06 17:25] LABS: Glucose,Whole Blood 141 mg/dL (70-110)
[2024-08-06] MEDS: INSULIN ASPART (NovoLOG) 100 UNIT/ML VIAL SQ SCH (17:51)
[2024-08-06] MEDS: IPRATROPIUM-ALBUTEROL 3 ML NEB INHALATION SCH (19:34)
[2024-08-06 21:29] LABS: Glucose,Whole Blood 156 mg/dL (70-110)
[2024-08-06] MEDS: DOXYCYCLINE 100 MG in SODIUM CHLORIDE 0.9% 100 ML IVPB SCH (21:56)
[2024-08-07 01:40] LABS: Glucose,Whole Blood 166 mg/dL (70-110)
[2024-08-07] MEDS: SODIUM CHLORIDE 0.9% 1,000 ML IV ONE ×2 (02:00→03:47)
[2024-08-07 07:00] LABS: ALT 28 U/L (4-34); AST 76 U/L (14-36); African American GFR (CKD) 32 (>60 ml/min/1.73 sqM); Albumin 2.8 g/dL (3.5-5.0); Alkaline Phosphatase 55 U/L (38-126); Anion Gap 9 mmol/L; Blood Urea Nitrogen 56 mg/dL (7-17); Calcium 7.2 mg/dL (8.4-10.2); Carbon Dioxide 14 mmol/L (22-30); Chloride 113 mmol/L (98-107); Glucose 124 mg/dL (74-99); Non-African American GFR(CKD) 27 (>60 ml/min/1.73 sqM); Potassium 5.1 mmol/L (3.5-5.1); Sodium 136 mmol/L (137-145); Total Bilirubin 0.3 mg/dL (0.2-1.3); Total Protein 5.1 g/dL (6.3-8.2)
[2024-08-07 07:02] LABS: Basophils % (A) 0 %; Eosinophils % (A) 0 %; HCT 35.8 % (34.0-46.0); Hypochromasia Marked; Lymphocytes # (A) 0.7 k/uL (1.0-4.8); Lymphocytes % (A) 10 %; MCH 29.6 pg (25.0-35.0); MCHC 30.4 g/dL (31.0-37.0); Mean Platelet Volume 7.9; Monocytes # (A) 0.6 k/uL (0-1.0); Monocytes % (A) 9 %; Neutrophils # (A) 5.1 k/uL (1.3-7.7); Neutrophils % (A) 79 %; Platelet Count 157 k/uL (150-450); RBC 3.68 m/uL (3.80-5.40); RDW 14.4 % (11.5-15.5); WBC 6.5 k/uL (3.8-10.6)
[2024-08-07 07:03] LABS: HGB 10.9 gm/dL (11.4-16.0); MCV 97.4 fL (80.0-100.0)
[2024-08-07 07:41] LABS: Creatine Kinase 3141 U/L (30-135)
[2024-08-07] MEDS: PANTOPRAZOLE 40 MG/10 ML VIAL IVP SCH (08:41)
[2024-08-07] MEDS: ASPIRIN 81 MG PO SCH (09:00)
[2024-08-07] MEDS: SERTRALINE 100 MG TAB PO SCH (09:00)
--- NOTE | 2024-08-07 11:09 | XR ---
EXAMINATION TYPE: XR chest 1V portable DATE OF EXAM: 08/07/2024 10:52 AM COMPARISON: Chest radiograph from one day prior. CLINICAL INDICATION: Female, 69 years old with history of r/o aspiration; short of breath TECHNIQUE: XR chest 1V portable Frontal view of the chest. FINDINGS: Lungs/Pleura: There is no evidence of pleural effusion, focal consolidation, or pneumothorax. Pulmonary vascularity: Unremarkable. Heart/mediastinum: Cardiomediastinal silhouette is unremarkable. Musculoskeletal: No acute osseous pathology. IMPRESSION: Right middle lobe airspace opacities correlate for pneumonia. [facility], , 08/07/2024 11:07 AM
[2024-08-07] MEDS: DEXTROSE 5% IN WATER 1,000 ML with SODIUM BICARB (1 MEQ/ML) 150 ML IV SCH (11:19)
[2024-08-07 11:35] LABS: Glucose,Whole Blood 159 mg/dL (70-110)
[2024-08-07 13:15] LABS: T4, Free (Free Thyroxine) 0.87 ng/dL (0.78-2.19)
--- NOTE | 2024-08-07 13:27 | P.PN ---
Subjective Progress Note Date: 08/07/24 Principal diagnosis: Acute encephalopathy, BOSSMAN secondary to rhabdomyolysis Patient is a 65-year-old female with CAD with 1 stent placement, hypertension, hyperlipidemia, fibromyalgia, chronic back pain, anxiety, and depression who came in for altered mental status. Patient was not arousable during bedside interview and spoke with patient's at bedside. Per , patient was found on the bathroom floor yesterday afternoon 08/05 for unknown duration. She was not found to have urinated on herself or was having any tremors or movement. was able to awaken the patient and noted she could not walk by herself. At the time, patient was noted to be drowsy but awake and was able to have a meal prior to going to sleep and around 9 PM. This morning, at around 8 AM 08/06, tried to awaken patient from sleep but she was not arousable, which led to call EMS. He also reported that she was noticeably pale at the time and was fatigued in the past few days. He also reports that she is independent with her ADLs but is usually sedentary at home. On arrival to the ED, patient was provided Narcan as she arrived with unresponsiveness and with shallow respirations. She became incoherent and mumbling and failing her extremities. Ativan was given. Imaging in the ED, brain CT showed no acute process. CT angio of the neck and head showed pulmonary artery dilatation 5.1 cm to correlate for pulmonary hypertension, groundglass changes seen in the lungs correlate with venous congestion, negative for carotid stenosis, and negative for intracranial vessel occlusion. Chest x-ray shows no acute cardiopulmonary process. But independently interpreted shows some congestion. EKG shows sinus rhythm with a rate of 64, normal DC interval of 182 MS, normal T waves, left axis deviation, no ST-T changes QRS slightly prolonged at 123 MS QTc 436 MS Labs in the ED showed WBC 12.7 hemoglobin 13.9 platelet count 244,000 sodium 131 potassium 5.2 chloride 93 bicarb 21 BUN 65 creatinine 5.18 glucose 144 AST 95 ALT 33 alk phos 76 creatinine kinase 4726 troponin 0.018 albumin 4.6. Urinalysis shows cloudy appearance +1 protein large blood small leukocyte esterase 14 WBC rare squamous epithelium. UDS is positive for opiates and oxycodone. Vitals on admission, shows patient was afebrile at 97 Fahrenheit pulse rate 69 respiratory rate 20 blood pressure 110/83 198% with 3 L nasal cannula 08/07/2024 patient seen and examined at bedside. Patient was noted to still be confused on interview and noted to have a productive cough. Overnight had low blood pressure around 70 systolic and was given 4 L bolus of IV fluid. WBC 6.5 hemoglobin 10.9 MCV 97.4 platelet count 157,000 sodium 136 potassium 5.1 chloride 113 bicarb 14 anion gap 9 BUN 56 creatinine 1.85 glucose 124 total bilirubin 0.3 AST 76 ALT 28 alk phos 55 creatinine kinase 3141 albumin 2.8 calcium 7.2. Renal ultrasound negative for obstruction or calculus Review of systems: Pertinent positives and negatives as discussed in HPI, a complete review of systems was performed and all other systems are negative. Pertinent imaging and labs reviewed. Physical examination: Vital signs reviewed General: non toxic, no distress, on 2 L nasal cannula Derm: no unusual rashes/lesions, warm Head: atraumatic, normocephalic, symmetric Eyes: EOMI, anicteric sclera, pupils equal round reactive to light ENT: Nose and ears atraumatic Neck: No cervical lymphadenopathy, trachea midline, supple Mouth: no lip lesion, mucus membranes moist Cardiovascular: S1S2 reg, 3/6 holosystolic murmur loudest at the right second intercostal space Lungs: Bibasilar expiratory wheezing, no rhonchi, no rales, no accessory muscle use Abdominal: soft, nontender to palpation, no guarding Ext: muscle strength 5 out of 5 in all 4 extremities grossly, no gross muscle atrophy, no contractures, positive dorsalis pedis pulse bilateral, no edema Neuro: CN II-XI grossly intact, no gross focal neuro deficits, intermittent myoclonic jerks Psych: Alert and oriented x1, confused, appropriate affect and mood Chest x-ray independently interpreted, shows right middle lobe opacity Assessment/Plan: Assessment/Plan: 65-year-old female with history of CAD, chronic back pain on MS Contin and oxycodone who is here for evaluation of acute metabolic encephalopathy, BOSSMAN and rhabdomyolysis #. Acute encephalopathy, toxic versus metabolic versus septic #. SIRS criteria met on admission, no known source of infection #. Aspiration pneumonia Patient is on multiple sedating medications which include tizanidine, Lyrica, Percocet, MS Contin. Lyrica and tizanidine are both renally excreted and with her renal failure likely developed toxicity to Lyrica and tizanidine. Patient also has COPD so may have developed CO2 narcosis with the Percocet and MS Contin. Fall precautions Cardiac monitoring Neurochecks Brain CT showed no acute process. CT angio of the neck and head showed pulmonary artery dilatation 5.1 cm to correlate for pulmonary hypertension, groundglass changes seen in the lungs correlate with venous congestion, negative for carotid stenosis, and negative for intracranial vessel occlusion. UDS is positive for opiates and oxycodone Troponin 0.018 and peaked TSH Blood cultures EEG Consult PT OT Hold all sedating medications for now. -Started on ceftriaxone 2 G IV Q24 HOURS, azithromycin IV 500 mg qdaily #. Rhabdomyolysis, improving #. Acute kidney injury, renal, secondary to above, improving Monitor urine output IVF sodium bicarb 80 mL/h BUN 56 creatinine 1.85 creatinine kinase today at 3141. Trend daily Bladder scan every 6 hours Renal ultrasound negative for obstruction or calculus #. COPD Exacerbation Resume home Ventolin 4 times daily as needed Solu-Medrol 40 mg IV every 12 hours DuoNeb inhalation 4 times daily Repeat chest x-ray today #. Leukocytosis, resolved #. Hyperkalemia, resolved Potassium was 5.1 today #. Prediabetes #. Hyperglycemia, resolved Glucose 124 today A1c 6.1 on May 2024 Insulin sliding scale ACHS. Monitor for hypoglycemia Chronic Conditions: #. CAD #. Hypertension #. Hyperlipidemia #. Anxiety #. Depression #. Asthma #. Chronic back pain Hold tizanidine, lisinopril, morphine, Percocet for now Resume Ventolin inhaler, aspirin and sertraline F: 130 cc/h normal saline E: Replete as needed N: N.p.o. for now A: Fall precautions DVT ppx: Heparin SQ every 8 hours GI ppx: Protonix 40 mg IVP daily CODE STATUS: Full Discussed with: Patient's Anticipated discharge place: Pending clinical course [place] Conte MD PGY-1/Aeronautical Project Engineer Dictation was produced using [employer] dictation software. please excuse any grammatical, word or spelling errors. I have seen and evaluated the patient today. Discussed with the resident and agree with the residents finding and plan as documented in the resident's note. Changes highlighted in blue font. Objective - Vital Signs Vital signs: Vital Signs Temp 99.1 F 08/07/24 05:00 Pulse 76 08/07/24 06:51 Resp 22 08/07/24 06:51 BP 104/66 08/07/24 06:51 Pulse Ox 95 08/07/24 06:51 FiO2 Intake & Output 08/06/24 08/07/24 08/07/24 18:59 06:59 18:59 Intake Total 3000 Output Total 625 Balance 2375 Weight 83.915 kg Intake: Intake, IV Titration 3000 Amount Sodium Chloride 0.9% 1, 1000 000 ml @ 130 mls/hr IV . Q7H42M REVA Rx#:[id number] Sodium Chloride 0.9% 1, 1000 000 ml @ 999 mls/hr IV . Q1H1M ONE Rx#:[id number] Sodium Chloride 0.9% 1, 1000 000 ml @ 999 mls/hr IV . Q1H1M ONE Rx#:[id number] Oral 0 Output: Urine 625 - Labs CBC & Chem 7: 08/07/24 05:46 08/07/24 05:46 Labs: Abnormal Lab Results - Last 24 Hours (Table) 08/06/24 08/06/24 08/06/24 Range/Units 08:54 08:58 08:58 WBC 12.7 H (3.8-10.6) k/uL RBC (3.80-5.40) m/uL Hgb (11.4-16.0) gm/dL MCHC (31.0-37.0) g/dL Neutrophils # 10.5 H (1.3-7.7) k/uL Lymphocytes # (1.0-4.8) k/uL Sodium 131 L (137-145) mmol/L Potassium 5.2 H (3.5-5.1) mmol/L Chloride 93 L (98-107) mmol/L Carbon Dioxide 21 L (22-30) mmol/L BUN 65 H (7-17) mg/dL Creatinine 5.18 H (0.52-1.04) mg/dL Glucose 144 H (74-99) mg/dL POC Glucose (mg/dL) 158 H (70-110) mg/dL Calcium (8.4-10.2) mg/dL AST 95 H (14-36) U/L Creatine Kinase 4726 H* (30-135) U/L Total Protein (6.3-8.2) g/dL Albumin (3.5-5.0) g/dL Urine Appearance (Clear) Urine Protein (Negative) Urine Blood (Negative) Ur Leukocyte Esterase (Negative) Urine WBC (0-5) /hpf Urine Bacteria (None) /hpf Hyaline Casts (0-2) /lpf Urine Mucus (None) /hpf Urine Opiates Screen (NotDetected) Ur Oxycodone Screen (NotDetected) 08/06/24 08/06/24 08/06/24 Range/Units 10:19 17:23 21:28 WBC (3.8-10.6) k/uL RBC (3.80-5.40) m/uL Hgb (11.4-16.0) gm/dL MCHC (31.0-37.0) g/dL Neutrophils # (1.3-7.7) k/uL Lymphocytes # (1.0-4.8) k/uL Sodium (137-145) mmol/L Potassium (3.5-5.1) mmol/L Chloride (98-107) mmol/L Carbon Dioxide (22-30) mmol/L BUN (7-17) mg/dL Creatinine (0.52-1.04) mg/dL Glucose (74-99) mg/dL POC Glucose (mg/dL) 141 H 156 H (70-110) mg/dL Calcium (8.4-10.2) mg/dL AST (14-36) U/L Creatine Kinase (30-135) U/L Total Protein (6.3-8.2) g/dL Albumin (3.5-5.0) g/dL Urine Appearance Cloudy H (Clear) Urine Protein 1+ H (Negative) Urine Blood Large H (Negative) Ur Leukocyte Esterase Small H (Negative) Urine WBC 14 H (0-5) /hpf Urine Bacteria Rare H (None) /hpf Hyaline Casts 9 H (0-2) /lpf Urine Mucus Moderate H (None) /hpf Urine Opiates Screen Detected H (NotDetected) Ur Oxycodone Screen Detected H (NotDetected) 08/07/24 08/07/24 08/07/24 Range/Units 01:39 05:46 05:46 WBC (3.8-10.6) k/uL RBC 3.68 L (3.80-5.40) m/uL Hgb 10.9 L D (11.4-16.0) gm/dL MCHC 30.4 L (31.0-37.0) g/dL Neutrophils # (1.3-7.7) k/uL Lymphocytes # 0.7 L (1.0-4.8) k/uL Sodium 136 L (137-145) mmol/L Potassium (3.5-5.1) mmol/L Chloride 113 H (98-107) mmol/L Carbon Dioxide 14 L (22-30) mmol/L BUN 56 H (7-17) mg/dL Creatinine 1.85 H (0.52-1.04) mg/dL Glucose 124 H (74-99) mg/dL POC Glucose (mg/dL) 166 H (70-110) mg/dL Calcium 7.2 L (8.4-10.2) mg/dL AST 76 H (14-36) U/L Creatine Kinase 3141 H* (30-135) U/L Total Protein 5.1 L (6.3-8.2) g/dL Albumin 2.8 L (3.5-5.0) g/dL Urine Appearance (Clear) Urine Protein (Negative) Urine Blood (Negative) Ur Leukocyte Esterase (Negative) Urine WBC (0-5) /hpf Urine Bacteria (None) /hpf Hyaline Casts (0-2) /lpf Urine Mucus (None) /hpf Urine Opiates Screen (NotDetected) Ur Oxycodone Screen (NotDetected)
[2024-08-07] MEDS: AZITHROMYCIN 500 MG in SODIUM CHLORIDE 0.9% 250 ML IVPB SCH (16:09)
[2024-08-07 17:45] LABS: Glucose,Whole Blood 230 mg/dL (70-110)
--- NOTE | 2024-08-07 18:33 | P.NPCON ---
History of Present Illness - Reason for Consult acute renal failure - History of Present Illness Patient is a 69-year-old female with history of hypertension who is admitted to the hospital with history of mental status changes. Patient's noticed that she was not arousable and was confused. No history of fall. Serum creatinine noted to be 5.1 mg/dL and prior creatinine was 0.6 on 07/15/2024. Following blood pressure noted to be low with systolic in the 70s and 80s. Home med list showed that patient is maintained on HILARIO inhibitors and NSAIDs noted as well. No significant history of diarrhea nausea or vomiting. No history of chest pain or shortness of breath. CK was elevated at 4726 Patient is voiding. 1000 mL of urine noted for 24 hours. No evidence of obstruction on ultrasound of the kidneys. Past Medical History Past Medical History: Coronary Artery Disease (CAD), Fibromyalgia, Hypertension, Myocardial Infarction ([place]) Additional Past Medical History / Comment(s): chronic back pain, Back Injury 9 years ago Last Myocardial Infarction Date:: 2020 History of Any Multi-Drug Resistant Organisms: None Reported Past Surgical History: Heart Catheterization, Heart Catheterization With Stent Past Anesthesia/Blood Transfusion Reactions: No Reported Reaction Date of Last Stent Placement:: 2020 Past Psychological History: Anxiety, Depression Smoking Status: Current every day smoker Past Alcohol Use History: None Reported Past Drug Use History: None Reported Medications and Allergies Home Medications Medication Instructions Recorded Confirmed Type Morphine Sulfate ER [Ms Contin] 30 mg PO Q12HR 08/26/19 08/06/24 History Pregabalin [Lyrica] 225 mg PO BID 08/26/19 08/06/24 History Sertraline [Zoloft] 100 mg PO DAILY 08/26/19 08/06/24 History oxyCODONE-APAP 7.5-325MG [Percocet 1 tab PO BID PRN 08/26/19 08/06/24 History 7.5-325 mg] tiZANidine HCL 4 mg PO BID PRN 08/26/19 08/06/24 History Butalb/APAP/Caff 50-325-40Mg 1 tab PO Q6HR PRN 12/30/21 08/06/24 History [Fioricet 50-325-40] Diclofenac Sodium [Voltaren] 75 mg PO BID PRN 03/27/23 08/06/24 History Rosuvastatin [Crestor] 10 mg PO DAILY 03/27/23 08/06/24 History Metoprolol Succinate (ER) [Toprol 25 mg PO DAILY 10/22/23 08/06/24 History XL] lisinopriL [Zestril] 10 mg PO DAILY 10/22/23 08/06/24 History Albuterol Sulfate [Ventolin HFA] 2 puff INHALATION RT-Q4H PRN 08/06/24 08/06/24 History Aspirin EC [Ecotrin Low Dose] 81 mg PO DAILY 08/06/24 08/06/24 History Nitroglycerin Sl Tabs [Nitrostat] 0.4 mg SL Q5M PRN 08/06/24 08/06/24 History Allergies Allergy/AdvReac Type Severity Reaction Status Date / Time No Known Allergies Allergy Verified 08/06/24 12:04 Physical Exam Vitals: Vital Signs Temp Pulse Pulse Resp BP BP Pulse Ox 08/07/24 17:56 97.7 F 81 20 129/65 96 08/07/24 16:13 82 08/07/24 16:12 98 F 73 20 138/54 96 08/07/24 16:01 72 08/07/24 12:29 74 18 132/55 95 08/07/24 12:03 72 08/07/24 11:53 70 08/07/24 11:00 71 18 112/83 96 08/07/24 10:00 74 19 120/67 96 08/07/24 09:00 77 18 108/64 97 08/07/24 08:44 74 08/07/24 08:35 92 L 08/07/24 08:32 69 08/07/24 08:28 67 20 108/64 96 08/07/24 08:00 70 18 107/74 96 08/07/24 07:45 99.2 F 08/07/24 06:51 76 22 104/66 95 08/07/24 06:00 74 20 123/63 95 08/07/24 05:00 99.1 F 62 13 93/38 100 08/07/24 04:45 63 13 92/51 100 08/07/24 04:30 61 12 100/41 100 08/07/24 04:15 61 16 82/72 100 08/07/24 04:00 66 16 89/36 99 08/07/24 03:45 67 84/41 99 08/07/24 03:30 62 15 74/35 98 08/07/24 03:15 76/38 08/07/24 03:00 62 17 79/34 97 08/07/24 02:45 65 16 88/36 08/07/24 02:30 65 92/42 08/07/24 02:15 66 89/36 08/07/24 02:00 63 15 92/35 94 L 08/07/24 01:45 67 14 70/35 98 08/07/24 01:28 101.7 F H 66 14 79/34 08/06/24 23:24 68 16 77/62 94 L 08/06/24 21:50 68 16 74/53 97 08/06/24 19:48 67 08/06/24 19:37 68 08/06/24 18:44 67 16 99/41 96 Intake and Output 08/07/24 08/07/24 08/07/24 06:59 14:59 22:59 Intake Total 3000 Output Total 625 400 600 Balance 2375 -400 -600 Intake: Intake, IV Titration 3000 Amount Sodium Chloride 0.9% 1, 1000 000 ml @ 130 mls/hr IV . Q7H42M [facility] Rx#:[id number] Sodium Chloride 0.9% 1, 1000 000 ml @ 999 mls/hr IV . Q1H1M [facility] Rx#:[id number] Sodium Chloride 0.9% 1, 1000 000 ml @ 999 mls/hr IV . Q1H1M [facility] Rx#:[id number] Oral 0 Output: Urine 625 400 600 Other: Weight 83.915 kg Patient is awake, comfortable, no acute distress. Examination of the heart S1 and S2 Examination of the lungs decreased breath sounds at the bases Abdomen is soft nontender Examination of lower extremities shows no significant edema Patient is not able to give a detailed history. Results - Lab Results Most recent lab results Calcium 7.2 mg/dL (8.4-10.2) L 08/07/24 05:46 08/07/24 05:46 08/07/24 05:46 Assessment and Plan Assessment: 1. Acute kidney injury secondary to NSAIDs in the setting of hypotension and use of HILARIO inhibitors as well as component of ATN from hypotension. Currently nonoliguric and improving significantly. Maintained on IV fluids. UA shows 1+ protein and large blood, hyaline casts noted. No evidence of obstruction on ultrasound. 2. [place] metabolic acidosis secondary to acute kidney injury 3. Rhabdomyolysis with CK level trending down. Statin on hold 4. History of hypertension with blood pressure currently low 5. Volume depletion 6. Right lung pneumonia most likely aspiration pneumonia Plan: Change IV fluids to IV bicarb. Continue to hold HILARIO inhibitors Continue to avoid NSAIDs Repeat repeat labs in a.m. Avoid nephrotoxic agents Continue antibiotics. Thank you for the consultation. We will continue to follow the patient with you during her hospitalization.
[2024-08-07] MEDS: QUEtiapine 25 MG TAB PO STA (20:19)
[2024-08-07 21:09] LABS: Glucose,Whole Blood 145 mg/dL (70-110)
--- NOTE | 2024-08-08 03:26 | EEG ---
ELECTROENCEPHALOGRAM REPORT CLINICAL HISTORY: This is a 69-year-old woman with reported altered mental status and is having tremor. The video EEG is obtained to evaluate for seizure epileptiform activity. RELEVANT MEDICATION: Lyrica. Morphine. Tizanidine. Zoloft as reported on medical record. EEG TYPE: This is a routine 21-channel EEG with video using the 10/20 electrode placement system. DESCRIPTION: Wakefulness is obtained. During awake state, the background consists of low-to- moderate voltage of 6.5 to 7 hertz activity intermixed with delta activity. There was no physiological stage 2 sleep architecture. There is no focal slowing. Interictal and ictal is none. ACTIVATION PROCEDURE: Photic stimulation did not evoke a posterior driving response. There is no abnormality during the photic stimulation. Hyperventilation is not performed. CLINICAL INTERPRETATION: This is an abnormal routine EEG. The background slowing is suggestive of moderate encephalopathy, likely due to toxic metabolic derangement. There is no focal slowing, epileptiform discharge, or seizure on the EEG. Clinical correlation is recommended. RICCARDO / GARYN: [id number] /
[2024-08-08 06:16] LABS: Glucose,Whole Blood 165 mg/dL (70-110)
[2024-08-08 06:51] LABS: African American GFR (CKD) >90 (>60 ml/min/1.73 sqM); Anion Gap 4 mmol/L; Blood Urea Nitrogen 25 mg/dL (7-17); Calcium 8.4 mg/dL (8.4-10.2); Carbon Dioxide 23 mmol/L (22-30); Chloride 112 mmol/L (98-107); Glucose 152 mg/dL (74-99); Non-African American GFR(CKD) >90 (>60 ml/min/1.73 sqM); Potassium 4.1 mmol/L (3.5-5.1); Sodium 139 mmol/L (137-145)
[2024-08-08 07:07] LABS: Basophils % (A) 0 %; Eosinophils % (A) 0 %; HCT 36.4 % (34.0-46.0); HGB 12.2 gm/dL (11.4-16.0); Lymphocytes # (A) 0.7 k/uL (1.0-4.8); Lymphocytes % (A) 12 %; MCH 29.8 pg (25.0-35.0); MCHC 33.5 g/dL (31.0-37.0); Mean Platelet Volume 9.1; Monocytes # (A) 0.4 k/uL (0-1.0); Monocytes % (A) 7 %; Neutrophils % (A) 80 %; Platelet Count 150 k/uL (150-450); RBC 4.09 m/uL (3.80-5.40); RDW 14.5 % (11.5-15.5); WBC 6.3 k/uL (3.8-10.6)
[2024-08-08 07:15] LABS: MCV 88.9 fL (80.0-100.0)
[2024-08-08] MEDS: ACETAMINOPHEN TAB 500 MG TAB PO SCH (10:51)
--- NOTE | 2024-08-08 11:14 | P.PN ---
Subjective Progress Note Date: 08/08/24 Principal diagnosis: Acute encephalopathy, BOSSMAN secondary to rhabdomyolysis Patient is a 65-year-old female with CAD with 1 stent placement, hypertension, hyperlipidemia, fibromyalgia, chronic back pain, anxiety, and depression who came in for altered mental status. Patient was not arousable during bedside interview and spoke with patient's at bedside. Per , patient was found on the bathroom floor yesterday afternoon 08/05 for unknown duration. She was not found to have urinated on herself or was having any tremors or movement. was able to awaken the patient and noted she could not walk by herself. At the time, patient was noted to be drowsy but awake and was able to have a meal prior to going to sleep and around 9 PM. This morning, at around 8 AM 08/06, tried to awaken patient from sleep but she was not arousable, which led to call EMS. He also reported that she was noticeably pale at the time and was fatigued in the past few days. He also reports that she is independent with her ADLs but is usually sedentary at home. On arrival to the ED, patient was provided Narcan as she arrived with unresponsiveness and with shallow respirations. She became incoherent and mumbling and failing her extremities. Ativan was given. Imaging in the ED, brain CT showed no acute process. CT angio of the neck and head showed pulmonary artery dilatation 5.1 cm to correlate for pulmonary hypertension, groundglass changes seen in the lungs correlate with venous congestion, negative for carotid stenosis, and negative for intracranial vessel occlusion. Chest x-ray shows no acute cardiopulmonary process. But independently interpreted shows some congestion. EKG shows sinus rhythm with a rate of 64, normal DE interval of 182 MS, normal T waves, left axis deviation, no ST-T changes QRS slightly prolonged at 123 MS QTc 436 MS Labs in the ED showed WBC 12.7 hemoglobin 13.9 platelet count 244,000 sodium 131 potassium 5.2 chloride 93 bicarb 21 BUN 65 creatinine 5.18 glucose 144 AST 95 ALT 33 alk phos 76 creatinine kinase 4726 troponin 0.018 albumin 4.6. Urinalysis shows cloudy appearance +1 protein large blood small leukocyte esterase 14 WBC rare squamous epithelium. UDS is positive for opiates and oxycodone. Vitals on admission, shows patient was afebrile at 97 Fahrenheit pulse rate 69 respiratory rate 20 blood pressure 110/83 198% with 3 L nasal cannula 08/07/2024 patient seen and examined at bedside. Patient was noted to still be confused on interview and noted to have a productive cough. Overnight had low blood pressure around 70 systolic and was given 4 L bolus of IV fluid. WBC 6.5 hemoglobin 10.9 MCV 97.4 platelet count 157,000 sodium 136 potassium 5.1 chloride 113 bicarb 14 anion gap 9 BUN 56 creatinine 1.85 glucose 124 total bilirubin 0.3 AST 76 ALT 28 alk phos 55 creatinine kinase 3141 albumin 2.8 calcium 7.2. Renal ultrasound negative for obstruction or calculus 08/08/2024 patient seen and examined at bedside. Patient noted to still be confused on interview. Cough still persistent. No acute events overnight. WBC 6.3 hemoglobin 12.2 platelet count 150,000 sodium 139 potassium 4.1 chloride 112 bicarb 23 BUN 25 creatinine 0.58 glucose 152 calcium 8.4 creatinine kinase 11,207. TSH 0.097 T4 0.87. EEG reported moderate encephalopathy Review of systems: Pertinent positives and negatives as discussed in HPI, a complete review of systems was performed and all other systems are negative. Pertinent imaging and labs reviewed. Physical examination: Vital signs reviewed General: non toxic, no distress, on room air Derm: no unusual rashes/lesions, warm Head: atraumatic, normocephalic, symmetric Eyes: EOMI, anicteric sclera, pupils equal round reactive to light ENT: Nose and ears atraumatic Neck: No cervical lymphadenopathy, trachea midline, supple Mouth: no lip lesion, mucus membranes moist Cardiovascular: S1S2 reg, 3/6 holosystolic murmur loudest at the right second intercostal space Lungs: CTA bilateral, no rhonchi, no rales, no accessory muscle use Abdominal: soft, nontender to palpation, no guarding Ext: muscle strength 5 out of 5 in all 4 extremities grossly, no gross muscle atrophy, no contractures, positive dorsalis pedis pulse bilateral, no edema Neuro: CN II-XI grossly intact, no gross focal neuro deficits, intermittent myoclonic jerks Psych: Alert and oriented x3, agitated, appropriate affect and mood Assessment/Plan: Assessment/Plan: 65-year-old female with history of CAD, chronic back pain on MS Contin and oxycodone who is here for evaluation of acute metabolic encephalopathy, BOSSMAN and rhabdomyolysis #. Acute encephalopathy, toxic versus metabolic versus septic #. Acute delirium, hyperactive likely due to pain #. SIRS criteria met on admission, no known source of infection #. Aspiration pneumonia, improving Patient is on multiple sedating medications which include tizanidine, Lyrica, Percocet, MS Contin. Lyrica and tizanidine are both renally excreted and with her renal failure likely developed toxicity to Lyrica and tizanidine. Patient also has COPD so may have developed CO2 narcosis with the Percocet and MS Contin. Fall precautions Cardiac monitoring Neurochecks Brain CT on admission showed no acute process. CT angio of the neck and head showed pulmonary artery dilatation 5.1 cm to correlate for pulmonary hypertension, groundglass changes seen in the lungs correlate with venous congestion, negative for carotid stenosis, and negative for intracranial vessel occlusion. UDS is positive for opiates and oxycodone Troponin 0.018 and peaked TSH 0.097 T4 0.87 Blood cultures pending EEG reported moderate encephalopathy Consult PT OT Neurology consulted. Repeat CT scan today Hold all sedating medications for now Tylenol 1000 mg every 8 hours for pain control Continue on ceftriaxone 2 G IV Q24 HOURS, azithromycin IV 500 mg qdaily day 2 #. Rhabdomyolysis #. Acute kidney injury, renal, secondary to above, improving [place] [id number] however patient is clinically improving Bladder scan every 6 hours Renal ultrasound negative for obstruction or calculus Discussed management with nephrology, patient to be placed back on sodium bicarb drip due to rising CK #. COPD Exacerbation, resolved Continue home Ventolin 4 times daily as needed Discontinue Solu-Medrol 40 mg IV every 12 hours DuoNeb inhalation 4 times daily #. Leukocytosis, resolved #. Hyperkalemia, resolved Potassium was 5.1 today #. Prediabetes #. Hyperglycemia, resolved Glucose 152 today A1c 6.1 on May 2024 Insulin sliding scale ACHS. Monitor for hypoglycemia Chronic Conditions: #. CAD #. Hypertension #. Hyperlipidemia #. Anxiety #. Depression #. Asthma #. Chronic back pain Hold tizanidine, lisinopril, morphine, Percocet for now Resume Ventolin inhaler, aspirin and sertraline F: 75 cc lactated Ringer's E: Replete as needed N: Regular diet A: Fall precautions DVT ppx: Heparin SQ every 8 hours GI ppx: Protonix 40 mg IVP daily CODE STATUS: Full Anticipated discharge place: Pending clinical course [place] Conte MD PGY-1/Record Press Tender Dictation was produced using [employer] dictation software. please excuse any gr ammatical, word or spelling errors. I have seen and evaluated the patient today. Discussed with the resident and agree with the residents finding and plan as documented in the resident's note. Changes highlighted in blue font. Objective - Vital Signs Vital signs: Vital Signs Temp 97.9 F 08/08/24 03:35 Pulse 79 08/08/24 03:35 Resp 18 08/08/24 03:35 BP 158/69 08/08/24 03:35 Pulse Ox 94 L 08/08/24 03:35 FiO2 Intake & Output 08/07/24 08/08/24 08/08/24 18:59 06:59 18:59 Intake Total 450 Output Total 1000 1000 Balance -1000 -550 Weight 83.915 kg 92.7 kg Intake: Intake, IV Titration 450 Amount Dextrose 5% in Water 1, 400 000 ml @ 80 mls/hr IV . [id number] [facility] with Sodium Bicarb (1 Meq/ml) 150 ml Rx#:[id number] cefTRIAXone 2 gm In 50 Sodium Chloride 0.9% 50 ml @ 100 mls/hr IVPB Q24HR [facility] Rx#:[id number] Output: Urine 1000 1000 Other: Voiding Method Indwelling Catheter Indwelling Catheter - Labs CBC & Chem 7: 08/08/24 05:33 08/08/24 05:33 Labs: Abnormal Lab Results - Last 24 Hours (Table) 08/07/24 08/07/24 08/07/24 Range/Units 05:46 05:46 11:34 Lymphocytes # (1.0-4.8) k/uL Sodium 136 L (137-145) mmol/L Chloride 113 H (98-107) mmol/L Carbon Dioxide 14 L (22-30) mmol/L BUN 56 H (7-17) mg/dL Creatinine 1.85 H (0.52-1.04) mg/dL Glucose 124 H (74-99) mg/dL POC Glucose (mg/dL) 159 H (70-110) mg/dL Calcium 7.2 L (8.4-10.2) mg/dL AST 76 H (14-36) U/L Creatine Kinase 3141 H* (30-135) U/L Total Protein 5.1 L (6.3-8.2) g/dL Albumin 2.8 L (3.5-5.0) g/dL TSH 0.097 L (0.465-4.680) mIU/L 08/07/24 08/07/24 08/08/24 Range/Units 17:42 21:07 05:33 Lymphocytes # 0.7 L (1.0-4.8) k/uL Sodium (137-145) mmol/L Chloride (98-107) mmol/L Carbon Dioxide (22-30) mmol/L BUN (7-17) mg/dL Creatinine (0.52-1.04) mg/dL Glucose (74-99) mg/dL POC Glucose (mg/dL) 230 H 145 H (70-110) mg/dL Calcium (8.4-10.2) mg/dL AST (14-36) U/L Creatine Kinase (30-135) U/L Total Protein (6.3-8.2) g/dL Albumin (3.5-5.0) g/dL TSH (0.465-4.680) mIU/L 08/08/24 08/08/24 Range/Units 05:33 06:15 Lymphocytes # (1.0-4.8) k/uL Sodium (137-145) mmol/L Chloride 112 H (98-107) mmol/L Carbon Dioxide (22-30) mmol/L BUN 25 H (7-17) mg/dL Creatinine (0.52-1.04) mg/dL Glucose 152 H (74-99) mg/dL POC Glucose (mg/dL) 165 H (70-110) mg/dL Calcium (8.4-10.2) mg/dL AST (14-36) U/L Creatine Kinase (30-135) U/L Total Protein (6.3-8.2) g/dL Albumin (3.5-5.0) g/dL TSH (0.465-4.680) mIU/L
--- NOTE | 2024-08-08 11:34 | CT ---
EXAMINATION TYPE: CT brain wo con DATE OF EXAM: 08/08/2024 11:28 AM COMPARISON: 08/06/2024. CLINICAL INDICATION: Female, 69 years old with history of CVA vision loss, F/U CVA TECHNIQUE: Brain: Axial CT images of the brain were obtained with coronal and sagittal reformats created and rev iewed. Contrast used: None. Oral contrast used: None. CT DLP: 1096 mGycm, Automated exposure control for dose reduction was used. FINDINGS: Brain: Motion limits evaluation. Extra-axial spaces: No abnormal extra-axial fluid collections. Ventricular system: Within normal limits Cerebral parenchyma: No acute intraparenchymal hemorrhage or mass effect. The vance-white junction is well differentiated. Cerebellum: Unremarkable. Mass effect: No evidence of midline shift. Intracranial vasculature: Atherosclerotic calcifications of the intracranial vessels. Soft tissues: Normal. Calvarium/osseous structures: No depressed skull fracture. Paranasal sinuses and mastoid air cells: Mild scattered paranasal sinus disease. Visualized orbits: Orbital contents are intact. IMPRESSION: 1. Motion Limited exam no significant change from prior. 2. No acute intracranial process. [facility], , 08/08/2024 11:31 AM
--- NOTE | 2024-08-08 12:00 | P.CNNES ---
History of Present Illness Consult date: 08/08/24 Reason for Consult: Abnormal EEG Chief complaint: Altered mental status History of Present Illness: The patient is a 69-year-old female who was seen in neurologic consultation on August 08, 2024, in collaboration with Amalia Shane, via teleneurology. History is obtained from review of the chart. It appears that the patient was found down, in her bathroom, by her . There is no reported loss of bowel or bladder control. There were no tonic-clonic movements. The patient was able to be awakened, by her . She reportedly had difficulty ambulating. She was able to eat a meal and then went to bed. The next morning, the patient was unable to be awakened by her . She was noted to be pale with shallow respirations. EMS was called to the scene. In the emergency department, the patient was given a dose of Narcan because of decreased respirations. She became more alert and mumbling. Laboratory evaluation revealed a positive urine drug screen for opiates and oxycodone. The patient reportedly had a similar episode in November of this year associated with sepsis and renal failure. According to the patient's , she has never complained of neck pain. The patient does take morphine and oxycodone as an outpatient. The patient's is not aware of whether or not the patient may have taken too much of these medications. He states that she is in charge of her own meds. Labs on admission reveal an elevated BUN of 65, with an elevated creatinine of 5.18. Sodium is slightly low at 131, potassium slightly elevated at 5.2. Creatinine kinase is elevated at 4726. Kidney function has improved as of today. The patient's feels that the patient's cognition has also improved. She reportedly did not recognize him when he came into the room. Apparently the patient has a past medical history of chronic back pain, fibromyalgia, hypertension, coronary artery disease and myocardial infarction. Past Medical History Past Medical History: Coronary Artery Disease (CAD), Fibromyalgia, Hypertension, Myocardial Infarction ([place]) Additional Past Medical History / Comment(s): chronic back pain, Back Injury 9 years ago Last Myocardial Infarction Date:: 2020 History of Any Multi-Drug Resistant Organisms: None Reported Past Surgical History: Heart Catheterization, Heart Catheterization With Stent Past Anesthesia/Blood Transfusion Reactions: No Reported Reaction Date of Last Stent Placement:: 2020 Past Psychological History: Anxiety, Depression Smoking Status: Current every day smoker Past Alcohol Use History: None Reported Past Drug Use History: None Reported Medications and Allergies Home Medications Medication Instructions Recorded Confirmed Type Morphine Sulfate ER [Ms Contin] 30 mg PO Q12HR 08/26/19 08/06/24 History Pregabalin [Lyrica] 225 mg PO BID 08/26/19 08/06/24 History Sertraline [Zoloft] 100 mg PO DAILY 08/26/19 08/06/24 History oxyCODONE-APAP 7.5-325MG [Percocet 1 tab PO BID PRN 08/26/19 08/06/24 History 7.5-325 mg] tiZANidine HCL 4 mg PO BID PRN 08/26/19 08/06/24 History Butalb/APAP/Caff 50-325-40Mg 1 tab PO Q6HR PRN 12/30/21 08/06/24 History [Fioricet 50-325-40] Diclofenac Sodium [Voltaren] 75 mg PO BID PRN 03/27/23 08/06/24 History Rosuvastatin [Crestor] 10 mg PO DAILY 03/27/23 08/06/24 History Metoprolol Succinate (ER) [Toprol 25 mg PO DAILY 10/22/23 08/06/24 History XL] lisinopriL [Zestril] 10 mg PO DAILY 10/22/23 08/06/24 History Albuterol Sulfate [Ventolin HFA] 2 puff INHALATION RT-Q4H PRN 08/06/24 08/06/24 History Aspirin EC [Ecotrin Low Dose] 81 mg PO DAILY 08/06/24 08/06/24 History Nitroglycerin Sl Tabs [Nitrostat] 0.4 mg SL Q5M PRN 08/06/24 08/06/24 History Allergies Allergy/AdvReac Type Severity Reaction Status Date / Time No Known Allergies Allergy Verified 08/06/24 12:04 Physical Examination - Vital Signs Vital Signs: Vital Signs Temp Pulse Pulse Resp BP BP Pulse Ox 08/08/24 03:35 97.9 F 79 18 158/69 94 L 08/07/24 23:44 98.5 F 77 20 136/65 100 08/07/24 20:00 97.6 F 82 20 138/61 95 08/07/24 17:56 97.7 F 81 20 129/65 96 08/07/24 16:13 82 08/07/24 16:12 98 F 73 20 138/54 96 08/07/24 16:01 72 08/07/24 12:29 74 18 132/55 95 08/07/24 12:03 72 08/07/24 11:53 70 08/07/24 11:00 71 18 112/83 96 08/07/24 10:00 74 19 120/67 96 08/07/24 09:00 77 18 108/64 97 08/07/24 08:44 74 08/07/24 08:35 92 L 08/07/24 08:32 69 08/07/24 08:28 67 20 108/64 96 08/07/24 08:00 70 18 107/74 96 08/07/24 07:45 99.2 F Intake and Output 08/07/24 08/08/24 08/08/24 22:59 06:59 14:59 Intake Total 450 Output Total 600 1000 Balance -600 -550 Intake: Intake, IV Titration 450 Amount Dextrose 5% in Water 1, 400 000 ml @ 80 mls/hr IV . [id number] REVA with Sodium Bicarb (1 Meq/ml) 150 ml Rx#:[id number] cefTRIAXone 2 gm In 50 Sodium Chloride 0.9% 50 ml @ 100 mls/hr IVPB Q24HR REVA Rx#:[id number] Output: Urine 600 1000 Other: Voiding Method Indwelling Catheter Indwelling Catheter Weight 83.915 kg 92.7 kg General: The patient is well-nourished, well-developed and in no acute distress HEENT: Head is atraumatic, normocephalic. Fundus not visualized. There is no scleral icterus. Mucous membranes are moist. Neck: Supple with poss. left carotid bruit Heart: Regular rate and rhythm Lungs: Essentially clear to auscultation Extremities: Without edema Neurological examination Mental status: The patient is awake, alert and oriented to name, "hospital", month, holiday. Not oriented to city. There is no dysarthria or aphasia. Speech is fluent. Pt confused. Has difficulty following instructions. When the patient is asked to identify the color short I am wondering, she states "green", although I am wearing a red shirt. The patient is insistent that it is a green shirt. Cranial nerves: Pupils are equal, round at 4mm and reactive to light. No blink to visual threat. Not visually tracking. Facial sensation is diminished on the right. There is no facial asymmetry. Hearing is grossly intact. Uvula and palate are midline. Shoulder shrug is symmetric. Tongue protrudes midline. Motor: Strength testing (right/left): Client Care Coordinator 4/5. Biceps 4/4. Triceps 4/5. Hip flexors 4/5. Ankle plantar flexors 5/5. Sensation: Decreased right side. There is no extinction with double simultaneous stimulation. Deep tendon reflexes: 3+/4+ throughout. Plantar responses flexor. Coordination: The patient is unable to perform [id number] testing. There is no pronator drift. Gait: Not assessed Results - Laboratory Findings CBC and BMP: 08/08/24 05:33 08/08/24 05:33 Abnormal Lab Findings: Abnormal Labs 08/06/24 08/06/24 08/06/24 08:54 08:58 08:58 WBC 12.7 H RBC Hgb MCHC Neutrophils # 10.5 H Lymphocytes # Sodium 131 L Potassium 5.2 H Chloride 93 L Carbon Dioxide 21 L BUN 65 H Creatinine 5.18 H Glucose 144 H POC Glucose (mg/dL) 158 H Calcium AST 95 H Creatine Kinase 4726 H* Total Protein Albumin TSH Urine Appearance Urine Protein Urine Blood Ur Leukocyte Esterase Urine WBC Urine Bacteria Hyaline Casts Urine Mucus Urine Opiates Screen Ur Oxycodone Screen 08/06/24 08/06/24 08/06/24 10:19 17:23 21:28 WBC RBC Hgb MCHC Neutrophils # Lymphocytes # Sodium Potassium Chloride Carbon Dioxide BUN Creatinine Glucose POC Glucose (mg/dL) 141 H 156 H Calcium AST Creatine Kinase Total Protein Albumin TSH Urine Appearance Cloudy H Urine Protein 1+ H Urine Blood Large H Ur Leukocyte Esterase Small H Urine WBC 14 H Urine Bacteria Rare H Hyaline Casts 9 H Urine Mucus Moderate H Urine Opiates Screen Detected H Ur Oxycodone Screen Detected H 08/07/24 08/07/24 08/07/24 01:39 05:46 05:46 WBC RBC 3.68 L Hgb 10.9 L D MCHC 30.4 L Neutrophils # Lymphocytes # 0.7 L Sodium 136 L Potassium Chloride 113 H Carbon Dioxide 14 L BUN 56 H Creatinine 1.85 H Glucose 124 H POC Glucose (mg/dL) 166 H Calcium 7.2 L AST 76 H Creatine Kinase 3141 H* Total Protein 5.1 L Albumin 2.8 L TSH Urine Appearance Urine Protein Urine Blood Ur Leukocyte Esterase Urine WBC Urine Bacteria Hyaline Casts Urine Mucus Urine Opiates Screen Ur Oxycodone Screen 08/07/24 08/07/24 08/07/24 05:46 11:34 17:42 WBC RBC Hgb MCHC Neutrophils # Lymphocytes # Sodium Potassium Chloride Carbon Dioxide BUN Creatinine Glucose POC Glucose (mg/dL) 159 H 230 H Calcium AST Creatine Kinase Total Protein Albumin TSH 0.097 L Urine Appearance Urine Protein Urine Blood Ur Leukocyte Esterase Urine WBC Urine Bacteria Hyaline Casts Urine Mucus Urine Opiates Screen Ur Oxycodone Screen 08/07/24 08/08/24 08/08/24 21:07 05:33 06:15 WBC RBC Hgb MCHC Neutrophils # Lymphocytes # Sodium Potassium Chloride 112 H Carbon Dioxide BUN 25 H Creatinine Glucose 152 H POC Glucose (mg/dL) 145 H 165 H Calcium AST Creatine Kinase Total Protein Albumin TSH Urine Appearance Urine Protein Urine Blood Ur Leukocyte Esterase Urine WBC Urine Bacteria Hyaline Casts Urine Mucus Urine Opiates Screen Ur Oxycodone Screen Assessment and Plan Assessment: 1. Toxic/metabolic encephalopathy with concern for bilateral occipital infarcts, in the setting of what appears to be loss of vision and unawareness of visual loss. Encephalopathy is the etiology for slowing that is reported on the EEG. There is no reported evidence of epileptiform/seizure activity 2. History of chronic pain and narcotic use 3. Fibromyalgia 4. History of coronary artery disease 5. Hypertension 6. Hyperlipidemia Plan: 1. CT scan of the brain was ordered to assess for bilateral occipital lobe infarcts-this test has been completed and there are no occipital infarcts reported or visualized per my viewing of the images 2. Treatments of underlying toxic/metabolic issues 3. Would hold narcotics and sedative medications at this time 4. Consider physical therapy evaluation Thank you for allowing us to participate in care of this patient Time with Patient: Greater than 30 (60 minutes were spent caring for this patient today including, obtaining a history, examining the patient, reviewing imaging, chart documentation, labs, placing orders and creating this note)
[2024-08-08 12:27] LABS: Glucose,Whole Blood 167 mg/dL (70-110)
--- NOTE | 2024-08-08 12:59 | P.PN ---
Subjective patient is seen for follow-up for acute kidney injury. Renal function has improved significantly with serum creatinine down to 0.5 mg/dL. [place] level [place] [address] today. No new complaints of pain. Objective - Vital Signs Vital signs: Vital Signs Temp 98.2 F 08/08/24 11:31 Pulse 81 08/08/24 11:31 Resp 16 08/08/24 11:31 BP 139/77 08/08/24 11:31 Pulse Ox 94 L 08/08/24 11:31 FiO2 Intake & Output 08/07/24 08/08/24 08/08/24 18:59 06:59 18:59 Intake Total 450 Output Total 1000 1000 500 Balance -1000 -550 -500 Weight 83.915 kg 92.7 kg Intake: Intake, IV Titration 450 Amount Dextrose 5% in Water 1, 400 000 ml @ 80 mls/hr IV . [id number] REVA with Sodium Bicarb (1 Meq/ml) 150 ml Rx#:[id number] cefTRIAXone 2 gm In 50 Sodium Chloride 0.9% 50 ml @ 100 mls/hr IVPB Q24HR REVA Rx#:[id number] Output: Urine 1000 1000 500 Other: Voiding Method Indwelling Catheter Indwelling Catheter Indwelling Catheter - Exam Patient is awake, comfortable, no acute distress. Examination of the heart S1 and S2 Examination of the lungs decreased breath sounds at the bases Abdomen is soft nontender Examination of lower extremities shows no significant edema. Erythema noted in the gluteal area bilaterally Patient is not able to give a detailed history. - Labs CBC & Chem 7: 08/08/24 05:33 08/08/24 05:33 Labs: Abnormal Lab Results - Last 24 Hours (Table) 08/07/24 08/07/24 08/08/24 Range/Units 17:42 21:07 05:33 Lymphocytes # 0.7 L (1.0-4.8) k/uL Chloride (98-107) mmol/L BUN (7-17) mg/dL Glucose (74-99) mg/dL POC Glucose (mg/dL) 230 H 145 H (70-110) mg/dL Creatine Kinase (30-135) U/L 08/08/24 08/08/24 08/08/24 Range/Units 05:33 05:33 06:15 Lymphocytes # (1.0-4.8) k/uL Chloride 112 H (98-107) mmol/L BUN 25 H (7-17) mg/dL Glucose 152 H (74-99) mg/dL POC Glucose (mg/dL) 165 H (70-110) mg/dL Creatine Kinase 00744 H* (30-135) U/L 08/08/ Range/Units 12:26 Lymphocytes # (1.0-4.8) k/uL Chloride (98-107) mmol/L BUN (7-17) mg/dL Glucose (74-99) mg/dL POC Glucose (mg/dL) 167 H (70-110) mg/dL Creatine Kinase (30-135) U/L Assessment and Plan Assessment: 1. Acute kidney injury secondary to NSAIDs in the setting of hypotension and use of HILARIO inhibitors as well as component of ATN from hypotension. Currently nonoliguric and improving significantly. Maintained on IV fluids. UA shows 1+ protein and large blood, hyaline casts noted. No evidence of obstruction on ultrasound. 2. Nongap metabolic acidosis secondary to acute kidney injury 3. Rhabdomyolysis with CK level initially trending down, now increased again. Statin on hold 4. History of hypertension with blood pressure currently low 5. Volume depletion 6. Right lung pneumonia most likely aspiration pneumonia Plan: Switch back to IV bicarb due to significant increase in CK today Continue to avoid NSAIDs Repeat repeat labs in a.m. Avoid nephrotoxic agents Continue antibiotics.
[2024-08-08 16:32] LABS: Glucose,Whole Blood 175 mg/dL (70-110)
[2024-08-08] MEDS: HALOPERIDOL LACTATE 5 MG/ML 1 ML VIAL IVP PRN (16:53)
[2024-08-08 17:58] LABS: Basophils % (A) 0 %; Eosinophils % (A) 0 %; HCT 36.5 % (34.0-46.0); HGB 11.7 gm/dL (11.4-16.0); Lymphocytes # (A) 1.2 k/uL (1.0-4.8); Lymphocytes % (A) 15 %; MCH 28.9 pg (25.0-35.0); MCHC 32.1 g/dL (31.0-37.0); Mean Platelet Volume 7.9; Monocytes # (A) 0.5 k/uL (0-1.0); Monocytes % (A) 7 %; Neutrophils # (A) 6.5 k/uL (1.3-7.7); Neutrophils % (A) 77 %; Platelet Count 170 k/uL (150-450); RBC 4.06 m/uL (3.80-5.40); RDW 14.2 % (11.5-15.5); WBC 8.4 k/uL (3.8-10.6)
[2024-08-08 18:27] LABS: African American GFR (CKD) >90 (>60 ml/min/1.73 sqM); Anion Gap 3 mmol/L; Blood Urea Nitrogen 20 mg/dL (7-17); Calcium 8.2 mg/dL (8.4-10.2); Carbon Dioxide 28 mmol/L (22-30); Chloride 109 mmol/L (98-107); Glucose 152 mg/dL (74-99); Non-African American GFR(CKD) >90 (>60 ml/min/1.73 sqM); Potassium 3.6 mmol/L (3.5-5.1); Sodium 140 mmol/L (137-145)
[2024-08-08] MEDS: QUEtiapine 25 MG TAB PO SCH (19:49)
[2024-08-08] MEDS: DEXTROSE 5% IN WATER 1,000 ML with SODIUM BICARB (1 MEQ/ML) 150 ML IV SCH (20:14)
[2024-08-08 20:34] LABS: Glucose,Whole Blood 184 mg/dL (70-110)
[2024-08-09] MEDS: LACTATED RINGERS 1,000 ML IV SCH ×2 (01:31→12:00)
[2024-08-09] MEDS ORDERED: ZINC OXIDE PASTE (Z-GUARD) 1 APPLIC TOPICAL PRN (05:02)
[2024-08-09 05:40] LABS: Glucose,Whole Blood 162 mg/dL (70-110)
[2024-08-09] MEDS: cloNIDine HCL 0.1 MG TAB PO SCH (08:15)
--- NOTE | 2024-08-09 11:18 | P.PN ---
Subjective Progress Note Date: 08/09/24 Subjective: Patient seen and examined at bedside. Overnight patient was more agitated. Complaining of increased pain as well as diarrhea. Pertinent positives and negatives as discussed above, a complete review of systems was performed and all other systems are negative. Vitals Signs Reviewed. General: Nontoxic, no distress, appears at stated age Derm: Warm, dry Head: Atraumatic, normocephalic, symmetric Eyes: EOMI, no lid lag, anicteric sclera Mouth: No lip lesion, mucus membranes moist Cardiovascular: S1S2 reg, no murmur Lungs: CTA bilateral, no rhonchi, no rales, no accessory muscle use Abdominal: Soft, nontender to palpation, no guarding, no appreciable organomegaly Ext: No gross muscle atrophy, no edema, no contractures Neuro: CN II-XI grossly intact, no focal neuro deficits Psych: Alert, oriented x 1, appropriate affect Data Reviewed Today: Pertinent Labs: WBC 8.4, hemoglobin 11.7, bicarb 28, creatinine 0.52, CK 10,800, glucose range between 1 52-1 84 Imaging: Repeat CT head yesterday showed no acute process Assessment and Plan: Active: Acute opioid withdrawal Acute metabolic and toxic encephalopathy -Neurology following -Scheduled Tylenol 1000 mg every 8 hours -Started on clonidine 0.1 p.o. 3 times daily, loperamide 2 mg p.o. 4 times daily as needed -On Haldol IV as needed for acute psychosis, Seroquel 25 nightly -Monitor on telemetry Acute rhabdomyolysis Acute kidney injury, resolved Anion gap metabolic acidosis, resolved Hyponatremia, resolved Hypokalemia, resolved -Nephrology following, on lactated Ringer 75 cc an hour -De La Cruz catheter in place Type 2 diabetes -Continue sliding scale insulin, ACHS, monitor for hypoglycemia Chronic: Anxiety/depression Chronic back pain on opiates GERD Hypertension Dyslipidemia CAD Asthma not in exacerbation DVT ppx: Subcu heparin Code status: Full code Anticipated discharge place: Pending clinical course Anticipated discharge time: Pending clinical course Objective - Vital Signs Vital signs: Vital Signs Temp 98.4 F 08/09/24 08:00 Pulse 75 08/09/24 08:00 Resp 22 08/09/24 08:00 BP 161/74 08/09/24 08:00 Pulse Ox 95 08/09/24 08:00 FiO2 Intake & Output 08/08/24 08/09/24 08/09/24 18:59 06:59 18:59 Intake Total 0 880 Output Total 500 850 Balance -500 30 Weight 96 kg Intake: Intake, IV Titration 880 Amount Dextrose 5% in Water 1, 880 000 ml @ 80 mls/hr IV . [id number] REVA with Sodium Bicarb (1 Meq/ml) 150 ml Rx#:[id number] Oral 0 Output: Urine 500 850 Other: Voiding Method Indwelling Catheter Indwelling Catheter # Bowel Movements 1 - Labs CBC & Chem 7: 08/08/24 17:39 08/08/24 17:39 Labs: Abnormal Lab Results - Last 24 Hours (Table) 08/08/24 08/08/24 08/08/24 Range/Units 12:26 16:27 17:39 Chloride 109 H (98-107) mmol/L BUN 20 H (7-17) mg/dL Glucose 152 H (74-99) mg/dL POC Glucose (mg/dL) 167 H 175 H (70-110) mg/dL Calcium 8.2 L (8.4-10.2) mg/dL Creatine Kinase (30-135) U/L 08/08/24 08/08/24 08/09/24 Range/Units 17:39 20:32 05:39 Chloride (98-107) mmol/L BUN (7-17) mg/dL Glucose (74-99) mg/dL POC Glucose (mg/dL) 184 H 162 H (70-110) mg/dL Calcium (8.4-10.2) mg/dL Creatine Kinase 96825 H* (30-135) U/L Microbiology - Last 24 Hours (Table) 08/07/24 11:30 Blood Culture - Preliminary Blood 08/07/24 11:00 Blood Culture - Preliminary Blood
--- NOTE | 2024-08-09 11:33 | P.PN ---
Subjective Progress Note Date: 08/09/24 The patient is a 69-year-old female who is seen in neurologic follow-up on August 09, 2024, in collaboration with Amalia Shane, via teleneurology. The patient's is seated at the bedside at the time of this evaluation. He requests that we do not awaken the patient. She apparently was quite agitated last p.m. She was making attempts to get out of the bed. She was eventually sedated. CT scan of the brain performed yesterday reveals no signs of acute hemorrhage or infarct. These results were discussed with the patient's . According to the patient's , he feels that the patient is improving in regards to mental status. The patient's kidney function is near normal. Creatinine kinase remains elevated however, is decreasing Objective - Vital Signs Vital signs: Vital Signs Temp 98.4 F 08/09/24 08:00 Pulse 75 08/09/24 08:00 Resp 22 08/09/24 08:00 BP 161/74 08/09/24 08:00 Pulse Ox 95 08/09/24 08:00 FiO2 Intake & Output 08/08/24 08/09/24 08/09/24 18:59 06:59 18:59 Intake Total 0 880 Output Total 500 850 Balance -500 30 Weight 96 kg Intake: Intake, IV Titration 880 Amount Dextrose 5% in Water 1, 880 000 ml @ 80 mls/hr IV . [id number] REVA with Sodium Bicarb (1 Meq/ml) 150 ml Rx#:[id number] Oral 0 Output: Urine 500 850 Other: Voiding Method Indwelling Catheter Indwelling Catheter # Bowel Movements 1 - Exam Examination is not performed today per 's request. - Labs CBC & Chem 7: 08/08/24 17:39 08/08/24 17:39 Labs: Abnormal Lab Results - Last 24 Hours (Table) 08/08/24 08/08/24 08/08/24 Range/Units 12:26 16:27 17:39 Chloride 109 H (98-107) mmol/L BUN 20 H (7-17) mg/dL Glucose 152 H (74-99) mg/dL POC Glucose (mg/dL) 167 H 175 H (70-110) mg/dL Calcium 8.2 L (8.4-10.2) mg/dL Creatine Kinase (30-135) U/L 08/08/24 08/08/24 08/09/24 Range/Units 17:39 20:32 05:39 Chloride (98-107) mmol/L BUN (7-17) mg/dL Glucose (74-99) mg/dL POC Glucose (mg/dL) 184 H 162 H (70-110) mg/dL Calcium (8.4-10.2) mg/dL Creatine Kinase 64626 H* (30-135) U/L Microbiology - Last 24 Hours (Table) 08/07/24 11:30 Blood Culture - Preliminary Blood 08/07/24 11:00 Blood Culture - Preliminary Blood Assessment and Plan Assessment: 1. Toxic/metabolic encephalopathy Encephalopathy is the etiology for slowing that is reported on the EEG. There is no reported evidence of epileptiform/se izure activity 2. History of chronic pain and narcotic use 3. Fibromyalgia 4. History of coronary artery disease 5. Hypertension 6. Hyperlipidemia Plan: 1. Treatments of underlying toxic/metabolic issues 2. Would hold narcotics and sedative medications at this time 3. Consider physical therapy evaluation Dr. Kirkpatrick will assume neurologic coverage of this patient as of August 10, 2024 Time with Patient: Less than 30 (25 minutes were spent caring for this patient today including, obtaining history, discussing status with the patient's , reviewing imaging, chart documentation, labs and creating this note)
[2024-08-09 11:34] LABS: Glucose,Whole Blood 155 mg/dL (70-110)
--- NOTE | 2024-08-09 14:11 | P.PN ---
Subjective patient is seen for follow-up for acute kidney injury. Renal function has improved significantly with serum creatinine down to 0.5 mg/dL. [place] [address] [place] [address] today No new complaints of pain. Objective - Vital Signs Vital signs: Vital Signs Temp 98.5 F 08/09/24 11:56 Pulse 65 08/09/24 11:56 Resp 22 08/09/24 11:56 BP 155/74 08/09/24 11:56 Pulse Ox 97 08/09/24 11:56 FiO2 Intake & Output 08/08/24 08/09/24 08/09/24 18:59 06:59 18:59 Intake Total 0 880 Output Total 500 850 Balance -500 30 Weight 96 kg Intake: Intake, IV Titration 880 Amount Dextrose 5% in Water 1, 880 000 ml @ 80 mls/hr IV . [id number] REVA with Sodium Bicarb (1 Meq/ml) 150 ml Rx#:[id number] Oral 0 Output: Urine 500 850 Other: Voiding Method Indwelling Catheter Indwelling Catheter Indwelling Catheter # Bowel Movements 1 - Exam Patient is awake, comfortable, no acute distress. Examination of the heart S1 and S2 Examination of the lungs decreased breath sounds at the bases Abdomen is soft nontender Examination of lower extremities shows no significant edema. Erythema noted in the gluteal area bilaterally Patient is not able to give a detailed history. - Labs CBC & Chem 7: 08/08/24 17:39 08/08/24 17:39 Labs: Abnormal Lab Results - Last 24 Hours (Table) 08/08/24 08/08/24 08/08/24 Range/Units 16:27 17:39 17:39 Chloride 109 H (98-107) mmol/L BUN 20 H (7-17) mg/dL Glucose 152 H (74-99) mg/dL POC Glucose (mg/dL) 175 H (70-110) mg/dL Calcium 8.2 L (8.4-10.2) mg/dL Creatine Kinase 91492 H* (30-135) U/L 08/08/24 08/09/24 08/09/24 Range/Units 20:32 05:39 11:33 Chloride (98-107) mmol/L BUN (7-17) mg/dL Glucose (74-99) mg/dL POC Glucose (mg/dL) 184 H 162 H 155 H (70-110) mg/dL Calcium (8.4-10.2) mg/dL Creatine Kinase (30-135) U/L Microbiology - Last 24 Hours (Table) 08/07/24 11:30 Blood Culture - Preliminary Blood 08/07/24 11:00 Blood Culture - Preliminary Blood Assessment and Plan Assessment: 1. Acute kidney injury secondary to NSAIDs in the setting of hypotension and use of HILARIO inhibitors as well as component of ATN from hypotension. Currently nonoliguric and improving significantly. Maintained on IV fluids. UA shows 1+ protein and large blood, hyaline casts noted. No evidence of obstruction on ultrasound. 2. Nongap metabolic acidosis secondary to acute kidney injury 3. Rhabdomyolysis with CK level initially trending down, now increased again. Statin on hold 4. History of hypertension with blood pressure currently low 5. Volume depletion 6. Right lung pneumonia most likely aspiration pneumonia Plan: Can DC bicarb drip and switch to Ringer lactate Continue to avoid NSAIDs Repeat repeat labs in a.m. Avoid nephrotoxic agents Continue antibiotics.
[2024-08-09 16:33] LABS: Glucose,Whole Blood 141 mg/dL (70-110)
[2024-08-09 21:00] LABS: Glucose,Whole Blood 155 mg/dL (70-110)
[2024-08-09] MEDS: LOPERAMIDE 2 MG CAP PO PRN (23:50)
[2024-08-10 06:01] LABS: Glucose,Whole Blood 125 mg/dL (70-110)
[2024-08-10 07:26] LABS: African American GFR (CKD) >90 (>60 ml/min/1.73 sqM); Anion Gap 1 mmol/L; Blood Urea Nitrogen 19 mg/dL (7-17); Carbon Dioxide 34 mmol/L (22-30); Chloride 107 mmol/L (98-107); Glucose 103 mg/dL (74-99); Magnesium 1.7 mg/dL (1.6-2.3); Non-African American GFR(CKD) >90 (>60 ml/min/1.73 sqM); Potassium 2.9 mmol/L (3.5-5.1); Sodium 142 mmol/L (137-145)
[2024-08-10] MEDS: lisinopriL 10 MG TAB PO SCH (08:55)
[2024-08-10] MEDS: ATORVASTATIN 20 MG TAB PO SCH (08:55)
--- NOTE | 2024-08-10 10:47 | P.PN ---
Subjective Patient is seen in follow-up for rhabdomyolysis. Maintained on IV fluids. Oral intake fair. Admits to loose bowel movements. Vital signs are stable. General: No acute distress. HEENT: Head exam is unremarkable. LUNGS: No audible rhonchi or wheezes. HEART: Rate and Rhythm are regular. ABDOMEN: Nontender. EXTREMITITES: No edema. Objective - Vital Signs Vital signs: Vital Signs Temp 98.6 F 08/10/24 08:50 Pulse 47 L 08/10/24 08:50 Resp 19 08/10/24 08:50 BP 175/85 08/10/24 08:50 Pulse Ox 96 08/10/24 08:50 FiO2 Intake & Output 08/09/24 08/10/24 08/10/24 18:59 06:59 18:59 Output Total 350 425 Balance -350 -425 Weight 94.6 kg Output: Urine 350 425 Other: Voiding Method Indwelling Catheter Indwelling Catheter Indwelling Catheter # Bowel Movements 1 - Labs CBC & Chem 7: 08/08/24 17:39 08/10/24 06:21 Labs: Abnormal Lab Results - Last 24 Hours (Table) 08/09/24 08/09/24 08/09/24 Range/Units 11:33 16:32 20:06 Potassium (3.5-5.1) mmol/L Carbon Dioxide (22-30) mmol/L BUN (7-17) mg/dL Glucose (74-99) mg/dL POC Glucose (mg/dL) 155 H 141 H 155 H (70-110) mg/dL Calcium (8.4-10.2) mg/dL 08/10/24 08/10/24 Range/Units 05:59 06:21 Potassium 2.9 L (3.5-5.1) mmol/L Carbon Dioxide 34 H (22-30) mmol/L BUN 19 H (7-17) mg/dL Glucose 103 H (74-99) mg/dL POC Glucose (mg/dL) 125 H (70-110) mg/dL Calcium 8.0 L (8.4-10.2) mg/dL Microbiology - Last 24 Hours (Table) 08/07/24 11:30 Blood Culture - Preliminary Blood 08/07/24 11:00 Blood Culture - Preliminary Blood Assessment and Plan Plan: Assessment: 1. Acute kidney injury secondary to vasomotor nephropathy secondary to rhabdomyolysis, hypotension, HILARIO inhibitor use. Resolved. 2. Rhabdomyolysis secondary to fall and statin. 3. Pneumonia maintained on antibiotics. 4. Hypokalemia from intracellular shifting from IV bicarb. Plan: Maintain IV fluids. Potassium and magnesium being replaced. Repeat CK level. Continue to monitor renal function and urine output.
[2024-08-10] MEDS: POTASSIUM CHLORIDE ER 20 MEQ TAB.ER PO SCH (11:12)
[2024-08-10] MEDS: MAGNESIUM SULFATE-D5W PMX 1 GM in DEXTROSE/WATER 1 100ML.BAG IVPB SCH (11:12)
[2024-08-10 11:38] LABS: Glucose,Whole Blood 140 mg/dL (70-110)
[2024-08-10] MEDS: METOPROLOL SUCCINATE (ER) 25 MG TAB.ER.24H PO SCH (11:49)
--- NOTE | 2024-08-10 12:54 | P.PN ---
Subjective Progress Note Date: 08/10/24 Principal diagnosis: Altered mental status in the setting of rhabdomyolysis, acute kidney injury, and potential opiate overdose. Ms. Moffett is a 69-year-old female with history of low back pain, fibromyalgia, hypertension, coronary artery disease, major depression and anxiety. She was admitted to [facility] on August 06 after she was found down in her restroom without evidence of generalized tonic-clonic seizure. She had some poor ambulation the next morning and the following morning she was unarousable as well as pale with decreased respiratory rate. She was given Narcan in the emergency room with improvement and her urine drug screen was positive for oxycodone. She had elevated creatinine of 5.18 with elevated CK at 4726 and low sodium as well as potassium. She was seen by neurology on August 08 and noted to be oriented x 2 with poor following of commands. She was generally weak and she would not track or blink to threat. She was noted to be improving on the morning of August 09. When seen in follow-up August 10, the patient is alert and fully oriented. She is able to follow both simple and complex commands. Her metabolic situation appears to be improving his creatinine seems to be declining. She did undergo EEG on August 07 showing some slowing without evidence of epileptiform discharges. Urinalysis also reveals 14 blood cells with small leukocyte Estrace and she is on Rocephin. She also takes quetiapine 25 mg nightly. Assessment: Ms. Moffett is a 69-year-old female with altered mental status secondary to lik teresa metabolic encephalopathy from acute kidney injury as well as rhabdomyolysis and opiate use/abuse. Plan: 1. The patient's clinical course appears to be improving and her altered mental status appears to be resolving if not resolved at this time. 2. Neurology will continue to follow her on an intermittent basis and make further recommendations if needed. Objective - Vital Signs Vital signs: Vital Signs Temp 98.5 F 08/10/24 12:00 Pulse 57 L 08/10/24 12:00 Resp 17 08/10/24 12:00 BP 190/72 08/10/24 12:00 Pulse Ox 97 08/10/24 12:00 FiO2 Intake & Output 08/09/24 08/10/24 08/10/24 18:59 06:59 18:59 Output Total 350 425 Balance -350 -425 Weight 94.6 kg Output: Urine 350 425 Other: Voiding Method Indwelling Catheter Indwelling Catheter Indwelling Catheter # Bowel Movements 1 - Labs CBC & Chem 7: 08/08/24 17:39 08/10/24 06:21 Labs: Abnormal Lab Results - Last 24 Hours (Table) 08/09/24 08/09/24 08/10/24 Range/Units 16:32 20:06 05:59 Potassium (3.5-5.1) mmol/L Carbon Dioxide (22-30) mmol/L BUN (7-17) mg/dL Glucose (74-99) mg/dL POC Glucose (mg/dL) 141 H 155 H 125 H (70-110) mg/dL Calcium (8.4-10.2) mg/dL Creatine Kinase (30-135) U/L 08/10/24 08/10/24 08/10/24 Range/Units 06:21 06:21 11:36 Potassium 2.9 L (3.5-5.1) mmol/L Carbon Dioxide 34 H (22-30) mmol/L BUN 19 H (7-17) mg/dL Glucose 103 H (74-99) mg/dL POC Glucose (mg/dL) 140 H (70-110) mg/dL Calcium 8.0 L (8.4-10.2) mg/dL Creatine Kinase 4232 H* (30-135) U/L Microbiology - Last 24 Hours (Table) 08/07/24 11:30 Blood Culture - Preliminary Blood 08/07/24 11:00 Blood Culture - Preliminary Blood
[2024-08-10 16:03] LABS: Glucose,Whole Blood 131 mg/dL (70-110)
--- NOTE | 2024-08-10 17:42 | P.PN ---
Subjective Progress Note Date: 08/10/2408/10. Patient seen and examined lying in bed comfortably. No significant complaints today. Several episodes of bradycardia into the 40s overnight. Labs today: Sodium 142, potassium 2.9, chloride 107, CO2 34, BUN 19, creatinine 0.53, glucose 103, calcium 8, magnesium 1.7, CK 4232. Pertinent positives and negatives discussed above, a complete review of systems was performed and all the other systems were negative. Physical examination: Vital signs reviewed. Currently bradycardic and hypotensive. Saturating well on 2 L nasal cannula. General: Nontoxic, no distress, appears stated age, well-appearing Derm: Warm, dry, intact Head: Atraumatic, normocephalic, symmetric Eyes: EOMI, anicteric sclera Mouth: No lip lesion, mucus membranes moist Cardiovascular: S1-S2 regular, no murmur Lungs: CTA bilateral, no rhonchi, no rales, no accessory muscle use Abdominal: Soft, non-tender to palpation Extremities: No cyanosis, clubbing, or pedal edema Neuro: Alert, oriented x 3, gross neurological examination did not reveal any focal deficits. Cranial nerves II to XII grossly intact. Psych: Appropriate affect and mood Assessment and Plan: Patient is a 65-year-old female with CAD with 1 stent placement, hypertension, hyperlipidemia, fibromyalgia, chronic back pain, anxiety, and depression admit hawa for acute encephalopathy and rhabdomyolysis. Active #. Acute encephalopathy, toxic versus metabolic versus septic #. Acute delirium, hyperactive, likely due to pain #. Aspiration pneumonia Fall precautions Cardiac monitoring Neurochecks EEG reported moderate encephalopathy IV ceftriaxone 2 g daily IV azithromycin 500 mg daily Consult PT/OT Neurology consulted Hold all sedating medications for now Tylenol 1000 mg PO every 8 hours for pain control #. Rhabdomyolysis #. Acute kidney injury, renal, secondary to above, improving Monitor urine output Monitor CK Bladder scan every 6 hours Renal ultrasound negative for obstruction or calculus Discussed management with nephrology, patient to be placed back on sodium bicarb drip due to rising C Discontinuing atorvastatin considering possibility of rhabdomyolysis induced by statin, recommend outpatient rosuvastatin rather than atorvastatin once CK resolves #. Hypokalemia Potassium chloride ER 40 mEq PO x 2 Magnesium [id number] 1 g IV X1 Monitor BMP Monitor magnesium Resolved #. Acute COPD exacerbation #. Leukocytosis #. SIRS #. Hyperkalemia #. Hyperglycemia #. Acute kidney injury F: Lactated Ringer's at 75 cc/h E: Replete as required N: Regular diet A: Full precautions DVT prophylaxis: Heparin 5000 units subcutaneous every 8 hours Code status: Full code Anticipated discharge place: Pending clinical course I saw and evaluated the patient during the zheng and critical portions of this encounter, and discussed the case in detail with the resident author of this note, I agree with the Assessment and Plan, and my changes, if any, are highlighted in blue. Objective - Vital Signs Vital signs: Vital Signs Temp 98.7 F 08/10/24 00:00 Pulse 48 L 08/10/24 04:31 Resp 20 08/10/24 04:31 BP 177/81 08/10/24 04:31 Pulse Ox 97 08/10/24 04:31 FiO2 Intake & Output 08/09/24 08/10/24 08/10/24 18:59 06:59 18:59 Output Total 350 425 Balance -350 -425 Weight 94.6 kg Output: Urine 350 425 Other: Voiding Method Indwelling Catheter Indwelling Catheter # Bowel Movements 1 - Labs CBC & Chem 7: 08/08/24 17:39 08/10/24 06:21 Labs: Abnormal Lab Results - Last 24 Hours (Table) 08/09/24 08/09/24 08/09/24 Range/Units 11:33 16:32 20:06 Potassium (3.5-5.1) mmol/L Carbon Dioxide (22-30) mmol/L BUN (7-17) mg/dL Glucose (74-99) mg/dL POC Glucose (mg/dL) 155 H 141 H 155 H (70-110) mg/dL Calcium (8.4-10.2) mg/dL 08/10/24 08/10/24 Range/Units 05:59 06:21 Potassium 2.9 L (3.5-5.1) mmol/L Carbon Dioxide 34 H (22-30) mmol/L BUN 19 H (7-17) mg/dL Glucose 103 H (74-99) mg/dL POC Glucose (mg/dL) 125 H (70-110) mg/dL Calcium 8.0 L (8.4-10.2) mg/dL Microbiology - Last 24 Hours (Table) 08/07/24 11:30 Blood Culture - Preliminary Blood 08/07/24 11:00 Blood Culture - Preliminary Blood
[2024-08-10 19:57] LABS: Glucose,Whole Blood 145 mg/dL (70-110)
[2024-08-11 06:15] LABS: Glucose,Whole Blood 121 mg/dL (70-110)
[2024-08-11 08:13] LABS: African American GFR (CKD) >90 (>60 ml/min/1.73 sqM); Anion Gap 1 mmol/L; Blood Urea Nitrogen 24 mg/dL (7-17); Calcium 8.3 mg/dL (8.4-10.2); Carbon Dioxide 31 mmol/L (22-30); Chloride 111 mmol/L (98-107); Glucose 120 mg/dL (74-99); Non-African American GFR(CKD) >90 (>60 ml/min/1.73 sqM); Potassium 3.5 mmol/L (3.5-5.1); Sodium 143 mmol/L (137-145)
[2024-08-11 08:31] LABS: Creatine Kinase 2979 U/L (30-135)
--- NOTE | 2024-08-11 10:24 | P.PN ---
Subjective Patient is seen in follow-up for rhabdomyolysis. Maintained on IV fluids. Oral intake fair. Having loose bowel movements. Vital signs are stable. General: No acute distress. HEENT: Head exam is unremarkable. LUNGS: No audible rhonchi or wheezes. HEART: Rate and Rhythm are regular. ABDOMEN: Nontender. EXTREMITITES: No edema. Objective - Vital Signs Vital signs: Vital Signs Temp 100.1 F H 08/11/24 08:10 Pulse 73 08/11/24 08:10 Resp 17 08/11/24 08:10 BP 148/74 08/11/24 08:10 Pulse Ox 98 08/11/24 08:10 FiO2 Intake & Output 08/10/24 08/11/24 08/11/24 18:59 06:59 18:59 Intake Total 358 118 Output Total 450 400 Balance -92 -400 118 Weight 96.6 kg Intake: Oral 358 118 Output: Urine 450 400 Other: Voiding Method Indwelling Catheter Indwelling Catheter Indwelling Catheter # Bowel Movements 1 - Labs CBC & Chem 7: 08/08/24 17:39 08/11/24 07:07 Labs: Abnormal Lab Results - Last 24 Hours (Table) 08/10/24 08/10/24 08/10/24 Range/Units 06:21 11:36 16:02 Chloride (98-107) mmol/L Carbon Dioxide (22-30) mmol/L BUN (7-17) mg/dL Glucose (74-99) mg/dL POC Glucose (mg/dL) 140 H 131 H (70-110) mg/dL Calcium (8.4-10.2) mg/dL Creatine Kinase 4232 H* (30-135) U/L 08/10/24 08/11/24 08/11/24 Range/Units 19:55 06:14 07:07 Chloride 111 H (98-107) mmol/L Carbon Dioxide 31 H (22-30) mmol/L BUN 24 H (7-17) mg/dL Glucose 120 H (74-99) mg/dL POC Glucose (mg/dL) 145 H 121 H (70-110) mg/dL Calcium 8.3 L (8.4-10.2) mg/dL Creatine Kinase 2979 H* (30-135) U/L Microbiology - Last 24 Hours (Table) 08/07/24 11:30 Blood Culture - Preliminary Blood 08/07/24 11:00 Blood Culture - Preliminary Blood Assessment and Plan Plan: Assessment: 1. Acute kidney injury secondary to vasomotor nephropathy secondary to rhabdomyolysis, hypotension, HILARIO inhibitor use. Resolved. 2. Rhabdomyolysis secondary to fall and statin. CK levels trending down. 3. Pneumonia maintained on antibiotics. 4. Hypokalemia from intracellular shifting from IV bicarb. Replaced. Better. Plan: Maintain IV fluids. Replace potassium. Repeat CK level again in the morning. Continue to monitor renal function and urine output.
[2024-08-11] MEDS: POTASSIUM CHLORIDE ER 20 MEQ TAB.ER PO STA (11:39)
--- NOTE | 2024-08-11 11:42 | P.PN ---
Subjective Progress Note Date: 08/11/2408/10. Patient seen and examined lying in bed comfortably. No significant complaints today. Several episodes of bradycardia into the 40s overnight. Labs today: Sodium 142, potassium 2.9, chloride 107, CO2 34, BUN 19, creatinine 0.53, glucose 103, calcium 8, magnesium 1.7, CK 4232. Pertinent positives and negatives discussed above, a complete review of systems was performed and all the other systems were negative. Physical examination: Vital signs reviewed. Currently bradycardic and hypotensive. Saturating well on 2 L nasal cannula. General: Nontoxic, no distress, appears stated age, well-appearing Derm: Warm, dry, intact Head: Atraumatic, normocephalic, symmetric Eyes: EOMI, anicteric sclera Mouth: No lip lesion, mucus membranes moist Cardiovascular: S1-S2 regular, no murmur Lungs: CTA bilateral, no rhonchi, no rales, no accessory muscle use Abdominal: Soft, non-tender to palpation Extremities: No cyanosis, clubbing, or pedal edema Neuro: Alert, oriented x 3, gross neurological examination did not reveal any focal deficits. Cranial nerves II to XII grossly intact. Psych: Appropriate affect and mood Assessment and Plan: Patient is a 65-year-old female with CAD with 1 stent placement, hypertension, hyperlipidemia, fibromyalgia, chronic back pain, anxiety, and depression admit hawa for acute encephalopathy and rhabdomyolysis. Active #. Acute encephalopathy, toxic versus metabolic versus septic #. Acute delirium, hyperactive, likely due to pain #. Aspiration pneumonia Fall precautions Cardiac monitoring Neurochecks EEG reported moderate encephalopathy IV ceftriaxone 2 g daily IV azithromycin 500 mg daily Consult PT/OT Neurology consulted Hold all sedating medications for now Tylenol 1000 mg PO every 8 hours for pain control #. Rhabdomyolysis #. Acute kidney injury, renal, secondary to above, improving Monitor urine output Monitor CK Bladder scan every 6 hours Renal ultrasound negative for obstruction or calculus Discussed management with nephrology, patient to be placed back on sodium bicarb drip due to rising C Discontinuing atorvastatin considering possibility of rhabdomyolysis induced by statin, recommend outpatient rosuvastatin rather than atorvastatin once CK resolves #. Hypokalemia Potassium chloride ER 40 mEq PO x 2 Magnesium [id number] 1 g IV X1 Monitor BMP Monitor magnesium Resolved #. Acute COPD exacerbation #. Leukocytosis #. SIRS #. Hyperkalemia #. Hyperglycemia F: Lactated Ringer's at 75 cc/h E: Replete as required N: Regular diet A: Full precautions DVT prophylaxis: Heparin 5000 units subcutaneous every 8 hours Code status: Full code Anticipated discharge place: Pending clinical course Objective - Vital Signs Vital signs: Vital Signs Temp 100.1 F H 08/11/24 08:10 Pulse 73 08/11/24 08:10 Resp 17 08/11/24 08:10 BP 148/74 08/11/24 08:10 Pulse Ox 98 08/11/24 08:10 FiO2 Intake & Output 08/10/24 08/11/24 08/11/24 18:59 06:59 18:59 Intake Total 358 118 Output Total 450 400 Balance -92 -400 118 Weight 96.6 kg Intake: Oral 358 118 Output: Urine 450 400 Other: Voiding Method Indwelling Catheter Indwelling Catheter Indwelling Catheter # Bowel Movements 1 - Labs CBC & Chem 7: 08/08/24 17:39 08/11/24 07:07 Labs: Abnormal Lab Results - Last 24 Hours (Table) 08/10/24 08/10/24 08/11/24 Range/Units 16:02 19:55 06:14 Chloride (98-107) mmol/L Carbon Dioxide (22-30) mmol/L BUN (7-17) mg/dL Glucose (74-99) mg/dL POC Glucose (mg/dL) 131 H 145 H 121 H (70-110) mg/dL Calcium (8.4-10.2) mg/dL Creatine Kinase (30-135) U/L 08/11/24 Range/Units 07:07 Chloride 111 H (98-107) mmol/L Carbon Dioxide 31 H (22-30) mmol/L BUN 24 H (7-17) mg/dL Glucose 120 H (74-99) mg/dL POC Glucose (mg/dL) (70-110) mg/dL Calcium 8.3 L (8.4-10.2) mg/dL Creatine Kinase 2979 H* (30-135) U/L Microbiology - Last 24 Hours (Table) 08/07/24 11:30 Blood Culture - Preliminary Blood 08/07/24 11:00 Blood Culture - Preliminary Blood
[2024-08-11 11:51] LABS: Glucose,Whole Blood 119 mg/dL (70-110)
[2024-08-11 16:28] LABS: Glucose,Whole Blood 126 mg/dL (70-110)
[2024-08-11 20:11] LABS: Glucose,Whole Blood 116 mg/dL (70-110)
[2024-08-11 23:28] LABS: Glucose,Whole Blood 112 mg/dL (70-110)
[2024-08-12 00:12] LABS: Basophils # (A) 0.1 k/uL (0-0.2); Basophils % (A) 0 %; Eosinophils # (A) 0.2 k/uL (0-0.7); Eosinophils % (A) 1 %; HCT 22.6 % (34.0-46.0); Hypochromasia Slight; Lymphocytes # (A) 4.3 k/uL (1.0-4.8); Lymphocytes % (A) 31 %; MCH 29.9 pg (25.0-35.0); MCHC 32.6 g/dL (31.0-37.0); MCV 91.7 fL (80.0-100.0); Monocytes # (A) 0.7 k/uL (0-1.0); Monocytes % (A) 5 %; Neutrophils # (A) 8.4 k/uL (1.3-7.7); Neutrophils % (A) 61 %; Platelet Count 183 k/uL (150-450); RBC 2.47 m/uL (3.80-5.40); RDW 14.4 % (11.5-15.5); WBC 13.8 k/uL (3.8-10.6)
[2024-08-12 00:38] LABS: HGB 7.4 gm/dL (11.4-16.0)
--- NOTE | 2024-08-12 01:24 | P.EN ---
Informed regarding the patient's large bloody bowel movement and newly developed lightheadedness. The patient's hemoglobin resulted at 7.4 down from 11.7 on 08/08. Case was discussed with ICU PASSENGER INTERLINE CLERK and was accepted for transfer to MICU. Subsequently discussed the case with GI on-call who recommended keeping the patient n.p.o., IV PRBC transfusion as needed for hemoglobin less than 7, IV Protonix, with plans for EGD and possibly colonoscopy in AM.
[2024-08-12 02:33] LABS: Glucose,Whole Blood 122 mg/dL (70-110)
[2024-08-12] MEDS ORDERED: NALOXONE 0.4 MG/ML 1 ML VIAL IV PRN (02:51)
[2024-08-12] MEDS: SODIUM CHLORIDE 0.9% 1,000 ML IV ONE (03:36)
[2024-08-12] MEDS: PANTOPRAZOLE 40 MG/10 ML VIAL IVP ONE (03:38)
[2024-08-12 04:31] LABS: African American GFR (CKD) >90 (>60 ml/min/1.73 sqM); Anion Gap -3 mmol/L; Blood Urea Nitrogen 22 mg/dL (7-17); Calcium 7.8 mg/dL (8.4-10.2); Carbon Dioxide 26 mmol/L (22-30); Chloride 117 mmol/L (98-107); Glucose 120 mg/dL (74-99); Magnesium 1.7 mg/dL (1.6-2.3); Non-African American GFR(CKD) >90 (>60 ml/min/1.73 sqM); Potassium 3.7 mmol/L (3.5-5.1); Sodium 140 mmol/L (137-145)
--- NOTE | 2024-08-12 05:33 | P.CNPUL ---
History of Present Illness Consult date: 08/12/24 Requesting physician: Malgorzata Mcgee Reason for consult: other (Possible GI bleed) Chief complaint: Altered mental status History of present illness: Patient is a 69-year-old female with past medical history significant for hypertension, hyperlipidemia, CAD with previous PCI/stent, obesity, chronic ongoing tobacco dependence, fibromyalgia, obesity. Patient takes Percocets and morphine outpatient to manage her chronic pain. Presented to the emergency department back on 08/06/2024 for altered mental status and possible opiate overdose. Apparently, patient was found in the bathroom and was difficult to arouse. Unclear, how long the patient was on the bathroom floor. This is reportedly happened before. Found to have acute kidney injury on arrival and acute rhabdomyelosis. Acute kidney injury has since recovered, and CPK is downtrending, currently to 2979. Does take statins outpatient. Her mentation has since improved. Brain CTs did not show any acute intracranial process. EEG showing background slowing suggestive of moderate encephalopathy, no focal slowing or epileptiform discharge. Has had intermittent low-grade temperature, with a Tmax of 100.1 F. Reportedly recently treated outpatient for pneumonia. Still reporting some chest congestion, cough with blood-tinged sputum. Intermittent fevers. Chest x-ray done on admission showing subtle right middle lobe opacity. Blood cultures show no growth at 72 hrs. Continues on Rocephin.. Early this morning, around 01:00, I received a call from [place] emergency department physicians. Patient reportedly noted to have multiple large bloody bowel movements. Last CBC drawn on 08/08, hemoglobin was 11.7 g/dL. Currently 7.4 g/dL. Patient was a lso previously noted to be lightheaded and hypotensive. Recorded blood pressure as low as 79/42 mmHg. A unit of PRBCs was ordered. She was transferred to the intensive care unit. On my evaluation, patient is alert and oriented. She reports multiple loose black tarry stools. No escobar blood. Denies abdominal pain. No nausea, vomiting, or hematemesis. Current blood pressure is stable 115/65 mmHg. Has not required any vasopressors. LR is infusing at 75 mL/h. The unit of PRBCs is yet to be infused. We do have GI coverage this week, they are consulted. Denies history of previous GI bleed. Patient denies any chronic NSAID or anticoagulant use. Was receiving subcu heparin and aspirin inpatient. Current vitals: Temperature 98.5 F, heart rate 106 bpm, blood pressure 115/65 mmHg, nontachypneic, SpO2 100% on 2 L/min nasal cannula Review of Systems Constitutional: Reports fatigue, Reports fever, Denies chills, Denies poor appetite, Denies weight gain, Denies weight loss Ears, nose, mouth and throat: Denies headache, Denies nasal congestion, Denies nasal discharge, Denies post-nasal drip, Denies sinus pain, Denies sinus pressure, Denies sore throat Cardiovascular: Reports dyspnea on exertion, Denies chest pain, Denies leg edema, Denies orthopnea, Denies palpitations, Denies paroxysmal nocturnal dyspnea, Denies syncope Respiratory: Reports congestion, Reports cough, Reports sleep apnea, Denies cough with sputum, Denies hemoptysis, Denies home oxygen, Denies wheezing Gastrointestinal: Reports diarrhea, Reports melena, Denies abdominal pain, Denies coffee ground emesis, Denies constipation, Denies loss of appetite, Denies nausea, Denies vomiting Genitourinary: Denies dysuria, Denies flank pain, Denies hematuria, Denies urinary frequency Musculoskeletal: Denies limitation of motion Integumentary: Denies rash Neurological: Denies headaches, Denies numbness, Denies paralysis, Denies paresthesias, Denies seizures, Denies syncope, Denies visual changes Psychiatric: Denies anxiety, Denies depression Past Medical History Past Medical History: Coronary Artery Disease (CAD), Fibromyalgia, Hypertension, Myocardial Infarction ([place]) Additional Past Medical History / Comment(s): chronic back pain, Back Injury 9 years ago Last Myocardial Infarction Date:: 2020 History of Any Multi-Drug Resistant Organisms: None Reported Past Surgical History: Heart Catheterization, Heart Catheterization With Stent Past Anesthesia/Blood Transfusion Reactions: No Reported Reaction Date of Last Stent Placement:: 2020 Past Psychological History: Anxiety, Depression Smoking Status: Current every day smoker Past Alcohol Use History: None Reported Past Drug Use History: None Reported Medications and Allergies Home Medications Medication Instructions Recorded Confirmed Type Morphine Sulfate ER [Ms Contin] 30 mg PO Q12HR 08/26/19 08/06/24 History Pregabalin [Lyrica] 225 mg PO BID 08/26/19 08/06/24 History Sertraline [Zoloft] 100 mg PO DAILY 08/26/19 08/06/24 History oxyCODONE-APAP 7.5-325MG [Percocet 1 tab PO BID PRN 08/26/19 08/06/24 History 7.5-325 mg] tiZANidine HCL 4 mg PO BID PRN 08/26/19 08/06/24 History Butalb/APAP/Caff 50-325-40Mg 1 tab PO Q6HR PRN 12/30/21 08/06/24 History [Fioricet 50-325-40] Diclofenac Sodium [Voltaren] 75 mg PO BID PRN 03/27/23 08/06/24 History Rosuvastatin [Crestor] 10 mg PO DAILY 03/27/23 08/06/24 History Metoprolol Succinate (ER) [Toprol 25 mg PO DAILY 10/22/23 08/06/24 History XL] lisinopriL [Zestril] 10 mg PO DAILY 10/22/23 08/06/24 History Albuterol Sulfate [Ventolin HFA] 2 puff INHALATION RT-Q4H PRN 08/06/24 08/06/24 History Aspirin EC [Ecotrin Low Dose] 81 mg PO DAILY 08/06/24 08/06/24 History Nitroglycerin Sl Tabs [Nitrostat] 0.4 mg SL Q5M PRN 08/06/24 08/06/24 History Allergies Allergy/AdvReac Type Severity Reaction Status Date / Time No Known Allergies Allergy Verified 08/06/24 12:04 Physical Exam Vitals: Vital Signs Temp Pulse Pulse Resp BP BP Pulse Ox 08/12/24 04:00 98.5 F 106 H 26 H 115/65 100 08/12/24 03:00 90 30 H 120/70 99 08/12/24 02:32 17 08/12/24 02:03 79/42 08/12/24 01:47 92/49 08/12/24 01:38 105/67 08/12/24 01:20 100/66 08/11/24 23:40 94 18 118/79 98 08/11/24 23:21 98.2 F 87 18 135/78 100 08/11/24 19:25 98.8 F 53 L 16 122/70 96 08/11/24 16:00 100.1 F H 50 L 17 169/74 99 08/11/24 11:40 98.4 F 47 L 18 147/81 99 08/11/24 08:10 100.1 F H 73 17 148/74 98 Intake and Output 08/11/24 08/11/24 08/12/24 14:59 22:59 06:59 Intake Total 236 355 150 Output Total 350 150 Balance -114 355 0 Intake: IV 150 Lactated Ringers 1,000 ml 150 @ 75 mls/hr IV .[id number] [facility] Rx#:[id number] Oral 236 355 Output: Urine 350 150 Uretheral ([place]) 350 Other: Voiding Method Indwelling Catheter Toilet Indwelling Catheter # Voids 1 # Bowel Movements 4 1 GENERAL EXAM: Alert, 69-year-old obese female, generalized pallor, comfortable in no apparent distress. HEAD: Normocephalic and atraumatic EYES: Normal reaction of pupils, equal size. NOSE: Clear with pink turbinates. THROAT: No erythema or exudates. NECK: No masses, no JVD. CHEST: No chest wall deformity. LUNGS: Equal air entry with no crackles, wheeze, rhonchi or dullness. On 2 L/min nasal cannula. SpO2 100%. No conversational dyspnea or accessory muscle use.. CVS: S1 and S2 normal with no audible murmur, regular rhythm. No extra heart sounds ABDOMEN: Obese abdomen, superficial/generalized bruising, no hepatosplenomegaly, active bowel sounds, no guarding or rigidity. SPINE: No scoliosis or deformity SKIN: No rashes CENTRAL NERVOUS SYSTEM: No focal deficits, tone is normal in all 4 extremities. EXTREMITIES: There is no peripheral edema, clubbing, or cyanosis. Peripheral pulses are intact. Results - Laboratory Findings CBC and BMP: 08/12/24 05:31 08/12/24 02:39 PT/INR, D-dimer PT 10.3 sec (10.0-12.5) 08/06/24 08:58 INR 0.9 (<1.2) 08/06/24 08:58 Abnormal lab findings: Abnormal Labs 08/06/24 08/06/24 08/06/24 08:54 08:58 08:58 WBC 12.7 H RBC Hgb Hct MCHC Neutrophils # 10.5 H Lymphocytes # Sodium 131 L Potassium 5.2 H Chloride 93 L Carbon Dioxide 21 L BUN 65 H Creatinine 5.18 H Glucose 144 H POC Glucose (mg/dL) 158 H Calcium AST 95 H Creatine Kinase 4726 H* Total Protein Albumin TSH Urine Appearance Urine Protein Urine Blood Ur Leukocyte Esterase Urine WBC Urine Bacteria Hyaline Casts Urine Mucus Urine Opiates Screen Ur Oxycodone Screen 08/06/24 08/06/24 08/06/24 10:19 17:23 21:28 WBC RBC Hgb Hct MCHC Neutrophils # Lymphocytes # Sodium Potassium Chloride Carbon Dioxide BUN Creatinine Glucose POC Glucose (mg/dL) 141 H 156 H Calcium AST Creatine Kinase Total Protein Albumin TSH Urine Appearance Cloudy H Urine Protein 1+ H Urine Blood Large H Ur Leukocyte Esterase Small H Urine WBC 14 H Urine Bacteria Rare H Hyaline Casts 9 H Urine Mucus Moderate H Urine Opiates Screen Detected H Ur Oxycodone Screen Detected H 08/07/24 08/07/24 08/07/24 01:39 05:46 05:46 WBC RBC 3.68 L Hgb 10.9 L D Hct MCHC 30.4 L Neutrophils # Lymphocytes # 0.7 L Sodium 136 L Potassium Chloride 113 H Carbon Dioxide 14 L BUN 56 H Creatinine 1.85 H Glucose 124 H POC Glucose (mg/dL) 166 H Calcium 7.2 L AST 76 H Creatine Kinase 3141 H* Total Protein 5.1 L Albumin 2.8 L TSH Urine Appearance Urine Protein Urine Blood Ur Leukocyte Esterase Urine WBC Urine Bacteria Hyaline Casts Urine Mucus Urine Opiates Screen Ur Oxycodone Screen 08/07/24 08/07/24 08/07/24 05:46 11:34 17:42 WBC RBC Hgb Hct MCHC Neutrophils # Lymphocytes # Sodium Potassium Chloride Carbon Dioxide BUN Creatinine Glucose POC Glucose (mg/dL) 159 H 230 H Calcium AST Creatine Kinase Total Protein Albumin TSH 0.097 L Urine Appearance Urine Protein Urine Blood Ur Leukocyte Esterase Urine WBC Urine Bacteria Hyaline Casts Urine Mucus Urine Opiates Screen Ur Oxycodone Screen 08/07/24 08/08/24 08/08/24 21:07 05:33 05:33 WBC RBC Hgb Hct MCHC Neutrophils # Lymphocytes # 0.7 L Sodium Potassium Chloride 112 H Carbon Dioxide BUN 25 H Creatinine Glucose 152 H POC Glucose (mg/dL) 145 H Calcium AST Creatine Kinase Total Protein Albumin TSH Urine Appearance Urine Protein Urine Blood Ur Leukocyte Esterase Urine WBC Urine Bacteria Hyaline Casts Urine Mucus Urine Opiates Screen Ur Oxycodone Screen 08/08/24 08/08/24 08/08/24 05:33 06:15 12:26 WBC RBC Hgb Hct MCHC Neutrophils # Lymphocytes # Sodium Potassium Chloride Carbon Dioxide BUN Creatinine Glucose POC Glucose (mg/dL) 165 H 167 H Calcium AST Creatine Kinase 68979 H* Total Protein Albumin TSH Urine Appearance Urine Protein Urine Blood Ur Leukocyte Esterase Urine WBC Urine Bacteria Hyaline Casts Urine Mucus Urine Opiates Screen Ur Oxycodone Screen 08/08/24 08/08/24 08/08/24 16:27 17:39 17:39 WBC RBC Hgb Hct MCHC Neutrophils # Lymphocytes # Sodium Potassium Chloride 109 H Carbon Dioxide BUN 20 H Creatinine Glucose 152 H POC Glucose (mg/dL) 175 H Calcium 8.2 L AST Creatine Kinase 03817 H* Total Protein Albumin TSH Urine Appearance Urine Protein Urine Blood Ur Leukocyte Esterase Urine WBC Urine Bacteria Hyaline Casts Urine Mucus Urine Opiates Screen Ur Oxycodone Screen 08/08/24 08/09/24 08/09/24 20:32 05:39 11:33 WBC RBC Hgb Hct MCHC Neutrophils # Lymphocytes # Sodium Potassium Chloride Carbon Dioxide BUN Creatinine Glucose POC Glucose (mg/dL) 184 H 162 H 155 H Calcium AST Creatine Kinase Total Protein Albumin TSH Urine Appearance Urine Protein Urine Blood Ur Leukocyte Esterase Urine WBC Urine Bacteria Hyaline Casts Urine Mucus Urine Opiates Screen Ur Oxycodone Screen 08/09/24 08/09/24 08/10/24 16:32 20:06 05:59 WBC RBC Hgb Hct MCHC Neutrophils # Lymphocytes # Sodium Potassium Chloride Carbon Dioxide BUN Creatinine Glucose POC Glucose (mg/dL) 141 H 155 H 125 H Calcium AST Creatine Kinase Total Protein Albumin TSH Urine Appearance Urine Protein Urine Blood Ur Leukocyte Esterase Urine WBC Urine Bacteria Hyaline Casts Urine Mucus Urine Opiates Screen Ur Oxycodone Screen 08/10/24 08/10/24 08/10/24 06:21 06:21 11:36 WBC RBC Hgb Hct MCHC Neutrophils # Lymphocytes # Sodium Potassium 2.9 L Chloride Carbon Dioxide 34 H BUN 19 H Creatinine Glucose 103 H POC Glucose (mg/dL) 140 H Calcium 8.0 L AST Creatine Kinase 4232 H* Total Protein Albumin TSH Urine Appearance Urine Protein Urine Blood Ur Leukocyte Esterase Urine WBC Urine Bacteria Hyaline Casts Urine Mucus Urine Opiates Screen Ur Oxycodone Screen 08/10/24 08/10/24 08/11/24 16:02 19:55 06:14 WBC RBC Hgb Hct MCHC Neutrophils # Lymphocytes # Sodium Potassium Chloride Carbon Dioxide BUN Creatinine Glucose POC Glucose (mg/dL) 131 H 145 H 121 H Calcium AST Creatine Kinase Total Protein Albumin TSH Urine Appearance Urine Protein Urine Blood Ur Leukocyte Esterase Urine WBC Urine Bacteria Hyaline Casts Urine Mucus Urine Opiates Screen Ur Oxycodone Screen 08/11/24 08/11/24 08/11/24 07:07 11:49 16:25 WBC RBC Hgb Hct MCHC Neutrophils # Lymphocytes # Sodium Potassium Chloride 111 H Carbon Dioxide 31 H BUN 24 H Creatinine Glucose 120 H POC Glucose (mg/dL) 119 H 126 H Calcium 8.3 L AST Creatine Kinase 2979 H* Total Protein Albumin TSH Urine Appearance Urine Protein Urine Blood Ur Leukocyte Esterase Urine WBC Urine Bacteria Hyaline Casts Urine Mucus Urine Opiates Screen Ur Oxycodone Screen 08/11/24 08/11/24 08/11/24 20:10 23:26 23:44 WBC 13.8 H RBC 2.47 L Hgb 7.4 L D Hct 22.6 L MCHC Neutrophils # 8.4 H Lymphocytes # Sodium Potassium Chloride Carbon Dioxide BUN Creatinine Glucose POC Glucose (mg/dL) 116 H 112 H Calcium AST Creatine Kinase Total Protein Albumin TSH Urine Appearance Urine Protein Urine Blood Ur Leukocyte Esterase Urine WBC Urine Bacteria Hyaline Casts Urine Mucus Urine Opiates Screen Ur Oxycodone Screen 08/12/24 02:31 WBC RBC Hgb Hct MCHC Neutrophils # Lymphocytes # Sodium Potassium Chloride Carbon Dioxide BUN Creatinine Glucose POC Glucose (mg/dL) 122 H Calcium AST Creatine Kinase Total Protein Albumin TSH Urine Appearance Urine Protein Urine Blood Ur Leukocyte Esterase Urine WBC Urine Bacteria Hyaline Casts Urine Mucus Urine Opiates Screen Ur Oxycodone Screen - Diagnostic Findings Chest x-ray: image reviewed Assessment and Plan Assessment: Possible GI bleed, patient was transferred to the ICU early this morning. Concern for possible GI bleed and multiple bloody stools. Last CBC drawn on 08/08, hemoglobin was 11.7 g/dL. Currently 7.4 g/dL. Hypotension, improved Rhabdomyelosis, CPK is downtrending, currently to 2979 Acute kidney injury, secondary to above, improved Acute febrile illness, treated for presumptive pneumonia, chest x-ray previously showing a subtle right middle lobe infiltrate on admission. Chronic pain, fibromyalgia, and chronic opiate use Altered mental status, likely secondary to metabolic encephalopathy and above, resolved History of frequent urinary tract infections History of hypertension History of hyperlipidemia History of coronary artery disease with previous PCI/stenting Former tobacco smoker, last cigarette was apparently 3 weeks ago. Patient started smoking reportedly at age 50, is normally a 1 pack/day smoker Obesity, with a BMI of 32.4 kg/m Plan: Patient was reportedly having multiple bloody bowel movements while on the medical floor. Last CBC drawn on 08/08, hemoglobin was 11.7 g/dL. Currently 7.4 g/dL. Was previously symptomatic. Transferred to the intensive care unit. GI has been consulted for possible EGD/colonoscopy. Continue Protonix 40 mg twice daily. 1 unit PRBCs was ordered. Not required any vasopressors. Hypotension h as since recovered. Send for fecal occult. Monitor H&H. Transfuse for hemoglobin less than 7 g/dL. We will continue to follow the patient while in the intensive care unit. I have personally seen and examined the patient, performed the documentation and the assessment and plan as written. Number of minutes spent on the visit:20 this is a joint evaluation that was done along with the nurse practitioner. This evaluation was done and more than 30 minutes. The patient got transferred to the intensive care unit because of significant drop in hemoglobin down to 5.5 with melanotic stool. The patient had large bloody bowel movements and this was associated with stability and hypotension. Accordingly, the patient was transferred to the intensive care unit. She is currently NPO. She is receiving her first unit of packed RBC and a second unit this will follow and the patient will have a stat EGD. She is on IV Protonix. No previous EGDs or colonoscopies performed. Comorbidities are multiple including coronary artery disease, history of smoking, hypertension hyperlipidemia and fibromyalgia with chronic pain. She initially presented to the hospital because of altered mentation suspected to be related to opiate overdose. She also had a component of rhabdomyolysis. Most recent blood work shows a WBC count of 14.7, hemoglobin is 5.5 and a platelet count 166. Electrolytes are normal, renal function is normal, CPK has been downtrending. She is on IV fluids which is running at 75 cc an hour of normal saline. Chest x-ray is not showing any acute pulmonary infiltrates. Blood cultures are negative and the patient is on empiric antibiotic coverage with Rocephin. Rest of the antihypertensive medication including metoprolol and Zestoretic are currently. Will continue to follow. The patient will be kept in the ICU following the EGD. Time with Patient: Greater than 30
[2024-08-12 06:31] LABS: Creatine Kinase 2252 U/L (30-135)
[2024-08-12 06:41] LABS: MCH 29.6 pg (25.0-35.0); MCHC 32.1 g/dL (31.0-37.0); MCV 92.2 fL (80.0-100.0); Mean Platelet Volume 9.2; Platelet Count 156 k/uL (150-450); RBC 1.85 m/uL (3.80-5.40); RDW 15.1 % (11.5-15.5); WBC 14.7 k/uL (3.8-10.6)
[2024-08-12 06:52] LABS: HGB 5.5 gm/dL (11.4-16.0)
[2024-08-12] MEDS: POTASSIUM CHLORIDE 10 MEQ in WATER FOR INJECTION 1 100ML.BAG IVPB SCH (07:00)
[2024-08-12 07:03] LABS: Glucose,Whole Blood 138 mg/dL (70-110)
[2024-08-12] MEDS ORDERED: PROPOFOL 10 MG/ML 20 ML VIAL IV ONE (08:33)
[2024-08-12] MEDS ORDERED: PHENYLEPHRINE 10 MG/ML VIAL ONE (08:33)
[2024-08-12] MEDS ORDERED: LIDOCAINE 1% INJ 10MG/ML (20 ML MDV) ONE (08:33)
[2024-08-12] MEDS: IV FLUID CONTINUATION 1,000 ML IV ONE (08:34)
--- NOTE | 2024-08-12 08:53 | P.PCN ---
Date of Procedure: 08/12/24 Procedure(s) Performed: BRIEF HISTORY: Patient is a 69-year-old, pleasant, white female admitted to hospital 5 days ago with acute rhabdomyolysis. She started having some black tarry stools 3 days ago but last night had a massive maroon-colored stool following which she became hypotensive and was transferred to the intensive care unit. She dropped her hemoglobin from 11 to 5.8 g/dL requiring clearance of PRBC transfusion. Because of clinical suspicion for upper GI bleed she is scheduled for an upper endoscopy on an emergent basis. PROCEDURE PERFORMED: Esophagogastroduodenoscopy biopsy and Endo Clip placement. PREOPERATIVE DIAGNOSIS: Acute GI bleed. IV sedation per anesthesia. PROCEDURE: After informed consent was obtained, the patient was brought into the endoscopy unit. IV sedation was administered by Anesthesia under continuous monitoring. Initially the Olympus GIF-140 video endoscope was inserted into the mouth. Esophagus intubated without any difficulty. It was gradually advanced into the stomach and duodenum and carefully examined. The bulb and the second part of the duodenum appeared normal. The scope at this time was withdrawn to the stomach, adequately insufflated with air, and upon careful examination, mucosa of the antrum, body, multiple gastric ulcerations identified. These ulcers measuring between 5 mm to 1 cm in size. There was 1 ulcer in the proximal body of the stomach which had a visible blood vessel but no active bleeding noted. 2 endoclips were placed with good hemostasis. Rest of cardia and the fundus appeared normal. The scope was then withdrawn into the esophagus. The GE junction was located at 39 cm from the incisors. The esophagus appeared normal. There were no erosions or ulcerations seen and the patient tolerated the procedure well. IMPRESSION: 1. Gastric ulcer in the proximal body of the stomach measuring 1 cm in size with a visible vessel but no active bleeding status post 2 endoclips placement. 2. Multiple gastric ulcers noted in the gastric body as well as antrum of the stomach all measuring between 5 mm to 1 cm in size no active bleeding. RECOMMENDATIONS: The findings of this examination were discussed with the patient as well as her family. She will be continued on Protonix 40 mg twice daily. Started on clear liquid diet today. Monitor CBC every 6 hours and transfuse if the hemoglobin is less than 7..
[2024-08-12] MEDS: PANTOPRAZOLE 40 MG/10 ML VIAL IVP SCH (09:46)
[2024-08-12 09:50] LABS: INR 1.2 (<1.2); Prothrombin Time 13.1 sec (10.0-12.5)
--- NOTE | 2024-08-12 10:04 | P.PN ---
Subjective Patient is seen in follow-up for rhabdomyolysis. Maintained on IV fluids. Oral intake fair. Transferred to ICU due to acute GI bleed. Hemoglobin 5.5 this morning. Receiving second unit of blood. Vital signs are stable. General: No acute distress. HEENT: Head exam is unremarkable. LUNGS: No audible rhonchi or wheezes. HEART: Rate and Rhythm are regular. ABDOMEN: Nontender. EXTREMITITES: No edema. Objective - Vital Signs Vital signs: Vital Signs Temp 99.0 F 08/12/24 09:21 Pulse 74 08/12/24 09:21 Resp 18 08/12/24 09:21 BP 129/63 08/12/24 09:21 Pulse Ox 100 08/12/24 09:21 FiO2 Intake & Output 08/11/24 08/12/24 08/12/24 18:59 06:59 18:59 Intake Total 354 537 585 Output Total 350 275 75 Balance 4 262 510 Intake: IV 300 275 Lactated Ringers 1,000 ml 300 75 @ 75 mls/hr IV .[id number] [facility] Rx#:[id number] Potassium Chloride 10 meq 100 In Water For Injection 1 100ml.bag @ 100 mls/hr IVPB Q1H [facility] Rx#: [id number] Oral 354 237 Blood Product 0 310 Rc As-1 Unit 0 [id number] Rc As-1 Unit 0 310 [id number] Output: Urine 350 275 75 Uretheral ([place]) 350 Other: Voiding Method Indwelling Catheter Indwelling Catheter # Voids 1 # Bowel Movements 4 1 - Labs CBC & Chem 7: 08/12/24 05:31 08/12/24 02:39 Labs: Abnormal Lab Results - Last 24 Hours (Table) 08/11/24 08/11/24 08/11/24 Range/Units 11:49 16:25 20:10 WBC (3.8-10.6) k/uL RBC (3.80-5.40) m/uL Hgb (11.4-16.0) gm/dL Hct (34.0-46.0) % Neutrophils # (1.3-7.7) k/uL PT (10.0-12.5) sec INR (<1.2) Chloride (98-107) mmol/L BUN (7-17) mg/dL Glucose (74-99) mg/dL POC Glucose (mg/dL) 119 H 126 H 116 H (70-110) mg/dL Calcium (8.4-10.2) mg/dL Creatine Kinase (30-135) U/L Crossmatch 08/11/24 08/11/24 08/12/24 Range/Units 23:26 23:44 02:31 WBC 13.8 H (3.8-10.6) k/uL RBC 2.47 L (3.80-5.40) m/uL Hgb 7.4 L D (11.4-16.0) gm/dL Hct 22.6 L (34.0-46.0) % Neutrophils # 8.4 H (1.3-7.7) k/uL PT (10.0-12.5) sec INR (<1.2) Chloride (98-107) mmol/L BUN (7-17) mg/dL Glucose (74-99) mg/dL POC Glucose (mg/dL) 112 H 122 H (70-110) mg/dL Calcium (8.4-10.2) mg/dL Creatine Kinase (30-135) U/L Crossmatch 08/12/24 08/12/24 08/12/24 Range/Units 02:39 02:39 05:31 WBC 14.7 H (3.8-10.6) k/uL RBC 1.85 L (3.80-5.40) m/uL Hgb 5.5 L* D (11.4-16.0) gm/dL Hct 17.0 L* (34.0-46.0) % Neutrophils # (1.3-7.7) k/uL PT (10.0-12.5) sec INR (<1.2) Chloride 117 H (98-107) mmol/L BUN 22 H (7-17) mg/dL Glucose 120 H (74-99) mg/dL POC Glucose (mg/dL) (70-110) mg/dL Calcium 7.8 L (8.4-10.2) mg/dL Creatine Kinase 2252 H* (30-135) U/L Crossmatch See Detail 08/12/24 08/12/24 Range/Units 07:02 09:16 WBC (3.8-10.6) k/uL RBC (3.80-5.40) m/uL Hgb (11.4-16.0) gm/dL Hct (34.0-46.0) % Neutrophils # (1.3-7.7) k/uL PT 13.1 H (10.0-12.5) sec INR 1.2 H (<1.2) Chloride (98-107) mmol/L BUN (7-17) mg/dL Glucose (74-99) mg/dL POC Glucose (mg/dL) 138 H (70-110) mg/dL Calcium (8.4-10.2) mg/dL Creatine Kinase (30-135) U/L Crossmatch Assessment and Plan Plan: Assessment: 1. Acute kidney injury secondary to vasomotor nephropathy secondary to rhabdomyolysis, hypotension, HILARIO inhibitor use. Resolved. 2. Rhabdomyolysis secondary to fall and statin. CK levels trending down. 3. Pneumonia maintained on antibiotics. 4. Hypokalemia from intracellular shifting from IV bicarb. Replaced. 5. Acute GI bleed status post blood transfusions. EGD showed gastric ulcer without any active bleeding status post 2 endoclips placement. Multiple gastric ulcers were noted. GI following. Plan: Maintain IV fluids. IV DDAVP x1 today. Repeat CK level again in the morning. Continue to monitor renal function and urine output.
--- NOTE | 2024-08-12 10:17 | P.CONS ---
History of Present Illness - Reason for Consult Consult date: 08/12/24 GI bleed Requesting physician: Malgorzata Mcgee - Chief Complaint Altered mental status changes - History of Present Illness This is a pleasant 69-year-old female who was brought in for altered mental status changes. Apparently patient was found on the floor for undisclosed am ount of time. Suspected possible opiate overdose. Past medical history includes hypertension, hyperlipidemia, coronary artery disease with previous stent, obesity, chronic ongoing tobacco dependence, fibromyalgia, and obesity. Apparently patient takes Percocet and morphine outpatient to manage her chronic pain. Patient was admitted with acute kidney injury and rhabdomyolysis. Apparently during the evening patient had a large bloody bowel movement. Rapid response team was called and patient was transferred to the ICU for an acute GI bleed. When patient initially came in she had a hemoglobin of 13 which since has dropped to 6.8. She received 1 unit of blood. She has had 5 bowel moveme nts since yesterday, last 2 had large amount of clots and maroon and black stool. She denies any previous history of GI bleed. No previous history of peptic ulcer disease. She does not take any anticoagulation however she does take Voltaren previously but has been off of it for the last 6 months duration. She does take a daily 81 mg aspirin. Review of Systems REVIEW OF SYSTEMS: CARDIOPULMONARY: No chest pain or shortness of breath. Gastrointestinal: No abdominal pain. No nausea or vomiting. No hematemesis, coffee-ground emesis. Melena, With clots. GENITOURINARY: No dysuria or hematuria. MUSCULOSKELETAL: Reports normal range of motion., Joint pain. SKIN: No rashes. No jaundice. ENDOCRINE: No chills, fevers. No excessive weight gain or loss. No polydipsia or polyuria. PSYCHIATRIC: Unremarkable. NEUROLOGY: No change in mental status. Denies dizziness, headache. ENT: Vision unremarkable. CONSTITUTIONAL: No recent weight loss. No fever, chills, night sweats. Past Medical History Past Medical History: Coronary Artery Disease (CAD), Fibromyalgia, Hypertension, Myocardial Infarction (CO) Additional Past Medical History / Comment(s): chronic back pain, Back Injury 9 years ago Last Myocardial Infarction Date:: 2020 History of Any Multi-Drug Resistant Organisms: None Reported Past Surgical History: Heart Catheterization, Heart Catheterization With Stent Past Anesthesia/Blood Transfusion Reactions: No Reported Reaction Date of Last Stent Placement:: 2020 Past Psychological History: Anxiety, Depression Smoking Status: Current every day smoker Past Alcohol Use History: None Reported Past Drug Use History: None Reported Medications and Allergies Home Medications Medication Instructions Recorded Confirmed Type Morphine Sulfate ER [Ms Contin] 30 mg PO Q12HR 08/26/19 08/06/24 History Pregabalin [Lyrica] 225 mg PO BID 08/26/19 08/06/24 History Sertraline [Zoloft] 100 mg PO DAILY 08/26/19 08/06/24 History oxyCODONE-APAP 7.5-325MG [Percocet 1 tab PO BID PRN 08/26/19 08/06/24 History 7.5-325 mg] tiZANidine HCL 4 mg PO BID PRN 08/26/19 08/06/24 History Butalb/APAP/Caff 50-325-40Mg 1 tab PO Q6HR PRN 12/30/21 08/06/24 History [Fioricet 50-325-40] Diclofenac Sodium [Voltaren] 75 mg PO BID PRN 03/27/23 08/06/24 History Rosuvastatin [Crestor] 10 mg PO DAILY 03/27/23 08/06/24 History Metoprolol Succinate (ER) [Toprol 25 mg PO DAILY 10/22/23 08/06/24 History XL] lisinopriL [Zestril] 10 mg PO DAILY 10/22/23 08/06/24 History Albuterol Sulfate [Ventolin HFA] 2 puff INHALATION RT-Q4H PRN 08/06/24 08/06/24 History Aspirin EC [Ecotrin Low Dose] 81 mg PO DAILY 08/06/24 08/06/24 History Nitroglycerin Sl Tabs [Nitrostat] 0.4 mg SL Q5M PRN 08/06/24 08/06/24 History Allergies Allergy/AdvReac Type Severity Reaction Status Date / Time No Known Allergies Allergy Verified 08/06/24 12:04 Physical Exam Vitals: Vital Signs Temp Pulse Pulse Resp BP BP Pulse Ox 08/12/24 07:26 97.5 F L 92 16 104/70 99 08/12/24 07:06 98.1 F 98 16 119/54 99 08/12/24 07:00 94 14 95/60 99 08/12/24 06:00 98 21 104/55 99 08/12/24 05:00 105 H 28 H 124/59 08/12/24 04:00 98.5 F 106 H 26 H 115/65 100 08/12/24 03:00 90 30 H 120/70 99 08/12/24 02:32 17 08/12/24 02:03 79/42 08/12/24 01:47 92/49 08/12/24 01:38 105/67 08/12/24 01:20 100/66 08/11/24 23:40 94 18 118/79 98 08/11/24 23:21 98.2 F 87 18 135/78 100 08/11/24 19:25 98.8 F 53 L 16 122/70 96 08/11/24 16:00 100.1 F H 50 L 17 169/74 99 08/11/24 11:40 98.4 F 47 L 18 147/81 99 08/11/24 08:10 100.1 F H 73 17 148/74 98 Intake and Output 08/11/24 08/12/24 08/12/24 22:59 06:59 14:59 Intake Total 355 300 175 Output Total 275 75 Balance 355 25 100 Intake: IV 300 175 Lactated Ringers 1,000 ml 300 75 @ 75 mls/hr IV .[id number] [facility] Rx#:[id number] Potassium Chloride 10 meq 100 In Water For Injection 1 100ml.bag @ 100 mls/hr IVPB Q1H [facility] Rx#: [id number] Oral 355 Blood Product 0 Rc As-1 Unit 0 [id number] Output: Urine 275 75 Other: Voiding Method Toilet Indwelling Catheter # Voids 1 # Bowel Movements 1 General appearance: The patient is alert, oriented, appears in no acute distress. HET: Head is normocephalic and atraumatic. Conjunctiva pink. Sclera anicteric. Neck: Supple without lymphadenopathy. Trachea midline. Heart: Regular. Lungs: Equal expansion, normal respiratory effort. Abdomen: Soft, nontender, nondistended. Skin: No rashes. No jaundice. Extremities: Normal skin color and turgor. No pedal edema. Neurological: No focal deficits. Alert and oriented x3. Results CBC & Chem 7: 08/12/24 05:31 08/12/24 02:39 Labs: Abnormal Lab Results - Last 24 Hours (Table) 08/11/24 08/11/24 08/11/24 Range/Units 07:07 11:49 16:25 WBC (3.8-10.6) k/uL RBC (3.80-5.40) m/uL Hgb (11.4-16.0) gm/dL Hct (34.0-46.0) % Neutrophils # (1.3-7.7) k/uL Chloride 111 H (98-107) mmol/L Carbon Dioxide 31 H (22-30) mmol/L BUN 24 H (7-17) mg/dL Glucose 120 H (74-99) mg/dL POC Glucose (mg/dL) 119 H 126 H (70-110) mg/dL Calcium 8.3 L (8.4-10.2) mg/dL Creatine Kinase 2979 H* (30-135) U/L Crossmatch 08/11/24 08/11/24 08/11/24 Range/Units 20:10 23:26 23:44 WBC 13.8 H (3.8-10.6) k/uL RBC 2.47 L (3.80-5.40) m/uL Hgb 7.4 L D (11.4-16.0) gm/dL Hct 22.6 L (34.0-46.0) % Neutrophils # 8.4 H (1.3-7.7) k/uL Chloride (98-107) mmol/L Carbon Dioxide (22-30) mmol/L BUN (7-17) mg/dL Glucose (74-99) mg/dL POC Glucose (mg/dL) 116 H 112 H (70-110) mg/dL Calcium (8.4-10.2) mg/dL Creatine Kinase (30-135) U/L Crossmatch 08/12/24 08/12/24 08/12/24 Range/Units 02:31 02:39 02:39 WBC (3.8-10.6) k/uL RBC (3.80-5.40) m/uL Hgb (11.4-16.0) gm/dL Hct (34.0-46.0) % Neutrophils # (1.3-7.7) k/uL Chloride 117 H (98-107) mmol/L Carbon Dioxide (22-30) mmol/L BUN 22 H (7-17) mg/dL Glucose 120 H (74-99) mg/dL POC Glucose (mg/dL) 122 H (70-110) mg/dL Calcium 7.8 L (8.4-10.2) mg/dL Creatine Kinase 2252 H* (30-135) U/L Crossmatch See Detail 08/12/24 08/12/24 Range/Units 05:31 07:02 WBC 14.7 H (3.8-10.6) k/uL RBC 1.85 L (3.80-5.40) m/uL Hgb 5.5 L* D (11.4-16.0) gm/dL Hct 17.0 L* (34.0-46.0) % Neutrophils # (1.3-7.7) k/uL Chloride (98-107) mmol/L Carbon Dioxide (22-30) mmol/L BUN (7-17) mg/dL Glucose (74-99) mg/dL POC Glucose (mg/dL) 138 H (70-110) mg/dL Calcium (8.4-10.2) mg/dL Creatine Kinase (30-135) U/L Crossmatch Assessment and Plan (1) GI bleed Narrative/Plan: EXTR 9-year-old female presenting for altered mental status changes, rhabdomyolysis with acute kidney injury within normal hemoglobin on admission. During the hospitalization she was started on heparin subcu every 8 hours. Yesterday reported large amount of melena. No previous history of peptic ulcer disease no NSAID use or anticoagulation. Possible etiology could be active bleeding ulcer, will proceed with upper endoscopy. Current Visit: Yes Status: Acute Code(s): K92.2 - GASTROINTESTINAL HEMORRHAGE, UNSPECIFIED SNOMED Code(s): 04955117 (2) Altered mental status Current Visit: No Status: Acute Code(s): R41.82 - ALTERED MENTAL STATUS, UNSPECIFIED SNOMED Code(s): 244317999 (3) BOSSMAN (acute kidney injury) Current Visit: Yes Status: Acute Code(s): N17.9 - ACUTE KIDNEY FAILURE, UNSPECIFIED SNOMED Code(s): 75354619 (4) Rhabdomyolysis Current Visit: Yes Status: Acute Code(s): M62.82 - RHABDOMYOLYSIS SNOMED Code(s): 270783012 Plan: 1. Continue symptomatic and supportive care 2. Every 6 hours CBC, transfuse for hemoglobin less than 7 3. Protonix 40 mg twice daily 4. Keep n.p.o. 5. Plan for upper endoscopy today 6. Avoid NSAIDs 7. Hold anticoagulation Thank you for this consultation, we will continue to follow. Dr. Senthil Cheney I agree with the dictator's note, documented as a scribe by Debbie Campo.
[2024-08-12] MEDS: MAGNESIUM SULFATE-D5W PMX 1 GM in DEXTROSE/WATER 1 100ML.BAG IVPB ONE (10:46)
[2024-08-12 11:32] LABS: Glucose,Whole Blood 105 mg/dL (70-110)
[2024-08-12] MEDS: DESMOPRESSIN ACETATE 24 MCG in SODIUM CHLORIDE 0.9% 50 ML IVPB ONE (12:39)
[2024-08-12 13:25] LABS: HCT 25.2 % (34.0-46.0); MCH 29.8 pg (25.0-35.0); MCHC 33.8 g/dL (31.0-37.0); MCV 87.9 fL (80.0-100.0); Platelet Count 131 k/uL (150-450); RBC 2.86 m/uL (3.80-5.40); WBC 15.9 k/uL (3.8-10.6)
[2024-08-12 13:40] LABS: HGB 8.5 gm/dL (11.4-16.0)
--- NOTE | 2024-08-12 16:19 | P.PN ---
Subjective Progress Note Date: 08/12/2408/10. Patient seen and examined lying in bed comfortably. No significant complaints today. Several episodes of bradycardia into the 40s overnight. Labs today: Sodium 142, potassium 2.9, chloride 107, CO2 34, BUN 19, creatinine 0.53, glucose 103, calcium 8, magnesium 1.7, CK 4232. 08/12. Patient seen and examined lying in bed. Overnight she had melena but no hematochezia and she was hypotensive (79/42), hemoglobin was found to be 7.4 (last hemoglobin was 11.7 on 08/08) and she was subsequently transferred to the ICU. She denies lightheadedness/dizziness, chest pain, dyspnea. Repeat hemoglobin was 5.5 while in the ICUshe has received 2 units pRBCs. Labs today: WBC 14.7, RBC 1.85, hemoglobin 5.5, hematocrit 17, platelets 156, PT 13.1, INR 1.2, sodium 140, potassium 3.7, chloride 117, CO2 26, BUN 22, creatinine 0.55, calcium 7.8, creatinine kinase 2252. Repeat CBC posttransfusion: WBCs 15.9, RBCs 2.86, hemoglobin 8.5, platelets 131. Patient underwent EGD: Gastric ulcer in the proximal body of the stomach but no active bleeding status post 2 Endo Clip placement, multiple gastric ulcers noted in the gastric body as well as the antrum of the stomach but no active bleeding. Pertinent positives and negatives discussed above, a complete review of systems was performed and all the other systems were negative. Physical examination: Vital signs reviewed. Currently bradycardic and hypotensive. Saturating well on 2 L nasal cannula. General: Nontoxic, no distress, appears stated age, well-appearing Derm: Warm, dry, intact Head: Atraumatic, normocephalic, symmetric Eyes: EOMI, anicteric sclera Mouth: No lip lesion, mucus membranes moist Cardiovascular: S1-S2 regular, no murmur Lungs: CTA bilateral, no rhonchi, no rales, no accessory muscle use Abdominal: Soft, non-tender to palpation Extremities: No cyanosis, clubbing, or pedal edema Neuro: Alert, oriented x 3, gross neurological examination did not reveal any focal deficits. Cranial nerves II to XII grossly intact. Psych: Appropriate affect and mood Assessment and Plan: Patient is a 65-year-old female with CAD with 1 stent placement, hypertension, hyperlipidemia, fibromyalgia, chronic back pain, anxiety, and depression admitted for acute encephalopathy and rhabdomyolysis complicated by acute GI bleed. Active #. Acute GI bleed #Acute blood loss anemia #Hypotension 2 units pRBCs GI note reviewed: EGD showed no active bleeding, 2 endoclips placed Monitor Hgb Protonix 40 mg IV twice daily Monitor BP Hold lisinopril Hold clonidine #. Acute encephalopathy, likely toxic, improving Fall precautions Neurology following Hold sedatives Tylenol 1000 mg PO every 8 hours for pain controlCMP in the a.m. #. Rhabdomyolysis, improved Monitor urine output Monitor CK Maintain IV fluids Renal ultrasound negative for obstruction or calculus Nephrology following Resolved #. Acute COPD exacerbation #. Leukocytosis #. SIRS #. Hyperkalemia #. Hyperglycemia #. Acute kidney injury #. Possible aspiration pneumoniaantibiotics discontinued #. Acute delirium, hyperactive, likely due to pain #. Hypokalemia Chronic #. CAD with 1 stent #. Hypertension #. Hyperlipidemia #. Fibromyalgia #. Chronic back pain Home medications currently on hold due to hypotension, rhabdomyolysis, and acute encephalopathylikely toxic #. Anxiety/depression Zoloft 100 mg PO daily F: Lactated Ringer's at 75 cc/h E: Replete as required N: Clear liquid diet A: Fall precautions DVT prophylaxis: Subcutaneous heparin on hold due to acute GI bleed Code status: Full code Anticipated discharge place: Pending clinical course I have seen and evaluated the patient today. Discussed with the resident and agree with the residents finding and plan as documented in the resident's note. Changes highlighted in blue font. Objective - Vital Signs Vital signs: Vital Signs Temp 98.5 F 08/12/24 04:00 Pulse 98 08/12/24 06:00 Resp 21 08/12/24 06:00 BP 104/55 08/12/24 06:00 Pulse Ox 99 08/12/24 06:00 FiO2 Intake & Output 08/11/24 08/11/24 08/12/24 06:59 18:59 06:59 Intake Total 354 537 Output Total 400 350 275 Balance -400 4 262 Weight 96.6 kg Intake: IV 300 Lactated Ringers 1,000 ml 300 @ 75 mls/hr IV .[id number] [facility] Rx#:[id number] Oral 354 237 Output: Urine 400 350 275 Uretheral ([place]) 350 Other: Voiding Method Indwelling Catheter Indwelling Catheter Indwelling Catheter # Voids 1 # Bowel Movements 4 1 - Labs CBC & Chem 7: 08/12/24 12:54 08/12/24 12:54 Labs: Abnormal Lab Results - Last 24 Hours (Table) 08/11/24 08/11/24 08/11/24 Range/Units 07:07 11:49 16:25 WBC (3.8-10.6) k/uL RBC (3.80-5.40) m/uL Hgb (11.4-16.0) gm/dL Hct (34.0-46.0) % Neutrophils # (1.3-7.7) k/uL Chloride 111 H (98-107) mmol/L Carbon Dioxide 31 H (22-30) mmol/L BUN 24 H (7-17) mg/dL Glucose 120 H (74-99) mg/dL POC Glucose (mg/dL) 119 H 126 H (70-110) mg/dL Calcium 8.3 L (8.4-10.2) mg/dL Creatine Kinase 2979 H* (30-135) U/L Crossmatch 08/11/24 08/11/24 08/11/24 Range/Units 20:10 23:26 23:44 WBC 13.8 H (3.8-10.6) k/uL RBC 2.47 L (3.80-5.40) m/uL Hgb 7.4 L D (11.4-16.0) gm/dL Hct 22.6 L (34.0-46.0) % Neutrophils # 8.4 H (1.3-7.7) k/uL Chloride (98-107) mmol/L Carbon Dioxide (22-30) mmol/L BUN (7-17) mg/dL Glucose (74-99) mg/dL POC Glucose (mg/dL) 116 H 112 H (70-110) mg/dL Calcium (8.4-10.2) mg/dL Creatine Kinase (30-135) U/L Crossmatch 08/12/24 08/12/24 08/12/24 Range/Units 02:31 02:39 02:39 WBC (3.8-10.6) k/uL RBC (3.80-5.40) m/uL Hgb (11.4-16.0) gm/dL Hct (34.0-46.0) % Neutrophils # (1.3-7.7) k/uL Chloride 117 H (98-107) mmol/L Carbon Dioxide (22-30) mmol/L BUN 22 H (7-17) mg/dL Glucose 120 H (74-99) mg/dL POC Glucose (mg/dL) 122 H (70-110) mg/dL Calcium 7.8 L (8.4-10.2) mg/dL Creatine Kinase 2252 H* (30-135) U/L Crossmatch See Detail 08/12/24 Range/Units 05:31 WBC 14.7 H (3.8-10.6) k/uL RBC 1.85 L (3.80-5.40) m/uL Hgb 5.5 L* D (11.4-16.0) gm/dL Hct 17.0 L* (34.0-46.0) % Neutrophils # (1.3-7.7) k/uL Chloride (98-107) mmol/L Carbon Dioxide (22-30) mmol/L BUN (7-17) mg/dL Glucose (74-99) mg/dL POC Glucose (mg/dL) (70-110) mg/dL Calcium (8.4-10.2) mg/dL Creatine Kinase (30-135) U/L Crossmatch
[2024-08-12 16:44] LABS: Glucose,Whole Blood 119 mg/dL (70-110)
[2024-08-12 18:31] LABS: HCT 22.6 % (34.0-46.0); HGB 8.1 gm/dL (11.4-16.0); MCH 31.1 pg (25.0-35.0); MCHC 35.7 g/dL (31.0-37.0); MCV 87.1 fL (80.0-100.0); Mean Platelet Volume 8.6; Platelet Count 125 k/uL (150-450); RBC 2.59 m/uL (3.80-5.40); RDW 14.9 % (11.5-15.5); WBC 16.3 k/uL (3.8-10.6)
[2024-08-12 19:57] LABS: Glucose,Whole Blood 150 mg/dL (70-110)
[2024-08-13 00:35] LABS: MCHC 35.1 g/dL (31.0-37.0); MCV 88.2 fL (80.0-100.0); Mean Platelet Volume 8.8; Platelet Count 129 k/uL (150-450); RBC 2.25 m/uL (3.80-5.40); RDW 15.5 % (11.5-15.5); WBC 13.9 k/uL (3.8-10.6)
[2024-08-13 00:36] LABS: HCT 19.9 % (34.0-46.0)
[2024-08-13 05:52] LABS: Glucose,Whole Blood 124 mg/dL (70-110)
--- NOTE | 2024-08-13 07:34 | P.PN ---
Subjective Progress Note Date: 08/13/24 Principal diagnosis: Altered mental status in the setting of opiate use, rhabdomyolysis, and acute kidney injury. Mental status now improved. Ms. Moffett is a 69-year-old female with history of low back pain, fibromyalgia, hypertension, coronary artery disease, major depression and anxiety. She was admitted to [facility] on August 06 after she was found down in her restroom without evidence of generalized tonic-clonic seizure. She had some poor ambulation the next morning and the following morning she was unarousable as well as pale with decreased respiratory rate. She was given Narcan in the emergency room with improvement and her urine drug screen was positive for oxycodone. She had elevated creatinine of 5.18 with elevated CK at 4726 and low sodium as well as potassium. She was seen by neurology on August 08 and noted to be oriented x 2 with poor following of commands. She was generally weak and she would not track or blink to threat. She was noted to be improving on the morning of August 09. When seen in follow-up August 10, the patient is alert and fully oriented. She is able to follow both simple and complex commands. Her metabolic situation appears to be improving his creatinine seems to be declining. She did undergo EEG on August 07 showing some slowing without evidence of epileptiform discharges. Urinalysis also reveals 14 blood cells with small leukocyte Estrace and she is on Rocephin. She also takes quetiapine 25 mg nightly. The patient remained on the floor on August 11. However, it was noted she had some bloody bowel movements in the evening of August 11, and she was transferred to the ICU. She underwent esophagogastroduodenoscopy on August 12 which revealed multiple peptic ulcers none of which appear to be actively bleeding. One was clipped, but the patient's hemoglobin continues to be somewhat low around 7.1 as of the morning of August 13. Exams August 13, nursing notes that her mental status appears clear and she is alert and oriented and following commands. On exam, the patient is alert and oriented x 3, and will follow simple as well as complex commands. Ne urologic exam is otherwise nonfocal Assessment: Ms. Moffett is a 69-year-old female with altered mental status secondary to likely metabolic encephalopathy from acute kidney injury as well as rhabdomy olysis and opiate use/abuse. She has had some GI bleeding which is being investigated; however, her mental status appears to have cleared at this time. Plan: 1. Further management of the patient's clinical condition is left up to the ICU team and her attending doctors. 2. Neurology will tentatively sign off the patient at this time. Please reconsult if acute or concerning neurologic issues exist. Objective - Vital Signs Vital signs: Vital Signs Temp 97.9 F 08/13/24 04:00 Pulse 63 08/13/24 07:00 Resp 24 08/13/24 07:00 BP 145/55 08/13/24 07:00 Pulse Ox 83 L 08/13/24 07:00 FiO2 Intake & Output 08/12/24 08/13/24 08/13/24 18:59 06:59 18:59 Intake Total 2070 900 75 Output Total 595 575 50 Balance 1475 325 25 Weight 96.1 kg Intake: IV 1300 825 75 Lactated Ringers 1,000 ml 900 825 75 @ 75 mls/hr IV .[id number] [facility] Rx#:[id number] Potassium Chloride 10 meq 300 In Water For Injection 1 100ml.bag @ 100 mls/hr IVPB Q1H [facility] Rx#: [id number] Intake, IV Titration 150 Amount Desmopressin Acetate 24 50 mcg In Sodium Chloride 0. 9% 50 ml @ 200 mls/hr IVPB ONCE ONE Rx#: [id number] Magnesium Sulfate-D5w Pmx 100 1 gm In Dextrose/Water 1 100ml.bag @ 100 mls/hr IVPB ONCE ONE Rx#: [id number] Blood Product 620 Rc As-1 Unit 310 [id number] Rc As-1 Unit 310 [id number] Lipid 75 Lactated Ringers 1,000 ml 75 @ 75 mls/hr IV .[id number] [facility] Rx#:[id number] Output: Urine 595 575 50 Other: Voiding Method Indwelling Catheter Indwelling Catheter # Bowel Movements 1 1 - Labs CBC & Chem 7: 08/13/24 00:11 08/12/24 12:54 Labs: Abnormal Lab Results - Last 24 Hours (Table) 08/12/24 08/12/24 08/12/24 Range/Units 02:39 09:16 12:54 WBC 15.9 H (3.8-10.6) k/uL RBC 2.86 L (3.80-5.40) m/uL Hgb 8.5 L D (11.4-16.0) gm/dL Hct 25.2 L (34.0-46.0) % Plt Count 131 L (150-450) k/uL PT 13.1 H (10.0-12.5) sec INR 1.2 H (<1.2) POC Glucose (mg/dL) (70-110) mg/dL Crossmatch See Detail 08/12/24 08/12/24 08/12/24 Range/Units 16:43 18:18 19:55 WBC 16.3 H (3.8-10.6) k/uL RBC 2.59 L (3.80-5.40) m/uL Hgb 8.1 L (11.4-16.0) gm/dL Hct 22.6 L (34.0-46.0) % Plt Count 125 L (150-450) k/uL PT (10.0-12.5) sec INR (<1.2) POC Glucose (mg/dL) 119 H 150 H (70-110) mg/dL Crossmatch 08/13/24 08/13/24 Range/Units 00:11 05:51 WBC 13.9 H (3.8-10.6) k/uL RBC 2.25 L (3.80-5.40) m/uL Hgb 7.0 L (11.4-16.0) gm/dL Hct 19.9 L* (34.0-46.0) % Plt Count 129 L (150-450) k/uL PT (10.0-12.5) sec INR (<1.2) POC Glucose (mg/dL) 124 H (70-110) mg/dL Crossmatch Microbiology - Last 24 Hours (Table) 08/07/24 11:30 Blood Culture - Final Blood 08/07/24 11:00 Blood Culture - Final Blood
[2024-08-13 07:47] LABS: Hyperchromasia Slight; MCH 30.6 pg (25.0-35.0); MCV 84.9 fL (80.0-100.0); Mean Platelet Volume 10.1; Platelet Count 109 k/uL (150-450); RBC 2.28 m/uL (3.80-5.40); RDW 15.4 % (11.5-15.5); WBC 11.7 k/uL (3.8-10.6)
[2024-08-13 07:48] LABS: HCT 19.4 % (34.0-46.0)
[2024-08-13 07:50] LABS: ALT 46 U/L (4-34); African American GFR (CKD) >90 (>60 ml/min/1.73 sqM); Anion Gap 8 mmol/L; Blood Urea Nitrogen 21 mg/dL (7-17); Calcium 8.1 mg/dL (8.4-10.2); Carbon Dioxide 21 mmol/L (22-30); Chloride 117 mmol/L (98-107); Glucose 100 mg/dL (74-99); Non-African American GFR(CKD) >90 (>60 ml/min/1.73 sqM); Sodium 146 mmol/L (137-145); Total Bilirubin 0.7 mg/dL (0.2-1.3); Total Protein 3.8 g/dL (6.3-8.2)
[2024-08-13 08:12] LABS: Potassium 4.3 mmol/L (3.5-5.1)
[2024-08-13 08:13] LABS: AST 53 U/L (14-36); Alkaline Phosphatase <20 U/L (38-126)
[2024-08-13 11:19] LABS: Glucose,Whole Blood 139 mg/dL (70-110)
--- NOTE | 2024-08-13 11:22 | P.PN ---
Subjective Patient is seen in follow-up for rhabdomyolysis. Maintained on IV fluids. Oral intake fair. Hemoglobin 7.0 today. Vital signs are stable. General: No acute distress. HEENT: Head exam is unremarkable. LUNGS: No audible rhonchi or wheezes. HEART: Rate and Rhythm are regular. ABDOMEN: Nontender. EXTREMITITES: No edema. Objective - Vital Signs Vital signs: Vital Signs Temp 97.5 F L 08/13/24 08:00 Pulse 57 L 08/13/24 10:00 Resp 13 08/13/24 10:00 BP 139/60 08/13/24 10:00 Pulse Ox 97 08/13/24 10:00 FiO2 Intake & Output 08/12/24 08/13/24 08/13/24 18:59 06:59 18:59 Intake Total 2070 900 625 Output Total 595 575 175 Balance 1475 325 450 Weight 96.1 kg Intake: IV 1300 825 225 Lactated Ringers 1,000 ml 900 825 225 @ 75 mls/hr IV .[id number] [facility] Rx#:[id number] Potassium Chloride 10 meq 300 In Water For Injection 1 100ml.bag @ 100 mls/hr IVPB Q1H [facility] Rx#: [id number] Intake, IV Titration 150 Amount Desmopressin Acetate 24 50 mcg In Sodium Chloride 0. 9% 50 ml @ 200 mls/hr IVPB ONCE ONE Rx#: [id number] Magnesium Sulfate-D5w Pmx 100 1 gm In Dextrose/Water 1 100ml.bag @ 100 mls/hr IVPB ONCE ONE Rx#: [id number] Oral 400 Blood Product 620 As-1 Unit 310 [id number] As-1 Unit 310 [id number] Lipid 75 Lactated Ringers 1,000 ml 75 @ 75 mls/hr IV .[id number] [facility] Rx#:[id number] Output: Urine 595 575 175 Other: Voiding Method Indwelling Catheter Indwelling Catheter Indwelling Catheter # Bowel Movements 1 1 - Labs CBC & Chem 7: 08/13/24 06:19 08/13/24 06:19 Labs: Abnormal Lab Results - Last 24 Hours (Table) 08/12/24 08/12/24 08/12/24 Range/Units 02:39 12:54 16:43 WBC 15.9 H (3.8-10.6) k/uL RBC 2.86 L (3.80-5.40) m/uL Hgb 8.5 L D (11.4-16.0) gm/dL Hct 25.2 L (34.0-46.0) % Plt Count 131 L (150-450) k/uL Sodium (137-145) mmol/L Chloride (98-107) mmol/L Carbon Dioxide (22-30) mmol/L BUN (7-17) mg/dL Creatinine (0.52-1.04) mg/dL Glucose (74-99) mg/dL POC Glucose (mg/dL) 119 H (70-110) mg/dL Calcium (8.4-10.2) mg/dL AST (14-36) U/L ALT (4-34) U/L Alkaline Phosphatase (38-126) U/L Creatine Kinase (30-135) U/L Total Protein (6.3-8.2) g/dL Albumin (3.5-5.0) g/dL Crossmatch See Detail 08/12/24 08/12/24 08/13/24 Range/Units 18:18 19:55 00:11 WBC 16.3 H 13.9 H (3.8-10.6) k/uL RBC 2.59 L 2.25 L (3.80-5.40) m/uL Hgb 8.1 L 7.0 L (11.4-16.0) gm/dL Hct 22.6 L 19.9 L* (34.0-46.0) % Plt Count 125 L 129 L (150-450) k/uL Sodium (137-145) mmol/L Chloride (98-107) mmol/L Carbon Dioxide (22-30) mmol/L BUN (7-17) mg/dL Creatinine (0.52-1.04) mg/dL Glucose (74-99) mg/dL POC Glucose (mg/dL) 150 H (70-110) mg/dL Calcium (8.4-10.2) mg/dL AST (14-36) U/L ALT (4-34) U/L Alkaline Phosphatase (38-126) U/L Creatine Kinase (30-135) U/L Total Protein (6.3-8.2) g/dL Albumin (3.5-5.0) g/dL Crossmatch 08/13/24 08/13/24 08/13/24 Range/Units 05:51 06:19 06:19 WBC 11.7 H (3.8-10.6) k/uL RBC 2.28 L (3.80-5.40) m/uL Hgb 7.0 L (11.4-16.0) gm/dL Hct 19.4 L* (34.0-46.0) % Plt Count 109 L (150-450) k/uL Sodium (137-145) mmol/L Chloride (98-107) mmol/L Carbon Dioxide (22-30) mmol/L BUN (7-17) mg/dL Creatinine (0.52-1.04) mg/dL Glucose (74-99) mg/dL POC Glucose (mg/dL) 124 H (70-110) mg/dL Calcium (8.4-10.2) mg/dL AST (14-36) U/L ALT (4-34) U/L Alkaline Phosphatase (38-126) U/L Creatine Kinase 705 H (30-135) U/L Total Protein (6.3-8.2) g/dL Albumin (3.5-5.0) g/dL Crossmatch 08/13/24 Range/Units 06:19 WBC (3.8-10.6) k/uL RBC (3.80-5.40) m/uL Hgb (11.4-16.0) gm/dL Hct (34.0-46.0) % Plt Count (150-450) k/uL Sodium 146 H (137-145) mmol/L Chloride 117 H (98-107) mmol/L Carbon Dioxide 21 L (22-30) mmol/L BUN 21 H (7-17) mg/dL Creatinine 0.48 L (0.52-1.04) mg/dL Glucose 100 H (74-99) mg/dL POC Glucose (mg/dL) (70-110) mg/dL Calcium 8.1 L (8.4-10.2) mg/dL AST 53 H (14-36) U/L ALT 46 H (4-34) U/L Alkaline Phosphatase <20 L (38-126) U/L Creatine Kinase (30-135) U/L Total Protein 3.8 L (6.3-8.2) g/dL Albumin 2.0 L (3.5-5.0) g/dL Crossmatch Microbiology - Last 24 Hours (Table) 08/07/24 11:30 Blood Culture - Final Blood 08/07/24 11:00 Blood Culture - Final Blood Assessment and Plan Plan: Assessment: 1. Acute kidney injury secondary to vasomotor nephropathy secondary to rhabdomyolysis, hypotension, HILARIO inhibitor use. Resolved. 2. Rhabdomyolysis secondary to fall and statin. CK levels trending down. 3. Pneumonia s/p antibiotics. 4. Hypokalemia from intracellular shifting from IV bicarb. Replaced. Improved. 5. Acute GI bleed status post blood transfusions. Also received DDAVP. EGD showed gastric ulcer without any active bleeding status post 2 endoclips placement. Multiple gastric ulcers were noted. GI following. 6. Mild hypernatremia from lack of oral water intake. Plan: Maintain IV fluids. Change IV fluids to half-normal saline to be run at 75 cc an hour. Repeat CK level again in the morning. Continue to monitor renal function and urine output.
[2024-08-13] MEDS: ASPIRIN 81 MG PO SCH (12:11)
[2024-08-13] MEDS: SODIUM CHLORIDE 0.45% 1,000 ML IV SCH (12:11)
[2024-08-13 12:12] VITALS: BMI 32.2
--- NOTE | 2024-08-13 12:17 | P.PN ---
Subjective Progress Note Date: 08/13/24 Principal diagnosis: Anemia, GI bleed This is a pleasant 69-year-old female who was brought in for altered mental status changes. Apparently patient was found on the floor for undisclosed amount of time. Suspected possible opiate overdose. Past medical history includes hypertension, hyperlipidemia, coronary artery disease with previous stent, obesity, chronic ongoing tobacco dependence, fibromyalgia, and obesity. Apparently patient takes Percocet and morphine outpatient to manage her chronic pain. Patient was admitted with acute kidney injury and rhabdomyolysis. Appa rently during the evening patient had a large bloody bowel movement. Rapid response team was called and patient was transferred to the ICU for an acute GI bleed. When patient initially came in she had a hemoglobin of 13 which since has dropped to 6.8. She received 1 unit of blood. She has had 5 bowel movements since yesterday, last 2 had large amount of clots and maroon and black stool. She denies any previous history of GI bleed. No previous history of peptic ulcer disease. She does not take any anticoagulation however she does take Voltaren previously but has been off of it for the last 6 months duration. She does take a daily 81 mg aspirin. 08/13/2024 Patient seen and examined today as a follow-up for upper GI bleed. She remains in the ICU. She has been hemodynamically stable. Yesterday she underwent upper endoscopy with findings of multiple gastric ulcers. There is a gastric ulcer in the proximal stomach with vessel with no active bleeding but 2 endoclips were placed. Patient denies any abdominal pain, no nausea or vomiting. She has not had any further bloody bowel movements. Objective - Vital Signs Vital signs: Vital Signs Temp 97.5 F L 08/13/24 08:00 Pulse 58 L 08/13/24 11:00 Resp 9 L 08/13/24 11:00 BP 146/66 08/13/24 11:00 Pulse Ox 93 L 08/13/24 11:00 FiO2 Intake & Output 08/12/24 08/13/24 08/13/24 18:59 06:59 18:59 Intake Total 2070 900 625 Output Total 595 575 175 Balance 1475 325 450 Weight 96.1 kg 96.1 kg Intake: IV 1300 825 225 Lactated Ringers 1,000 ml 900 825 225 @ 75 mls/hr IV .[id number] [facility] Rx#:[id number] Potassium Chloride 10 meq 300 In Water For Injection 1 100ml.bag @ 100 mls/hr IVPB Q1H [facility] Rx#: [id number] Intake, IV Titration 150 Amount Desmopressin Acetate 24 50 mcg In Sodium Chloride 0. 9% 50 ml @ 200 mls/hr IVPB ONCE ONE Rx#: [id number] Magnesium Sulfate-D5w Pmx 100 1 gm In Dextrose/Water 1 100ml.bag @ 100 mls/hr IVPB ONCE ONE Rx#: [id number] Oral 400 Blood Product 620 Rc As-1 Unit 310 [id number] Rc As-1 Unit 310 [id number] Lipid 75 Lactated Ringers 1,000 ml 75 @ 75 mls/hr IV .[id number] [facility] Rx#:[id number] Output: Urine 595 575 175 Other: Voiding Method Indwelling Catheter Indwelling Catheter Indwelling Catheter # Bowel Movements 1 1 - Exam General appearance: The patient is alert, oriented, appears in no acute distre ss. HET: Head is normocephalic and atraumatic. Conjunctiva pink. Sclera anicteric. Neck: Supple without lymphadenopathy. Abdomen: Soft, nontender, nondistended. Extremities: Normal skin color and turgor. No pedal edema Skin: No rashes, no jaundice Neurological: No focal deficits. Alert and oriented. - Labs CBC & Chem 7: 08/13/24 06:19 08/13/24 06:19 Labs: Abnormal Lab Results - Last 24 Hours (Table) 08/12/24 08/12/24 08/12/24 Range/Units 12:54 16:43 18:18 WBC 15.9 H 16.3 H (3.8-10.6) k/uL RBC 2.86 L 2.59 L (3.80-5.40) m/uL Hgb 8.5 L D 8.1 L (11.4-16.0) gm/dL Hct 25.2 L 22.6 L (34.0-46.0) % Plt Count 131 L 125 L (150-450) k/uL Sodium (137-145) mmol/L Chloride (98-107) mmol/L Carbon Dioxide (22-30) mmol/L BUN (7-17) mg/dL Creatinine (0.52-1.04) mg/dL Glucose (74-99) mg/dL POC Glucose (mg/dL) 119 H (70-110) mg/dL Calcium (8.4-10.2) mg/dL AST (14-36) U/L ALT (4-34) U/L Alkaline Phosphatase (38-126) U/L Creatine Kinase (30-135) U/L Total Protein (6.3-8.2) g/dL Albumin (3.5-5.0) g/dL 08/12/24 08/13/24 08/13/24 Range/Units 19:55 00:11 05:51 WBC 13.9 H (3.8-10.6) k/uL RBC 2.25 L (3.80-5.40) m/uL Hgb 7.0 L (11.4-16.0) gm/dL Hct 19.9 L* (34.0-46.0) % Plt Count 129 L (150-450) k/uL Sodium (137-145) mmol/L Chloride (98-107) mmol/L Carbon Dioxide (22-30) mmol/L BUN (7-17) mg/dL Creatinine (0.52-1.04) mg/dL Glucose (74-99) mg/dL POC Glucose (mg/dL) 150 H 124 H (70-110) mg/dL Calcium (8.4-10.2) mg/dL AST (14-36) U/L ALT (4-34) U/L Alkaline Phosphatase (38-126) U/L Creatine Kinase (30-135) U/L Total Protein (6.3-8.2) g/dL Albumin (3.5-5.0) g/dL 08/13/24 08/13/24 08/13/24 Range/Units 06:19 06:19 06:19 WBC 11.7 H (3.8-10.6) k/uL RBC 2.28 L (3.80-5.40) m/uL Hgb 7.0 L (11.4-16.0) gm/dL Hct 19.4 L* (34.0-46.0) % Plt Count 109 L (150-450) k/uL Sodium 146 H (137-145) mmol/L Chloride 117 H (98-107) mmol/L Carbon Dioxide 21 L (22-30) mmol/L BUN 21 H (7-17) mg/dL Creatinine 0.48 L (0.52-1.04) mg/dL Glucose 100 H (74-99) mg/dL POC Glucose (mg/dL) (70-110) mg/dL Calcium 8.1 L (8.4-10.2) mg/dL AST 53 H (14-36) U/L ALT 46 H (4-34) U/L Alkaline Phosphatase <20 L (38-126) U/L Creatine Kinase 705 H (30-135) U/L Total Protein 3.8 L (6.3-8.2) g/dL Albumin 2.0 L (3.5-5.0) g/dL 08/13/24 Range/Units 11:18 WBC (3.8-10.6) k/uL RBC (3.80-5.40) m/uL Hgb (11.4-16.0) gm/dL Hct (34.0-46.0) % Plt Count (150-450) k/uL Sodium (137-145) mmol/L Chloride (98-107) mmol/L Carbon Dioxide (22-30) mmol/L BUN (7-17) mg/dL Creatinine (0.52-1.04) mg/dL Glucose (74-99) mg/dL POC Glucose (mg/dL) 139 H (70-110) mg/dL Calcium (8.4-10.2) mg/dL AST (14-36) U/L ALT (4-34) U/L Alkaline Phosphatase (38-126) U/L Creatine Kinase (30-135) U/L Total Protein (6.3-8.2) g/dL Albumin (3.5-5.0) g/dL Microbiology - Last 24 Hours (Table) 08/07/24 11:30 Blood Culture - Final Blood 08/07/24 11:00 Blood Culture - Final Blood Assessment and Plan (1) GI bleed Narrative/Plan: EXTR 9-year-old female presenting for altered mental status changes, rhabdomyolysis with acute kidney injury within normal hemoglobin on admission. During the hospitalization she was started on heparin subcu every 8 hours. Yesterday reported large amount of melena. No previous history of peptic ulcer disease no NSAID use or anticoagulation. Possible etiology could be active bleeding ulcer, will proceed with upper endoscopy. Patient is status post upper endoscopy with findings of gastric ulcer in the proximal stomach with a visible vessel with no active bleeding status post Endo Clip placement and multiple gastric ulcers. Current Visit: Yes Status: Acute Code(s): K92.2 - GASTROINTESTINAL HEMORRHAGE, UNSPECIFIED SNOMED Code(s): 72839406 (2) Altered mental status Current Visit: No Status: Acute Code(s): R41.82 - ALTERED MENTAL STATUS, UNSPECIFIED SNOMED Code(s): 141261769 (3) BOSSMAN (acute kidney injury) Current Visit: Yes Status: Acute Code(s): N17.9 - ACUTE KIDNEY FAILURE, UNSPECIFIED SNOMED Code(s): 14852838 (4) Rhabdomyolysis Current Visit: Yes Status: Acute Code(s): M62.82 - RHABDOMYOLYSIS SNOMED Code(s): 426844445 Plan: 1. Continue symptomatic and supportive care 2. Patient is status post upper endoscopy 3. Protonix 40 mg twice daily 4. Daily CBC, transfuse for hemoglobin less than 7 5. May advance to full liquid diet 6. Avoid NSAIDs 7. May resume aspirin 81 mg daily 8. If patient remains hemodynamically stable may be transferred to medical floor Thank you for this consultation, we will continue to follow. Dr. Senthil Cheney I agree with the dictator's note, documented as a scribe by Debbie Campo.
--- NOTE | 2024-08-13 13:31 | P.PN ---
Subjective Progress Note Date: 08/13/2408/10. Patient seen and examined lying in bed comfortably. No significant complaints today. Several episodes of bradycardia into the 40s overnight. Labs today: Sodium 142, potassium 2.9, chloride 107, CO2 34, BUN 19, creatinine 0.53, glucose 103, calcium 8, magnesium 1.7, CK 4232. 08/12. Patient seen and examined lying in bed. Overnight she had melena but no hematochezia and she was hypotensive (79/42), hemoglobin was found to be 7.4 (last hemoglobin was 11.7 on 08/08) and she was subsequently transferred to the ICU. She denies lightheadedness/dizziness, chest pain, dyspnea. Repeat hemoglobin was 5.5 while in the ICUshe has received 2 units pRBCs. Labs today: WBC 14.7, RBC 1.85, hemoglobin 5.5, hematocrit 17, platelets 156, PT 13.1, INR 1.2, sodium 140, potassium 3.7, chloride 117, CO2 26, BUN 22, creatinine 0.55, calcium 7.8, creatinine kinase 2252. Repeat CBC posttransfusion: WBCs 15.9, RBCs 2.86, hemoglobin 8.5, platelets 131. Patient underwent EGD: Gastric ulcer in the proximal body of the stomach but no active bleeding status post 2 Endo Clip placement, multiple gastric ulcers noted in the gastric body as well as the antrum of the stomach but no active bleeding. 08/13. Patient seen and examined lying comfortably in bed. Had 3 episodes of maroon-colored stools overnight. Endorses lightheadedness. Denies chest pain, shortness of breath, fever, nausea/vomiting. Labs today: WBC 11.7, RBC 2.28, hemoglobin 7.0, hematocrit 19.4, platelets 109. Sodium 146, potassium 4.3, chloride 117, CO2 21, BUN 21, creatinine 0.48, glucose 100, calcium 8.1, AST 53, ALT 46, alkaline phosphatase <20, CK 705. Pertinent positives and negatives discussed above, a complete review of systems was performed and all the other systems were negative. Physical examination: Vital signs reviewed. Bradycardic episodes, tachypneic episodes, hypertensive. Saturating 95-97% on room air. General: Nontoxic, no distress, appears stated age, well-appearing Derm: Warm, dry, intact Head: Atraumatic, normocephalic, symmetric Eyes: EOMI, anicteric sclera Mouth: No lip lesion, mucus membranes moist Cardiovascular: S1-S2 regular, no murmur Lungs: CTA bilateral, no rhonchi, no rales, no accessory muscle use Abdominal: Soft, non-tender to palpation Extremities: No cyanosis, clubbing, or pedal edema Neuro: Alert, oriented x 3, gross neurological examination did not reveal any focal deficits. Cranial nerves II to XII grossly intact. Psych: Appropriate affect and mood Assessment and Plan: Patient is a 65-year-old female with CAD with 1 stent placement, hypertension, hyperlipidemia, fibromyalgia, chronic back pain, anxiety, and depression admitted for acute encephalopathy and rhabdomyolysis complicated by acute GI bleed and placement of 2 endoclips. Active #. Acute GI bleed #. Acute blood loss anemia #. Hypotension 2 units pRBCs GI note reviewed, repeat CBC in the afternoon, EGD showed no active bleeding, 2 endoclips placed Monitor Hgb, if <7 transfuse Protonix 40 mg IV twice daily Monitor BP Hold lisinopril Hold clonidine Avoid NSAIDs-can continue aspirin 81 mg #. Acute encephalopathy, likely toxic, improving Fall precautions Neurology following Hold sedatives Tylenol 1000 mg PO every 8 hours for pain control #. Rhabdomyolysis, improved Monitor urine output Monitor CK Maintain IV fluids Renal ultrasound negative for obstruction or calculus Nephrology following #. Hypernatremia Half-normal saline at 75 cc/h Resolved #. Acute COPD exacerbation #. Leukocytosis #. SIRS #. Hyperkalemia #. Hyperglycemia #. Acute kidney injury #. Possible aspiration pneumoniaantibiotics discontinued #. Acute delirium, hyperactive, likely due to pain #. Hypokalemia Chronic #. CAD with 1 stent #. Hypertension #. Hyperlipidemia #. Fibromyalgia #. Chronic back pain Home medications currently on hold due to hypotension, rhabdomyolysis, and acute encephalopathylikely toxic #. Anxiety/depression Zoloft 100 mg PO daily F: Half-normal saline at 75 cc/h E: Replete as required N: Full liquid diet A: Fall precautions DVT prophylaxis: Subcutaneous heparin on hold due to acute GI bleed Code status: Full code Anticipated discharge place: Pending clinical course I have seen and evaluated the patient today. Discussed with the resident and agree with the residents finding and plan as documented in the resident's note. Changes highlighted in blue font. Objective - Vital Signs Vital signs: Vital Signs Temp 97.9 F 08/13/24 04:00 Pulse 58 L 08/13/24 06:00 Resp 26 H 08/13/24 06:00 BP 136/51 08/13/24 06:00 Pulse Ox 97 08/13/24 06:00 FiO2 Intake & Output 08/12/24 08/12/24 08/13/24 06:59 18:59 06:59 Intake Total 537 2070 900 Output Total 275 595 575 Balance 262 1475 325 Weight 96.1 kg Intake: IV 300 1300 825 Lactated Ringers 1,000 ml 300 900 825 @ 75 mls/hr IV .[id number] [facility] Rx#:[id number] Potassium Chloride 10 meq 300 In Water For Injection 1 100ml.bag @ 100 mls/hr IVPB Q1H [facility] Rx#: [id number] Intake, IV Titration 150 Amount Desmopressin Acetate 24 50 mcg In Sodium Chloride 0. 9% 50 ml @ 200 mls/hr IVPB ONCE ONE Rx#: [id number] Magnesium Sulfate-D5w Pmx 100 1 gm In Dextrose/Water 1 100ml.bag @ 100 mls/hr IVPB ONCE ONE Rx#: [id number] Oral 237 Blood Product 0 620 Rc As-1 Unit 310 [id number] Rc As-1 Unit 0 310 [id number] Lipid 75 Lactated Ringers 1,000 ml 75 @ 75 mls/hr IV .[id number] [facility] Rx#:[id number] Output: Urine 275 595 575 Other: Voiding Method Indwelling Catheter Indwelling Catheter Indwelling Catheter # Voids 1 # Bowel Movements 1 1 1 - Labs CBC & Chem 7: 08/13/24 06:19 08/13/24 06:19 Labs: Abnormal Lab Results - Last 24 Hours (Table) 08/12/24 08/12/24 08/12/24 Range/Units 02:39 07:02 09:16 WBC (3.8-10.6) k/uL RBC (3.80-5.40) m/uL Hgb (11.4-16.0) gm/dL Hct (34.0-46.0) % Plt Count (150-450) k/uL PT 13.1 H (10.0-12.5) sec INR 1.2 H (<1.2) POC Glucose (mg/dL) 138 H (70-110) mg/dL Crossmatch See Detail 08/12/24 08/12/24 08/12/24 Range/Units 12:54 16:43 18:18 WBC 15.9 H 16.3 H (3.8-10.6) k/uL RBC 2.86 L 2.59 L (3.80-5.40) m/uL Hgb 8.5 L D 8.1 L (11.4-16.0) gm/dL Hct 25.2 L 22.6 L (34.0-46.0) % Plt Count 131 L 125 L (150-450) k/uL PT (10.0-12.5) sec INR (<1.2) POC Glucose (mg/dL) 119 H (70-110) mg/dL Crossmatch 08/12/24 08/13/24 08/13/24 Range/Units 19:55 00:11 05:51 WBC 13.9 H (3.8-10.6) k/uL RBC 2.25 L (3.80-5.40) m/uL Hgb 7.0 L (11.4-16.0) gm/dL Hct 19.9 L* (34.0-46.0) % Plt Count 129 L (150-450) k/uL PT (10.0-12.5) sec INR (<1.2) POC Glucose (mg/dL) 150 H 124 H (70-110) mg/dL Crossmatch Microbiology - Last 24 Hours (Table) 08/07/24 11:30 Blood Culture - Final Blood 08/07/24 11:00 Blood Culture - Final Blood
[2024-08-13 17:34] LABS: Glucose,Whole Blood 115 mg/dL (70-110)
--- NOTE | 2024-08-13 19:45 | P.PN ---
Subjective Progress Note Date: 08/13/24 Patient is a 69-year-old female with past medical history significant for hypertension, hyperlipidemia, CAD with previous PCI/stent, obesity, chronic ongoing tobacco dependence, fibromyalgia, obesity. Patient takes Percocets and morphine outpatient to manage her chronic pain. Presented to the emergency department back on 08/06/2024 for altered mental status and possible opiate overdose. Apparently, patient was found in the bathroom and was difficult to arouse. Unclear, how long the patient was on the bathroom floor. This is reportedly happened before. Found to have acute kidney injury on arrival and acute rhabdomyelosis. Acute kidney injury has since recovered, and CPK is downtrending, currently to 2979. Does take statins outpatient. Her mentation has since improved. Brain CTs did not show any acute intracranial process. EEG showing background slowing suggestive of moderate encephalopathy, no focal slowing or epileptiform discharge. Has had intermittent low-grade temperature, with a Tmax of 100.1 F. Reportedly recently treated outpatient for pneumonia. Still reporting some chest congestion, cough with blood-tinged sputum. Intermittent fevers. Chest x-ray done on admission showing subtle right middle lobe opacity. Blood cultures show no growth at 72 hrs. Continues on Rocephin.. Early this morning, around 01:00, I received a call from [facility] physicians. Patient reportedly noted to have multiple large bloody bowel movements. Last CBC drawn on 08/08, hemoglobin was 11.7 g/dL. Currently 7.4 g/dL. Patient was also previously noted to be lightheaded and hypotensive. Recorded blood pressure as low as 79/42 mmHg. A unit of PRBCs was ordered. She was transferred to the intensive care unit. On my evaluation, patient is alert and oriented. She reports multiple loose black tarry stools. No escobar blood. Denies abdominal pain. No nausea, vomiting, or hematemesis. Current blood pressure is stable 115/65 mmHg. Has not required any vasopressors. LR is infusing at 75 mL/h. The unit of PRBCs is yet to be infused. We do have GI coverage this week, they are consulted. Denies history of previous GI bleed. Patient denies any chronic NSAID or anticoagulant use. Was receiving subcu heparin and aspirin inpatient. Current vitals: Temperature 98.5 F, heart rate 106 bpm, blood pressure 115/65 mmHg, nontachypneic, SpO2 100% on 2 L/min nasal cannula On 08/13/2024, the patient is being seen for a follow-up. The patient is awake and alert and communicating. Hemoglobin stable at 7.0. The patient underwent EGD and the patient was found to have multiple gastric ulcers in the gastric body as well as the antrum. There was also another ulcer in the proximal body of the stomach measuring 1 cm in size with a visible vessel and 2 Endo Clip were placed. For now, the patient is clinically and hemodynamically stable. No hypotension. No nausea vomiting or abdominal pain. No coffee-ground emesis. No anticoagulants. She remains on half-normal centimeter 75 cc an hour. She remains on IV Protonix. White cell count is 11.7. Platelet count is at 109. Sodium is 146, BUN 21 with a creatinine 0.4. LFTs are normal. CPK is at 705. Objective - Vital Signs Vital signs: Vital Signs Temp 97.5 F L 08/13/24 08:00 Pulse 61 08/13/24 09:00 Resp 19 08/13/24 09:00 BP 124/61 08/13/24 09:00 Pulse Ox 94 L 08/13/24 09:00 FiO2 Intake & Output 08/12/24 08/13/24 08/13/24 18:59 06:59 18:59 Intake Total 2070 900 625 Output Total 595 575 175 Balance 1475 325 450 Weight 96.1 kg Intake: IV 1300 825 225 Lactated Ringers 1,000 ml 900 825 225 @ 75 mls/hr IV .[id number] [facility] Rx#:[id number] Potassium Chloride 10 meq 300 In Water For Injection 1 100ml.bag @ 100 mls/hr IVPB Q1H [facility] Rx#: [id number] Intake, IV Titration 150 Amount Desmopressin Acetate 24 50 mcg In Sodium Chloride 0. 9% 50 ml @ 200 mls/hr IVPB ONCE ONE Rx#: [id number] Magnesium Sulfate-D5w Pmx 100 1 gm In Dextrose/Water 1 100ml.bag @ 100 mls/hr IVPB ONCE ONE Rx#: [id number] Oral 400 Blood Product 620 Rc As-1 Unit 310 [id number] Rc As-1 Unit 310 [id number] Lipid 75 Lactated Ringers 1,000 ml 75 @ 75 mls/hr IV .[id number] [facility] Rx#:[id number] Output: Urine 595 575 175 Other: Voiding Method Indwelling Catheter Indwelling Catheter # Bowel Movements 1 1 - Exam GENERAL EXAM: Alert, 69-year-old obese female, generalized pallor, comfortable in no apparent distress. HEAD: Normocephalic and atraumatic EYES: Normal reaction of pupils, equal size. NOSE: Clear with pink turbinates. THROAT: No erythema or exudates. NECK: No masses, no JVD. CHEST: No chest wall deformity. LUNGS: Equal air entry with no crackles, wheeze, rhonchi or dullness. On 2 L/min nasal cannula. SpO2 100%. No conversational dyspnea or accessory muscle use.. CVS: S1 and S2 normal with no audible murmur, regular rhythm. No extra heart sounds ABDOMEN: Obese abdomen, superficial/generalized bruising, no hepatosplenomegaly, active bowel sounds, no guarding or rigidity. SPINE: No scoliosis or deformity SKIN: No rashes CENTRAL NERVOUS SYSTEM: No focal deficits, tone is normal in all 4 extremities. EXTREMITIES: There is no peripheral edema, clubbing, or cyanosis. Peripheral pulses are intact. - Labs CBC & Chem 7: 08/13/24 06:19 08/13/24 06:19 Labs: Abnormal Lab Results - Last 24 Hours (Table) 08/12/24 08/12/24 08/12/24 Range/Units 02:39 12:54 16:43 WBC 15.9 H (3.8-10.6) k/uL RBC 2.86 L (3.80-5.40) m/uL Hgb 8.5 L D (11.4-16.0) gm/dL Hct 25.2 L (34.0-46.0) % Plt Count 131 L (150-450) k/uL Sodium (137-145) mmol/L Chloride (98-107) mmol/L Carbon Dioxide (22-30) mmol/L BUN (7-17) mg/dL Creatinine (0.52-1.04) mg/dL Glucose (74-99) mg/dL POC Glucose (mg/dL) 119 H (70-110) mg/dL Calcium (8.4-10.2) mg/dL AST (14-36) U/L ALT (4-34) U/L Alkaline Phosphatase (38-126) U/L Creatine Kinase (30-135) U/L Total Protein (6.3-8.2) g/dL Albumin (3.5-5.0) g/dL Crossmatch See Detail 08/12/24 08/12/24 08/13/24 Range/Units 18:18 19:55 00:11 WBC 16.3 H 13.9 H (3.8-10.6) k/uL RBC 2.59 L 2.25 L (3.80-5.40) m/uL Hgb 8.1 L 7.0 L (11.4-16.0) gm/dL Hct 22.6 L 19.9 L* (34.0-46.0) % Plt Count 125 L 129 L (150-450) k/uL Sodium (137-145) mmol/L Chloride (98-107) mmol/L Carbon Dioxide (22-30) mmol/L BUN (7-17) mg/dL Creatinine (0.52-1.04) mg/dL Glucose (74-99) mg/dL POC Glucose (mg/dL) 150 H (70-110) mg/dL Calcium (8.4-10.2) mg/dL AST (14-36) U/L ALT (4-34) U/L Alkaline Phosphatase (38-126) U/L Creatine Kinase (30-135) U/L Total Protein (6.3-8.2) g/dL Albumin (3.5-5.0) g/dL Crossmatch 08/13/24 08/13/24 08/13/24 Range/Units 05:51 06:19 06:19 WBC 11.7 H (3.8-10.6) k/uL RBC 2.28 L (3.80-5.40) m/uL Hgb 7.0 L (11.4-16.0) gm/dL Hct 19.4 L* (34.0-46.0) % Plt Count 109 L (150-450) k/uL Sodium (137-145) mmol/L Chloride (98-107) mmol/L Carbon Dioxide (22-30) mmol/L BUN (7-17) mg/dL Creatinine (0.52-1.04) mg/dL Glucose (74-99) mg/dL POC Glucose (mg/dL) 124 H (70-110) mg/dL Calcium (8.4-10.2) mg/dL AST (14-36) U/L ALT (4-34) U/L Alkaline Phosphatase (38-126) U/L Creatine Kinase 705 H (30-135) U/L Total Protein (6.3-8.2) g/dL Albumin (3.5-5.0) g/dL Crossmatch 08/13/24 Range/Units 06:19 WBC (3.8-10.6) k/uL RBC (3.80-5.40) m/uL Hgb (11.4-16.0) gm/dL Hct (34.0-46.0) % Plt Count (150-450) k/uL Sodium 146 H (137-145) mmol/L Chloride 117 H (98-107) mmol/L Carbon Dioxide 21 L (22-30) mmol/L BUN 21 H (7-17) mg/dL Creatinine 0.48 L (0.52-1.04) mg/dL Glucose 100 H (74-99) mg/dL POC Glucose (mg/dL) (70-110) mg/dL Calcium 8.1 L (8.4-10.2) mg/dL AST 53 H (14-36) U/L ALT 46 H (4-34) U/L Alkaline Phosphatase <20 L (38-126) U/L Creatine Kinase (30-135) U/L Total Protein 3.8 L (6.3-8.2) g/dL Albumin 2.0 L (3.5-5.0) g/dL Crossmatch Microbiology - Last 24 Hours (Table) 08/07/24 11:30 Blood Culture - Final Blood 08/07/24 11:00 Blood Culture - Final Blood Assessment and Plan Assessment: Multiple gastric ulcer involving the body and the stomach and the patient had a 1 cm gastric ulcer in the gastric body with a visible vessel status post Endo Clip application x 2. No evidence of any ongoing GI bleeding and hemoglobin st able at 7.0. The patient is currently on clear liquid diet Acute blood loss anemia, stable and the patient has a hemoglobin of 7.0. Hypotension, improved Rhabdomyelosis, CPK is downtrending Acute kidney injury, secondary to above, improved Acute febrile illness, treated for presumptive pneumonia, chest x-ray previously showing a subtle right middle lobe infiltrate on admission. Chronic pain, fibromyalgia, and chronic opiate use Altered mental status, likely secondary to metabolic encephalopathy and above, resolved History of frequent urinary tract infections History of hypertension History of hyperlipidemia History of coronary artery disease with previous PCI/stenting Former tobacco smoker, last cigarette was apparently 3 weeks ago. Patient started smoking reportedly at age 50, is normally a 1 pack/day smoker Obesity, with a BMI of 32.4 kg/m Plan: Advance diet as tolerated Status post EGD and control of a gastric ulcer bleed Continue IV Protonix Monitor hemoglobin Hemodynamically stable and the patient can be transferred out of the intensive care unit Continue half-normal saline at rate of 75 cc an hour Hold antihypertensive medications Watch for any signs of GI bleed CPK is downtrending Will move out of the intensive care unit.
[2024-08-13 20:41] LABS: Glucose,Whole Blood 125 mg/dL (70-110)
[2024-08-14 05:44] LABS: Glucose,Whole Blood 113 mg/dL (70-110)
--- NOTE | 2024-08-14 06:40 | P.PN ---
Subjective Progress Note Date: 08/14/24 Principal diagnosis: Anemia, GI bleed This is a pleasant 69-year-old female who was brought in for altered mental status changes. Apparently patient was found on the floor for undisclosed amount of time. Suspected possible opiate overdose. Past medical history includes hypertension, hyperlipidemia, coronary artery disease with previous stent, obesity, chronic ongoing tobacco dependence, fibromyalgia, and obesity. Apparently patient takes Percocet and morphine outpatient to manage her chronic pain. Patient was admitted with acute kidney injury and rhabdomyolysis. Appa rently during the evening patient had a large bloody bowel movement. Rapid response team was called and patient was transferred to the ICU for an acute GI bleed. When patient initially came in she had a hemoglobin of 13 which since has dropped to 6.8. She received 1 unit of blood. She has had 5 bowel movements since yesterday, last 2 had large amount of clots and maroon and black stool. She denies any previous history of GI bleed. No previous history of peptic ulcer disease. She does not take any anticoagulation however she does take Voltaren previously but has been off of it for the last 6 months duration. She does take a daily 81 mg aspirin. 08/13/2024 Patient seen and examined today as a follow-up for upper GI bleed. She remains in the ICU. She has been hemodynamically stable. Yesterday she underwent upper endoscopy with findings of multiple gastric ulcers. There is a gastric ulcer in the proximal stomach with vessel with no active bleeding but 2 endoclips were placed. Patient denies any abdominal pain, no nausea or vomiting. She has not had any further bloody bowel movements. 08/14/2024 Patient seen and examined today as a follow-up for GI bleed. Patient denies any active bleed. States she did have a bowel movement and it was black but no maroon color and no clots. She denies any abdominal pain, nausea or vomiting. She is tolerating full liquid diet. Labs are currently pending. Objective - Vital Signs Vital signs: Vital Signs Temp 97.9 F 08/14/24 01:37 Pulse 72 08/14/24 01:37 Resp 16 08/14/24 01:37 BP 150/51 08/14/24 01:37 Pulse Ox 94 L 08/14/24 01:37 FiO2 Intake & Output 08/13/24 08/13/2408/14/24 06:59 18:59 06:59 Intake Total 900 1330 Output Total 575 375 Balance 325 955 Weight 96.1 kg 96.1 kg Intake: IV 825 450 Lactated Ringers 1,000 ml 825 450 @ 75 mls/hr IV .[id number] [facility] Rx#:[id number] Oral 880 Lipid 75 Lactated Ringers 1,000 ml 75 @ 75 mls/hr IV .[id number] [facility] Rx#:[id number] Output: Urine 575 375 Other: Voiding Method Indwelling Catheter Indwelling Catheter Toilet # Voids 2 3 # Bowel Movements 1 2 - Exam General appearance: The patient is alert, oriented, appears in no acute distress. HET: Head is normocephalic and atraumatic. Conjunctiva pink. Sclera anicteric. Neck: Supple without lymphadenopathy. Abdomen: Soft, nontender, nondistended. Extremities: Normal skin color and turgor. No pedal edema Skin: No rashes, no jaundice Neurological: No focal deficits. Alert and oriented. - Labs CBC & Chem 7: 08/13/24 06:19 08/13/24 06:19 Labs: Abnormal Lab Results - Last 24 Hours (Table) 08/13/24 08/13/24 08/13/24 Range/Units 06:19 06:19 06:19 WBC 11.7 H (3.8-10.6) k/uL RBC 2.28 L (3.80-5.40) m/uL Hgb 7.0 L (11.4-16.0) gm/dL Hct 19.4 L* (34.0-46.0) % Plt Count 109 L (150-450) k/uL Sodium 146 H (137-145) mmol/L Chloride 117 H (98-107) mmol/L Carbon Dioxide 21 L (22-30) mmol/L BUN 21 H (7-17) mg/dL Creatinine 0.48 L (0.52-1.04) mg/dL Glucose 100 H (74-99) mg/dL POC Glucose (mg/dL) (70-110) mg/dL Calcium 8.1 L (8.4-10.2) mg/dL AST 53 H (14-36) U/L ALT 46 H (4-34) U/L Alkaline Phosphatase <20 L (38-126) U/L Creatine Kinase 705 H (30-135) U/L Total Protein 3.8 L (6.3-8.2) g/dL Albumin 2.0 L (3.5-5.0) g/dL 08/13/24 08/13/24 08/13/24 Range/Units 11:18 17:32 20:39 WBC (3.8-10.6) k/uL RBC (3.80-5.40) m/uL Hgb (11.4-16.0) gm/dL Hct (34.0-46.0) % Plt Count (150-450) k/uL Sodium (137-145) mmol/L Chloride (98-107) mmol/L Carbon Dioxide (22-30) mmol/L BUN (7-17) mg/dL Creatinine (0.52-1.04) mg/dL Glucose (74-99) mg/dL POC Glucose (mg/dL) 139 H 115 H 125 H (70-110) mg/dL Calcium (8.4-10.2) mg/dL AST (14-36) U/L ALT (4-34) U/L Alkaline Phosphatase (38-126) U/L Creatine Kinase (30-135) U/L Total Protein (6.3-8.2) g/dL Albumin (3.5-5.0) g/dL 08/14/24 Range/Units 05:43 WBC (3.8-10.6) k/uL RBC (3.80-5.40) m/uL Hgb (11.4-16.0) gm/dL Hct (34.0-46.0) % Plt Count (150-450) k/uL Sodium (137-145) mmol/L Chloride (98-107) mmol/L Carbon Dioxide (22-30) mmol/L BUN (7-17) mg/dL Creatinine (0.52-1.04) mg/dL Glucose (74-99) mg/dL POC Glucose (mg/dL) 113 H (70-110) mg/dL Calcium (8.4-10.2) mg/dL AST (14-36) U/L ALT (4-34) U/L Alkaline Phosphatase (38-126) U/L Creatine Kinase (30-135) U/L Total Protein (6.3-8.2) g/dL Albumin (3.5-5.0) g/dL Assessment and Plan (1) GI bleed Narrative/Plan: EXTR 9-year-old female presenting for altered mental status changes, rhabdomyol ysis with acute kidney injury within normal hemoglobin on admission. During the hospitalization she was started on heparin subcu every 8 hours. Yesterday reported large amount of melena. No previous history of peptic ulcer disease no NSAID use or anticoagulation. Possible etiology could be active bleeding ulcer, will proceed with upper endoscopy. Patient is status post upper endoscopy with findings of gastric ulcer in the proximal stomach with a visible vessel with no active bleeding status post Endo Clip placement and multiple gastric ulcers. Current Visit: Yes Status: Acute Code(s): K92.2 - GASTROINTESTINAL HEMORRHAGE, UNSPECIFIED SNOMED Code(s): 24785523 (2) Altered mental status Current Visit: No Status: Acute Code(s): R41.82 - ALTERED MENTAL STATUS, UNSPECIFIED SNOMED Code(s): 754072878 (3) BOSSMAN (acute kidney injury) Current Visit: Yes Status: Acute Code(s): N17.9 - ACUTE KIDNEY FAILURE, UNSPECIFIED SNOMED Code(s): 56289979 (4) Rhabdomyolysis Current Visit: Yes Status: Acute Code(s): M62.82 - RHABDOMYOLYSIS SNOMED Code(s): 817595022 Plan: 1. Continue symptomatic and supportive care 2. Patient is status post upper endoscopy 3. Protonix 40 mg twice daily 4. Daily CBC, transfuse for hemoglobin less than 7 5. May advance to Heart healthy diet 6. Avoid NSAIDs 7. May resume aspirin 81 mg daily 8. Hemoglobin stable patient is cleared from gastroenterology for discharge Thank you for allowing us to participate in the care of the patient, the GI service will sign off, gastroenterology will not be available at the hospital this weekend and through next week. If further evaluation by gastroenterology is required the patient will need transfer as per the primary team's discretion. Dr. Senthil Cheney I agree with the dictator's note, documented as a scribe by Debbie Campo.
[2024-08-14 07:23] VITALS: BP 168/67; PULSE 70; RESP 17; TEMP 98.7
--- NOTE | 2024-08-14 12:05 | P.PN ---
Subjective Progress Note Date: 08/14/2408/10. Patient seen and examined lying in bed comfortably. No significant complaints today. Several episodes of bradycardia into the 40s overnight. Labs today: Sodium 142, potassium 2.9, chloride 107, CO2 34, BUN 19, creatinine 0.53, glucose 103, calcium 8, magnesium 1.7, CK 4232. 08/12. Patient seen and examined lying in bed. Overnight she had melena but no hematochezia and she was hypotensive (79/42), hemoglobin was found to be 7.4 (last hemoglobin was 11.7 on 08/08) and she was subsequently transferred to the ICU. She denies lightheadedness/dizziness, chest pain, dyspnea. Repeat hemoglobin was 5.5 while in the ICUshe has received 2 units pRBCs. Labs today: WBC 14.7, RBC 1.85, hemoglobin 5.5, hematocrit 17, platelets 156, PT 13.1, INR 1.2, sodium 140, potassium 3.7, chloride 117, CO2 26, BUN 22, creatinine 0.55, calcium 7.8, creatinine kinase 2252. Repeat CBC posttransfusion: WBCs 15.9, RBCs 2.86, hemoglobin 8.5, platelets 131. Patient underwent EGD: Gastric ulcer in the proximal body of the stomach but no active bleeding status post 2 Endo Clip placement, multiple gastric ulcers noted in the gastric body as well as the antrum of the stomach but no active bleeding. 08/13. Patient seen and examined lying comfortably in bed. Had 3 episodes of maroon-colored stools overnight. Endorses lightheadedness. Denies chest pain, shortness of breath, fever, nausea/vomiting. Labs today: WBC 11.7, RBC 2.28, hemoglobin 7.0, hematocrit 19.4, platelets 109. Sodium 146, potassium 4.3, chloride 117, CO2 21, BUN 21, creatinine 0.48, glucose 100, calcium 8.1, AST 53, ALT 46, alkaline phosphatase <20, CK 705. 08/14. Patient seen sitting up in bedside chair. No acute events overnight. Denies bloody or black stools. Denies chest pain, lightheadedness, dyspnea, fever. No new labs today as initial draw was clotted and patient refused repeat. Pertinent positives and negatives discussed above, a complete review of systems was performed and all the other systems were negative. Physical examination: Vital signs reviewed. Bradycardic episodes, tachypneic episodes, hypertensive. Saturating 95-97% on room air. General: Nontoxic, no distress, appears stated age, well-appearing Derm: Warm, dry, intact Head: Atraumatic, normocephalic, symmetric Eyes: EOMI, anicteric sclera Mouth: No lip lesion, mucus membranes moist Cardiovascular: S1-S2 regular, no murmur Lungs: CTA bilateral, no rhonchi, no rales, no accessory muscle use Abdominal: Soft, non-tender to palpation Extremities: No cyanosis, clubbing. 1+ pitting edema bilaterally. Neuro: Alert, oriented x 3, gross neurological examination did not reveal any focal deficits. Cranial nerves II to XII grossly intact. Psych: Appropriate affect and mood Assessment and Plan: Patient is a 65-year-old female with CAD with 1 stent placement, hypertension, hyperlipidemia, fibromyalgia, chronic back pain, anxiety, and depression admitted for acute encephalopathy and rhabdomyolysis complicated by acute GI bleed and placement of 2 endoclips. Active #. Acute GI bleed #. Acute blood loss anemia #. Hypotension Status post 2 units pRBCs GI note reviewed: EGD no active bleeding, 2 endoclips placed Monitor Hgb, if <7 transfuse Protonix 40 mg IV twice daily Monitor BP Hold lisinopril Hold clonidine Avoid NSAIDs-can continue aspirin 81 mg Repeat CBC pending, patient refusing #. Acute encephalopathy, likely toxic, improving Fall precautions Neurology following Hold sedatives Tylenol 1000 mg PO every 8 hours for pain control #. Rhabdomyolysis, improved Monitor urine output Monitor CK Maintain IV fluids Renal ultrasound negative for obstruction or calculus Nephrology following #. Hypernatremia Half-normal saline at 75 cc/h Resolved #. Acute COPD exacerbation #. Leukocytosis #. SIRS #. Hyperkalemia #. Hyperglycemia #. Acute kidney injury #. Possible aspiration pneumoniaantibiotics discontinued #. Acute delirium, hyperactive, likely due to pain #. Hypokalemia Chronic #. CAD with 1 stent #. Hypertension #. Hyperlipidemia #. Fibromyalgia #. Chronic back pain Home medications currently on hold due to hypotension, rhabdomyolysis, and acute encephalopathylikely toxic #. Anxiety/depression Zoloft 100 mg PO daily F: Half-normal saline at 75 cc/h E: Replete as required N: Full liquid diet A: Fall precautions DVT prophylaxis: Subcutaneous heparin on hold due to acute GI bleed Code status: Full code Anticipated discharge place: Home I have seen and evaluated the patient today. Discussed with the resident and agree with the residents finding and plan as documented in the resident's note. Changes highlighted in blue font. Objective - Vital Signs Vital signs: Vital Signs Temp 98.7 F 08/14/24 07:22 Pulse 70 08/14/24 07:22 Resp 17 08/14/24 07:22 BP 168/67 08/14/24 07:22 Pulse Ox 94 L 08/14/24 07:22 FiO2 Intake & Output 08/13/24 08/14/24 08/14/24 18:59 06:59 18:59 Intake Total 1330 118 Output Total 375 Balance 955 118 Weight 96.1 kg Intake: IV 450 Lactated Ringers 1,000 ml 450 @ 75 mls/hr IV .[id number] [facility] Rx#:[id number] Oral 880 118 Output: Urine 375 Other: Voiding Method Indwelling Catheter Toilet # Voids 2 3 # Bowel Movements 2 - Labs CBC & Chem 7: 08/13/24 06:19 08/13/24 06:19 Labs: Abnormal Lab Results - Last 24 Hours (Table) 08/13/24 08/13/24 08/13/24 Range/Units 11:18 17:32 20:39 POC Glucose (mg/dL) 139 H 115 H 125 H (70-110) mg/dL 08/14/24 Range/Units 05:43 POC Glucose (mg/dL) 113 H (70-110) mg/dL
--- NOTE | 2024-08-14 13:42 | P.DS ---
Providers Date of admission: 08/06/24 12:34 Expected date of discharge: 08/14/24 Attending physician: Payton San MD Consults: 08/06/24 12:33 Consult Physician Routine Consulting Provider: Susi Diaz Consult Reason/Comments: AMS/BOSSMAN Do you want consulting provider notified?: Yes 08/08/24 06:03 Consult Physician Routine Consulting Provider: Rosa Landis Consult Reason/Comments: AMS, weakness, abnormal EEG Do you want consulting provider notified?: Yes, Notify in am 08/12/24 01:09 Consult Physician Stat Consulting Provider: Vilma Cheney Consult Reason/Comments: GIB acute Do you want consulting provider notified?: Yes 08/12/24 02:49 Consult Physician Stat Consulting Provider: Enid Handley Consult Reason/Comments: moved to ICU Do you want consulting provider notified?: Already Contacted 08/12/24 02:51 Consult Physician Stat Consulting Provider: Enid Handley Consult Reason/Comments: moved to icu Do you want consulting provider notified?: Already Contacted Primary care physician: [facility] Course: Patient left AMA. Please see today's progress note for further details. Plan - Discharge Summary Discharge Rx Participant: No New Discharge Prescriptions: No Action Sertraline [Zoloft] 100 mg PO DAILY Morphine Sulfate ER [Ms Contin] 30 mg PO Q12HR Pregabalin [Lyrica] 225 mg PO BID tiZANidine HCL 4 mg PO BID PRN PRN Reason: muscle spasms oxyCODONE-APAP 7.5-325MG [Percocet 7.5-325 mg] 1 tab PO BID PRN PRN Reason: Breakthrough Pain Metoprolol Succinate (ER) [Toprol XL] 25 mg PO DAILY lisinopriL [Zestril] 10 mg PO DAILY Aspirin EC [Ecotrin Low Dose] 81 mg PO DAILY Nitroglycerin Sl Tabs [Nitrostat] 0.4 mg SL Q5M PRN PRN Reason: Chest Pain Butalb/APAP/Caff 50-325-40Mg [Fioricet 50-325-40] 1 tab PO Q6HR PRN PRN Reason: Migraine Headache Rosuvastatin [Crestor] 10 mg PO DAILY Diclofenac Sodium [Voltaren] 75 mg PO BID PRN PRN Reason: Pain Albuterol Sulfate [Ventolin HFA] 2 puff INHALATION RT-Q4H PRN PRN Reason: Shortness Of Breath Discharge Medication List Morphine Sulfate ER [Ms Contin] 30 mg PO Q12HR 08/26/19 [History] Pregabalin [Lyrica] 225 mg PO BID 08/26/19 [History] Sertraline [Zoloft] 100 mg PO DAILY 08/26/19 [History] oxyCODONE-APAP 7.5-325MG [Percocet 7.5-325 mg] 1 tab PO BID PRN 08/26/19 [History] tiZANidine HCL 4 mg PO BID PRN 08/26/19 [History] Butalb/APAP/Caff 50-325-40Mg [Fioricet 50-325-40] 1 tab PO Q6HR PRN 12/30/21 [History] Diclofenac Sodium [Voltaren] 75 mg PO BID PRN 03/27/23 [History] Rosuvastatin [Crestor] 10 mg PO DAILY 03/27/23 [History] Metoprolol Succinate (ER) [Toprol XL] 25 mg PO DAILY 10/22/23 [History] lisinopriL [Zestril] 10 mg PO DAILY 10/22/23 [History] Albuterol Sulfate [Ventolin HFA] 2 puff INHALATION RT-Q4H PRN 08/06/24 [History] Aspirin EC [Ecotrin Low Dose] 81 mg PO DAILY 08/06/24 [History] Nitroglycerin Sl Tabs [Nitrostat] 0.4 mg SL Q5M PRN 08/06/24 [History] Follow up Appointment(s)/Referral(s): Nano Baker MD [Primary Care Provider] - 1-2 days [facility] Visiting Nurse, [NON-STAFF] - Discharge/Stand Alone Forms: Who Do I Call? Discharge Disposition: LEFT AGAINST MEDICAL ADVICE
== END 2024-08-14 11:15 | disposition left against medical advice (07) | DRG 682 ==
LOC: EC 08:50 → 3SCARD 12:34 → 2SICU 08-12 02:40 → 6NMEDSUR 08-13 15:06
PROVIDERS: ADMIT Family Medicine; ATTEND Family Medicine
PROC: 30233N1 Transfusion of Nonautologous Red Blood Cells into Peripheral Vein, Percutaneous Approach (ICD-10-PCS; 2024-08-12)
PROC: 0DB68ZX Excision of Stomach, Via Natural or Artificial Opening Endoscopic, Diagnostic (ICD-10-PCS; principal; 2024-08-12 08:30)
PROC: 0W3P8ZZ Control Bleeding in Gastrointestinal Tract, Via Natural or Artificial Opening Endoscopic (ICD-10-PCS; 2024-08-12 08:30)
DX: N17.0 Acute kidney failure with tubular necrosis (principal); G92.8 Other toxic encephalopathy; J69.0 Pneumonitis due to inhalation of food and vomit; K25.4 Chronic or unspecified gastric ulcer with hemorrhage; M62.82 Rhabdomyolysis; J44.1 Chronic obstructive pulmonary disease with (acute) exacerbation; E87.20 Acidosis, unspecified; D62 Acute posthemorrhagic anemia; E87.0 Hyperosmolality and hypernatremia; E87.1 Hypo-osmolality and hyponatremia; F11.23 Opioid dependence with withdrawal; F05 Delirium due to known physiological condition; I27.20 Pulmonary hypertension, unspecified; I10 Essential (primary) hypertension; E66.9 Obesity, unspecified; E11.65 Type 2 diabetes mellitus with hyperglycemia; F32.9 Major depressive disorder, single episode, unspecified; Z68.32 Body mass index [BMI] 32.0-32.9, adult; M79.7 Fibromyalgia; E78.5 Hyperlipidemia, unspecified; I25.10 Atherosclerotic heart disease of native coronary artery without angina pectoris; G89.29 Other chronic pain; E87.6 Hypokalemia; E86.9 Volume depletion, unspecified; I95.9 Hypotension, unspecified; F41.9 Anxiety disorder, unspecified; E87.5 Hyperkalemia; T39.395A Adverse effect of other nonsteroidal anti-inflammatory drugs [NSAID], initial encounter; W19.XXXA Unspecified fall, initial encounter; Z79.899 Other long term (current) drug therapy; Z87.891 Personal history of nicotine dependence; I25.2 Old myocardial infarction; Z79.82 Long term (current) use of aspirin; Z87.440 Personal history of urinary (tract) infections; Z95.5 Presence of coronary angioplasty implant and graft
CPT/HCPCS: 36415; 43239; 43255; 51702; 70450; 70496; 70498; 71045; 76770; 80048; 80053; 80306; 81001; 82550; 83605; 83735; 84132; 84439; 84443; 84484; 85025; 85027; 85610; 85730; 86850; 86900; 86901; 86920; 87040; 87636; 88305; 93005; 94640; 94760; 95816; 96361; 96365; 96366; 96367; 96372; 96375; 96376; 99291

== ENCOUNTER → 2025-01-29 | Outpatient (CLI) | payer MEDICARE, BC ==
--- NOTE | 2025-01-29 14:25 | US ---
EXAMINATION TYPE: US mass soft tissue chest/back DATE OF EXAM: 01/29/2025 COMPARISON: NONE CLINICAL INDICATION: Female, 69 years old with history of R22.2 LOCALIZED SWELLING, MASS AN; Patient feels lump in medial buttock bilateral and at ML sacrum after she fainted and fell on the area in De cember. TECHNIQUE: FINDINGS: No abnormality seen at ML sacrum palpable area. *Appearance of possible edema channels in the medial right buttock area. No mass seen at palpable are a. *Possible isoechoic area seen left medial buttock: 4.1 x 2.6 x 2.2 cm. IMPRESSION: No suspicious focal masses or fluid collections. [facility], , 01/29/2025 2:22 PM
--- NOTE | 2025-01-29 14:45 | MM ---
Reason for Exam: Screening (asymptomatic). Last mammogram was performed 1 year(s) and 10 month(s) ago. Patient History: Menarche at age 13. First Full-Term at age 16. Postmenopausal. Risk Values: Helena 5 year model risk: 1.2%. NCI Lifetime model risk: 3.9%. Prior Study Comparison: 04/23/2023 Bilateral MG 3D screening mammo w/cad, [facility]. Tissue Density: The breasts are almost entirely fatty. Findings: Analyzed By CAD. Right breast: There is no suspicious group of microcalcifications or new suspicious mass. Benign-appearing calcifications right breast. Left breast: There is no suspicious group of microcalcifications or new suspicious mass. Overall Assessment: Negative, BI-RAD 1 Management: Screening Mammogram of both breasts in [address] [facility] will attempt to contact patient to return for supplemental views and ultrasound if indicated. Patient should continue monthly self-breast exams. A clinical breast exam by your physician is recommended on an annual basis. This exam should not preclude additional follow-up of suspicious palpable abnormalities. Note on Helena scores and lifetime risk: 1. A Helena score greater than 3% is considered moderate risk. If this is the case, consider specialist referral to assess eligibility for a risk reducing agent. 2. If overall lifetime risk for the development of breast cancer is 20% or higher, the patient may qualify for future screening with alternating mammogram and breast MRI. [facility], , 01/29/2025 2:41 PM. Electronically signed and approved by: Qasim Aleman DO
== END | disposition home or self-care (01) ==
LOC: RADUSWWP 13:08
PROVIDERS: ATTEND Family Medicine
DX: Z12.31 Encounter for screening mammogram for malignant neoplasm of breast (principal); R92.313 Mammographic fatty tissue density, bilateral breasts; Z78.0 Asymptomatic menopausal state
CPT/HCPCS: 77063; 77067

== ENCOUNTER 2025-02-09 05:46 | Day surgery (SDC) | payer MEDICARE, BC ==
[2025-02-08 12:13] VITALS: BMI 36.0
[~2025-02-09 05:46] MED LIST: LIDOCAINE 1% (10MG/ML) FOR IV START INTRADERMA PRN
[2025-02-09] MEDS: IV FLUID CONTINUATION 1,000 ML IV ONE (06:22)
[2025-02-09 06:23] VITALS: TEMP 97.6
[2025-02-09] MEDS: LACTATED RINGERS 1,000 ML IV SCH (06:26)
[2025-02-09] MEDS ORDERED: LIDOCAINE 1% INJ 10MG/ML (20 ML MDV) ONE (06:58)
[2025-02-09] MEDS ORDERED: PROPOFOL 10 MG/ML 20 ML VIAL IV ONE (06:58)
[2025-02-09] MEDS ORDERED: MIDAZOLAM 2 MG/2 ML VIAL ONE (06:58)
--- NOTE | 2025-02-09 07:30 | P.PCN ---
Date of Procedure: 02/09/25 Procedure(s) Performed: Brief history: Patient is a pleasant 69-year-old white female scheduled for an elective upper endoscopy as well as colonoscopy as a part of polyp of gastric ulcers and screening for colon cancer. She had an upper endoscopy done in July before last 2 for acute GI bleed and hemoglobin of 5.8 g/dL upper endoscopy revealed multiple gastric ulcers. She since has been on Protonix 40 mg daily and doing well. Procedure performed: Esophagogastroduodenoscopy with biopsy Colonoscopy with biopsy Preoperative diagnosis: Follow-up gastric ulcer diagnosed in July 2020 Screening for colon cancer Anesthesia: MAC Procedure: After informed consent was obtained from the patient was brought into the endoscopy unit and IV sedation was administered by anesthesia under continuous monitoring. Initially upper endoscopy was done. The Olympus GF 160 video endoscope was inserted inserted into the mouth and esophagus intubated without any difficulty and was gradually advanced into the stomach and duodenum and carefully examined. The bulb and second part of the duodenum appeared normal. The scope was then withdrawn into the stomach adequately insufflated with air and upon careful examination the antrum and body, cardia and fundus appeared normal. The previously noted gastric ulcerations are healed. Mucosa of the gastric body had atrophic appearing mucosa consistent with atrophic gastritis. The scope was then withdrawn into the esophagus. The GE junction was located at 40 cm to the incisors. It appeared regular with no erythema erosions or ulcerations. Rest of the esophagus appeared normal. Patient tolerated the procedure well. At this time the patient continued to remain sedation. Initial digital rectal examination was normal. Olympus CF 160 video colonoscope was then inserted into the rectum and gradually advanced to the cecum without any difficulty. Careful examination was performed as the scope was gradually being withdrawn. The prep was excellent. The cecum, appeared normal. Descending colon there was a 1 cm superficial nonbleeding ulceration identified which was biopsied. In the transverse colon there was a 2 cm linear ulceration with exudate and biopsies were done from this area. In the descending colon there was a 4 cm broad-based ulceration with a clean base and clean margins status post multiple biopsies. Rest of the ascending colon, transverse colon, descending colon, sigmoid colon and rectum appeared normal. Retroflexion was performed in the rectum and no lesions were noted. Patient tolerated the procedure well. Impression: 1. Upper endoscopy revealed completely healed gastric ulcers but evidence of atrophic appearing gastritis involving the body of the stomach 2. Colonoscopy revealed isolated scattered ulcerations in the ascending colon, transverse colon and descending colon measuring 1 cm, 2 cm and 4 cm in size status post multiple biopsies and scattered sigmoid diverticulosis Recommendations: Findings of this examination were discussed with the patient as well as her family. She was advised to follow with the biopsy results. She was advised to avoid NSAIDs. Follow-up in the office in 2 weeks.
[2025-02-09 07:58] VITALS: BP 155/72; PULSE 57; RESP 16
== END 2025-02-09 08:16 | disposition home or self-care (01) ==
LOC: ORWHC2ENDO 05:46
PROVIDERS: ATTEND Internal Medicine Gastroenterology
DX: Z12.11 Encounter for screening for malignant neoplasm of colon (principal); K51.90 Ulcerative colitis, unspecified, without complications; K57.30 Diverticulosis of large intestine without perforation or abscess without bleeding; K31.89 Other diseases of stomach and duodenum; Z87.11 Personal history of peptic ulcer disease; Z87.19 Personal history of other diseases of the digestive system; I10 Essential (primary) hypertension; I25.10 Atherosclerotic heart disease of native coronary artery without angina pectoris; F41.9 Anxiety disorder, unspecified; M79.7 Fibromyalgia; F32.A Depression, unspecified; F17.200 Nicotine dependence, unspecified, uncomplicated; Z79.899 Other long term (current) drug therapy; Z79.82 Long term (current) use of aspirin
CPT/HCPCS: 88305; 45380; 43235; J2250; J2003; J2704